=== PATIENT | female | born 1950 | race Caucasian/White ===

== ENCOUNTER 2019-07-03 08:23 | Outpatient (CLI) | payer MEDICARE, OTHER, SELFPAY ==
[2019-07-03 09:22] LABS: Add Urine Microscopic? YES; Appearance Urine Clear (Clear); Bacteria Urine Trace /hpf; Bilirubin Urine Negative (Negative); Blood Urine Negative (Negative); Color Urine Straw (Yellow); Glucose Urine UA Negative (Negative); Ketones Urine Negative (Negative); Leukocyte Esterase Ur 3+ LEU/UL (Negative); Mucus Urine Rare /lpf; Nitrate Urine Negative (Negative); Protein Urine Negative (Negative); RBC Urine 0-2 /hpf (0-2); Specific Grav Ur 1.011 (1.001-1.035); Squamous Epithelial Cell Urine Few /hpf (Few); Urobilinogen Urine Negative mg/dL (<2.0); WBC Urine 0-3 /hpf
== END 2019-07-03 08:24 | disposition home or self-care (01) ==
PROVIDERS: PCP Internal Medicine; Visit Provider Internal Medicine
DX: R30.0 Dysuria (principal)
CPT/HCPCS: 81001

== ENCOUNTER 2019-08-07 00:28 | Day surgery (SDC) | payer MEDICARE, OTHER, SELFPAY ==
[2019-08-02 09:43] VITALS: BMI 29.2
[2019-08-07 08:37] VITALS: BP 96/54; PULSE 64; RESP 16; TEMP 36.5; O2SAT 98
[2019-08-07] MEDS: LACTATED RINGERS 1,000 ML 150 ML IV CONT ×2 (08:46→10:06)
--- NOTE | 2019-08-07 09:21 | WPDGICN ---
Assessment and Plan Additional Plan This is a 68-year-old white female patient seen in evaluation at the request of Dr. Ghotra. Patient complains difficulty swallowing. She has a history Of dyspepsia and acid reflux. She has been on Prilosec for several years. Current we complains of food catching in the mid upper chest. In the throat area. She has a sensation of passing slowly through this area. Patient denies any bleeding. She denies any weight loss. Past medical history is significant for arthritis for which she takes ibuprofen, she has a history of GE reflux disease for which she takes Prilosec. Current medications include ibuprofen, Prilosec, hydrocortisone, paroxetine, fluticasone, fexofenadine, cyclobenzaprine, she reports allergies to sulfa medications. Family history noncontributory. Physical exam reveals her to be alert. Vital signs stable. HEENT exam unremarkable. Lungs are clear to auscultation and percussion. Heart is without murmur or extra sounds. Abdominal exam bowel sounds are present soft nontender with no organomegaly. Digital external rectal exam deferred day of exam. Impression 1. Dysphagia. 2. Epigastric pain. 3. Dyspepsia. Plan is for EGD to assess dysphagia and epigastric pain. Patient reports a history of GE reflux disease. Plan is to continue Prilosec for now further recommendations may be given after endoscopy. GI Consult Note Consult date/time: 08/07/19 09:21 HPI: Mago Vogel is a 68 year old female [facility] Social History Social History Smoking packs per day: 1 Smoking cigarettes per day: 20.0 Smoking status: Current every day smoker Tobacco type: cigarettes Second hand tobacco smoke exposure: Yes Alcohol intake: never Meds Home Medications and Allergies Home Medications Medication Instructions Recorded Confirmed Type cyclobenzaprine 10 mg tablet 10 mg PO .hs PRN tablet 06/24/19 08/02/19 History fexofenadine 180 mg tablet 180 mg PO DAILY 06/24/19 08/07/19 History fluticasone propionate 50 2 spray NASAL DAILY 06/24/19 08/07/19 History mcg/actuation nasal spray,suspension hydrocodone 5 mg-acetaminophen 325 1 tablet PO Q12H PRN tablet 06/24/19 08/02/19 History mg tablet paroxetine HCl 10 mg tablet 10 mg PO DAILY 06/24/19 08/07/19 History cholecalciferol (vitamin D3) 50 2,000 unit PO DAILY 06/25/19 08/07/19 History mcg (2,000 unit) capsule famciclovir 500 mg tablet 500 mg PO Q8H #30 tablet 06/25/19 08/07/19 Rx ibuprofen 600 mg PO BID 08/07/19 08/07/19 History Allergies Allergy/AdvReac Type Severity Reaction Status Date / Time Sulfa (Sulfonamide Allergy Mild made UTI Verified 08/07/19 08:34 Antibiotics) worse sulfanilamide Allergy Mild made uti Verified 08/07/19 08:34 worse Vital Signs Vital Signs - 24 hr 08/07/19 08:37 Temperature 36.5 C Pulse Rate 64 Respiratory Rate 16 Blood Pressure 96/54 L Pulse Oximetry 98
--- NOTE | 2019-08-07 09:52 | WPDANESEPPF ---
Anes - Initial Pre Proc Eval Procedure: Operation Date: 08/07/19 09:30 Proposed Procedures p Esophagogastroduodenoscopy - Td Castellano MD Date/Time: 08/07/19 09:52 Surgeon: Td Castellano MD Pre Op Diagnosis: Dysphagia Patient Data Age: 68 Gender: F Height: 5 ft 9 in Weight: 86.5 kg Last Vital Signs Temp 97.7 F 08/07/19 08:37 Pulse 64 08/07/19 08:37 Resp 16 08/07/19 08:37 BP 96/54 L 08/07/19 08:37 Pulse Ox 98 08/07/19 08:37 Allergies Allergy/AdvReac Type Severity Reaction Status Date / Time Sulfa (Sulfonamide Allergy Mild made UTI Verified 08/07/19 08:34 Antibiotics) worse sulfanilamide Allergy Mild made uti Verified 08/07/19 08:34 worse Home Medications Medication Instructions Recorded Confirmed Type cyclobenzaprine 10 mg tablet 10 mg PO .hs PRN tablet 06/24/19 08/02/19 History fexofenadine 180 mg tablet 180 mg PO DAILY 06/24/19 08/07/19 History fluticasone propionate 50 2 spray NASAL DAILY 06/24/19 08/07/19 History mcg/actuation nasal spray,suspension hydrocodone 5 mg-acetaminophen 325 1 tablet PO Q12H PRN tablet 06/24/19 08/02/19 History mg tablet paroxetine HCl 10 mg tablet 10 mg PO DAILY 06/24/19 08/07/19 History cholecalciferol (vitamin D3) 50 2,000 unit PO DAILY 06/25/19 08/07/19 History mcg (2,000 unit) capsule famciclovir 500 mg tablet 500 mg PO Q8H #30 tablet 06/25/19 08/07/19 Rx ibuprofen 600 mg PO BID 08/07/19 08/07/19 History Patient hx anesthesia problems: post op nausea/vomiting Family hx anesthesia problems: none PMFSH Past Medical History Medical History (Updated 08/07/19 @ 09:52 by Tolu Stark MD) Arthritis TIA (transient ischemic attack) none since 1985; unknown etiology after workup Social History Social History Smoking packs per day: 1 Smoking cigarettes per day: 20.0 Smoking status: Current every day smoker Tobacco type: cigarettes Second hand tobacco smoke exposure: Yes Alcohol intake: never Anes - Eval Final PreProcedure Day of Procedure 08/07/19 09:52 Patient weight: normal Heart: regular rate and rhythm Lungs: clear to auscultation Airway: Mallampati scale class II Neurological: alert and oriented Last oral intake: >/= 8 hours ASA classification: II Emergent: no Anesthetic plan: proceed Anesthesia type and monitoring: general GIVS and standard monitoring Informed Consent: The patient's anesthetic plan and its attendant risks and benefits were discussed with the patient/family/POA. Questions were solicited and answers provided to the satisfaction of the patient/family/POA.
[2019-08-07 10:30] VITALS: BP 85/55; PULSE 61; RESP 19; O2SAT 100
[2019-08-07 10:40] VITALS: BP 105/59; PULSE 64; RESP 16; O2SAT 100
[2019-08-07 10:50] VITALS: BP 107/55; PULSE 59; RESP 17; O2SAT 98
== END 2019-08-07 11:10 | disposition home or self-care (01) ==
PROVIDERS: PCP Internal Medicine; Visit Provider Internal Medicine Gastroenterology
PROC: 0DJ08ZZ Inspection of Upper Intestinal Tract, Via Natural or Artificial Opening Endoscopic (ICD-10-PCS; CPT 43235; principal; 2019-08-07 09:30)
DX: Q39.4 Esophageal web (principal); K21.9 Gastro-esophageal reflux disease without esophagitis; M19.90 Unspecified osteoarthritis, unspecified site; F17.210 Nicotine dependence, cigarettes, uncomplicated; Z86.73 Personal history of transient ischemic attack (TIA), and cerebral infarction without residual deficits
CPT/HCPCS: 43235; 43450; J2704; J7120

== ENCOUNTER 2020-01-21 08:50 | Emergency (ER) | payer MEDICARE, OTHER, SELFPAY ==
[2020-01-21] VITALS (24 sets, daily range): BP systolic 96–117; BP diastolic 49–62; PULSE 60–84; RESP 12–30; TEMP 36.6; O2SAT 92–100
--- NOTE | ~2020-01-21 | CT_ITS ---
EXAMINATION: CTA chest PE protocol EXAM DATE: 01/21/2020 11:20 INDICATION: Syncope. History of surgery 2 weeks ago. TECHNIQUE: Spiral CTA of the chest (pulmonary arteries) was performed with 100 cc Omnipaque 350 intr avenous contrast injection. Images were acquired during the pulmonary arterial phase. Coronal maxi mum intensity projection 3D-reconstructions were created by the technologist on dedicated workstation . Axial, coronal and sagittal reformatted images were reviewed. The dose-length product (DLP) for t his examination was 260.03 mGy-cm. The exposure was tailored according to patient size (auto mA exp osure control), and iterative reconstruction (ASIR) was used as additional dose reduction technique. There is no prior study for comparison. FINDINGS: Pulmonary arteries are well opacified and without intraluminal filling defects. No thora cic aortic dissection. The lungs are clear. There are no pleural or pericardial effusions. Trach eobronchial tree is patent. There is borderline enlarged aortopulmonary lymph node, probably reacti ve. There is no pneumothorax. Heart normal in size. There is minimal coronary arterial calcifica tion, arterial sclerosis. Several liver hypodensities consistent with cysts. There is thoracic spon dylosis without osteoblastic or osteolytic lesions identified. IMPRESSION: 1. No pulmonary emboli or acute findings. 2. Borderline size aortopulmonary lymph node probably reactive. Reviewed, dictated and finalized at location B.
--- NOTE | ~2020-01-21 | XR_ITS ---
EXAMINATION: XR ribs LT 2V w CXR 2V DATE: 01/21/2020 10:58 INDICATION: Left posterior rib pain. Fall. TECHNIQUE: Frontal and lateral views of the chest and 3 views of the left ribs were obtained. COMPARISON: Chest 2 views 04/22/2015 FINDINGS: CHEST TWO VIEWS: Calcified pulmonary nodules and calcified mediastinal lymph nodes are consistent wit h old granulomatous disease. No pleural effusion or pneumothorax. The heart size is normal. There are changes of anterior fusion procedure in cervical spine. Surgical clips in the right upper quadrant a re likely from cholecystectomy. LEFT RIBS: There is no rib fracture. IMPRESSION: 1. No rib fracture. Reviewed, dictated and finalized at location A. IMPRESSION: 1. No rib fracture.
--- NOTE | ~2020-01-21 | US_ITS ---
EXAMINATION: US venous doppler [facility] EXAM DATE: 01/21/2020 11:12 INDICATION: Left leg pain. TECHNIQUE: Multiple grayscale, color flow and Doppler images of the left lower extremity deep venous system were obtained and reviewed. There is no prior study for comparison. FINDINGS: The left common femoral, femoral and profunda veins demonstrate normal color flow, respirat ory variation, augmentation and compressibility. Compressibility, color flow confirmed within the le ft popliteal, posterior tibial, peroneal, and greater saphenous veins. IMPRESSION: 1. No left lower extremity deep venous thrombosis. Reviewed, dictated and finalized at location B.
--- NOTE | ~2020-01-21 | XR_ITS ---
EXAMINATION: XR knee LT 3V DATE: 01/21/2020 10:58 INDICATION: Left knee injury. TECHNIQUE: 3 views of left knee were obtained. COMPARISON: None. FINDINGS: There is a total left knee arthroplasty with patellar resurfacing in near-anatomic alignmen t. No fracture. No periprosthetic lucency to suggest loosening or infection. No knee joint effusion. IMPRESSION: 1. Total left knee arthroplasty in near-anatomic alignment. Reviewed, dictated and finalized at location A.
--- NOTE | 2020-01-21 08:54 | ECG_ITS ---
Measurements Intervals [place] Rate: 64 P: 30 PA: 148 QRS: -4 QRSD: 84 T: 32 QT: 406 QTc: 421 Interpretive Statements SINUS RHYTHM NONSPECIFIC T-WAVE ABNORMALITY- INFERIOR LEADS BASELINE ARTIFACT- III, AVR, AVL, AVF, V1-V3 BORDERLINE ECG Electronically Signed On 01-21-2020 12:00:42 CDT by Alexi Swanson D.O.
[2020-01-21 09:06] LABS: Basophils Absolute Auto 0.1 K/mm3 (0.0-0.1); Basophils Percent Auto 1.1 % (0.2-1.2); Eosinophils Absolute Auto 0.4 K/mm3 (0-0.3); Eosinophils Percent Auto 4.8 % (0-4.4); Hematocrit 36.2 % (37.0-47.0); Hemoglobin 12.1 g/dL (12.0-15.0); Immature Granulocyte Absolute 0.05 K/mm3 (0.00-0.031); Immature Granulocyte Percent A 0.6 % (0-0.5); Lymphocytes Absolute Auto 1.04 K/mm3 (0.9-3.2); Lymphocytes Percent Auto 12.7 % (18.3-44.2); Mean Corpuscular HGB Conc 33.4 g/dl (32-36); Mean Corpuscular Hemoglobin 31.7 pg (26-34); Mean Corpuscular Volume 94.8 fl (80-100); Mean Platelet Volume 9.3 fl (7.4-10.4); Monocytes Absolute Auto 0.4 K/mm3 (0.1-0.6); Monocytes Percent Auto 5.3 % (2.6-8.5); Neutrophils Absolute Auto 6.2 K/mm3 (1.3-6.7); Neutrophils Percent Auto 75.5 % (45.5-73.1); Platelet Count Result 293 k/mm3 (150-375); Red Blood Count 3.82 M/mm3 (4.2-5.4); Red Cell Distribution Width 13.6 % (11.5-14.5); White Blood Count 8.2 K/mm3 (4.5-10.0)
[2020-01-21 09:30] LABS: Anion Gap 5 mmol/L (8-16); Blood Urea Nitrogen 16 mg/dL (7-17); Calcium 8.9 mg/dL (8.4-10.2); Carbon Dioxide 26 mmol/L (22-30); Chloride 104 mmol/L (98-107); Estimated CRCL calculation 62 ml/min; Estimated Glomerular Filt Rate > 60; Glucose 106 mg/dL (65-105); Potassium 4.1 mmol/L (3.4-5.0); Sodium 135 mmol/L (137-145)
[2020-01-21 10:52] LABS: D Dimer 3.65 ug/mL (<0.48)
[2020-01-21 11:12] LABS: Troponin I < 0.012 ng/mL (0.000-0.034)
[2020-01-21] MEDS: SODIUM CHLORIDE 0.9% IV 1,000 ML 999 ML IV CONT (11:31)
--- NOTE | 2020-01-21 11:31 | ED.GENADULT ---
HPI - General Adult General Chief complaint: Syncope <REMINGTON Daugherty Last Filed: 01/21/20 13:08> Stated complaint: syncope <REMINGTON Daugherty Last Filed: 01/21/20 13:08> Time Seen by Provider: 01/21/20 10:08 <REMINGTON Daugherty Last Filed: 01/21/20 13:08> Source: patient and family <REMINGTON Daugherty Last Filed: 01/21/20 13:08> Mode of arrival: EMS <REMINGTON Daugherty Last Filed: 01/21/20 13:08> Limitations: no limitations <REMINGTON Daugherty Last Filed: 01/21/20 13:08> History of Present Illness HPI narrative: Patient is a 69-year-old female who presents with syncopal episodes x2 patient had one yesterday while sitting in a chair rolled over into the grass family was with the patient was unconscious for short period of time patient then had another syncopal episode today while sitting in her chair did not fall or sustain any injuries from the syncopal episode on arrival to emergency department patient notes mild discomfort of the left knee where she had a knee replacement 3 weeks ago patient also has some discomfort across the lower back and has a history of low back pain patient denies any head injury neck pain rectal bleeding or melena or any difficulty breathing or chest pain or URI symptoms. Patient notes mild pain to the right ribs. Patient on arrival in the room in no distress <REMINGTON Daugherty Last Filed: 01/21/20 13:08> Related Data Home medications: Home Medications Medication Instructions Recorded Confirmed fexofenadine 180 mg tablet 180 mg PO DAILY 06/24/19 08/07/19 fluticasone propionate 50 2 spray NASAL DAILY 06/24/19 08/07/19 mcg/actuation nasal spray,suspension hydrocodone 5 mg-acetaminophen 325 1 tablet PO Q12H PRN tablet 06/24/19 08/02/19 mg tablet paroxetine HCl 10 mg tablet 10 mg PO DAILY 06/24/19 08/07/19 cholecalciferol (vitamin D3) 50 2,000 unit PO DAILY 06/25/19 08/07/19 mcg (2,000 unit) capsule celecoxib [Celebrex] 100 mg PO BID 01/21/20 <Dominick Palacios PA-C - Last Filed: 01/21/20 13:08> Allergies/adverse reactions: Allergies Allergy/AdvReac Type Severity Reaction Status Date / Time Sulfa (Sulfonamide Allergy Mild made UTI Verified 01/21/20 08:56 Antibiotics) worse sulfanilamide Allergy Mild made uti Verified 01/21/20 08:56 worse <Dominick Palacios PA-C - Last Filed: 01/21/20 13:08> Review of Systems Review of Systems: All systems reviewed & are unremarkable except as noted in HPI and below <Dominick Palacios PA-C - Last Filed: 01/21/20 13:08> PMFSH Past Medical History Medical History: Medical History (Updated 01/21/20 @ 12:46 by Cassandra Lea MD) Arthritis TIA (transient ischemic attack) none since 1985; unknown etiology after workup <Dominick Palacios PA-C - Last Filed: 01/21/20 13:08> Surgical History Surgical History: Surgical History (Updated 01/21/20 @ 11:33 by Dominick Palacios PA-C) History of orthopedic surgery <Dominick Palacios PA-C - Last Filed: 01/21/20 13:08> Family History Family History: Family History Mother Family history of malignant neoplasm Patient's mother is Father Patient's father is Family history of emphysema <Dominick Palacios PA-C - Last Filed: 01/21/20 13:08> Social History Social History: Social History Smoking packs per day: 1 Smoking cigarettes per day: 20.0 Smoking status: Current every day smoker Tobacco type: cigarettes Second hand tobacco smoke exposure: Yes Alcohol intake: never Substance use: never <Dominick Palacios PA-C - Last Filed: 01/21/20 13:08> Exam Narrative: Exam Narrative: GENERAL: Well-appearing, well-nourished, and in no acute distress. HEAD: Normocephalic, atraumatic. EYES: PERRLA and EOMI. ENT: Nares
[2020-01-21] MEDS: ONDANSETRON INJ 4 MG/2 ML VIAL IV PUSH (11:32)
[2020-01-21] MEDS: FAMOTIDINE 20 MG/2 ML VIAL IV PUSH (11:32)
[2020-01-21 11:33] LABS: Partial Thromboplastin Time 28.6 SECONDS (22.3-36.8); Prothrombin Time 12.7 Seconds (11.1-14.7)
[2020-01-21 12:57] LABS: Add Urine Microscopic? NO; Appearance Urine Clear (Clear); Bilirubin Urine Negative (Negative); Blood Urine Negative (Negative); Color Urine Colorless (Yellow); Glucose Urine UA Negative (Negative); Ketones Urine Negative (Negative); Leukocyte Esterase Ur Negative LEU/UL (Negative); Nitrate Urine Negative (Negative); Protein Urine Negative (Negative); RBC Urine 0-2 /hpf (0-2); Squamous Epithelial Cell Urine Rare /hpf (Few); Urobilinogen Urine Negative mg/dL (<2.0); WBC Urine 0-3 /hpf
[2020-01-21 12:59] LABS: Specific Grav Ur 1.039 (1.001-1.035)
== END 2020-01-21 13:20 | disposition home or self-care (01) ==
PROVIDERS: Emergency Medicine Emergency Medical Services; Emergency Provider Emergency Medicine; PCP Internal Medicine
DX: G89.18 Other acute postprocedural pain (principal); Z96.652 Presence of left artificial knee joint; R55 Syncope and collapse; M19.90 Unspecified osteoarthritis, unspecified site; F17.210 Nicotine dependence, cigarettes, uncomplicated; Z86.73 Personal history of transient ischemic attack (TIA), and cerebral infarction without residual deficits; M79.605 Pain in left leg
CPT/HCPCS: 36415; 71046; 71100; 71275; 73562; 80048; 81003; 84484; 85025; 85380; 85610; 85730; 93005; 93971; 96365; 96375; 99284; J0131; J2405; J7030; Q9967

== ENCOUNTER 2020-02-03 16:14 | Outpatient (CLI) | payer MEDICARE, OTHER, SELFPAY ==
--- NOTE | ~2020-02-03 | MR_ITS ---
EXAMINATION: MR lumbar spine wo con DATE: 02/03/2020 17:15 INDICATION: Lumbar spinal stenosis. Fall 2 weeks prior. TECHNIQUE: Magnetic resonance imaging (MRI) of the lumbar spine was performed without intravenous con trast. Sequences included sagittal T2-weighted FSE, sagittal T2-weighted FS FSE, sagittal T1-weighted FSE, and axial T2-weighted FSE. COMPARISON: 09/22/2017 FINDINGS: 15 degree lumbar dextroscoliosis. 3 mm retrolisthesis L1 on L2, 3 mm retrolisthesis L2 on L3, 3 mm re trolisthesis and 4 mm right lateral listhesis of L3 on L4. Vertebral body heights are normal. Severe disc height loss at L1-L2. Mild to moderate left-sided predominant disc height loss at L2-L3 and L3-L 4. Disc desiccation without disc height loss at L4-L5. Fibrovascular degenerative endplate changes an teriorly at both sides of the L1-L2 disc space. Marrow signal is otherwise normal. The conus medullar is terminates at L1. There is normal signal in the caudal spinal cord. Paravertebral soft tissues are unremarkable. The following disc levels are specifically discussed: T12-L1: The disc does not extend beyond the endplate margin. There is moderate left and severe right facet joint osteoarthritis. There is minimal right neural foraminal stenosis. There is no central can al stenosis. L1-L2: Disc is bulging with annular fissure. There is severe bilateral facet joint osteoarthritis. Th ere is moderate left and mild right neural foraminal stenosis. There is mild central canal stenosis. L2-L3: Disc is bulging. There is severe bilateral facet joint osteoarthritis. There is mild right and moderate left neural foraminal stenosis. There is mild central canal stenosis. L3-L4: Disc is bulging. There is hypertrophy of the ligamentum flavum. There is severe bilateral fac et joint osteoarthritis. There is moderate bilateral, right greater than left neural foraminal stenos is. There is mild to moderate central canal stenosis. L4-L5: Disc is bulging with annular fissure. There is hypertrophy of the ligamentum flavum. There is severe bilateral facet joint osteoarthritis. There is mild left and moderate right neural foraminal stenosis. There is mild central canal stenosis. L5-S1: The disc does not extend beyond the endplate margin. There is severe bilateral facet joint ost eoarthritis. There is mild bilateral neural foraminal stenosis. There is no central canal stenosis. IMPRESSION: 1. Minimal progression of severe lumbar spondylosis. Reviewed, dictated and finalized at location B.
== END 2020-02-03 16:15 | disposition home or self-care (01) ==
PROVIDERS: PCP Physician Assistant; Visit Provider Physician Assistant
DX: M47.896 Other spondylosis, lumbar region (principal)
CPT/HCPCS: 72148

== ENCOUNTER 2020-07-24 17:12 | Emergency (ER) | payer MEDICARE, OTHER, SELFPAY ==
--- NOTE | ~2020-07-24 | CT_ITS ---
EXAMINATION: CT brain wo [facility] EXAM DATE: 07/24/2020 17:46 INDICATION: Stroke. TECHNIQUE: Spiral CT of the head was performed without contrast. Axial, coronal and sagittal images were reviewed. The dose-length product (DLP) for this examination was 605.33 mGy-cm. The exposure w as tailored according to patient size, and iterative reconstruction (ASIR) was used as additional dos e reduction technique. Comparison is made to prior examination from 04/22/2015. FINDINGS: There is no acute intraparenchymal hemorrhage. No evidence of intraparenchymal brain mass lesion. No evidence of acute infarction. There is no mass effect or midline shift. The ventricles are normal in size. There are no extra-axial collections. There are no acute calvarial fractures. P eunice has had bilateral ocular lens surgery. Soft tissue is unremarkable. The visualized sinuses a nd mastoid air cells are well aerated. IMPRESSION: 1. No acute intracranial findings. As per stroke protocol, I called these results to emergency room, discussed with charge nurse in the emergency room at 07/24/2020 17:49 STAFF DEVELOPMENT COORDINATOR RN . Reviewed, dictated and finalized at location A. F DEVELOPMENT COORDINATOR RN IMPRESSION: 1. No acute intracranial findings. As per stroke protocol, I called these results to emergency room, discussed wit h charge nurse in the emergency room at 07/24/2020 17:49 STAFF DEVELOPMENT COORDINATOR RN .
[2020-07-24 17:24] VITALS: BP 117/50; PULSE 63; RESP 18; TEMP 36.6; O2SAT 97
[2020-07-24 17:33] LABS: Glucose Point of Care 93 (65-105)
--- NOTE | 2020-07-24 17:43 | PC.NURSE ---
Pt to CT via w/c.
[2020-07-24 17:45] LABS: Basophils Absolute Auto 0.1 K/mm3 (0.0-0.1); Basophils Percent Auto 0.9 % (0.2-1.2); Eosinophils Absolute Auto 0.3 K/mm3 (0-0.3); Eosinophils Percent Auto 4.8 % (0-4.4); Hematocrit 40.2 % (37.0-47.0); Hemoglobin 13.5 g/dL (12.0-15.0); Immature Granulocyte Absolute 0.01 K/mm3 (0.00-0.031); Immature Granulocyte Percent A 0.2 % (0-0.5); Lymphocytes Absolute Auto 1.58 K/mm3 (0.9-3.2); Lymphocytes Percent Auto 24.6 % (18.3-44.2); Mean Corpuscular HGB Conc 33.6 g/dl (32-36); Mean Corpuscular Hemoglobin 32.3 pg (26-34); Mean Corpuscular Volume 96.2 fl (80-100); Mean Platelet Volume 10.1 fl (7.4-10.4); Monocytes Absolute Auto 0.5 K/mm3 (0.1-0.6); Monocytes Percent Auto 7.3 % (2.6-8.5); Neutrophils Percent Auto 62.2 % (45.5-73.1); Platelet Count Result 198 k/mm3 (150-375); Red Blood Count 4.18 M/mm3 (4.2-5.4); Red Cell Distribution Width 12.9 % (11.5-14.5); White Blood Count 6.4 K/mm3 (4.5-10.0)
[2020-07-24 17:54] LABS: INR 0.9; Prothrombin Time 12.7 Seconds (11.1-14.7)
[2020-07-24 17:55] LABS: Partial Thromboplastin Time 31.7 SECONDS (22.3-36.8)
[2020-07-24 17:57] LABS: Alanine Aminotransferase 21 U/L (4-35); Albumin Level 4.4 g/dL (3.5-5.1); Alkaline Phosphatase 74 U/L (38-126); Anion Gap 5 mmol/L (8-16); Aspartate Amino Transferase 27 U/L (14-36); Bilirubin,Total 0.3 mg/dL (0.2-1.3); Blood Urea Nitrogen 21 mg/dL (7-17); Calcium 9.1 mg/dL (8.4-10.2); Carbon Dioxide 26 mmol/L (22-30); Chloride 106 mmol/L (98-107); Estimated CRCL calculation 57 ml/min; Estimated Glomerular Filt Rate 55; Glucose 88 mg/dL (65-105); Potassium 4.4 mmol/L (3.4-5.0); Sodium 137 mmol/L (137-145)
[2020-07-24 18:09] LABS: Troponin I < 0.012 ng/mL (0.000-0.034)
--- NOTE | 2020-07-24 19:40 | PC.NURSE ---
patient present to triage with difficulty finding words and concentrating. states now has no symptoms. does not want to change into gown or have labs drawn and states would just like to talk to md and leave
--- NOTE | 2020-07-24 19:58 | ED.NEUROSD ---
HPI - Neuro Symptoms/Deficit General Chief Complaint: Suspected CVA Stated Complaint: difficulty speaking, poor concentration Time Seen by Provider: 07/24/20 19:45 History of Present Illness HPI Narrative: Patient is 69-year-old female who presents the emergency department with chief complaint of difficulty with speech. The patient reports she has history of a TIA in the and intermittently takes aspirin. Patient states that today she was at home and noticed that she started garbling her speech the patient states this was similar to whenever she had a TIA in the 1980s states that she had no weakness in her arms or legs denied facial droop Related Data Home Medications Medication Instructions Recorded Confirmed fexofenadine 180 mg tablet 180 mg PO DAILY 06/24/19 07/07/20 fluticasone propionate 50 2 spray NASAL DAILY 06/24/19 07/07/20 mcg/actuation nasal spray,suspension hydrocodone 5 mg-acetaminophen 325 1 tablet PO Q12H PRN tablet 06/24/19 02/03/20 mg tablet cholecalciferol (vitamin D3) 50 2,000 unit PO DAILY 06/25/19 07/07/20 mcg (2,000 unit) capsule celecoxib [Celebrex] 100 mg PO BID 01/21/20 07/07/20 diclofenac sodium 75 mg 75 mg PO BID 07/07/20 07/07/20 tablet,delayed release Allergies Allergy/AdvReac Type Severity Reaction Status Date / Time Sulfa (Sulfonamide Allergy Mild made UTI Verified 07/07/20 13:19 Antibiotics) worse sulfanilamide Allergy Mild made uti Verified 07/07/20 13:19 worse Review of Systems Review of Systems: Narrative: A 10 system review of systems was completed on the patient and is negative except for what is stated in the HPI. Nursing and ancillary documentation was reviewed. [facility] Past Medical History Medical History Arthritis TIA (transient ischemic attack) none since 1985; unknown etiology after workup Surgical History Surgical History History of orthopedic surgery Family History Family History Mother Family history of malignant neoplasm Patient's mother is Father Patient's father is Family history of emphysema Social History Social History Smoking packs per day: 1 Smoking cigarettes per day: 20.0 Smoking status: Current every day smoker Tobacco type: cigarettes Second hand tobacco smoke exposure: Yes Alcohol intake: never Substance use: never Gender identity (if verbalized by the patient): Female Exam Narrative: Exam Narrative: GENERAL: Well-appearing, well-nourished, and in no acute distress. HEAD: Normocephalic, atraumatic. EYES: PERRLA and EOMI. ENT: Nares clear, no rhinorrhea or epistaxis. Mucous membranes moist. NECK: Supple. CHEST: Clear to auscultation. No respiratory distress. HEART: Regular rate and rhythm. No murmur heard. Normal peripheral pulses. ABDOMEN: Soft, nontender, nondistended, normal active bowel sounds. EXTREMITIES: Normal range of motion. No edema. SKIN: Warm, dry, no rash. NEURO: No focal deficits. Alert and oriented x3. PSYCH: Normal mood and affect. Course Course Emergency Course: Patient is currently back to baseline mental status. Patient has no focal neurological deficits it was discussed with the patient admission for TIA work-up the patient at this time opted to follow-up her primary care physician as an outpatient. Vital Signs Vital signs: Vital Signs Temperature 36.6 C 07/24/20 17:24 Pulse Rate 63 07/24/20 17:24 Respiratory Rate 18 07/24/20 17:24 Blood Pressure 117/50 L 07/24/20 17:24 Pulse Oximetry 97 07/24/20 17:24 Temperature 36.6 C 07/24/20 17:24 Pulse Rate 63 07/24/20 17:24 Respiratory Rate 18 07/24/20 17:24 Blood Pressure 117/50 L 07/24/20 17:24 Pulse Oximetry 97
== END 2020-07-24 20:19 | disposition home or self-care (01) ==
PROVIDERS: Emergency Medicine; Emergency Provider Emergency Medicine; PCP Internal Medicine
DX: G45.9 Transient cerebral ischemic attack, unspecified (principal); M19.90 Unspecified osteoarthritis, unspecified site; F17.210 Nicotine dependence, cigarettes, uncomplicated; Z86.73 Personal history of transient ischemic attack (TIA), and cerebral infarction without residual deficits
CPT/HCPCS: 36415; 70450; 80053; 82948; 84484; 85025; 85610; 85730; 99284

== ENCOUNTER 2020-07-30 10:47 | Outpatient (CLI) | payer MEDICARE, OTHER, SELFPAY ==
--- NOTE | 2020-07-30 10:58 | ECHO_ITS ---
Patient Info Name: Mago Vogel Age: 69 years : 1950 Gender: Female Ht: 69 in Wt: 190 lbs BSA: 2.07 m2 HR: 63 bpm BP: 95 / 47 mmHg Technical Quality: Good Exam Date: 07/30/2020 11:14 AM Exam Location: [facility] Patient Status: Outpatient Admit Date: 07/30/2020 Staff Ordering Physician: Jose Antonio Ghotra DO Glass Lined Tank Repairer: Julianna Tena RDCS Attending Provider: Jose Antonio Ghotra DO Referring Physician: Paradise WOODRUFF; Exam Type: CA echo doppler color flow Study Info Indications - TIA Complete two-dimensional, color flow and Doppler transthoracic echocardiogram is performed. Summary 1. Complete two-dimensional, color flow and Doppler transthoracic echocardiogram is performed. 2. Left ventricular chamber dimension is normal. 3. Left ventricular systolic function is normal, estimated at 60-65%. 4. The left ventricular diastolic function is grade II diastolic dysfunction. 5. E/e' 9 is minimally elevated. 6. There is mild mitral valve regurgitation. 7. There is mild tricuspid valve regurgitation. 8. No pulmonary hypertension, estimated pulmonary arterial systolic pressure is 22 mmHg. Left Ventricle E/e' 9 is minimally elevated. Left ventricular chamber dimension is normal. Left ventricular systolic function is normal, estimated at 60-65%. The left ventricular diastolic function is grade II diastolic dysfunction. Right Ventricle Right ventricular chamber dimension is normal. Right ventricular systolic function is normal. Left Atria Left atrial chamber dimension is normal. Right Atria Right atrial chamber dimension is normal. Aortic Valve The aortic valve is trileaflet. There is no aortic valve stenosis. There is no aortic valve regurgitation. Pulmonic Valve There is no pulmonic regurgitation. Mitral Valve There is no mitral valve stenosis. There is mild mitral valve regurgitation. Tricuspid Valve There is mild tricuspid valve regurgitation. No pulmonary hypertension, estimated pulmonary arterial systolic pressure is 22 mmHg. Pericardium/Pleural There is no pericardial effusion. Inferior Vena Cava Normal inferior vena cava with >50% collapse upon inspiration consistent with normal right atrial pressure, 5 mmHg. Aorta The aortic root size at the sinus of Valsalva is normal. Left Ventricular Outflow Tract Name Value Normal LVOT 2D LVOT Diameter 2.0 cm LVOT Doppler LVOT Peak Gradient 5 mmHg LVOT Mean Gradient 3 mmHg LVOT VTI 22 cm LVOT VTI/AV VTI Ratio 0.9 LVOT Stroke Volume 67 ml LVOT CO 13.7 l/min LVOT CI 6.6 l/min/m2 Pulmonic Valve Name Value Normal PV Doppler PV Peak
== END 2020-07-30 10:48 | disposition home or self-care (01) ==
PROVIDERS: PCP Internal Medicine; Visit Provider Internal Medicine
DX: G45.9 Transient cerebral ischemic attack, unspecified (principal)
CPT/HCPCS: 93306

== ENCOUNTER 2020-08-03 10:59 | Outpatient (CLI) | payer MEDICARE, OTHER, SELFPAY ==
--- NOTE | ~2020-08-03 | MR_ITS ---
EXAMINATION: MR brain/brain stem wo con DATE: 08/03/2020 11:36 INDICATION: Transient cerebral ischemic attack, unspecified. Speech deficit. TECHNIQUE: Magnetic resonance imaging (MRI) of the brain and brainstem was performed without intraven ous contrast. Sequences included sagittal and axial T1-weighted FSE, axial diffusion-weighted FS EPI, axial T2*-weighted GRE, axial T2-weighted FLAIR Propeller, and axial T2-weighted Propeller. Apparent diffusion coefficient (ADC) maps were created. COMPARISON: Head CT 07/24/2020 FINDINGS: There are scattered areas of nonspecific increased T2-weighted signal intensity in the cere bral white matter, which is within normal limits for the patient's age. There is no intracranial hemo rrhage, acute infarction, or abnormal intracranial mass lesion. The ventricles are normal in size. Th ere is mild mucosal thickening in the paranasal sinuses. There are likely changes of ocular lens repl acement surgeries. The mastoid air cells are normal. IMPRESSION: 1. Normal aging brain. Reviewed, dictated and finalized at location A. IN MACHINE OPERATOR IMPRESSION: 1. Normal aging brain.
== END 2020-08-03 11:00 | disposition home or self-care (01) ==
PROVIDERS: PCP Internal Medicine; Visit Provider Internal Medicine
DX: G45.9 Transient cerebral ischemic attack, unspecified (principal)
CPT/HCPCS: 70551

== ENCOUNTER 2020-08-10 15:44 | Outpatient (CLI) | payer MEDICARE, OTHER, SELFPAY ==
--- NOTE | ~2020-08-10 | US_ITS ---
EXAMINATION: US carotid duplex BI DATE: 08/10/2020 16:36 INDICATION: TIA TECHNIQUE: Grayscale, color Doppler, and pulsed Doppler images of the cervical carotid arteries were obtained. The degree of vessel stenosis is placed in one of the following categories: normal, <50%, 5 0-69%, >=70% but less than near-occlusion, near-occlusion, or total occlusion. Note that percent sten osis relative to normal distal artery lumen diameter is indirectly measured from velocity measurement s as described by Haim, et al. Radiology 2003; 229:340-346. Notes: Normal: Peak systolic velocity <125 centimeters/sec and no plaque <50%. Peak systolic velocity <125 ( EDV <40; ICA/CCA PSV ratio <2.0; used these factors only a tandem lesions or low cardiac output or co ntralateral disease) 50-69 %: PSV 125-230 (EDV 40-100; ratio 2-4) >= 70% but less than near occlusion: PSV greater than 230 (EDV > 100; ratio> 4.0) Near Occlusion: PSV that is variable; markedly narrowed lumen Occlusion: Absent flow on color/spectral Doppler and no lumen on nance scale. COMPARISON: Ultrasound dated 01/22/2008. FINDINGS: RIGHT: The right common carotid artery (CCA) peak systolic velocity (PSV) is 106 cm/s. The right internal ca rotid artery (ICA) PSV is 86 cm/s. The right ICA end-diastolic velocity (EDV) is 27 cm/s. The right I CA/CCA PSV ratio is 0.8. The external carotid artery (ECA) PSV is 71 cm/s. There is antegrade flow in the right vertebral artery. LEFT: The left CCA PSV is 93 cm/s. The left ICA PSV is 109 cm/s. The left ICA EDV is 29 cm/s. The left ICA/ CCA PSV ratio is 1.2. The ECA PSV is 94 cm/s. There is antegrade flow in the left vertebral artery. IMPRESSION: 1. Less than 50% stenosis in the right internal carotid artery by sonographic criteria. 2. Less than 50% stenosis in the left internal carotid artery by sonographic criteria. Reviewed, dictated and finalized at location A. TICS FABRICATOR IMPRESSION: 1. Less than 50% stenosis in the right internal carotid artery by sonographic c bret. 2. Less than 50% stenosis in the left internal carotid artery by sonographic yomaira blum.
== END 2020-08-10 15:45 | disposition home or self-care (01) ==
PROVIDERS: PCP Internal Medicine; Visit Provider Internal Medicine
DX: G45.9 Transient cerebral ischemic attack, unspecified (principal); I65.23 Occlusion and stenosis of bilateral carotid arteries
CPT/HCPCS: 93880

== ENCOUNTER 2020-09-08 09:54 | Outpatient (CLI) | payer MEDICARE, OTHER, SELFPAY ==
--- NOTE | ~2020-09-08 | DEXA_ITS ---
Bone Density Report Name: Mago Vogel Age: 69 Sex: Female Ethnicity: White Date of : 1950 Indication: postmenopausal; parental hip fracture; height loss; hysterectomy; Referring Provider: Jose Antonio Ghotra Study: Bone densitometry was performed. Exam Date: September 08, 2020 Accession number: [id number] Bone Density: Region BMD T-score Z-score Classification AP Spine (L1, L3) 1.223 1.9 3.9 Normal World Health Organization criteria for BMD impression classify patients as: Normal (T-score at or above -1.0), Osteopenia (T-score between -1.0 and -2.5), or Osteoporosis (T-score at or below -2.5). Clinical Information Provided by Patient: Parent has had a hip fracture Smokes Has used the following medications: Vitamin D Has the following medical conditions: Hysterectomy Patient maximum height was 69 Menopause Age: 41 No regular weight bearing exercise Drinks caffeinated beverages Onset of menses at age 14 Number of children 2 Impression: The patient has normal bone mass. The patient has risk factors, including: parental hip fracture, smoking. Discussion: LOW RISK OF FRACTURE; BONE DENSITY IS WELL ABOVE THE MINIMUM DESIRABLE LEVEL AND ABOVE AVERAGE FOR AGE AND SEX AT ALL SKELETAL SITES TESTED. This person's bone density is above expected limits for age and sex. This is rarely clinically significant, but should be pursued if there are significant musculoskeletal complaints. The patient should follow a healthful lifestyle (good nutrition with adequate calcium and vitamin D, and appropriate weight-bearing exercise). Follow-Up: Consider repeating this study in 5 years or sooner if there is some new clinical indication. Reported by: CORKY on 09/08/2020 10:20:00 AM. Reviewed, dictated and finalized at location ASon STORY
== END 2020-09-08 09:55 | disposition home or self-care (01) ==
PROVIDERS: PCP Internal Medicine; Visit Provider Internal Medicine
DX: M81.0 Age-related osteoporosis without current pathological fracture (principal)
CPT/HCPCS: 77080

== ENCOUNTER 2020-09-22 09:13 | Outpatient (CLI) | payer MEDICARE, OTHER, SELFPAY ==
--- NOTE | ~2020-09-22 | MM_ITS ---
EXAMINATION: MM screening eyad BI w kevan HISTORY: Screening mammogram TECHNIQUE: Craniocaudal and mediolateral oblique 3-D tomosynthesis images were obtained and synthetic 2-D images were generated. CAD analysis was submitted and interpreted. COMPARISON: 05/10/2019, 10/19/2018, 09/27/2018, 07/12/2017 BREAST PARENCHYMAL COMPOSITION: The breasts are heterogeneously dense, which may obscure small masses . FINDINGS: Scattered benign-appearing calcifications are present. There is no evidence of suspicious m ass, calcification, or architectural distortion to suggest malignancy in either breast. There has bee n no suspicious interval change. IMPRESSION: 1. No mammographic evidence of malignancy. 2. Recommend routine screening mammography in one year. BI-RADS Category 2: Benign finding(s). Reviewed, dictated and finalized at location A.
== END 2020-09-22 09:14 | disposition home or self-care (01) ==
PROVIDERS: PCP Internal Medicine; Visit Provider Obstetrics & Gynecology
DX: Z12.31 Encounter for screening mammogram for malignant neoplasm of breast (principal)
CPT/HCPCS: 77063; 77067

== ENCOUNTER 2021-05-21 13:20 | Outpatient (CLI) | payer MEDICARE, OTHER, SELFPAY ==
--- NOTE | ~2021-05-21 | XR_ITS ---
EXAMINATION: XR chest 2V EXAM DATE: 05/21/2021 13:51 INDICATION: R05.9 - Cough, chest tightness, symptoms 2 weeks. TECHNIQUE: Frontal and lateral projections of the chest obtained and reviewed. Comparison is made to prior examination from 01/21/2020. FINDINGS: The lungs are clear. There are no pleural effusions. The cardiomediastinal silhouette is within normal limits. There is no pneumothorax suspected. Cervical fusion hardware. There are mild bony degenerative changes. IMPRESSION: No acute cardiopulmonary findings. Reviewed, dictated and finalized at location B. 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
== END 2021-05-21 13:21 | disposition home or self-care (01) ==
LOC: ANHIMG 13:24
PROVIDERS: PCP Internal Medicine; Visit Provider Internal Medicine
DX: R05.9 Cough, unspecified (principal)
CPT/HCPCS: 71046

== ENCOUNTER → 2021-05-22 00:48 | Outpatient (CLI) | payer MEDICARE, OTHER, SELFPAY ==
[2021-05-24 20:08] LABS: SARS-CoV-2 RNA PCR Negative
== END ==
PROVIDERS: PCP Internal Medicine; Visit Provider Internal Medicine
DX: R05.9 Cough, unspecified (principal); Z20.822 Contact with and (suspected) exposure to COVID-19
CPT/HCPCS: C9803; U0003; U0005

== ENCOUNTER 2021-08-30 11:00 | Outpatient (CLI) | payer MEDICARE, OTHER, SELFPAY ==
--- NOTE | ~2021-08-30 | XR_ITS ---
XR_CERV2-3V_CR DATE: 08/30/2021 11:26 INDICATION: Headache and bilateral neck pain for one month. Fusion 20 years ago. TECHNIQUE: AP, open-mouth, lateral views COMPARISON: None FINDINGS: C1 and C2 are normally aligned and the odontoid process appears intact. No fracture or disl ocation, locked facet or prevertebral soft tissue swelling. There is minimal retrolisthesis at C2-3. There is minimal anterolisthesis at C3-4 and C4-5. There is greater, approximately 2.5 mm, anterolist hesis at C6-7. Status post anterior cervical spine fusion at C5-6. Mild degenerative disc disease at C4-5 and C6-7. There is degenerative change at the apophyseal joints throughout the cervical spine. Uncovertebral joint spurring is noted in the mid and lower cervical spine. IMPRESSION: Status post anterior cervical spine fusion at C5-C6 Mild degenerative disc disease at C4-5 and C6-7 Minimal retrolisthesis at C2-3 Minimal anterolisthesis at C3-4 2.5 mm anterolisthesis at C6-7 Reviewed, dictated and finalized at Location A. Reviewed, dictated and finalized at location A.
== END 2021-08-30 11:01 | disposition home or self-care (01) ==
LOC: ANHIMG 11:06
PROVIDERS: PCP Internal Medicine; Visit Provider Internal Medicine
DX: R51.9 Headache, unspecified (principal); Z98.1 Arthrodesis status; M50.322 Other cervical disc degeneration at C5-C6 level; M53.82 Other specified dorsopathies, cervical region; M43.12 Spondylolisthesis, cervical region
CPT/HCPCS: 72040

== ENCOUNTER 2021-09-24 10:13 | Outpatient (CLI) | payer MEDICARE, OTHER, SELFPAY ==
--- NOTE | ~2021-09-24 | MM_ITS ---
EXAMINATION: MM screening eyad BI w kevan HISTORY: Screening mammogram TECHNIQUE: Craniocaudal and mediolateral oblique 3-D tomosynthesis images were obtained and synthetic 2-D images were generated. CAD analysis was submitted and interpreted. COMPARISON: September 22, 2020 bilateral screening mammogram May 10, 2019 and October 19, 2018 diagnostic right mammogram and limited right breast ultrasound September 27, 2018, July 12, 2017 bilateral screening mammogram examinations BREAST PARENCHYMAL COMPOSITION: There are scattered areas of fibroglandular density. FINDINGS: Stable mild fibroglandular asymmetry. Occasional benign calcifications. There is no evidenc e of suspicious mass, calcification, or architectural distortion to suggest malignancy in either [address]. There has been no suspicious interval change. IMPRESSION: 1. No mammographic evidence of malignancy. 2. Recommend routine screening mammography in one year. BI-RADS Category 2: Benign finding(s). Reviewed, dictated and finalized at location A.
== END 2021-09-24 10:14 | disposition home or self-care (01) ==
PROVIDERS: PCP Internal Medicine; Visit Provider Obstetrics & Gynecology
DX: Z12.31 Encounter for screening mammogram for malignant neoplasm of breast (principal)
CPT/HCPCS: 77063; 77067

== ENCOUNTER 2022-04-12 12:18 | Outpatient (CLI) | payer MEDICARE, OTHER, SELFPAY ==
--- NOTE | ~2022-04-12 | MR_ITS ---
EXAMINATION: MR lumbar spine wo con DATE: 04/12/2022 13:55 INDICATION: Low back pain. TECHNIQUE: Magnetic resonance imaging (MRI) of the lumbar spine was performed without intravenous con trast. Sequences included sagittal T2-weighted FSE, sagittal T2-weighted FS FSE, sagittal T1-weighted FSE, and axial T2-weighted FSE. COMPARISON: Lumbar spine MRI 02/03/2020 FINDINGS: There is 14 degrees dextroscoliosis of thoracolumbar spine. There is 3 mm retrolisthesis of L1 on L2, L2 on L3, and L3 on L4. Vertebral body heights are normal. There is severely decreased dis c height at L1-L2 and mildly decreased disc height from L2-L3 through L4-L5. The distal spinal cord s ignal intensity is normal. The conus medullaris is at L1. The following disc levels are specifically discussed: L1-L2: The disc is bulging and has an annular fissure. There is severe bilateral facet joint osteoart hritis. There is mild right and moderate left neural foraminal stenosis. There is mild central canal stenosis. L2-L3: The disc is bulging. There is moderate bilateral facet joint osteoarthritis. There is mild rig ht and moderate left neural foraminal stenosis. There is no central canal stenosis. L3-L4: The disc is bulging. There is severe bilateral facet joint osteoarthritis. There is moderate b ilateral neural foraminal stenosis. There is mild central canal stenosis. L4-L5: The disc is bulging and has an annular fissure. There is severe bilateral facet joint osteoart hritis. There is moderate right and mild left neural foraminal stenosis. There is mild central canal stenosis. L5-S1: The disc does not extend beyond the endplate margin. There is severe bilateral facet joint ost eoarthritis. There is mild left neural foraminal stenosis. There is no central canal stenosis. IMPRESSION: 1. Severe lumbar spondylosis, stable from 02/03/2020. 2. Thoracolumbar dextroscoliosis. Reviewed, dictated and finalized at location A. CAL CLERICAL ASSISTANT
== END 2022-04-12 12:19 | disposition home or self-care (01) ==
PROVIDERS: PCP Internal Medicine; Visit Provider Internal Medicine
DX: M54.9 Dorsalgia, unspecified (principal); M47.816 Spondylosis without myelopathy or radiculopathy, lumbar region; M41.86 Other forms of scoliosis, lumbar region
CPT/HCPCS: 72148

== ENCOUNTER 2022-09-07 13:29 | Outpatient (CLI) | payer MEDICARE, OTHER, SELFPAY ==
--- NOTE | ~2022-09-07 | CT_ITS ---
EXAMINATION:CT lung screening DATE: 09/07/2022 13:55 INDICATION: Nicotine dependence, cigarettes, uncomplicated. 40 pack year history. TECHNIQUE: Computed tomography (CT) of the chest was performed without intravenous contrast. Automate d exposure control and iterative reconstruction technique were employed. The dose-length product (DLP ) was 105.18 mGy-cm. COMPARISON: Chest CT 01/21/2020 FINDINGS: There is mild atelectasis bilaterally. There is mild bronchiectasis bilaterally. There is a 3 mm nodule in right upper lobe. There is a 3 mm nodule left upper lobe. There is a 2 mm nodule in l eft lower lobe. No pleural effusion. Calcified right hilar and mediastinal lymph nodes are consistent with old granulomatous disease. The heart size is normal. No pericardial effusion. There are coronar y artery calcifications. There are changes of cholecystectomy. There are changes of anterior fusion p rocedure in cervical spine. There is mild thoracic spondylosis. There is severe lumbar spondylosis. IMPRESSION: 1. Lung-RADS category 2: Benign appearance or behavior. Continue annual screening with noncontrast lo w-dose chest CT in 12 months. Reviewed, dictated and finalized at location A. IMPRESSION: 1. Lung-RADS category 2: Benign appearance or behavior. Continue annual screeni ng with noncontrast low-dose chest CT in 12 months.
== END 2022-09-07 13:30 | disposition home or self-care (01) ==
PROVIDERS: PCP Internal Medicine; Visit Provider Internal Medicine
DX: Z12.2 Encounter for screening for malignant neoplasm of respiratory organs (principal); F17.210 Nicotine dependence, cigarettes, uncomplicated
CPT/HCPCS: 71271

== ENCOUNTER 2022-09-23 11:16 | Outpatient (CLI) | payer MEDICARE, OTHER, SELFPAY ==
--- NOTE | 2022-09-23 11:27 | ECG_ITS ---
Measurements Intervals [place] Rate: 63 P: 25 MI: 140 QRS: -27 QRSD: 81 T: 62 QT: 379 QTc: 390 Interpretive Statements SINUS RHYTHM BORDERLINE LEFT AXIS DEVIATION [QRS AXIS < -20] BORDERLINE ECG COMPARED TO ECG 01/21/2020 08:49:53 NO SIGNIFICANT CHANGES Electronically Signed On 09-23-2022 15:36:59 CDT by Jarrod Contreras M.D.
[2022-09-23 11:45] LABS: Hematocrit 40.3 % (37.0-47.0); Hemoglobin 13.7 g/dL (12.0-15.0); Mean Corpuscular Hemoglobin 32.3 pg (26-34); Mean Platelet Volume 9.9 fl (7.4-10.4); Platelet Count Result 214 k/mm3 (150-375); Red Blood Count 4.24 M/mm3 (4.2-5.4); Red Cell Distribution Width 13.1 % (11.5-14.5)
[2022-09-23 11:52] LABS: Appearance Urine Clear (Clear); Bacteria Urine None Seen /hpf; Bilirubin Urine Negative (Negative); Blood Urine Negative (Negative); Color Urine Yellow (Yellow); Glucose Urine UA Negative (Negative); Ketones Urine Negative (Negative); Leukocyte Esterase Ur 1+ LEU/UL (NEGATIVE); Nitrate Urine Negative (Negative); Non Pathogenic Casts 0-2; Protein Urine Negative (Negative); RBC Urine 0-2 /hpf (0-2); Squamous Epithelial Cell Urine Occasional /hpf (Few); Urobilinogen Urine 0.2 mg/dL (<2.0); pH Urine 5.5 (5.0-9.0)
[2022-09-23 11:54] LABS: Anion Gap 5 mmol/L (8-16); Blood Urea Nitrogen 15 mg/dL (7-17); Calcium 8.9 mg/dL (8.4-10.2); Carbon Dioxide 28 mmol/L (22-30); Chloride 104 mmol/L (98-107); Estimated Glomerular Filt Rate 55; Glucose 89 mg/dL (65-110); Potassium 4.5 mmol/L (3.4-5.0); Sodium 137 mmol/L (137-145)
[2022-09-23 11:56] LABS: Prothrombin Time 12.9 Seconds (11.1-14.7)
[2022-09-23 11:57] LABS: Partial Thromboplastin Time 32.7 SECONDS (22.3-36.8)
[2022-09-23 11:58] LABS: Add Urine Microscopic? YES
== END 2022-09-23 11:17 | disposition home or self-care (01) ==
LOC: ANHSURGERY 11:22
PROVIDERS: PCP Internal Medicine; Visit Provider Neurological Surgery
DX: Z01.818 Encounter for other preprocedural examination (principal); R55 Syncope and collapse; R94.31 Abnormal electrocardiogram [ECG] [EKG]
CPT/HCPCS: 36415; 80048; 81001; 85027; 85610; 85730; 86850; 86900; 86901; 93005

== ENCOUNTER 2022-09-29 00:32 | Day surgery (SDC) | payer MEDICARE, OTHER, SELFPAY ==
[2022-09-22 09:37] VITALS: BMI 28.6
--- NOTE | 2022-09-22 10:04 | PC.NURSE ---
Report to the Outpatient Waiting Room, entrance under the green pavilion located off [facility], at time ___8:30AM____ on date ___09/29/22____. Planned Procedure Time: __10:30AM . Time changes happen often and if your time is changed the preop area will call you the afternoon before. - You and your visitor will be asked to self-screen and do not enter if you have any COVID symptoms. - A mask is optional within the hospital at this time. Patients may have clear liquids (water, carbonated beverages, clear teas, apple juice) until 3 hours prior to surgery with a maximum of 20 ounces. - No food from midnight until time of surgery Take the following medications with a SIP of water the morning of surgery: ____PAROXETINE, FLONASE, AZELASTINE AND HYDROCODONE NEEDED DO NOT STOP ANY OF YOUR OTHER PRESCRIPTION MEDICATIONS PRIOR TO SURGERY ?EXCEPT THE FOLLOWING Medications to discontinue per physician __HOLD ASPIRIN 7 DAYS PRE-OP PER DR KYLE(PER PATIENT)-LAST DOSE 09/22/22. HOLD ALL VITAMINS/SUPPLEMENTS 3 DAYS PRE-OP PER ANESTHESIA- LAST DOSE 09/25/22___ Please no make-up, nail wolof, hairspray, perfume, deodorant, or body powder the day of surgery. No jewelry (including any body piercings) or valuables the day of surgery, leave them at home. Please take a shower or bath the night before, or the morning of, surgery with an antibacterial soap. Wear comfortable, loose fitting clothing. Children are encouraged to wear pajamas. - Jewelry must be removed prior to entering the operating room. Rings and piercings that are not removed may be cut off. - The hospital will not accept responsibility for valuables. - Please leave all valuables, including medications, at home the day of surgery. If you are going home after surgery, a licensed truck driver heavy must drive you home. - NO public transportation without another adult if you receive anesthesia. - We recommend that an adult stay with you for 24 hours following discharge. - We also recommend that you do not drive, make important decision, drink alcoholic beverages, or take any drugs that were not prescribed by your health care provider for at least 24 hours after your discharge time. Follow any additional instructions given to you from your surgeon. If you or anyone in your household have experienced Covid symptoms in the past week, please notify your surgeon or the nurse liaison at the phone number below for possible testing. Telephone instructions given to ___PATIENT and asked if any additional questions and then verbalized understanding. Patient advised to call surgeon office or pre surgery nurse liaison [phone] if any additional questions.
[2022-09-29] VITALS (8 sets, daily range): BP systolic 98–136; BP diastolic 52–69; PULSE 65–100; RESP 16–22; TEMP 36.2–36.5; O2SAT 95–100
--- NOTE | ~2022-09-29 | XR_ITS ---
EXAMINATION: XR fluoroscopy no charge DATE: 09/29/2022 13:16 INDICATION: Left L3-L4 hemilaminectomy and left L4-L5 foraminotomy TECHNIQUE: Single lateral fluoroscopic spot image of the lower lumbar spine was obtained during proce dure performed by Dr Son Cartwright. Radiologist was not present for the imaging or procedure. The amount o f fluoroscopy time used during this procedure was 0.1 minutes. COMPARISON: None. FINDINGS: Tissue retractors and lap sponge projects over the soft tissues posterior to the spinous processes of the lower lumbar spine. The tip of a metallic probe projects over the posterior elements at the leve l of L3-L4. IMPRESSION: 1. Fluoroscopy utilized during neurosurgical procedure and the lower lumbar spine. See procedure note for further detail. Reviewed, dictated and finalized at location A. IMPRESSION: 1. Fluoroscopy utilized during neurosurgical procedure and the lower lumbar spi ne. See procedure note for further detail.
[2022-09-29] MEDS: LACTATED RINGERS 1,000 ML 30 ML IV CONT ×2 (09:15→13:06)
--- NOTE | 2022-09-29 10:06 | WPDANESEPPF ---
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 Patient Data Age: 71 Gender: F Height: 1.75 m Weight: 86 kg Last Vital Signs Temp 36.5 C 09/29/22 08:51 Pulse 65 09/29/22 08:51 Resp 16 09/29/22 08:51 BP 98/52 L 09/29/22 08:51 Pulse Ox 95 09/29/22 08:51 O2 Del Method Room Air 09/29/22 08:51 Allergies Allergy/AdvReac Type Severity Reaction Status Date / Time Sulfa (Sulfonamide AdvReac Mild made UTI Verified 09/29/22 08:31 Antibiotics) worse Home Medications Medication Instructions Recorded Confirmed Type fexofenadine 180 mg tablet 180 mg PO DAILY 06/24/19 09/29/22 History (Nancy Allergy) fluticasone propionate 50 2 spray intranasal DAILY 06/24/19 09/29/22 History mcg/actuation nasal spray,suspension (Flonase Allergy Relief) cholecalciferol (vitamin D3) 50 2,000 unit PO DAILY 06/25/19 09/29/22 History mcg (2,000 unit) capsule magnesium oxide 400 mg PO BID 06/09/21 09/29/22 History diclofenac sodium 75 mg 75 mg PO BID #180 tabs 09/02/22 09/29/22 Rx tablet,delayed release esomeprazole magnesium 40 mg 40 mg PO DAILY #90 caps 09/02/22 09/29/22 Rx capsule,delayed release azelastine 137 mcg (0.1 %) nasal 2 spray intranasal Q12H PRN Sinus 09/22/22 09/29/22 History spray aerosol Symptoms cyclobenzaprine 10 mg tablet 10 mg PO BID PRN PAIN 09/22/22 09/29/22 History famciclovir 500 mg tablet 500 mg PO Q8H PRN Cold Sores 09/22/22 09/22/22 History oxybutynin chloride 5 mg 5 mg PO DAILY #90 tabs 09/22/22 09/29/22 Rx tablet,extended release 24 hr paroxetine HCl 10 mg tablet 10 mg PO QAM 09/22/22 09/29/22 History hydrocodone 5 mg-acetaminophen 325 1 tablet PO Q12H PRN Pain #14 tabs 09/23/22 09/29/22 Rx mg tablet Patient hx anesthesia problems: none Family hx anesthesia problems: none Results Review: All pre-operative results and documents have been reviewed as part of the pre-operative evaluation. [facility] Past Medical History Medical History Anxiety Arthritis History of breast implant removal (~1993) Screening mammogram, encounter for TIA (transient ischemic attack) none since 1985; unknown etiology after workup Surgical History Surgical History History of back surgery (~2000) L2-3 History of breast augmentation (~1979) History of breast biopsy (06/11/15) (R) breast--benign-done @ [facility] History of cholecystectomy (~03/2017) History of fusion of cervical spine (~2005) C5-6 History of hip replacement 2010 (R) hip 2014 (L) hip History of knee replacement procedure of left knee (~01/30/00) History of lumpectomy of right breast (~1982) History of total abdominal hysterectomy and bilateral salpingo-oophorectomy (~1998) menorrhagia/bladder repair Family History Family History Mother Family history of malignant neoplasm Patient's mother is Father Patient's father is Family history of emphysema Social History Social History Smoking packs per day: 1 Smoking cigarettes per day: 20.0 Years smoked: 50 Smoking pack-years: 50.00 Smoking status: Current every day smoker Tobacco type: cigarettes Second hand tobacco smoke exposure: Yes Additional smoking assessment comments: CURRENTLY SMOKING 1/2 PACK/DAY Alcohol intake: never Substance use: never Substance use type: does not use Lack of Transportation: No Lack of Food: Never True Current Housing: I Have Housing Concerned About Future Housing: No Difficulty Paying G
--- NOTE | 2022-09-29 10:40 | PM.IMHP ---
H&P: HPI History of Present Illness Date/Time: 09/29/22 10:40 Chief Complaint: Back and left leg pain Narrative: Mago is a 71-year-old female with back and left lower extremity pain related to an L4 radiculopathy because of neurocompressive pathology in the central canal at L3 free for and in the foramen at L4-5. She presents for simple decompression by way of left L3-4 hemilaminectomy and L4-5 foraminotomy. She has not changed appreciably since we last saw her. She does not have specific muscle group weakness or dermatomal numbness. She is not having bowel or bladder difficulty. Review of Systems Review of Systems: Patient denies shortness of breath, cough, fever, chills, nausea, vomiting, weight loss, weight gain, chest pain, dysuria. She has back and leg pain as above. Review of systems is otherwise negative on 12 systems except as noted PMFSH Past Medical History Medical History Anxiety Arthritis History of breast implant removal (~1993) Screening mammogram, encounter for TIA (transient ischemic attack) none since 1985; unknown etiology after workup Surgical History Surgical History History of back surgery (~2000) L2-3 History of breast augmentation (~1979) History of breast biopsy (06/11/15) (R) breast--benign-done @ [facility] History of cholecystectomy (~03/2017) History of fusion of cervical spine (~2005) C5-6 History of hip replacement 2010 (R) hip 2014 (L) hip History of knee replacement procedure of left knee (~01/30/00) History of lumpectomy of right breast (~1982) History of total abdominal hysterectomy and bilateral salpingo-oophorectomy (~1998) menorrhagia/bladder repair Family History Family History Mother Family history of malignant neoplasm Patient's mother is Father Patient's father is Family history of emphysema Social History Social History Smoking packs per day: 1 Smoking cigarettes per day: 20.0 Years smoked: 50 Smoking pack-years: 50.00 Smoking status: Current every day smoker Tobacco type: cigarettes Second hand tobacco smoke exposure: Yes Additional smoking assessment comments: CURRENTLY SMOKING 1/2 PACK/DAY Alcohol intake: never Substance use: never Substance use type: does not use Lack of Transportation: No Lack of Food: Never True Current Housing: I Have Housing Concerned About Future Housing: No Difficulty Paying Gas/Electric Bills: No Difficulty Paying for Meds: No Currently Unemployed: No Difficulty w/ Childcare or Family Care: No Living arrangements: other Additional living arrangements comments: Occupation/Education: retired Gender identity (if verbalized by the patient): Female Sexual Orientation (if Verbalized by the Patient): Straight or Heterosexual Spiritual care concerns: No Meds Home Medications and Allergies Home Medications Medication Instructions Recorded Confirmed Type fexofenadine 180 mg tablet 180 mg PO DAILY 06/24/19 09/29/22 History (Nancy Allergy) fluticasone propionate 50 2 spray intranasal DAILY 06/24/19 09/29/22 History mcg/actuation nasal spray,suspension (Flonase Allergy Relief) cholecalciferol (vitamin D3) 50 2,000 unit PO DAILY 06/25/19 09/29/22 History mcg (2,000 unit) capsule magnesium oxide 400 mg PO BID 06/09/21 09/29/22 History diclofenac sodium 75 mg 75 mg PO BID #180 tabs 09/02/22 09/29/22 Rx tablet,delayed release esomeprazole magnesium 40 mg 40 mg PO DAILY #90 caps 09/02/22 09/29/22 Rx capsule,delayed release azelastine 137 mcg (0.1 %) nasal 2 spray intranasal Q12H PRN Sinus 09/22/22 09/29/22 History spray aerosol Symptoms cyclobenzaprine 10 mg tablet 10 mg PO BID PRN PAIN 04
--- NOTE | 2022-09-29 10:42 | WPDHPUPDATE1 ---
History and Physical Update Update Date/Time: 09/29/22 10:42 History and Physical has been reviewed, including an updated exam of the patient. There are NO changes in the patient's condition. Risks, benefits, and alternatives have been discussed and questions answered. Patient agrees to proceed with procedure.
[2022-09-29] MEDS: ceFAZolin 2 GM/D5W 50 ML 2 GM/50 ML BAG IVPB (11:16)
[2022-09-29] MEDS: HEMOSTATIC MATRIX (SURGIFLO with THROMBIN) KIT 1 KIT XX (11:56)
[2022-09-29] MEDS: LIDO 1%/EPINEPHRINE 1:100,000 20 ML VIAL INFILTRATE (11:56)
[2022-09-29] MEDS: oxyCODONE HCL (*CRX) 5 MG TAB IR PO (13:57)
--- NOTE | 2022-10-03 08:59 | P.OP_ITS ---
Procedure Note - Detailed Date of Procedure 10/03/22 Pre-op Diagnosis Left L3-4 lateral stenosis, L4-5 tyson stenosis Post-op Diagnosis Same Procedure Performed Left L3-4 hemilaminectomy L4-5 foraminotomy Surgeon Giorgi Garza MD Anesthesia General Description of Procedure the patient was brought to the operating room in supine position, was sedated, intubated and placed under general anesthesia in routine fashion. She was then turned into the prone position on a Jose A frame. The area of operation on her back was examined, marked for incision, prepped and draped in routine sterile fashion. Incision was marked out L3 through 5 spinous processes in the midline. This area was injected with 0.5% lidocaine with [id number] epinephrine. Intravenous antibiotics given prior to incision. Incision was made with a 10 blade scalpel down to the lumbodorsal fascia. A subperiosteal dissection of the muscle soft tissue away from the spinous process lamina at L3 through 5 on the left was performed with a subperiosteal elevator and Bovie cautery. A verifying x-rays obtained to verify the level of oper ation. Midas-Frantz drill was used to perform a hemilaminectomy and medial facetectomy at L3-4 and a limited bony foraminotomy at L4-5. Under microscopy the yellow ligament was lifted and removed piecemeal using Kerrison punches. In the lateral recess curved curette was used to define a plane with dura and additional bone and ligament was removed using Kerrison punches. This was followed towards the L4-5 foramen. The L4 nerve root was identified and followed towards the foramen. Kerrison punches and curved curettes were used to define a plane with the dura and removed bone and ligament until a dental instrument could be placed above and below the nerve both in the lateral recess and the foramen to confirm lack of compression. The wound was then copiously irrigated with bacitracin irrigation all bleeding stopped with bipolar Bovie cautery and Gelfoam thrombin powder. The wound was then closed in layered fashion with 2-0 Vicryl interrupted sutures in the lumbodorsal fascia and Jaz's layer. 3-0 Vicryl buried interrupted sutures were placed in the dermis and skin was closed with a running 4-0 Monocryl subcuticular stitch and dressed with Dermabond. The patient was then allowed to wake up in the operating room was taken to the recovery room in stable condition. There were no immediate complications of this operation. All counts were reported correct in the case. Blood loss was 25 cc. The patient was neurologically at her baseline postoperatively. CPT codes: 20572, 39962 Estimated Blood Loss -25.0 IV Fluids 1,000 Complications None Condition Stable Disposition PACU [facility] Billing Surgery - Charge Forward: Surgery Billing
== END 2022-09-29 14:48 | disposition home or self-care (01) ==
PROVIDERS: PCP Internal Medicine; Visit Provider Neurological Surgery
PROC: (CPT 63005; principal; 2022-09-29 10:30)
DX: M48.061 Spinal stenosis, lumbar region without neurogenic claudication (principal); F41.9 Anxiety disorder, unspecified; Z86.73 Personal history of transient ischemic attack (TIA), and cerebral infarction without residual deficits; Z98.1 Arthrodesis status; F17.210 Nicotine dependence, cigarettes, uncomplicated
CPT/HCPCS: 63047; 63030; 99199; A9270; J0330; J0690; J1100; J2250; J2370; J2405; J2704; J3010; J7120

== ENCOUNTER 2022-11-14 12:47 | Outpatient (CLI) | payer MEDICARE, OTHER, SELFPAY ==
--- NOTE | ~2022-11-14 | XR_ITS ---
XR lumbar spine 2-3V 11/14/2022 13:10 Indication: Back pain Procedure: 3 views lumbar spine Comparison: No prior studies for comparison. Findings: There is disc narrowing at all lumbar levels. There is advanced facet hypertrophy at L3-4 t hrough L5-S1. There is dextroscoliosis. No acute fracture or traumatic malalignment. There are cholec ystectomy clips. There are bilateral hip arthroplasties partially visualized. Impression: 1: Severe lumbar spondylosis with dextroscoliosis. Reviewed, dictated and finalized at location L. Impression: 1: Severe lumbar spondylosis with dextroscoliosis.
== END 2022-11-14 12:48 | disposition home or self-care (01) ==
LOC: ANHIMG 12:51
PROVIDERS: PCP Internal Medicine; Visit Provider Neurological Surgery
DX: M47.816 Spondylosis without myelopathy or radiculopathy, lumbar region (principal); Z98.890 Other specified postprocedural states
CPT/HCPCS: 72100

== ENCOUNTER 2022-11-17 10:05 | Outpatient (CLI) | payer MEDICARE, OTHER, SELFPAY ==
--- NOTE | ~2022-11-17 | MM_ITS ---
EXAMINATION: MM screening [facility] BI w kevan HISTORY: Screening mammogram TECHNIQUE: Craniocaudal and mediolateral oblique 3-D tomosynthesis images were obtained and synthetic 2-D images were generated. CAD analysis was submitted and interpreted. COMPARISON: September 24, 2021, September 22, 2020 bilateral screening mammogram examinations BREAST PARENCHYMAL COMPOSITION: There are scattered areas of fibroglandular density. FINDINGS: Biopsy marker in the right; history of prior benign right breast biopsy. Stable mild fibroglandular asymmetry. Grouped indeterminate pleomorphic calcifications are noted deep in the upper outer right breast; diag nostic right mammogram and right breast ultrasound examination are recommended. Occasional benign calcifications are again noted. With the exception of the indeterminate grouped victorino rocalcifications, there is no evidence of suspicious mass, calcification, or architectural distortion to suggest malignancy in either breast. There has been no other suspicious interval change. IMPRESSION: 1. Grouped indeterminate pleomorphic microcalcifications in the posterior upper outer right breast 2. Diagnostic right mammogram and right breast ultrasound examination are recommended BI-RADS Category 0: Incomplete: Needs additional imaging evaluation. Reviewed, dictated and finalized at location A. IMPRESSION: 1. Grouped indeterminate pleomorphic microcalcifications in the posterior upper outer right breast 2. Diagnostic right mammogram and right breast ultrasound examination are recom mended BI-RADS Category 0: Incomplete: Needs additional imaging evaluation.
== END 2022-11-17 10:06 | disposition home or self-care (01) ==
LOC: ANHIMG 10:08
PROVIDERS: PCP Internal Medicine; Visit Provider Obstetrics & Gynecology
DX: Z12.31 Encounter for screening mammogram for malignant neoplasm of breast (principal); R92.0 Mammographic microcalcification found on diagnostic imaging of breast
CPT/HCPCS: 77063; 77067

== ENCOUNTER 2022-12-20 12:08 | Outpatient (CLI) | payer MEDICARE, OTHER, SELFPAY ==
--- NOTE | ~2022-12-20 | MMUS_ITS ---
EXAMINATION: MM diagnostic mammo unilat RT, US breast RT limited HISTORY: Follow-up right breast calcifications TECHNIQUE: Additional 3-D tomosynthesis images of the right breast were performed and synthetic 2-D i mages were generated. CAD analysis was submitted and interpreted. High resolution Limited right breas t ultrasound was performed. COMPARISON: 11/17/2022 BREAST PARENCHYMAL COMPOSITION: Breast composed of scattered areas of fibroglandular density FINDINGS: MAMMOGRAPHIC FINDINGS: There are clustered indeterminate calcifications in the upper outer quadrant of the right breast post eriorly just anterior to the pectoralis muscle. There does suspicious masses or architectural distort ion. ULTRASOUND: Complete US of all 4 quadrants of the right breast and retroareolar region was reviewed. Normal heter ogeneous echotexture without focal solid or cystic mass. IMPRESSION: 1. Clustered indeterminate right breast calcifications upper outer quadrant posteriorly. 2. Stereotactic right breast biopsy recommended. BI-RADS category 4, suspicious findings. Reviewed, dictated and finalized at location A. IMPRESSION: 1. Clustered indeterminate right breast calcifications upper outer quadrant pos teriorly. 2. Stereotactic right breast biopsy recommended. BI-RADS category 4, suspicious findings.
== END 2022-12-20 12:09 | disposition home or self-care (01) ==
PROVIDERS: PCP Internal Medicine; Visit Provider Obstetrics & Gynecology
DX: R92.0 Mammographic microcalcification found on diagnostic imaging of breast (principal); R92.1 Mammographic calcification found on diagnostic imaging of breast
CPT/HCPCS: 76642; 77065

== ENCOUNTER 2023-01-24 15:32 | Outpatient (CLI) | payer MEDICARE, OTHER, SELFPAY ==
[2023-01-24 16:48] LABS: Erythrocyte Sedimentation Rate 16 mm/hr (0-20)
[2023-01-24 16:53] LABS: CRP < 0.5 mg/dL (<1.0)
== END 2023-01-24 15:33 | disposition home or self-care (01) ==
PROVIDERS: PCP Internal Medicine
DX: H53.40 Unspecified visual field defects (principal); Z96.1 Presence of intraocular lens; D31.32 Benign neoplasm of left choroid
CPT/HCPCS: 36415; 85652; 86140

== ENCOUNTER 2023-08-17 13:30 | Outpatient (CLI) | payer MEDICARE, OTHER, SELFPAY ==
[2023-08-17 14:23] LABS: Appearance Urine Clear (Clear); Bacteria Urine None Seen /hpf; Bilirubin Urine Negative (Negative); Blood Urine Non-Hemolyzed Trace (Negative); Color Urine Yellow (Yellow); Glucose Urine UA Negative (Negative); Ketones Urine Negative (Negative); Leukocyte Esterase Ur 2+ LEU/UL (Negative); Nitrate Urine Negative (Negative); Non Pathogenic Casts 0-2; Protein Urine Negative (Negative); RBC Urine 0-2 /hpf (0-2); Specific Grav Ur 1.008 (1.001-1.035); Squamous Epithelial Cell Urine None Seen /hpf (Few); Urobilinogen Urine 0.2 mg/dL (<2.0); WBC Urine 21-50 /hpf (0-3)
[2023-08-17 14:24] LABS: Add Urine Microscopic? YES
== END 2023-08-17 13:31 | disposition home or self-care (01) ==
PROVIDERS: PCP Internal Medicine; Visit Provider Physician Assistant
DX: R30.0 Dysuria (principal)
CPT/HCPCS: 87086; 87088

== ENCOUNTER 2024-01-17 13:15 | Outpatient (CLI) | payer MEDICARE, OTHER, SELFPAY ==
--- NOTE | ~2024-01-17 | CT_ITS ---
EXAMINATION: CT lung screening DATE: 01/17/2024 13:29 INDICATION: F17.210 - Nicotine dependence, cigarettes, uncomplicated TECHNIQUE: Computed tomography (CT) of the chest was performed without intravenous contrast. Addition al 3D reconstructions utilizing coronal maximum intensity projection (MIP) were performed. Automated exposure control and iterative reconstruction technique were employed. The dose-length prod uct was 83.58 mGy-cm. COMPARISON: None FINDINGS: Unchanged small regions of peripheral atelectasis/scarring at the medial aspect of the right middle l obe and lingula. There are a few new small nodules clustered in the anterior segment of the right upp er lobe with the largest nodule measuring up to 4-5 mm. There are a few additional 3 mm smaller pulmo nary nodules in both lungs few of which could represent peripheral mucous plugging. Calcified right l ower lobe nodule along with calcified right hilar and mediastinal lymph nodes consistent with old gra nulomatous disease. No pleural effusion. Heart size is normal. Minimal atherosclerotic coronary arter y calcific lesion. No pericardial effusion. Thoracic aorta is normal in caliber. Cholecystectomy clip s the gallbladder fossa. Mild thoracic and severe upper lumbar spondylosis. IMPRESSION: Lung-RADS category 3: Probably benign. Further evaluation is recommended with noncontrast low-dose ch est CT in 6 months. Reviewed, dictated and finalized at location A. IMPRESSION: Lung-RADS category 3: Probably benign. Further evaluation is recommended with n oncontrast low-dose chest CT in 6 months.
== END 2024-01-17 13:16 | disposition home or self-care (01) ==
LOC: ANHIMG 13:17
PROVIDERS: PCP Internal Medicine; Visit Provider Internal Medicine
DX: Z12.2 Encounter for screening for malignant neoplasm of respiratory organs (principal); F17.210 Nicotine dependence, cigarettes, uncomplicated
CPT/HCPCS: 71271

== ENCOUNTER 2024-03-27 14:35 | Outpatient (CLI) | payer MEDICARE, OTHER, SELFPAY ==
--- NOTE | ~2024-03-27 | MR_ITS ---
EXAMINATION: MR lumbar spine wo con DATE: 03/27/2024 15:04 INDICATION: Spinal stenosis, lumbar region. Low back pain. TECHNIQUE: Magnetic resonance imaging (MRI) of the lumbar spine was performed without intravenous con trast. Sequences included sagittal T2-weighted FSE, sagittal T2-weighted FS FSE, sagittal T1-weighted FSE, and axial T2-weighted FSE. COMPARISON: Lumbar spine MRI 04/12/2022 FINDINGS: There is 12 degrees dextroscoliosis of thoracolumbar spine. There is 3 mm retrolisthesis of L1 on L2 and L2 on L3 and 4 mm retrolisthesis of L3 on L4. Vertebral body heights are normal. There is severely decreased disc height at L1-L2 and moderately decreased disc height at L2-L3, L3-L4, and L4-L5. The distal spinal cord signal intensity is normal. The conus medullaris is at T12-L1. There is a 12 mm cyst in left kidney. The following disc levels are specifically discussed: L1-L2: The disc is bulging and has an annular fissure. There is severe bilateral facet joint osteoart hritis. There is mild right and moderate left neural foraminal stenosis. There is mild central canal stenosis. L2-L3: The disc is bulging and has an annular fissure. There is severe bilateral facet joint osteoart hritis. There is mild right and moderate left neural foraminal stenosis. There is mild central canal stenosis. L3-L4: The disc is bulging and has an annular fissure. There is severe bilateral facet joint osteoart hritis. There is moderate bilateral neural foraminal stenosis. There is mild central canal stenosis. L4-L5: The disc is bulging. There is severe bilateral facet joint osteoarthritis. There is mild bilat eral neural foraminal stenosis. There is no central canal stenosis. L5-S1: The disc does not extend beyond the endplate margin. There is severe bilateral facet joint ost eoarthritis. There is mild left neural foraminal stenosis. There is no central canal stenosis. IMPRESSION: 1. Severe lumbar spondylosis, stable from 04/12/2022. 2. Thoracolumbar dextroscoliosis. Reviewed, dictated and finalized at location A.
== END 2024-03-27 14:36 | disposition home or self-care (01) ==
PROVIDERS: PCP Internal Medicine; Visit Provider Internal Medicine
DX: M47.816 Spondylosis without myelopathy or radiculopathy, lumbar region (principal); M41.85 Other forms of scoliosis, thoracolumbar region; M48.061 Spinal stenosis, lumbar region without neurogenic claudication
CPT/HCPCS: 72148

== ENCOUNTER 2024-04-30 07:37 | Day surgery (SDC) | payer MEDICARE, OTHER, SELFPAY ==
[2024-04-16 13:44] VITALS: BMI 28.0
--- NOTE | ~2024-04-30 | XR_ITS ---
XR fluoroscopy no charge Indication: Bilateral intra-articular sacroiliac joint steroid injection TECHNIQUE: Fluoroscopy used during Bilateral intra-articular sacroiliac joint steroid injection perf ormed by Dr. Any Bailey MD on 04/30/2024. 2 seconds of fluoroscopy with 56 images captured. FINDINGS: Correlate with procedure note. IMPRESSION: Fluoroscopy used during Bilateral intra-articular sacroiliac joint steroid injection. Reviewed, dictated and finalized at location B. F COOK
--- NOTE | 2024-04-30 05:33 | WPDHPUPDATE1 ---
History and Physical Update Update Date/Time: 04/30/24 05:33 History and Physical has been reviewed, including an updated exam of the patient. There are NO changes in the patient's condition. Risks, benefits, and alternatives have been discussed and questions answered. Patient agrees to proceed with procedure.
--- NOTE | 2024-04-30 05:34 | P.OP_ITS ---
Procedure Note - Detailed Date of Procedure 04/30/24 Pre-op Diagnosis Post Laminectomy Syndrome, Sacroiliitis Post-op Diagnosis Same Procedure Performed bilateral Sacroiliac Joint Steroid Injection under Fluoroscopic Guidance and with Contrast Control. Surgeon Jules Bailey MD [employer] None Anesthesia Local Description of Procedure INFORMED CONSENT: Risks, benefits and alternatives to the procedure were discussed in detail with the patient who expressed explicit understanding and consent to proceed. Patient was informed verbally and in written form regarding the risks associated with the procedure including the low risk of serious infection, bleeding/bruising, allergic reaction, nerve or organ injury, paralysis, procedural site pain or discomfort, worsening pain and/or mobility, failure to treat and/or disfigurement. The patient expressed explicit understand ing and consent to proceed. All materials required for the procedure were available prior to procedure start. Site and side were marked prior to procedure and confirmed in the presence of the patient. PROCEDURE IN DETAIL: The patient was brought to the procedural suite and placed in the prone position. Patient was made comfortable with use of pillows under the head/chest, hips and ankles. Skin overlying the injection site on the affected side(s) was prepared broadly with ChloraPrep applicator and draped in a sterile manner. Aseptic technique was used throughout. The right SI joint was identified in the AP view and contralateral oblique angulation with caudal tilt was utilized to optimize visualization of the inferior and medial joint line representing the posterior portion of the joint. Local anesthesia was established by infiltration with approximately 5 mL of 2% lidocaine via a 1-1/2 inch 27-gauge needle. A 22-gauge 3.5 inch Quincke spinal needle was advanced until the needle entered the inferior third of the joint space approximately 1cm cephalad from its most inferior point. In the AP view, 0.5 mL of Omnipaque 300 contrast medium was injected after negative aspiration for CSF, blood or other bodily fluid, showing appropriate intra-articular spread of contrast without evidence of intravascular, perineural or intrathecal placement. A 1.5 mL solution containing 3 mg of betamethasone in 0.5% PF bupivacaine was injected after repeat negative aspiration. Appropriate spread of the injectate was confirmed with washout of previous injected contrast. No parasthesias were elicited. Needle was removed completely intact without difficulty. The same exact procedure was repeated for all remaining levels on the contralateral side, left SI joint, modified as necessary to accommodate for the new target location with identical findings/results and no evidence of complication. Images were saved and documented in the patient chart. Patient's skin was nomi ansed and sterile bandage applied. The patient tolerated the procedure well. The patient was transported to the recovery area in stable condition where they were observed for an appropriate amount of time prior to discharge, without evidence of complication. The patient was instructed to avoid excessive activity for the next 48 hours, including climbing and frequent use of stairs. Showers only for 48 hours. They were instructed not to drive or operate heavy machinery for 24 hours. They are to monitor for severe headaches, fevers, chills, night sweats, erythema/swelling at the site or any other signs of infection, bleeding/bruising, bowel or bladder changes as well as new pain, weakness or numbness in the upper or lower extremity. Should they notice these changes, they are instructed to call our office immediately or report directly to the nearest Emergency Department if no answer or if after posted office hours. COMPLICATIONS: None COMMENTS: None CONTRAST WASTED: 29mL Omnipaque 300. Complications No immediate complications Condition Stable Disposition Same day [facility] Billing Surgery - Charge Forward: Surgery Billing
[2024-04-30 08:10] VITALS: BP 98/58; PULSE 72; RESP 18; TEMP 36.6; O2SAT 97
[2024-04-30 08:42] VITALS: BP 106/57; PULSE 66; RESP 23; O2SAT 95
[2024-04-30] MEDS: LIDOCAINE HCL 1% PF INJ 5 ML VIAL XX (08:43)
[2024-04-30] MEDS: BUPivacaine HCL 0.5% 10 ML AMP INFILTRATE (08:47)
[2024-04-30] MEDS: BETAMETHASONE SODIUM PHOSPHATE PF INJ 6 MG/ML VIAL INFILTRATE (08:47)
[2024-04-30 08:48] VITALS: BP 107/59; PULSE 65; RESP 13; O2SAT 97
[2024-04-30 08:51] VITALS: BP 93/56; PULSE 58; RESP 16; O2SAT 98
== END 2024-04-30 09:05 | disposition home or self-care (01) ==
PROVIDERS: PCP Internal Medicine; Visit Provider Anesthesiology Pain Medicine
PROC: (CPT G0260; principal; 2024-04-30 09:00)
DX: M96.1 Postlaminectomy syndrome, not elsewhere classified (principal); M46.1 Sacroiliitis, not elsewhere classified
CPT/HCPCS: G0260 ×2; 27096; 99199

== ENCOUNTER 2024-07-13 17:02 | Emergency (ER) | payer MEDICARE, OTHER, SELFPAY ==
--- NOTE | 2024-07-13 17:11 | ED_ITS ---
HPI - URI/Sore Throat General Chief Complaint: Upper Respiratory Infection Stated Complaint: SINUS/CHEST CONGESITON & UTI SYMPTOMS Time Seen by Provider: 07/13/24 17:50 Source: patient Mode of arrival: ambulatory Limitations: no limitations History of Present Illness HPI Narrative: Ute is a 73-year-old female patient presenting to the clinic today with complaints of sinus/chest congestion x2 days and UTI symptoms x1 day. She reports she is having burning, frequency, and urgency with some incontinence. Reports this has been going on since yesterday. Has had sinus and congestion for 2 days. No known fever, chills, body aches, back pain, or abdominal pain. MD elicited complaint: cough and nasal congestion Related Data Home Medications ?Medication ?Instructions ?Recorded ?Confirmed ?Last Taken ?Type fexofenadine 180 mg tablet 180 mg PO DAILY 06/24/19 04/10/24 09/28/22 History (Nancy Allergy) cholecalciferol (vitamin D3) 50 2,000 unit PO DAILY 06/25/19 04/10/24 09/21/22 History mcg (2,000 unit) capsule cyclobenzaprine 10 mg tablet 10 mg PO BID PRN PAIN 09/22/22 04/10/24 09/28/22 History fluticasone propionate 50 2 spray intranasal DAILY PRN 04/04/24 04/10/24 Unknown History mcg/actuation nasal spray,suspension (Flonase Allergy Relief) Allergies Allergy/AdvReac Type Severity Reaction Status Date / Time cefdinir Allergy Severe Blister Verified 05/21/24 10:17 Sulfa (Sulfonamide AdvReac Mild made UTI Verified 05/21/24 10:17 Antibiotics) worse Review of Systems Review of Systems: Pertinent positives per HPI. Patient denies any fever, chills, rash, headache, visual changes, dizziness, cough, shortness of breath, chest pain, palpitations, nausea, vomiting, diarrhea, constipation, abdominal pain, or any urinary issues. [facility] Past Medical History Medical History Screening mammogram, encounter for History of breast implant removal (~1993) Anxiety Arthritis TIA (transient ischemic attack) none since 1985; unknown etiology after workup Surgical History Surgical History Status post lumbar spine surgery for decompression of spinal cord History of cholecystectomy (~03/2017) History of knee replacement procedure of left knee (~01/30/00) History of breast biopsy (06/11/15) (R) breast--benign-done @ [facility] History of hip replacement 2010 (R) hip 2014 (L) hip History of fusion of cervical spine (~2005) C5-6 History of back surgery (~2000) L2-3 History of total abdominal hysterectomy and bilateral salpingo-oophorectomy (~1998) menorrhagia/bladder repair History of breast implant removal (~1993) History of lumpectomy of right breast (~1982) History of breast augmentation (~1979) Family History Family History Mother Family history of malignant neoplasm Patient's mother is Father Patient's father is Family history of emphysema Sibling , Explosion-Antolin No problems noted. Sibling No problems noted. Social History Social History Smoking packs per day: 1 Smoking cigarettes per day: 20.0 Years smoked: 50 Smoking pack-years: 50.00 Smoking status: Current every day smoker Tobacco type: cigarettes Second hand tobacco smoke exposure: No Additional smoking assessment comments: CURRENTLY SMOKING 1/2 PACK/DAY Alcohol intake: unknown Substance use: never Substance use type: does not use Do You Feel Safe in your Home?: Yes Lack of Transportation: No Lack of Food: Never True Current Housing: I Have Housing Concerned About Future Housing: No Difficulty Paying Gas/Electric Bills: No Difficulty Paying for Meds: No Currently Unemployed: No Education: High School Diploma/GED Difficulty w/ Childcare or Family Care: No Living arrangements: alone Occupation/Education: retired 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 There is no relevant family history pertinent to the patient complaint. Exam Narrative: General: Well-developed, well nourished, in no apparent distress Head: Normocephalic, atraumatic Eyes: Pupils equally round and reactive to light bilaterally, EOM intact, sclera and conjunctive clear, no discharge, lids normal Ears: TMs intact and congested, ear canals clear, no drainage, grossly hearing normal. Nose: Nares patent, clear nasal discharge, no inflammation, no sinus tenderness. Mouth: Oral pharynx without lesions or masses, good dentition, MMM. Postnasal drip Neck: Supple, trachea midline, no enlargement of anterior or posterior cervical nodes, no thyroid masses or goiter palpable. Cardio: Regular rate and rhythm, s1 and s2 normal, no murmur appreciated. Resp: Clear to auscultation bilaterally, no rhonchi, rales, wheezing or rubs Abdomen: Soft, pliable, bowel sounds present in all quadrants, non-tender to palpation, no organomegly, no CVAT tenderness. Course Course Emergency Course: Portions of this record may have been created with voice recognition software. Level of Care: Express Care Visit Vital Signs Vital signs: Vital Signs Temperature 36.3 C L 07/13/24 17:43 Pulse Rate 84 07/13/24 17:43 Respiratory Rate 16 07/13/24 17:43 Blood Pressure 110/63 07/13/24 17:43 Pulse Oximetry 98 07/13/24 17:43 Temperature 36.3 C L 07/13/24 17:43 Pulse Rate 84 07/13/24 17:43 Respiratory Rate 16 07/13/24 17:43 Blood Pressure 110/63 07/13/24 17:43 Pulse Oximetry 98 07/13/24 17:43 Vital signs reviewed MDM - URI/Sore Throat MDM Narrative Medical decision making narrative: At the time of visit patient is resting comfortably on the exam table. Patient appears to be nontoxic. Labs: COVID and influenza testing was negative in the clinic today. Urinalysis shows positive leukocytes, blood, trace of ketones, and protein. Plan: I suspect patient has URI with cough and congestion as well as urinary tract infection. Prescription for cephalexin was sent to the pharmacy and albuterol inhaler. Supportive measures were discussed with the patient and they voiced understanding discharge instructions and agrees to treatment plan. Return precautions reviewed Differential Diagnosis Differential diagnosis: Likely upper respiratory infection, otitis media, sinusitis, viral infection, bronchitis, influenza, pharyngitis and other (COVID) Lab Data Labs: Lab Results 07/13/24 Range/Units 17:52 POC Urine Color Yellow POC Urine Clarity Cloudy POC Urine pH 6.0 POC Ur Specif [place] 1.020 POC Urine Protein 3+ (Negative) POC Ur Glucose (UA) Negative (Negative) POC Urine Ketones Trace (Negative) POC Urine Blood 3+ (Negative) POC Urine Nitrite Negative (Negative) POC Urine Bilirubin Negative (Negative) POC Urine Urobilinogen 0.2 POC U Leukocyte Esteras 2+ (Negative) Discharge Plan Discharge Clinical Impression: Upper respiratory infection with cough and congestion Urinary tract infection Qualifiers: Urinary tract infection type: acute cystitis Hematuria presence: with hematuria Qualified Code(s): N30.01 - Acute cystitis with hematuria Patient Disposition: Home, Self-Care Condition: Stable Instructions: Antibiotic Form, Viral Syndrome (ED), Cold Symptoms (ED), Urinary Tract Infection in Older Adults (ED) Additional Instructions: Upper respiratory infection discharge instructions Take prescription medications only as prescribed-cephalexin and albuterol inhaler Increase fluids and stay well hydrated Tylenol/motrin for pain/fever Flonase and OTC antihistamines as directed Vicks vapor rub to open sinuses Sinus rinses for congestion Cepacol spray, cough drops, throat lozenges, warm tea with honey/lemon, gargle salt water to soothe throat BRAT diet for diarrhea Clear liquids x 24 hours then advance as tolerated for nausea/vomiting Go to the ED if you develop a worsening in your condition- high fever not controlled by Tylenol or Motrin, dehydration, weakness, lethargy, shortness of breath, or chest pain. Follow up with your PCP in 3-5 days if symptoms persist. Urinary tract infection discharge instructions Increase fluids and stay well hydrated Wipe front to back. May use wet wipes. Avoid tub baths If sexually active- pee before and after intercourse. Wear cotton panties Avoid tight clothing up against the genitals Follow up with your PCP in 1 week if symptoms persist. Patient Language: Setswana Prescriptions: New albuterol sulfate 90 mcg/actuation HFA aerosol inhaler 2 puff inhalation Q4-6H PRN (Reason: shortness of breath or wheezing) 30 Days Qty: 8.5 0RF cephalexin 500 mg tablet 500 mg PO Q12H 7 Days Qty: 14 0RF No Action fexofenadine [Nancy Allergy] 180 mg tablet 180 mg PO DAILY cholecalciferol (vitamin D3) 50 mcg (2,000 unit) capsule 2,000 unit PO DAILY fluticasone propionate [Flonase Allergy Relief] 50 mcg/actuation spray,suspension 2 spray NASAL DAILY PRN Rx Instructions: administer into each nostril cyclobenzaprine 10 mg tablet 10 mg PO BID PRN (Reason: PAIN) esomeprazole magnesium 40 mg capsule,delayed release(DR/EC) 40 mg PO DAILY Qty: 90 3RF azelastine 137 mcg (0.1 %) spray,non-aerosol 2 spray intranasal Q12H PRN (Reason: Sinus Symptoms) Qty: 30 5RF Rx Instructions: administer into each nostril famciclovir 500 mg tablet 500 mg PO Q8H PRN (Reason: Cold Sores) Qty: 30 1RF hydrocodone-acetaminophen 5-325 mg tablet 1 - 2 tablet PO Q4H PRN (Reason: pain) Qty: 40 0RF oxybutynin chloride 5 mg tablet extended release 24hr 5 mg PO DAILY Qty: 90 2RF diclofenac sodium 75 mg tablet,delayed release (DR/EC) 75 mg PO BID Qty: 180 1RF Rx Instructions: take with food paroxetine HCl 10 mg tablet 10 mg PO DAILY Qty: 90 2RF Follow-up/Referrals: Eber Guthrie DO [Primary Care Provider] - Time of Disposition: 18:00 Quality NIHSS Nursing Documentation ED NIHSS nursing documentation: reviewed/agree
[2024-07-13 17:43] VITALS: BP 110/63; PULSE 84; RESP 16; TEMP 36.3; O2SAT 98
[2024-07-13 17:54] LABS: EDUAAPPEAR Cloudy; EDUABILI Negative (Negative); EDUABLOOD 3+ (Negative); EDUACOLOR1 Yellow; EDUAGLUCOSE Negative (Negative); EDUAKETONE Trace (Negative); EDUALEUKO 2+ (Negative); EDUANITRATE Negative (Negative); EDUAPROTEIN 3+ (Negative); EDUAUROBILI 0.2
[2024-07-13 18:10] LABS: EDCOVIDSCREEN Negative (Negative); EDINFLUASCREEN Negative (Negative); EDINFLUBSCREEN Negative (Negative)
== END 2024-07-13 18:15 | disposition home or self-care (01) ==
PROVIDERS: Emergency Provider Nurse Practitioner Family; PCP Internal Medicine
DX: J06.9 Acute upper respiratory infection, unspecified (principal); R05.9 Cough, unspecified; N30.01 Acute cystitis with hematuria; B96.20 Unspecified Escherichia coli [E. coli] as the cause of diseases classified elsewhere; Z20.822 Contact with and (suspected) exposure to COVID-19; F17.210 Nicotine dependence, cigarettes, uncomplicated; M19.90 Unspecified osteoarthritis, unspecified site; F41.9 Anxiety disorder, unspecified; Z86.73 Personal history of transient ischemic attack (TIA), and cerebral infarction without residual deficits; Z96.652 Presence of left artificial knee joint; Z96.643 Presence of artificial hip joint, bilateral
CPT/HCPCS: 81003; 87086; 87186; 87426; 87804; 99213; G0463

== ENCOUNTER 2024-09-20 15:05 | Outpatient (CLI) | payer MEDICARE, OTHER, SELFPAY ==
--- NOTE | ~2024-09-20 | CT_ITS ---
CLINICAL INDICATION: Right lower quadrant pain COMPARISON: None. TECHNIQUE: Multiple contiguous axial images of the abdomen and pelvis were performed following the ad ministration of with 100 mL Omnipaque-350 intravenous contrast The dose-length product (DLP) was 653.48 mGy-cm. Automated exposure control and iterative reconstruction technique were employed. FINDINGS/OBSERVATIONS: Visualized lower thorax: The bilateral lung bases are clear. The heart is of normal size, without pericardial effusion. Liver: Subcentimeter foci of fluid attenuation within the liver, too small to characterize but likely representing cysts. The remainder of the liver demonstrates otherwise homogeneous enhancement and is not enlarged. Gallbladder and biliary system: The gallbladder is surgically absent. Pancreas: The pancreas enhances homogeneously without ductal dilatation. Spleen: The spleen enhances homogeneously and is not enlarged. Kidneys: Subcentimeter well-circumscribed foci of fluid attenuation within the bilateral kidneys, rep resenting cysts, but too small to characterize. The remainder of the bilateral kidneys otherwise enhance symmetrically without hydronephrosis or viktoria l calculi. Adrenal glands: Unremarkable. Gastrointestinal tract: Colonic diverticulosis without surrounding inflammatory change. Fecal stasis within the colon. Appendix: The air-filled appendix is of normal caliber (axial series, images 77 through 85). Vasculature: Calcified atherosclerotic disease. Lymph nodes: No pathologically enlarged or morphologically suspicious lymph nodes within the retroperitoneum or at the root of the mesentery. Pelvic structures: Evaluation of the pelvis is limited secondary to streak metallic artifact from patient's bilateral hi p prostheses. Body wall and musculoskeletal: Age appropriate degenerative disease within the lumbosacral spine. IMPRESSION: Subcentimeter well-circumscribed foci within both the liver and kidneys, likely representing cysts bu t too small to characterize. No acute pathology within the abdomen, as detailed above. Reviewed, dictated and finalized at location A. IMPRESSION: Subcentimeter well-circumscribed foci within both the liver and kidneys, likely representing cysts but too small to characterize. No acute pathology within the abdomen, as detailed above.
--- OUTSIDE RECORDS SUMMARY | 2024-09-20 15:07 | XMS_ITS | Encounter Summary ---
Author Organization [facility] Healthcare Address [address] [place] [address] Care Team Providers Care Acrobatic Dancer Name Role Phone Jose Antonio Ghotra MD Primary Care Provider [phone] Reason for Visit * Diagnostic Imaging (Routine) - Closed Specialty Diagnoses / Procedures Referred By Contac t Referred To Contact Procedures Breast Imaging Screening Outside Reference Delma Champagne NP Phone: tel: fax: Referral ID Status Reason Start Date Expiration Date Visits Re quested Visits Authorized [id number] Closed 01/04/2023 02/03/2024 1 1 Encounter Details Date Type Department Care Team (Late st Contact Info) Description 09/22/[address] 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
--- OUTSIDE RECORDS SUMMARY | 2024-09-20 15:07 | XMS_ITS | Encounter Summary ---
Author Organization [facility] Address [address] [facility] [place] [address] Care Team Providers Care Risk Compliance Analyst Name Role Phone Jose Antonio Ghotra Primary Care Provider [phone]- [phone] Ed POE MD, Jason Unavailable [phone] Encounter Details Date Type Department Care Team (Late st Contact Info) Description 12/31/2019 [facility] Outpatient Visit [facility] Orthopedics [address] [address] [place] [address] [address] Social History Tobacco Use Types Packs/Day Years Used Date Smoking Tobacco: Every Day Cigarettes 0.5 25 Smokeless Tobacco: Never Alcohol Use Standard Drinks/Week Comments No 0 (1 standard drink = 0.6 oz pur e alcohol) Comments No Sex and Gender Information Value Date Recorded Sex Assigned at Not on file 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 No / Unsure 01/03/2020 4:00 PM CDT documented as of this encounter Functional Status * Is person deaf or have serious hearing difficulty? Answer Date of Assessment Author No 10/28/2014 3:26 PM CDT René Lawrence RN * Is person blind or have serious difficulty seeing? Answer Date of Assessment Author No 10/28/2014 3:26 PM CDT René Lawrence RN * Does person have serious difficulty walking/climbing stairs? Answer Date of Assessment Author No 10/28/2014 3:26 PM CDT René Lawrence RN * Does person have difficulty dressing/bathing? Answer Date of Assessment Author No 10/28/2014 3:26 PM DYANT René Lawrence RN * Does person have difficulty doing errands alone? Answer Date of Assessment Author No 10/28/2014 3:26 PM CDT René Lawrence RN documented as of this encounter Mental Status * Does person have difficulty concentrating/remembering/making decisions? Answer Entry Date Author No 10/28/2014 3:26 PM DYANT René Lawrence RN documented in this encounter Plan of Treatment Not on file documented as of this encounter Visit Diagnoses Not on filedocumented in this encounter Care Teams Risk Compliance Analyst Relationship Specialty Start Date End Date Jose Antonio Ghotra DO [address] [place] [address] PCP - General 11/22/10 Jason Ward IV, MD [address] [place] [id number] Orthopedic Surgery 03/29/11 documented as of this encounter
--- OUTSIDE RECORDS SUMMARY | 2024-09-20 15:07 | XMS_ITS | Encounter Summary ---
Author Organization [facility] Healthcare Address [address] [place] [address] Care Team Providers Care Facility Security Officer Name Role Phone Jose Antonio Ghotra MD Primary Care Provider [phone] Reason for Visit * Diagnostic Imaging (Routine) - Closed Specialty Diagnoses / Procedures Referred By Contac t Referred To Contact Procedures Breast Imaging Screening Outside Reference Delma Champagne NP Phone: tel: fax: Referral ID Status Reason Start Date Expiration Date Visits Re quested Visits Authorized [id number] Closed 01/04/2023 02/03/2024 1 1 Encounter Details Date Type Department Care Team (Late st Contact Info) Description 07/12/2017 Hospital Encounter [facility] [address] [place] [id number] Social History Tobacco Use Types Packs/Day Years Used Date Smoking Tobacco: Every Day Cigarettes Passive Smoke Exposure: Past Smokeless Tobacco: Never Personal Safety Answer Date Recorded Getting School Help Needed Not on file 08/04 Comments Unknown Sex and Gender Information Value Date Recorded Sex Assigned at Not on file 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 REPAIRER GENERAL Gender Identity Not on file Sexual Orientation Not on file documented as of this encounter Plan of Treatment Not on file documented as of this encounter Procedures Procedure Name Priority Date/Time Associated Diagnosis Comments BREAST IMAGING MG SCREENING OUTSIDE REFERENCE Routine 07/12/2017 12:00 AM REPAIRER GENERAL documented in this encounter Results * Breast Imaging Screening Outside Reference (07/12/2017 12:00 AM REPAIRER GENERAL) Impressions [facility] - 01/04/2023 10:18 AM CDT These images are for Reference purposes only and have not been reviewed by [facility]. There will be no report generated by a [facility] Radiologist. Narrative [facility] - 01/04/2023 10:18 AM CDT EXAMINATION: Images For Reference Purposes Only us Delma Champagne NP IMG MAMMO PROCEDURES Final Result [facility] documented in this encounter Visit Diagnoses Not on filedocumented in this encounter Care Teams Facility Security Officer Relationship Specialty Start Date End Date Jose Antonio Ghotra MD [address] [facility] [address] [place] [address] PCP - General 04/30/12 documented as of this encounter
--- OUTSIDE RECORDS SUMMARY | 2024-09-20 15:07 | XMS_ITS | Continuity of Care Document ---
Author Organization [facility] Address [address] [place] [address] Phone Care Team Providers Care Clinical Nurse Name Role Phone Flores Medel Unavailable Unavailable Advance Directives Directive Yes / No Effective Date File Name No Information Encounters Encounter Description Practice Location Reason(s) For Visit Diagnoses Date Provider Providers Copied on Encounter [facility], [address], [place], [place], [id number], [place] tel:[phone] [address] [facility] No Information [address] [facility] , [address], [place], [address], [place]. tel:[phone] Referring Provider: Jose Antonio Ghotra MD, [address] [facility] [address] [facility] [address], [place], [address]. tel:[phone] Family History Family Member Type Diagnosis Age At Onset No Information Payers Payer name Insurance type Covered libertarian ID Authoriza tion(s) [place] [id number] [facility] Commercial [place] [id number] Social History Type Description Quantity Date Captured [...]
--- OUTSIDE RECORDS SUMMARY | 2024-09-20 15:07 | XMS_ITS | Encounter Summary ---
Author Organization [facility] Healthcare Address [facility] [place] [address] Care Team Providers Care Custom Tailor Name Role Phone Jose Antonio Ghotra MD Primary Care Provider [phone] Reason for Visit * Diagnostic Imaging (Routine) - Closed Specialty Diagnoses / Procedures Referred By Contac t Referred To Contact Procedures Breast Imaging Diagnostic Outside Reference Delma Champagne NP Phone: tel: fax: Referral ID Status Reason Start Date Expiration Date Visits Re quested Visits Authorized [id number] Closed 01/04/2023 02/03/2024 1 1 Encounter Details Date Type Department Care Team (Late st Contact Info) Description 10/19/2018 12:05 AM CDT Hospital Encounter [facility] ([facility]) [address] [place] [address] [phone] Social History Tobacco Use Types Packs/Day Years Used Date Smoking Tobacco: Every Day Cigarettes Passive Smoke Exposure: Past Smokeless Tobacco: Never Personal Safety Answer Date Recorded Getting School Help Needed Not on file 08/04 Comments Unknown Sex and Gender Information Value Date Recorded Sex Assigned at Not on file 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 BIOMETRICS ANALYST Gender Identity Not on file Sexual Orientation [...] only and have not been reviewed by [facility]. There will be no report generated by a [facility] Radiologist. Narrative [facility] - 01/04/2023 10:17 AM CDT EXAMINATION: Images For Reference Purposes Only us Delma Champagne NP IMG MAMMO PROCEDURES Final Result [facility] documented in this encounter Visit Diagnoses Not on filedocumented in this encounter Care Teams Custom Tailor Relationship Specialty Start Date End Date Jose Antonio Ghotra MD [address] [place] [address] PCP - General 04/30/12 documented as of this encounter
--- OUTSIDE RECORDS SUMMARY | 2024-09-20 15:07 | XMS_ITS | Clinical Summary ---
Author Organization [facility] Address [address] [place] [address] Care Team Providers Care String Top Sealer Name Role Phone Jose Antonio Ghotra Primary Care Provider [phone] Ed POE MD, Jason Unavailable [phone] Source Comments [facility],non-owned Affiliates and Associated Physician Practices is amultiple site organization consisting of ambulatory clinics and hospital sitesin [place], [place], [place] and [place]. This disclosure is being madepursuant to the Care Everywhere program and may not contain all information available regarding this patient. Last updated 18.[facility] Allergies Active Allergy Reactions Criticality Noted Date Comments Sulfa Drugs 12/13/2010 Made infection worse Medications * Be aware that medications may not be up to date on this document. Alwaysverify current medications with the patient. fexofenadine (TRAM) 180 MG tablet Take 180 mg by mouth once daily. Active PARoxetine (PAXIL) 10 MG tablet Take 10 mg by mouth once daily. Active MAGNESIUM CITRATE PO Take 100 mg by mouth 2 times daily. Active cyclobenzaprine (FLEXERIL) 10 MG tablet Take 10 mg by mouth nightly as needed for Muscle Spasms. Active fluticasone propionate (FLONASE) 50 MCG/ACT nasal spray [place] 2 Sprays into each nostril once daily. Active esomeprazole (NEXIUM) 40 MG capsule Take 40 mg by mouth once daily 3 12/09/2016 Active Magnesium Citrate 200 MG TABS Take 800 mg by mouth once daily after dinner Active HYDROcodone-mimi taminophen (NORCO) 10-325 MG tablet Take 0.5-1 tablets by mouth every 6 hours as needed 28 tablet 01/21/2020 Active diclofenac sodium EC (VOLTAREN) 75 MG tablet TAKE 1 TABLET BY MOUTH TWICE A DAY 60 tablet 5 04/19/2021 Active Active Problems Problem Noted Date Diagnosed Date Arterial hypotension 02/14/2020 Smoking 02/14/2020 Overview (09/04/2024): IMO 09/04/2024 Vasovagal syncope 02/14/2020 Primary osteoarthritis of left knee 08/28/2019 Left knee pain 03/03/2014 Osteoarthritis of hip 03/29/2011 Social History Tobacco Use Types Packs/Day Years Used Date Smoking Tobacco: Every Day Cigarettes 0.5 25 Smokeless Tobacco: Never Tobacco Cessation:Ready to Q uit: No; Counseling Given: Yes Alcohol Use Standard Drinks/Week Comments No 0 (1 standard drink = 0.6 oz pur e alcohol) Comments No Sex and Gender Information Value Date Recorded Sex Assigned at Not on file Legal Sex Female 11:52 AM INSPECTOR AIR CARRIER Gender Identity Not on file Sexual Orientation Not on file Last Filed Vital Signs Vital Sign Reading Time Taken Comments Blood Pressure 105/54 01/02/2020 8:07 AM CDT Pulse 71 01/02/2020 8:07 AM CDT Temperature 36.6 C (97.9 F) 01/02/2020 8:07 AM CDT Respiratory Rate 16 01/02/2020 8:07 AM CDT Oxygen Saturation 99% 01/02/2020 8:07 AM CDT Inhaled Oxygen Concentration - - Weight 85.7 kg (189 lb) 01/01/2020 6:26 AM CDT Height 172.7 cm (5' 8 ) 01/01/2020 6:26 AM CDT Body Mass Index 28.74 01/01/2020 6:26 AM CDT Plan of Treatment Health Maintenance Due Date Last Done Comments BONE DENSITY TESTING 1950 COLOGUARD (AGES 45-75) - COLON CA SCREENING 1950 COLON MONITORING 1950 COLONOSCOPY - COLON CA SCREENING 1950 CT COLONOGRAPHY - COLON CA SCREENING 1950 Colorectal Cancer Screening 1950 FIT - COLON CA SCREENING 1950 FLEX SIG - COLON CA SCREENING 1950 LIPID TESTING 1950 MAMMOGRAM 1950 MEDICARE AWV 12 MONTHS 1950 HEPATITIS C SCREENING 12/02/1969 DTAP/TDAP/TD VACCINES (1 - Tdap) 12/06/1970 PNEUMOCOCCAL VACCINE 50+ (1 of 2 - PCV) 12/06/1970 ZOSTER VACCINE (1 of 2) 12/06/2001 SCREENING FOR DIABETES 01/01/2023 0, 12/11/2019, 09/29/2014, Additional history exists COVID-19 VACCINE ( - 2023- season) 2024 DEPRESSION SCREENING 06/05/2024 INFLUENZA VACCINE (Season Ended) 2025 Respiratory Syncytial Virus (RSV) Vaccine Pt: or over 60 yrs (1 - 1-dose 75+ series) 12/06/2026 HEPATITIS B VACCINE Aged Out No longe r eligible based on patient's age to complete this topic HIB VACCINE Aged Out No longer eligi ble based on patient's age to complete this topic HPV VACCINE Aged Out No longer eligi ble based on patient's age to complete this topic MENINGOCOCCAL (Group B) VACCINE SHARED DECISION-MAKING Aged Out No longer eligible based on patient's age to complete this topic MENINGOCOCCAL GROUPS A/C/Y/W VACCINE Aged Out No longer eligible based on patient's age to complete this topic Medical Devices Implanted Type Area Water Quality Technician Device Identifier Shelf Expiration Date Model / Serial / Lot Biomet Acetabular Cup, 62mm Implanted:Qty: 1 on 10/28/2014 by Jason Ward IV, MD at [facility] Left: Hip 05/04/2024 [id number] / / [id number] Biomet Bone Screw, 6.5mm X 40mm Implanted:Qty: 1 on 10/28/2014 by Jason Ward IV, MD at [facility] Left: Hip 09/01/2024 [id number] / / [id number] Bi[employer] Acetabular Liner, 36mm Size 25 Implanted:Qty: 1 on 10/28/2014 by Jason Ward IV, MD at [facility] Left: Hip 12/02/2018 [id number] / / [id number] 36mm Ceramic Head Implanted:Qty: 1 on 10/28/2014 by Jason Ward IV, MD at [facility] Left: Hip [employer] 09/02/2024 [id number] / / [id number] Micro Taper-Loc Stem Implanted:Qty: 1 on 10/28/2014 by Jason Ward IV, MD at [facility] Left: Hip [employer] 04/04/2024 [id number] / / [id number] Standard Neck Implanted:Qty: 1 on 10/28/2014 by Jason Ward IV, MD at [facility] Left: Hip [employer] 09/02/2024 [id number] / / [id number] Cmpnt Ptlr 31mm 1 Pg Wire Ascnt Arcm Kn Implanted:Qty: 1 on 01/01/2020 by Jules Joaquin MD at [facility] Left: Knee [employer] 07/31/2024 [id number] / / [id number] Tray Tib 79mm Kn Cocr I Beam Implanted:Qty: 1 on 01/01/2020 by Jules Joaquin MD at [facility] Left: Knee [employer] 08/18/2029 [id number] / / [id number] Brng 18xxm14al Vngrd Arcm Kn Ant Stab Implanted:Qty: 1 on 01/01/2020 by Jules Joaquin MD at [facility] Left: Knee [employer] 02/16/2024 [id number] / / [id number] Cmnt Bone Djo Srg Cblt 40gm Hvisc Strl Implanted:Qty: 1 on 01/01/2020 by Jules Joaquin MD at [facility] Left: Knee [employer] 06/27/2020 600-15-000 / / [id number] Cmnt Bone Djo Srg Cblt 40gm Hvisc Strl Implanted:Qty: 1 on 01/01/2020 by Jules Joaquin MD at [facility] Left: Knee [employer] 09/18/2020 600-15-000 / / [id number] Cmpnt Fem Kn Lt Cr Cmnt Prm Vngrd Intlk Implanted:Qty: 1 on 01/01/2020 by Jules Joaquin MD at [facility] Left: Knee [employer] 11/11/2029 [id number] / / [id number] Procedures Procedure Name Priority Date/Time Associated Diagnosis Comments BASIC METABOLIC PANEL (CALCIUM TOTAL) AM Draw 01/02/2020 5:36 AM CDT Left knee pain, unspecified chronicity from Last 3 Months or Most Recently Relevant to Health Maintenance Results * (ABNORMAL) BASIC METABOLIC PANEL (CALCIUM TOTAL) (01/02/2020 5:36 AM CDT) Glucose 107(H) 70 - 105 mg/dL 01/02/2020 6:15 AM CDT [facility] Sodium 132(L) 136 - 145 mmol/L 01/02/2020 6:15 AM CDT [facility] Potassium 4.3 3.5 - 5.1 mmol/L 01/02/2020 6:15 AM CDT [facility] Chloride 101 98 - 107 mmol/L 01/02/2020 6:15 AM CDT [facility] CO2 27 23 - 31 mmol/L 01/02/2020 6:15 AM CDT [facility] Calcium 8.3(L) 8.4 - 10.4 mg/dL 01/02/2020 6:15 AM CDT [facility] Anion Gap 4(L) 8 - 16 mmol/L 01/02/2020 6:15 AM CDT [facility] BUN 12 9.8 - 20.1 mg/dL 01/02/2020 6:15 AM CDT [facility] Creatinine 0.78 0.57 - 1.11 mg/dL 01/02/2020 6:15 AM CDT [facility] eGFR by MDRD >60 >60 mL/min/1.7 3m2 01/02/2020 6:15 AM CDT [facility] eGFR by MDRD >60 >60 mL/min/1.7 3m2 01/02/2020 6:15 AM CDT [facility] Blood BLOOD SPECIMEN / Unknown Venipuncture / Unknown 01/02/2020 5:36 AM CDT 01/02/2020 5:41 AM CDT us Jules Joaquin MD LAB - CHEMISTRY ORDERABLES Fi nal Result [facility] [address] [place] [address] from Last 3 Months or Most Recently Relevant to Health Maintenance Insurance MEDICARE [facility] Advance Directives Documents on File Type Date Recorded Patient Loose Hand Packer Expl anation Adv Directive/Living Will/POA 01/09/2011 1:43 PM * Full Code (Latest Code Status on File) Date Activated Date Inactivated Comments 01/01/2020 10:23 AM 01/02/2020 2:07 PM * Full Code Date Activated Date Inactivated Comments 10/28/2014 1:06 PM 10/30/2014 1:27 PM * FULL RESUSCITATION Date Activated Date Inactivated Comments 01/04/2011 10:26 AM 01/07/2011 11:02 PM Care Teams String Top Sealer Relationship Specialty Start Date End Date Jose Antonio Ghotra DO [address] [id number] PCP - General 11/22/10 Jason Ward IV, MD [address] [address] Orthopedic Surgery 03/29/11
--- OUTSIDE RECORDS SUMMARY | 2024-09-20 15:07 | XMS_ITS | Encounter Summary ---
Author Organization [facility] Healthcare Address [address] [place] [address] Care Team Providers Care Brush Worker Name Role Phone Jose Antonio Ghotra MD Primary Care Provider [phone] Reason for Visit * Diagnostic Imaging (Routine) - Closed Specialty Diagnoses / Procedures Referred By Contac t Referred To Contact Procedures Breast Imaging US Outside Reference Delma Champagne NP Phone: tel: fax: Referral ID Status Reason Start Date Expiration Date Visits Re quested Visits Authorized [id number] Closed 01/04/2023 02/03/2024 1 1 Encounter Details Date Type Department Care Team (Late st Contact Info) Description 05/10/2019 Hospital Encounter [facility] [address] [place] [id number] Social History Tobacco Use Types Packs/Day Years Used Date Smoking Tobacco: Every Day Cigarettes Passive Smoke Exposure: Past Smokeless Tobacco: Never Personal Safety Answer Date Recorded Getting School Help Needed Not on file 08/04 Comments Unknown Sex and Gender Information Value Date Recorded Sex Assigned at Not on file 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 AUTOMOTIVE PARTS COORDINATOR Gender Identity Not on file Sexual Orientation Not on file documented as of this encounter Plan of Treatment Not on file documented as of this encounter Procedures Procedure Name Priority Date/Time Associated Diagnosis Comments BREAST IMAGING US OUTSIDE REFERENCE Routine 05/10/2019 12:00 AM AUTOMOTIVE PARTS COORDINATOR documented in this encounter Results * Breast Imaging US Outside Reference (05/10/2019 12:00 AM AUTOMOTIVE PARTS COORDINATOR) Impressions [facility] - 01/04/2023 10:14 AM CDT These images are for Reference purposes only and have not been reviewed by [facility]. There will be no report generated by a [facility] Radiologist. Narrative [facility] - 01/04/2023 10:14 AM CDT EXAMINATION: Images For Reference Purposes Only us Delma Champagne NP IMG MAMMO PROCEDURES Final Result [facility] documented in this encounter Visit Diagnoses Not on filedocumented in this encounter Care Teams Brush Worker Relationship Specialty Start Date End Date Jose Antonio Ghotra MD [address] [facility] [address] [place] [address] PCP - General 04/30/12 documented as of this encounter
--- OUTSIDE RECORDS SUMMARY | 2024-09-20 15:07 | XMS_ITS | Encounter Summary ---
Author Organization [facility] Healthcare Address [facility] [place] [address] Care Team Providers Care Insurance Claims Specialist Name Role Phone Jose Antonio Ghotra MD Primary Care Provider [phone]- [phone] Reason for Visit * Diagnostic Imaging (Routine) - Closed Specialty Diagnoses / Procedures Referred By Contac t Referred To Contact Procedures Breast Imaging Diagnostic Outside Reference Delma Champagne NP Phone: tel: fax: Referral ID Status Reason Start Date Expiration Date Visits Re quested Visits Authorized [id number] Closed 01/04/2023 02/03/2024 1 1 Encounter Details Date Type Department Care Team (Late st Contact Info) Description 05/10/2019 12:05 AM DURABLE MEDICAL EQUIPMENT REPAIRER Hospital Encounter [facility] [address] [place] [id number] Social History Tobacco Use Types Packs/Day Years Used Date Smoking Tobacco: Every Day Cigarettes Passive Smoke Exposure: Past Smokeless Tobacco: Never Personal Safety Answer Date Recorded Getting School Help Needed Not on file 08/04 Comments Unknown Sex and Gender Information Value Date Recorded Sex Assigned at Not on file 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 DURABLE MEDICAL EQUIPMENT REPAIRER Gender Identity Not on file Sexual Orientation Not on file documented as of this encounter Plan of Treatment Not on file documented as of this encounter Procedures Procedure Name Priority Date/Time Associated Diagnosis Comments BREAST IMAGING MG DIAGNOSTIC OUTSIDE REFERENCE Routine 05/10/2019 12:05 AM DURABLE MEDICAL EQUIPMENT REPAIRER documented in this encounter Results * Breast Imaging Diagnostic Outside Reference (05/10/2019 12:05 AM DURABLE MEDICAL EQUIPMENT REPAIRER) Impressions [facility] - 01/04/2023 10:17 AM CDT These images are for Reference purposes only and have not been reviewed by [facility]. There will be no report generated by a [facility] Radiologist. Narrative [facility] - 01/04/2023 10:17 AM CDT EXAMINATION: Images For Reference Purposes Only us Delma Champagne NP IMG MAMMO PROCEDURES Final Result [facility] documented in this encounter Visit Diagnoses Not on filedocumented in this encounter Care Teams Insurance Claims Specialist Relationship Specialty Start Date End Date Jose Antonio Ghotar MD [address] [facility] [address] [place] [address] PCP - General 04/30/12 documented as of this encounter
--- OUTSIDE RECORDS SUMMARY | 2024-09-20 15:08 | XMS_ITS | Clinical Summary ---
Author Organization [facility] Address [address] [place] [address] Phone Care Team Providers Care Nozzle And Sleeve Worker Name Role Phone Jose Antonio Ghotra DO Primary Care Provider [phone] Allergies Active Allergy Reactions Criticality Noted Date Comments Sulfa (Sulfonamide Antibiotics) Unknown 10/2012 Medications PARoxetine HCl (PAXIL) 10 mg tablet Take 10 mg by mouth daily. Active fexofenadine (TRAM) 180 mg tablet Take 180 mg by mouth daily. Active cyclobenzaprine (FLEXERIL) 10 mg tablet Take 10 mg by mouth 3 times daily as needed. Active aspirin (LUISANA CHEWABLE) 81 mg Tablet, Chewable Take 81 mg by mouth daily. Active HYDROcodone-mimi taminophen (VICODIN) 5-300 mg Tablet Take 1 Tab by mouth every 4 hours as needed. Active diclofenac sodium (VOLTAREN) 75 mg Tablet, Delayed Release (E.C.) TAKE 1 TABLET BY MOUTH TWICE A DAY 0 Active Magnesium Citrate Powder Take 100 mg by mouth. Active esomeprazole (NexIUM) 40 mg Capsule, Delayed Release(E.C.) Take 40 mg by mouth. 7 Active fluticasone propionate (FLONASE) 50 mcg/spray [place], Suspension nasal inhaler Administer 2 Sprays in each nostril. Active Active Problems Patient Care Coordination No te Formatting of this note migh t be different from the original. Zac Dinero MD-[facility] @ Primary Care: Jose Antonio Ghotra DO Referring Provider: Jose Antonio Ghotra DO [address] [place] [address] Other: Dr Licha Tsai Problem Noted Date Diagnosed Date Vasovagal syncope 02/14/2020 Orthostatic lightheadedness 02/14/2020 Arterial hypotension 02/14/2020 Smoking 02/14/2020 Visit for screening mammogram 07/01/2015 Breast calcification, right 06/01/2015 ALH 04/29/2013 Overview (08/07/2013): 05/15/13 LEFT bx - Path shows ALH. Assessment & Plan (08/08/2013 10:01 AM HYGIENE ASSISTANT): IOV THR, neck fused, etc GERD (gastroesophageal reflux disease) Injury of back Overview (08/08/2013): lower back pain, neck fusion Anxiety Immunizations Immunization Administration Dates Next Due Influenza A (H1N1) Vaccine IM 03/09/2015 Family History Medical History Relation Name Comments Healthy Brother x4 Emphysema Father aeg 70 Unknown Mother infection when pt 16 Healthy Sister x2 Breast Cancer Neg Hx Cancer Neg Hx Ovarian Cancer Neg Hx Uterine Cancer Neg Hx Relation Name Status Comments Brother x4 Father Mother Sister x2 Social History Tobacco Use Types Packs/Day Years Used Date Smoking Tobacco: Every Day Cigarettes 0.3 20 Smokeless Tobacco: Never Tobacco Cessation:Ready to Q uit: No; Counseling Given: Yes Comments:quit January 2013 Alcohol Use Standard Drinks/Week Comments No 0 (1 standard drink = 0.6 oz pur e alcohol) Comments No Sex and Gender Information Value Date Recorded Sex Assigned at Not on file Legal Sex Female 9:36 AM HYGIENE ASSISTANT Gender Identity Not on file Sexual Orientation Not on file Occupation Industry Job Start Date Job End Date Not on file Not on file Not on file Not on file Last Filed Vital Signs Vital Sign Reading Time Taken Comments Blood Pressure 88/48 02/06/2020 3:22 PM CDT Pulse 94 02/06/2020 3:22 PM CDT Temperature 36.5 C (97.7 F) 02/06/2020 3:22 PM CDT Respiratory Rate 14 08/08/2013 9:43 AM HYGIENE ASSISTANT Oxygen Saturation 94% 02/06/2020 3:22 PM CDT Inhaled Oxygen Concentration - - Weight 84.4 kg (186 lb) 02/06/2020 3:22 PM CDT Height 175.3 cm (5' 9 ) 02/06/2020 3:22 PM CDT Body Mass Index 27.47 02/06/2020 3:22 PM CDT Plan of Treatment Health Maintenance Due Date Last Done Comments DTAP/TDAP/TD VACCINES (1 - Tdap) 12/06/1970 PNEUMOCOCCAL VACCINE 50+ YEA RS (1 of 2 - PCV) 12/06/1970 FIT-DNA Q 3 years 12/06/1996 FIT/FOBT Q 1 year 12/06/1996 Flex Sig/CT Colonography Q 5 years 12/06/1996 ZOSTER VACCINE (1 of 2) 12/06/2001 BREAST CANCER SCREENING 09/22/2021 09/23/19, 09/22/2020, 05/10/2019, Additional history exists INFLUENZA VACCINE (#1) 2024 COLORECTAL SCREENING 10/15/2025 10/16/2015 Colorectal Cancer Screening 10/15/2025 RSV VACCINE (60+ or ) (1 - 1-dose 75+ series) 12/06/2026 OSTEOPOROSIS SCREENING Completed 09/08/2020, 2017 Procedures Procedure Name Priority Date/Time Associated Diagnosis Comments MAMMO SCREEN BILAT W OR WO CAD Routine 07/12/2017 from Last 3 Months or Most Recently Relevant to Health Maintenance Results * (ABNORMAL) MAMMO SCREEN BILAT W OR WO CAD (07/12/2017) Anatomical Region Laterality Modality Breast Bilateral Mammography Jameson Fink MD MAMMO ORDERABLES Edited Result - Final from Last 3 Months or Most Recently Relevant to Health Maintenance Insurance MEDICARE PART A AND B [facility] [id number] Advance Directives For more information, please contact: [phone] * Full Code (Latest Code Status on File) Date Activated Date Inactivated Comments 07/26/2013 12:52 PM 07/26/2013 3:18 PM * Full Code Date Activated Date Inactivated Comments 07/26/2013 9:26 AM 07/26/2013 12:52 PM Care Teams Nozzle And Sleeve Worker Relationship Specialty Start Date End Date Jose Antonio Ghotra DO [address] [facility] [address] [place] [address] PCP - General Internal Medicine 05/09/13
--- OUTSIDE RECORDS SUMMARY | 2024-09-20 15:08 | XMS_ITS | Encounter Summary ---
Author Organization [facility] Healthcare Address [address] [place] [address] Care Team Providers Care Lot Attendant Name Role Phone Jose Antonio Ghotra MD Primary Care Provider [phone] Reason for Visit * Diagnostic Imaging (Routine) - Closed Specialty Diagnoses / Procedures Referred By Contac t Referred To Contact Procedures Breast Imaging Screening Outside Reference Delma Champagne NP Phone: tel: fax: Referral ID Status Reason Start Date Expiration Date Visits Re quested Visits Authorized [id number] Closed 01/04/2023 02/03/2024 1 1 Encounter Details Date Type Department Care Team (Late st Contact Info) Description 09/27/2018 Hospital Encounter [facility] [address] [place] [phone] Social History Tobacco Use Types Packs/Day Years Used Date Smoking Tobacco: Every Day Cigarettes Passive Smoke Exposure: Past Smokeless Tobacco: Never Personal Safety Answer Date Recorded Getting School Help Needed Not on file 08/04 Comments Unknown Sex and Gender Information Value Date Recorded Sex Assigned at Not on file 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 There will be no report generated by a [facility] Radiologist. Narrative [facility] - 01/04/2023 10:17 AM CDT EXAMINATION: Images For Reference Purposes Only us Delma Champagne NP IMG MAMMO PROCEDURES Final Result [facility] documented in this encounter Visit Diagnoses Not on filedocumented in this encounter Care Teams Lot Attendant Relationship Specialty Start Date End Date Jose Antonio Ghotra MD [address] [facility] [address] [place] [address] PCP - General 04/30/12 documented as of this encounter
--- OUTSIDE RECORDS SUMMARY | 2024-09-20 15:08 | XMS_ITS | Referral Summary ---
Author Organization [facility] [address] Address [address] [place] [address] Care Team Providers Care Vocational Instructor Name Role Phone Jose Antonio Ghotra MD Primary Care Provider [phone]- [phone] Jameson Fink MD Unavailable [phone] Allergies Active Allergy Reactions Criticality Noted Date Comments Sulfa (Sulfonamide Antibiotics) Unknown 10/2012 Medications PARoxetine (PAXIL) 10 mg tablet Take 1 tablet (10 mg total) by mouth daily Active oxyBUTYnin XL (DITROPAN-XL) 5 mg 24 hr tablet Take 1 tablet (5 mg total) by mouth daily 11/20/2022 Active magnesium citrate, bulk, powder Take 400 mg by mouth 2 (two) times a day Active HYDROcodone-mimi taminophen (VICODIN) 5-300 mg per tablet Take 1 tablet by mouth every 4 (four) hours as needed Active fexofenadine (TRAM) 180 mg tablet Take 1 tablet (180 mg total) by mouth daily Active esomeprazole DR (NexIUM) 40 mg capsule Take 1 capsule (40 mg total) by mouth 12/09/[address] (VOLTAREN) 75 mg EC tablet Take 1 tablet (75 mg total) by mouth 2 (two) times a day 12/17/2019 Active cyclobenzaprine (FLEXERIL) 10 mg tablet Take 1 tablet (10 mg total) by mouth 3 (three) times a day as needed Active Active Problems Problem Noted Date Diagnosed Date Abnormal mammogram of right breast 01/19/2023 History of benign breast biopsy 01/19/2023 Social History Tobacco Use Types Packs/Day Years Used Date Smoking Tobacco: Every Day Cigarettes Passive Smoke Exposure: Past Smokeless Tobacco: Never Tobacco Cessation:Ready to Q uit: Not Asked; Counseling Given: Not Answered Personal Safety Answer Date Recorded Getting School Help Needed Not on file 08/04 Comments Unknown Sex and Gender Information Value Date Recorded Sex Assigned at Not on file 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 Gender Identity Not on file Sexual Orientation Not on file Last Filed Vital Signs Vital Sign Reading Time Taken Comments Blood Pressure - - Pulse - - Temperature - - Respiratory Rate - - Oxygen Saturation - - Inhaled Oxygen Concentration - - Weight 90.7 kg (200 lb) 01/19/2023 1:50 PM CDT Height 175.3 cm (5' 9 ) 01/19/2023 1:50 PM CDT Body Mass Index 29.53 01/19/2023 1:50 PM CDT Plan of Treatment Not on file Insurance MEDICARE [facility] Address: [address] [address] [place] [address] [facility] CHOICE PLUS MEDICARE [facility] MEDICARE [facility] Care Teams Vocational Instructor Relationship Specialty Start Date End Date Jose Antonio Ghotra MD [address] [facility] [address] [place] [address] PCP - General 04/30/12 Jameson Fink MD [address] [facility] [address] [place] [address] Referring Physician Obstetrics and Gynecology 12/22/22
--- OUTSIDE RECORDS SUMMARY | 2024-09-20 15:08 | XMS_ITS | Encounter Summary ---
Author Organization [facility] Healthcare Address [address] [place] [address] Care Team Providers Care Dress Draper Name Role Phone Jose Antonio Ghotra MD Primary Care Provider [phone] Reason for Visit * Diagnostic Imaging (Routine) - Closed Specialty Diagnoses / Procedures Referred By Contac t Referred To Contact Procedures Breast Imaging US Outside Reference Delma Champagne NP Phone: tel: fax: Referral ID Status Reason Start Date Expiration Date Visits Re quested Visits Authorized [id number] Closed 01/04/2023 02/03/2024 1 1 Encounter Details Date Type Department Care Team (Late st Contact Info) Description 10/19/2018 Hospital Encounter [facility] [address] [place] [address] [id number] Social History Tobacco Use Types Packs/Day Years Used Date Smoking Tobacco: Every Day Cigarettes Passive Smoke Exposure: Past Smokeless Tobacco: Never Personal Safety Answer Date Recorded Getting School Help Needed Not on file 08/04 Comments Unknown Sex and Gender Information Value Date Recorded Sex Assigned at Not on file 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 There will be no report generated by a [facility] Radiologist. Narrative [facility] - 01/04/2023 10:14 AM CDT EXAMINATION: Images For Reference Purposes Only us Delma Champagne NP IMG MAMMO PROCEDURES Final Result [facility] documented in this encounter Visit Diagnoses Not on filedocumented in this encounter Care Teams Dress Draper Relationship Specialty Start Date End Date Jose Antonio Ghotra MD [address] [facility] [address] [place] [address] PCP - General 04/30/12 documented as of this encounter
--- OUTSIDE RECORDS SUMMARY | 2024-09-20 15:08 | XMS_ITS | Data Portability ---
Author Organization [facility] [facility], Main Office Address [address] [place] [address] Care Team Providers Care Sewage Plant Supervisor Name Role Phone MAHAD BENEDICT Primary Care Provider MAHAD BENEDICT Referring Provider [phone] LISA PEREZ Primary Care Provider [phone] LISA PEREZ Referring Provider [phone] Assessment Encounter Date Assessment Date Assessment LastModified by Organization Details LastModified Time 09/13/2024 09/13/2024 The patient has right shoulder pain due to moderate glenohumeral osteoarthritis today's x-rays show significant narrowing of the glenohumeral joint with marginal osteophytes off the inferior joint surface. We talked about treatment options for this in detail today we are going to start with a course of oral prednisone followed by cortisone today she wanted to proceed therefore under sterile conditions I injected the patient is right shoulder joint in the office with 4 cc 0.5% bupivacaine and 20 mg of Kenalog. Patient tolerated the procedure well. I will see her back as needed for her right shoulder last time she got excellent relief for several years. As far as the leg length discrepancy goes she was given an order to take with her for a shoe build up she will probably need about an inch buildup on her right shoe they will measure her and get this set up for her. She will continue to work with and follow up with her spine doctor for her back pain. The patient voiced understanding and agreed with the above plan she will call for any further problems difficulties or questions. [email or web address] Not available 09/13/2024 13:07:42 Plan of Treatment Reminders Order Date Submit Date Provider Last Modified By Organization Details Last Modified Time Details Appointments None recorded. Lab None recorded. Referral None recorded. Procedures injection/a spiration joint/bursa (PROC) 2024 025 In-Office Order, Internal Use Only DO Not Attach Compendium DO Not Attach Compendium, Do Not Delete/merge, [id number] 12:13:53 Surgeries None recorded. Imaging XR, shoulder, 2 or more view 2024 025 [facility] [place], [address], [place], [address], 13:36:15 Medication Orders bupivacaine HCl 0.5 % (5 mg/mL) injection solution 2024 [facility][id number], [address], [place], [id number], 13:22:59 Kenalog 10 mg/mL suspension for injection 2024 [facility] #[id number], [address], [place], [id number], 13:22:59 prednisone 10 mg tablets in a dose pack 2024 [facility] #35032, [address], [place], [id number], 13:22:59 Patient TargetsNo targets recorded. Patient InstructionsNo instructions recorded. Reason for Referral None Reported. Results Created Date Observation Date Name Description Value Unit Range Abnormal Flag Note LastModifiedBy Organization Detail LastModifiedTime 04/12/20 21 XR, shoul yin, 2 or more view No observ ation record ed. [id number] [facility] [place] [address], [place], [id number], 08/03/2022 06:00:48 09/14/19 25 XR, shoul yin, 2 or more view No observ ation record ed. [email or web address] [facility] [place] [address], [place], [id number], 09/13/2024 13:09:30 Result Notes None recorded. Problems Name Problem SNOMED Code Status Onset Date Resolution Date Notes Provider Name and Address Organization Details Recorded Time Pain of right shoulder joint 9752725818613 9100 Active 2021 Not Available [facility] 3 05:55:48 Tendinitis of right rotator cuff 7892836951021 9104 Active 2021 Not Available [facility] 3 05:55:48 Localized, primary osteoarthr itis of the shoulder region 813025949 Active 2021 Not Available [facility] 3 05:55:48 Osteoarthr itis 342589683 Active 2021 Not Available [facility] 3 05:55:48 Breast lump 91318188 Active Not Available [facility] 3 05:55:48 Leg length inequality 14119813 Active 2024 Aisha Hazel, ATC L null, [place] - S ID [employer] [facility] 5 12:42:55 Problem Notes None recorded. Procedures Surgical History Date Name Laterality Status Provider Name and Address Organization Details Recorded Time total replacement of right hip joint completed Not Available [facility] 08/04/19 05:52:24 Cholecystectomy completed [facility] Available [facility] 08/03/2022 05:52:24 total replacement of left hip joint completed Not Available [facility] 3 05:52:24 Imaging Results Imaging Date Name Status LastModified by Organiz ation Details LastModified Time 04/12/2021 XR, shoulder, 2 or more view completed [id number] [facility] [place] [address], [place], [id number], 08/03/2022 06:00:48 09/13/2024 XR, shoulder, 2 or more view completed [email or web address] [facility] [place] [address] [place], [id number], 09/13/2024 13:09:30 Procedure Notes None recorded. Medical Equipment None Reported. Allergies Allergen ID Allergen Name Allergen Category Reaction Reaction Severity Criticality Documentation Date Start Date Code Code System Note Provider Name and Address Organization Details Recorded Time 84705 Substance with sulfonami de structure and antibacte rial mechanism of action (substanc e) medicatio n other Not available Not available 08/03/2022 57510 8003 SNOMED Not Available [facility] 06:00:37 Medications Name Sig Start Date Stop Date Status Note LastModified by Organization Details LastModified Time celecoxib 200 mg capsule 02/23 completed Not Available Not Available Not Available cyclobenza estephanie 10 mg tablet Take 1 tablet twice a day by oral route. active Not Available Not Available No t Available prednisone 10 mg tablet TAKE 1 TAB 3 TIMES DAILY X3 DAYS THEN 1 TAB TWICE DAILY X2 DAYS THEN 1 TAB ONCE DAILY X1 DAY 09/13 completed Not Available Not Available Not Available paroxetine 10 mg tablet TAKE 1 TABLET BY MOUTH DAILY active Not Available Not Available No t Available oxybutynin chloride ER 10 mg tablet,ext ended release 24 hr 01/15 completed Not Available Not Available Not Available azithromyc in 250 mg tablet TAKE 2 TABLETS BY MOUTH FOR 1 DAY THEN TAKE 1 TABLET BY MOUTH DAILY FOR 4 DAYS 09/13 completed Not Available Not Available Not Available aspirin 325 mg tablet Take 1 tablet every day by oral route. 09/13 completed Not Available Not Available Not Available fluconazol e 150 mg tablet TK 1 T PO FOR 1 DAY. 02/23 completed Not Available Not Available Not Available hydrocodon e 5 mg-acetami nophen 325 mg tablet TAKE 1 TABLET BY MOUTH EVERY 4 TO 6 HOURS NEEDED FOR PAIN active Not Available Not Available No t Available meloxicam 15 mg tablet TAKE 1 TABLET BY MOUTH EVERY DAY 09/13 completed Not Available Not Available Not Available bupivacain e HCl 0.5 % (5 mg/mL) injection solution Take 20 mg by injectio n route. 2024 active Not Available Not Available Not Avai lable penicillin V potassium 500 mg tablet 04/12 completed Not Available Not Available Not Available metronidaz ole 500 mg tablet TAKE 1 TABLET BY MOUTH TWICE DAILY 09/13 completed Not Available Not Available Not Available ciprofloxa alycia 250 mg tablet 02/23 completed Not Available Not Available Not Available hydrocodon e 10 mg-acetami nophen 325 mg tablet 02/23 completed Not Available Not Available Not Available peg-electr olyte solution 420 gram oral solution active Not Available Not Available Not Available tramadol 50 mg tablet 01/15 completed Not Available Not Available Not Available amoxicilli n 500 mg tablet 07/14 completed Not Available Not Available Not Available prednisone 10 mg tablets in a dose pack Take 1 tab by mouth, 3 times a day for 3 daysTake 1 tab by mouth 2 times a day for 2 daysTake 1 tab by mouth once a day for 1 day 2024 active Not Available Not Available Not Avai lable famciclovi r 500 mg tablet TAKE 1 TABLET BY MOUTH EVERY 8 HOURS NEEDED FOR COLD SORES 09/13 completed Not Available Not Available Not Available Kenalog 10 mg/mL suspension for injection Take 20 mg by injectio n route. 2024 active [facility]: 0003-04 94-20 Not Available Not Available Not Available paroxetine 20 mg tablet TAKE 1 TABLET BY MOUTH DAILY 09/13 completed Not Available Not Available Not Available pantoprazo le 40 mg tablet,del ayed release Take 1 tablet every day by oral route. 07/14 completed Not Available Not Available Not Available erythromyc in 5 mg/gram (0.5 %) eye ointment active Not Available Not Available Not Available esomeprazo le magnesium 40 mg capsule,de layed release TAKE 1 CAPSULE BY MOUTH DAILY active Not Available Not Available No t Available oxybutynin chloride ER 5 mg tablet,ext ended release 24 hr TAKE 1 TABLET BY MOUTH DAILY 09/13 completed Not Available Not Available Not Available diclofenac sodium 75 mg tablet,del ayed release TAKE 1 TABLET BY MOUTH TWICE DAILY WITH FOOD active Not Available Not Available No t Available cephalexin 500 mg tablet TAKE 1 TABLET BY MOUTH EVERY 12 HOURS FOR 7 DAYS 09/13 completed Not Available Not Available Not Available montelukas t 10 mg tablet 02/23 completed Not Available Not Available Not Available azelastine 137 mcg (0.1 %) nasal spray USE 2 SPRAYS IN EACH NOSTRIL EVERY 12 HOURS NEEDED FOR SINUS SYMPTOMS active Not Available Not Available No t Available ibuprofen 600 mg tablet 02/23 completed Not Available Not Available Not Available albuterol sulfate HFA 90 mcg/actuat ion aerosol inhaler INHALE 2 PUFFS BY MOUTH EVERY 4 TO 6 HOURS NEEDED FOR SHORTNES S OF BREATH OR WHEEZING 09/13 completed Not Available Not Available Not Available fluticason e propionate 50 mcg/actuat ion nasal spray,susp ension active Not Available Not Available Not Available amoxicilli n 875 mg-potassi um clavulanat e 125 mg tablet 09/13 completed Not Available Not Available Not Available Vigamox 0.5 % eye drops active Not Available Not Available Not Available trospium 20 mg tablet TAKE 1 TABLET BY MOUTH TWICE DAILY active Not Available Not Available No t Available magnesium 100mg 2012 active Not Available Not Available Not Avai lable Vicodin 10-325 02/23 completed as needed Not Available Not Available Not Available ibuprofen 600mg bid 2012 active Not Available Not Available Not Avai lable lidocaine (PF) 10 mg/mL (1 %) injection solution In office injectio n administ ered by the provider 08/25 completed [facility]: [id number] 76-17 Not Available Not Available Not Available Zostavax (PF) 19,400 unit/0.65 mL subcutaneo us suspension TO BE ADMINIST ERED BY [facility] 04/12 completed Not Available Not Available Not Available Calcium 500 With D 2012 active Not Available Not Available Not Avai lable diclofenac 1 % topical gel 02/23 completed Not Available Not Available Not Available Durezol 0.05 % eye drops 04/12 completed Not Available Not Available Not Available [facility] 2012 active Not Available Not Available Not Avai lable ropivacain e (PF) 5 mg/mL (0.5 %) injection solution In office injectio n administ ered by the provider 09/13 completed c2018 05/05/20 Not Available Not Available Not Available Ilevro 0.3 % eye drops,susp ension active Not Available Not Available Not Available Fluzone High-Dose 1002-1902 (PF) 180 mcg/0.5 mL intramuscu lar syringe TO BE ADMINIST ERED BY PHARMACI ST FOR IMMUNIZA TION 04/12 completed Not Available Not Available Not Available Fluad 2019-20 65yr up(PF)45 mcg(15 mcgx3)/0.5 mL intramuscu lar syringe TO BE ADMINIST ERED BY [employer] FOR IMMUNIZA TION 04/12 completed Not Available Not Available Not Available Vitals Date Recorded Body mass index (BMI) Body height Body weight Provider Name and Address Organization Details Last Updated DateTime 04/12/2021 29.5 kg/m2 175.26 cm 92051.47 g Not Available [facility] 08/03/2022 05:53:14 Date Recorded Body mass index (BMI) Body height Body weight Provider Name and Address Organization Details Last Updated DateTime 05/10/2021 29.5 kg/m2 175.26 cm 20783.47 g Not Available [facility] 08/03/2022 05:53:14 Date Recorded Body mass index (BMI) Body height Body weight Provider Name and Address Organization Details Last Updated DateTime 08/25/2021 30.1 kg/m2 175.26 cm 99709.84 g Not Available [facility] 08/03/2022 05:53:14 Date Recorded Body mass index (BMI) Body height Body weight Provider Name and Address Organization Details Last Updated DateTime 11/30/2021 29.5 kg/m2 175.26 cm 35438.47 g Not Available [facility] 08/03/2022 05:53:14 Date Recorded Body height Body mass index (BMI) Body weight Provider Name and Address Organization Details Last Updated DateTime 09/13/2024 175.26 cm 27.6 kg/m2 31291.77 g Mylene Moon CNA [facility] 09/13/2024 12:08:37 Social History Question Answer Notes LastModified by Organizat ion Details LastModified Time Tobacco Smoking Status Current Every Day Smoker ANTOLIN Zhu [place] - [employer] [facility] 09/13/2024 12:11:31 What Is Your Level Of Alcohol Consumption? None Information not available 09/13/2024 How Much Tobacco Do You Smoke? 1 PPD A Little Less Than A Pack Information not available 09/13/2024 How Many Years Have You Smoked Tobacco? 40 Information not available 09/13/2024 Sex: Unknown Functional Status None recorded. Mental Status None recorded. Family History Nothing Reported. Medical History Condition Response STROKE/TIA Y URINARY/BLADDER/KIDNEY PROBLEMS Y ARTHRITIS Y Gynecological HistoryNo gynecological history recorded. Obstetrics History GPAL:G 0 P 0 0 0 0 Past Encounters Encounter ID Performer Location Encounter Start Date Encounter Closed Date Diagnosis/Indication Diagnosis SNOMED-CT Code Diagnosis ICD10 Code Diagnosis Note [id number] [facility] [place] [address] [address] [place] [address] 04/12/2021 00:00:00 04/12/2021 12:42:19 [id number] [facility] [place] [address] [facility] [address] [place] [address] 05/10/2021 00:00:00 05/10/2021 10:57:06 [id number] [facility] [place] [address] [place] [address] 08/25/2021 00:00:00 08/25/2021 11:12:19 [id number] [facility] [place] [address] [place] [address] 11/30/2021 00:00:00 11/30/2021 16:11:18 [id number] ABHISHEK Hoover [facility] [place] [address] [place] [address] 09/13/2024 11:51:17 09/13/2024 13:36:15 Pain of right shoulder joint 7525022841 3073438 M25.511 Tendinitis of right rotator cuff 9771746528 6141682 M67.813 Localized, primary osteoarthritis of the shoulder region 000819654 M19.011 Leg length inequality 45 226077 M21.70 Health Concerns Section Related Observation LastModified by Organization Detai ls LastModified Time None Recorded Concern Status LastModified by Organization Details LastModified Time None Recorded Advance Directives Directive None Recorded Payers Encounter Date Sequence Insurance Name Policy Number Policy Eric Covered Member ID Eirc Member ID Guarantor Name 09/13/2024 1 MEDICARE-ID (MEDICARE) Mago Vogel [id number] Mago Vogel 09/13/2024 2 [facility] [id number] Bg Vogel [id number] Mago Vogel Notes Date Note Type Note Provider Name and Address Organization Details Recorded Time 09/13/2024 text/html The patient retu rns complaining of right shoulder pain. I saw her for this nearly 3 years ago. She has noted at that time to have moderately severe glenohumeral osteoarthritis of the right shoulder. She is doing very well until a few weeks ago when her shoulder pain started to flare up again. She has been doing some home exercises and thinks this may have aggravated her symptoms. She denies any new loss of motion she has had some chronic stiffness no weakness mainly pain localized to the shoulder joint anteriorly and if she tries to do anything heavy or repetitive this aggravates her symptoms. She can not sleep on that side the patient reports that the pain is about a 5 on a scale of 1-10. Shot of cortisone worked very well for her 3 years ago she would like to repeat that again today. She does take diclofenac 75 mg twice a day she is also having some back issues and takes hydrocodone she is being treated elsewhere for her back. She states she does have scoliosis and leg length discrepancy with the right leg that is shorter than the left this throws her off somewhat she was asking about some sort of build up on her sole of her right shoe to help with this I have advised her I do not treat scoliosis and degenerative spine disease but I could order a shoe build up on her heel for her. She has had both hips replaced and has stated that her surgeon showed her that her hip x-rays show good alignment in terms of leg length proximally, she may have an issue lower as a congenital leg length discrepancy and some of it may be due to her pelvic tilt due to scoliosis. Her main concern is her right shoulder today she comes in today requesting a repeat cortisone injection here. New past medical history sheet was reviewed and signed on the intake sheet of today's date drug allergies current medications family social history previous surgical history 10 point review of systems was reviewed and discussed in detail today with the patient. ABHISHEK Hoover [address], [address], [place], [address], [place] - S ID Berggi 09/13/2024 13:10:33 OBGyn Episode No OBEpisode recorded.
--- OUTSIDE RECORDS SUMMARY | 2024-09-20 15:08 | XMS_ITS | Clinical Summary ---
Author Organization [facility] [address] Address [address] [place] [address] Care Team Providers Care Architectural Technologist Name Role Phone Jose Antonio Ghotra MD Primary Care Provider [phone] aJmeson Fink MD Unavailable [phone] Allergies Active Allergy Reactions Criticality Noted Date [...] 01/19/2023 History of benign breast biopsy 01/19/2023 Family History Medical History Relation Name Comments No Known Problems Mother Relation Name Status Comments Mother Social History Tobacco Use Types Packs/Day Years [...] on file 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 Gender Identity Not on file Sexual Orientation Not on file Obstetrics History Last Filed Vital Signs Vital Sign Reading Time Taken Comments Blood Pressure - - Pulse - - Temperature - - Respiratory Rate - - Oxygen Saturation - - Inhaled Oxygen Concentration - - Weight 90.7 kg (200 lb) 01/19/2023 1:50 PM CDT Height 175.3 cm (5' 9 ) 01/19/2023 1:50 PM CDT Body Mass Index 29.53 01/19/2023 1:50 PM CDT Plan of Treatment Health Maintenance Due Date Last Done Comments Breast Cancer Screening-Mammogram 1950 Colon Cancer Screening-Colonoscopy 1950 Depression Screening 1950 Fall Risk Assessment 1950 Hepatitis C Screening 1950 Osteoporosis Screening-Bone Density Scan 1950 Hepatitis B Screening 12/06/1969 Well Visit 65+ 12/06/2016 DTaP/Tdap/Td Vaccine (2 - Td or Tdap) 11/05/2018 11/05/2008 Zoster Vaccine (3 of 3) 05/11/2020 03/16/2020, 10/27 Pneumococcal vaccine 65+ (3 of 3 - PCV20 or PCV21) 04/06/2021 04/06/2016, 03/10/2015 Covid-19 Vaccine (4 - 2023-2 5 season) 2024 04/25/2021, 08/22/2020, 08/01/2020 Influenza Vaccine (#1) 2024 2, 02/11/2021, 03/19/2019, Additional history exists Insurance MEDICARE [facility] Address: [address] [address] [place] [address] MEDICARE [facility] INDEMNITY [place] MEDICARE [facility] Address: [address] [address] [facility] Care Teams Architectural Technologist Relationship Specialty Start Date End Date Jose Antonio Ghotra MD [address] [place] [address] PCP - General 04/30/12 Jameson Fink MD [address] [place] [address] Referring Physician Obstetrics and Gynecology 12/22/22
[2024-09-20 15:51] LABS: Estimated Glomerular Filt Rate 49
== END 2024-09-20 15:06 | disposition home or self-care (01) ==
LOC: ANHIMG 15:05
PROVIDERS: Visit Provider Neurological Surgery
DX: R93.2 Abnormal findings on diagnostic imaging of liver and biliary tract (principal); R93.429 Abnormal radiologic findings on diagnostic imaging of unspecified kidney; R10.31 Right lower quadrant pain; N39.41 Urge incontinence
CPT/HCPCS: 74177; Q9967

== ENCOUNTER 2024-10-29 16:04 | Outpatient (CLI) | payer MEDICARE, OTHER, SELFPAY ==
--- NOTE | ~2024-10-29 | CT_ITS ---
CT Scan of the Chest without Contrast: Clinical Indication: Abnormal findings on diagnostic imaging Technique: Contiguous sections were acquired throughout the chest without intravenous contrast. Dose reduction technique was used on this scan by utilizing automated exposure control and iterative recon struction technique. The dose-length product (DLP) was 162.25 mGy-cm. COMPARISON: 01/17/2024 Findings: There is no evidence of any significant mediastinal, hilar or axillary lymphadenopathy. The calcified mediastinal and right hilar lymph nodes are present.. There is no evidence of pleural or pericardial effusion. There are a few peripheral subcentimeter groundglass nodules in the anteroinferior right upper lobe, similar to prior exam. There is focal scarring at the lingula and right middle lobe. Images through the upper abdomen reveal probable small hepatic cysts. Impression: Stable subcentimeter groundglass nodules in the anteroinferior right upper lobe. Consider small airwa ys infectious process. Reviewed, dictated and finalized at [facility]. Impression: Stable subcentimeter groundglass nodules in the anteroinferior right upper lobe . Consider small airways infectious process.
--- OUTSIDE RECORDS SUMMARY | 2024-10-29 16:07 | XMS_ITS | Encounter Summary ---
Author Organization [facility] Healthcare Address [facility] [place] [address] Care Team Providers Care Ethernet Network Architect Name Role Phone Jose Antonio Ghotra MD Primary Care Provider [phone]- [phone] Reason for Visit * Diagnostic Imaging (Routine) - Closed Specialty Diagnoses / Procedures Referred By Contac t Referred To Contact Procedures Breast Imaging Diagnostic Outside Reference Delma Champagne NP Phone: tel: fax: Referral ID Status Reason Start Date Expiration Date Visits Re quested Visits Authorized [id number] Closed 01/04/2023 02/03/2024 1 1 Encounter Details Date Type Department Care Team (Late st Contact Info) Description 05/10/2019 12: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 Hospital Encounter [facility] [address] [place] [id number] Social History Tobacco Use Types Packs/Day Years Used Date Smoking Tobacco: Every Day Cigarettes Passive Smoke Exposure: Past Smokeless Tobacco: Never Personal Safety Answer Date Recorded Getting School Help Needed Not on file 08/04 Comments Unknown Sex and Gender Information Value Date Recorded Sex Assigned at Not on file 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 Gender Identity Not on file Sexual Orientation Not on file documented as of this encounter Plan of Treatment Not on file documented as of this encounter Procedures Procedure Name Priority Date/Time Associated Diagnosis Comments BREAST IMAGING MG DIAGNOSTIC OUTSIDE REFERENCE Routine 05/10/2019 12:05 AM PET 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 documented in this encounter Results * Breast Imaging Diagnostic Outside Reference (05/10/2019 12:05 AM PET 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) Impressions [facility] - 01/04/2023 10:17 AM CDT These images are for Reference purposes only and have not been reviewed by [facility] Radiology. There will be no report generated by a [facility] Radiologist. Narrative [facility] - 01/04/2023 10:17 AM CDT EXAMINATION: Images For Reference Purposes Only us Delma Champagne NP IMG MAMMO PROCEDURES Final Result [facility] documented in this encounter Visit Diagnoses Not on filedocumented in this encounter Care Teams Ethernet Network Architect Relationship Specialty Start Date End Date Jose Antonio Ghotra MD [address] [facility] [address] [place] [address] PCP - General 04/30/12 documented as of this encounter
--- OUTSIDE RECORDS SUMMARY | 2024-10-29 16:07 | XMS_ITS | Encounter Summary ---
Author Organization [facility] Healthcare Address [address] [place] [address] Care Team Providers Care Wafer Polishing Worker Name Role Phone Jose Antonio Ghotra MD Primary Care Provider [phone]- [phone] Reason for Visit * Diagnostic Imaging (Routine) - Closed Specialty Diagnoses / Procedures Referred By Contac t Referred To Contact Procedures Breast Imaging Screening Outside Reference Delma Champagne NP Phone: tel: fax: Referral ID Status Reason Start Date Expiration Date Visits Re quested Visits Authorized [id number] Closed 01/04/2023 02/03/2024 1 1 Encounter Details Date Type Department Care Team (Late st Contact Info) Description 07/12/2017 Hospital Encounter [facility]iology [facility]) [address] [place] [address] [id number] Social History Tobacco Use Types Packs/Day Years Used Date Smoking Tobacco: Every Day Cigarettes Passive Smoke Exposure: Past Smokeless Tobacco: Never Personal Safety Answer Date Recorded Getting School Help Needed Not on file 08/04 Comments Unknown Sex and Gender Information Value Date Recorded Sex Assigned at Not on file 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 There will be no report generated by a [facility] Radiologist. Narrative [facility] - 01/04/2023 10:18 AM CDT EXAMINATION: Images For Reference Purposes Only us Delma Champagne NP IMG MAMMO PROCEDURES Final Result [facility] documented in this encounter Visit Diagnoses Not on filedocumented in this encounter Care Teams Wafer Polishing Worker Relationship Specialty Start Date End Date Jose Antonio Ghotra MD [address] [facility] [address] [place] [address] PCP - General 04/30/12 documented as of this encounter
--- OUTSIDE RECORDS SUMMARY | 2024-10-29 16:07 | XMS_ITS | Encounter Summary ---
Author Organization [facility] Healthcare Address [address] [place] [address] Care Team Providers Care Flame Hardening Machine Operator Name Role Phone Jose Antonio Ghotra MD Primary Care Provider +1- [phone] Reason for Visit * Diagnostic Imaging (Routine) - Closed Specialty Diagnoses / Procedures Referred By Contac t Referred To Contact Procedures Breast Imaging Screening Outside Reference Delma Champagne NP Phone: tel: fax: Referral ID Status Reason Start Date Expiration Date Visits Re quested Visits Authorized [id number] Closed 01/04/2023 02/03/2024 1 1 Encounter Details Date Type Department Care Team (Late st Contact Info) Description 09/27/2018 Hospital Encounter 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 There will be no report generated by a [facility] Radiologist. Narrative [facility] - 01/04/2023 10:17 AM CDT EXAMINATION: Images For Reference Purposes Only us Delma Champagne NP IMG MAMMO PROCEDURES Final Result [facility] documented in this encounter Visit Diagnoses Not on filedocumented in this encounter Care Teams Flame Hardening Machine Operator Relationship Specialty Start Date End Date Jose Antonio Ghotra MD [address] [facility] [address] [place] [address] PCP - General 04/30/12 documented as of this encounter
--- OUTSIDE RECORDS SUMMARY | 2024-10-29 16:07 | XMS_ITS | Encounter Summary ---
Author Organization [facility] Address [address] [facility] [place] [address] Care Team Providers Care Aircraft Navigator Name Role Phone Jose Antonio Ghotra Primary Care Provider +1- [phone] Ed POE MD, Jason Unavailable [phone] Encounter Details Date Type Department Care Team (Late st Contact Info) Description 12/31/2019 [facility] Outpatient Visit [facility] Orthopedics [address] [address] [place] [address] [address] Social History Tobacco Use Types Packs/Day Years Used Date Smoking Tobacco: Every Day Cigarettes 0.5 25 Smokeless Tobacco: Never Alcohol Use Standard Drinks/Week Comments No 0 (1 standard drink = 0.6 oz pur e alcohol) Comments No Sex and Gender Information Value Date Recorded Sex Assigned at Not on file 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
--- OUTSIDE RECORDS SUMMARY | 2024-10-29 16:07 | XMS_ITS | Continuity of Care Document ---
Author Organization [facility] Address [address] [place] [address] Phone Care Team Providers Care Hat Checker Name Role Phone Flores Medel Unavailable Unavailable Advance Directives Directive Yes / No Effective Date File Name No Information Encounters Encounter Description Practice Location Reason(s) For Visit Diagnoses Date Provider Providers Copied on Encounter [facility], [address], [place], [place], [id number], [place] tel:[phone] [facility] No Information [address] T[address]. [address] [facility] , [address], [place], [address], [place]. tel:[phone] Referring Provider: Jose Antonio Ghotra MD, [address] [facility] [address] [facility] [address], [place], [address]. tel:[phone] Family History Family Member Type Diagnosis Age At Onset No Information Payers Payer name Insurance type Covered constitution party ID Authoriza tion(s) [place] [id number] [facility] Commercial CI [id number] Social History Type Description Quantity Date Captured [...]
--- OUTSIDE RECORDS SUMMARY | 2024-10-29 16:07 | XMS_ITS | Encounter Summary ---
Author Organization [facility] Healthcare Address [address] [place] [address] Care Team Providers Care Yard Motor Operator Name Role Phone Jose Antonio Ghotra MD Primary Care Provider [phone]- [phone] Reason for Visit * Diagnostic Imaging (Routine) - Closed Specialty Diagnoses / Procedures Referred By Contac t Referred To Contact Procedures Breast Imaging US Outside Reference Delma Champagne NP Phone: tel: fax: Referral ID Status Reason Start Date Expiration Date Visits Re quested Visits Authorized [id number] Closed 01/04/2023 02/03/2024 1 1 Encounter Details Date Type Department Care Team (Late st Contact Info) Description 05/10/2019 Hospital Encounter [facility] Radiology [facility] [address] [place] [id number] Social History Tobacco Use Types Packs/Day Years Used Date Smoking Tobacco: Every Day Cigarettes Passive Smoke Exposure: Past Smokeless Tobacco: Never Personal Safety Answer Date Recorded Getting School Help Needed Not on file 08/04 Comments Unknown Sex and Gender Information Value Date Recorded Sex Assigned at Not on file 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 Gender Identity Not on file Sexual Orientation Not on file documented as of this encounter Plan of Treatment Not on file documented as of this encounter Procedures Procedure Name Priority Date/Time Associated Diagnosis Comments BREAST IMAGING US OUTSIDE REFERENCE Routine 05/10/2019 12:00 AM DIAMOND ASSORTER documented in this encounter Results * Breast Imaging US Outside Reference (05/10/2019 12:00 AM DIAMOND ASSORTER) Impressions [facility] - 01/04/2023 10:14 AM CDT [...] on filedocumented in this encounter Care Teams Yard Motor Operator Relationship Specialty Start Date End Date Jose Antonio Ghotra MD [address] [facility] [address] [place] [address] PCP - General 04/30/12 documented as of this encounter
--- OUTSIDE RECORDS SUMMARY | 2024-10-29 16:07 | XMS_ITS | Clinical Summary ---
Author Organization [facility] Address [address] [facility] [place] [address] Care Team Providers Care Archery Equipment Repairer Name Role Phone Jose Antonio Ghotra Primary Care Provider [phone] Ed POE MD, Jason Unavailable [phone] Source Comments [facility],non-owned Affiliates and Associated Physician Practices is amultiple site organization consisting of ambulatory clinics and hospital sitesin [place], [place], [place] and [place]. This disclosure is being madepursuant to the Care Everywhere program and may not contain all information available regarding this patient. Last updated 18.[facility] Allergies Active Allergy Reactions Criticality Noted [...] fluticasone propionate (FLONASE) 50 MCG/ACT nasal spray [place] 2 Sprays into each nostril once daily. 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 Gender Identity Not on file Sexual [...] 6:26 AM CDT Height 172.7 cm (5' 8) 01/01/2020 6:26 AM CDT Body Mass Index [...] this topic Medical Devices Implanted Type Area Academic Records Specialist Device Identifier Shelf Expiration Date Model / Serial / Lot Biomet Acetabular Cup, 62mm Implanted:Qty: 1 on 10/28/2014 by Jason Ward IV, MD at [facility] Left: Hip 05/04/2024 [id number] / / [id number] Bi[employer] Bone Screw, 6.5mm X 40mm Implanted:Qty: 1 on 10/28/2014 by Jason Ward IV, MD at [facility] Left: Hip 09/01/2024 [id number] / / [id number] [employer] Acetabular Liner, 36mm Size 25 Implanted:Qty: 1 on 10/28/2014 by Jaosn Ward IV, MD at [facility] Left: Hip 12/02/2018 [id number] / / [id number] 36mm Ceramic Head Implanted:Qty: 1 on 10/28/2014 by Jason Ward IV, MD at [facility] Left: Hip [employer] 09/02/2024 [id number] / / [id number] Micro Taper-Loc Stem Implanted:Qty: 1 on 10/28/2014 by Jason Ward IV, MD at [facility] Left: Hip [employer] 04/04/2024 [id number] / / [id number] Standard Neck Implanted:Qty: 1 on 10/28/2014 by Jason Ward IV, MD at [facility] Left: Hip [employer] 09/02/2024 [id number] / / [id number] Cmpnt Ptlr 31mm 1 Pg Wire Ascnt Arcm Kn Implanted:Qty: 1 on 01/01/2020 by Jules Joaquin MD at [facility] Left: Knee [employer] 07/31/2024 [id number] / / [id number] Tray Tib 79mm Kn Cocr I Beam Implanted:Qty: 1 on 01/01/2020 by Jules Joaquin MD at [facility] Left: Knee [employer] 08/18/2029 [id number] / / [id number] Brng [id number] Vngrd Arcm Kn Ant Stab Implanted:Qty: 1 on 01/01/2020 by Jules Joaquin MD at [facility] Left: Knee [employer] 02/16/2024 [id number] / / [id number] Cmnt Bone Djo Srg Cblt 40gm Hvisc Strl Implanted:Qty: 1 on 01/01/2020 by Jules Joaquin MD at [facility] Left: Knee [facility] 06/27/2020 600-15-000 / / [id number] Cmnt Bone Djo Srg Cblt 40gm Hvisc Strl Implanted:Qty: 1 on 01/01/2020 by Jules Joaquin MD at [facility] Left: Knee [facility] 09/18/2020 600-15-000 / / [id number] Cmpnt Fem Kn Lt Cr Cmnt Prm Vngrd Intlk Implanted:Qty: 1 on 01/01/2020 by Jules Joaquin MD at [facility] Left: Knee [employer] 11/11/2029 [id number] / / [id number] Procedures Procedure Name Priority Date/Time Associated Diagnosis [...] LAB - CHEMISTRY ORDERABLES Fi nal Result [facility] [address] [place] [address] from Last 3 Months or Most Recently Relevant to Health Maintenance Insurance MEDICARE [facility] Advance Directives Documents on File Type Date Recorded Patient Er Nurse Expl anation Adv Directive/Living Will/POA 01/09/2011 1:43 PM * Full Code (Latest Code Status on File) Date Activated Date Inactivated Comments 01/01/2020 10:23 AM 01/02/2020 2:07 PM * Full Code Date Activated Date Inactivated Comments 10/28/2014 1:06 PM 10/30/2014 1:27 PM * FULL RESUSCITATION Date Activated Date Inactivated Comments 01/04/2011 10:26 AM 01/07/2011 11:02 PM Care Teams Archery Equipment Repairer Relationship Specialty Start Date End Date Jose Antonio Ghotra DO [address] [phone] PCP - General 11/22/10 Jason Ward IV, MD [address] [address] Orthopedic Surgery 03/29/11
--- OUTSIDE RECORDS SUMMARY | 2024-10-29 16:07 | XMS_ITS | Encounter Summary ---
Author Organization [facility] Healthcare Address [address] [place] [address] Care Team Providers Care Amplifier Mechanic Name Role Phone Jose Antonio Ghotra MD Primary Care Provider [phone]- [phone] Reason for Visit * Diagnostic Imaging (Routine) - Closed Specialty Diagnoses / Procedures Referred By Contac t Referred To Contact Procedures Breast Imaging Diagnostic Outside Reference Delma Champagne NP Phone: tel: fax: Referral ID Status Reason Start Date Expiration Date Visits Re quested Visits Authorized [id number] Closed 01/04/2023 02/03/2024 1 1 Encounter Details Date Type Department Care Team (Late st Contact Info) Description 10/19/2018 12:05 AM CDT Hospital Encounter [facility] ([facility]) [address] [place] [phone] Social History Tobacco Use Types Packs/Day Years Used Date Smoking Tobacco: Every Day Cigarettes Passive Smoke Exposure: Past Smokeless Tobacco: Never Personal Safety Answer Date Recorded Getting School Help Needed Not on file 08/04 Comments Unknown Sex and Gender Information Value Date Recorded Sex Assigned at Not on file 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 There will be no report generated by a [facility] Radiologist. Narrative [facility] - 01/04/2023 10:17 AM CDT EXAMINATION: Images For Reference Purposes Only us Delma Champagne NP IMG MAMMO PROCEDURES Final Result [facility] documented in this encounter Visit Diagnoses Not on filedocumented in this encounter Care Teams Amplifier Mechanic Relationship Specialty Start Date End Date Jose Antonio Ghotra MD [address] [facility] [address] [place] [address] PCP - General 04/30/12 documented as of this encounter
--- OUTSIDE RECORDS SUMMARY | 2024-10-29 16:07 | XMS_ITS | Encounter Summary ---
Author Organization [facility] Healthcare Address [address] [place] [address] Care Team Providers Care Social And Political Studies Professor Name Role Phone Jose Antonio Ghotra MD Primary Care Provider +1- [phone] Reason for Visit * Diagnostic Imaging (Routine) - Closed Specialty Diagnoses / Procedures Referred By Contac t Referred To Contact Procedures Breast Imaging Screening Outside Reference Delma Champagne NP Phone: tel: fax: Referral ID Status Reason Start Date Expiration Date Visits Re quested Visits Authorized [id number] Closed 01/04/2023 02/03/2024 1 1 Encounter Details Date Type Department Care Team (Late st Contact Info) Description 09/22/2020 Hospital Encounter [facility] [address] [place] [phone] Social History Tobacco Use Types Packs/Day Years Used Date Smoking Tobacco: Every Day Cigarettes Passive Smoke Exposure: Past Smokeless Tobacco: Never Personal Safety Answer Date Recorded Getting School Help Needed Not on file 08/04 Comments Unknown Sex and Gender Information Value Date Recorded Sex Assigned at Not on file 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 There will be no report generated by a [facility] Radiologist. Narrative [facility] - 01/04/2023 10:16 AM CDT EXAMINATION: Images For Reference Purposes Only us Delma Champagne NP IMG MAMMO PROCEDURES Final Result [facility] documented in this encounter Visit Diagnoses Not on filedocumented in this encounter Care Teams Social And Political Studies Professor Relationship Specialty Start Date End Date Jose Antonio Ghotra MD [address] [facility] [address] [place] [address] PCP - General 04/30/12 documented as of this encounter
--- OUTSIDE RECORDS SUMMARY | 2024-10-29 16:08 | XMS_ITS | Data Portability ---
Author Organization [facility], Main Office Address [address] [place] [address] Care Team Providers Care Chief Librarian Music Department Name Role Phone MAHAD BENEDICT Primary Care Provider MAHAD BENEDICT Referring Provider [phone] LISA PEREZ Primary Care Provider LISA PEREZ Referring Provider [phone] Assessment Encounter Date Assessment Date Assessment LastModified [...] DO Not Attach Compendium, Do Not Delete/merge, [address]22 12:13:53 Surgeries None recorded. Imaging XR, shoulder, 2 or more view 2024 025 [facility] [place], [address], [place], [address], 13:36:15 Medication Orders bupivacaine HCl 0.5 % (5 mg/mL) injection solution 2024 [id number], [address], [place], [id number], 13:22:59 Kenalog 10 mg/mL suspension for injection 2024 [facility] #05203, [address], [place], [id number], 13:22:59 prednisone 10 mg tablets in a dose pack 2024 [facility] #91062, [address], [place], [id number], 13:22:59 Patient TargetsNo targets recorded. Patient InstructionsNo instructions recorded. Reason for Referral None Reported. Results Created Date Observation Date Name Description Value Unit Range Abnormal Flag Note LastModifiedBy Organization Detail LastModifiedTime 04/12/20 21 XR, shoul yin, 2 or more view No observ ation record ed. [id number] [facility] [place] [address], [place], [address], 08/03/2022 06:00:48 09/14/19 25 XR, shoul yin, 2 or more view No observ ation record ed. [email or web address] [facility] [place] [address] [facility] [address], [place], [address], 09/13/2024 13:09:30 Result Notes None recorded. Problems Name Problem SNOMED Code Status Onset Date Resolution Date Notes Provider Name and Address Organization Details Recorded Time Pain of right shoulder joint 1962996485264 9100 Active 2021 Not Available [facility] 3 05:55:48 Tendinitis of right rotator cuff 7616343623801 9104 Active 2021 Not Available [facility] 3 05:55:48 Localized, primary osteoarthr itis of the shoulder region 699509698 Active 2021 Not Available [facility] 3 05:55:48 Osteoarthr itis 579737480 Active 2021 Not Available [facility] 3 05:55:48 Breast lump 89412868 Active Not Available [facility] 3 05:55:48 Leg length inequality 48154755 Active 2024 Aisha Hazel, FEROZ L null, [place] [facility] [place] [employer] [facility] 5 12:42:55 Problem Notes None recorded. 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 Procedure Notes None recorded. Medical Equipment None Reported. Allergies Allergen ID Allergen Name Allergen Category Reaction Reaction Severity Criticality Documentation Date Start Date Code Code System Note Provider Name and Address Organization Details Recorded Time 39300 Substance with sulfonami de structure and antibacte rial mechanism of action (substanc e) medicatio n other Not available Not available 08/03/2022 83664 8003 SNOMED Not Available [facility] 3 06:00:37 Medications Name Sig Start Date Stop [...] THEN 1 TAB ONCE DAILY X1 DAY active Not Available Not Available No t Available paroxetine 10 mg tablet TAKE 1 [...] by injectio n route. 2024 active [facility]: 0003-04 94-20 Not Available Not Available Not [...] ered by the provider 08/25 completed [facility]: 0409-42 76-17 Not Available Not Available Not Available Zostavax (PF) 19,400 unit/0.65 mL subcutaneo us suspension TO BE ADMINIST ERED BY IMMUNIZI PHARMACI ST 04/12 completed Not Available Not [...] Available Not Available Not Available Fluzone High-Dose 3755-5291 (PF) 180 mcg/0.5 mL intramuscu lar syringe TO BE ADMINIST ERED BY PHARMACI ST FOR IMMUNIZA TION 04/12 completed Not Available Not Available Not Available Fluad 2018- 65yr up(PF)45 mcg(15 mcgx3)/0.5 mL intramuscu lar syringe TO BE ADMINIST ERED BY PHARMACI ST FOR IMMUNIZA TION 04/12 completed Not Available Not Available Not Available Vitals Date Recorded Body mass index (BMI) Body height Body weight Provider Name and Address Organization Details Last Updated DateTime 08/25/2021 30.1 kg/m2 175.26 cm 66093.84 g Not Available [facility] 08/03/2022 05:53:14 Date Recorded Body height Body mass index (BMI) Body weight Provider Name and Address Organization Details Last Updated DateTime 09/13/2024 175.26 cm 27.6 kg/m2 29083.77 g Mylene MoonANTOLIN OR [facility] 09/13/2024 12:08:37 Date Recorded Body mass index (BMI) Body height Body weight Provider Name and Address Organization Details Last Updated DateTime 11/30/2021 29.5 kg/m2 175.26 cm 02611.47 g Not Available [facility] 08/03/2022 05:53:14 Date Recorded Body mass index (BMI) Body height Body weight Provider Name and Address Organization Details Last Updated DateTime 04/12/2021 29.5 kg/m2 175.26 cm 22626.47 g Not Available [facility] 08/03/2022 05:53:14 Date Recorded Body mass index (BMI) Body height Body weight Provider Name and Address Organization Details Last Updated DateTime 05/10/2021 29.5 kg/m2 175.26 cm 33170.47 g Not Available [facility] 08/03/2022 05:53:14 Social History Question Answer Notes LastModified by Organizat ion Details LastModified Time Tobacco Smoking Status Current Every Day Smoker Mylene MazaANTOLIN reilly [facility] 09/13/2024 12:11:31 How Much Tobacco Do You Smoke? 1 PPD A Little Less Than A Pack Information not available 09/13/2024 How Many Years Have You Smoked Tobacco? 40 Information not available 09/13/2024 Sex: Unknown Functional Status Question Answer Note LastModified by Organization D etails LastModified Time What is your level of alcohol consumption? None Information not available 09/13/2024 Mental Status None recorded. Family History Nothing Reported. Medical History Condition Response ARTHRITIS Y URINARY/BLADDER/KIDNEY PROBLEMS Y STROKE/TIA Y Gynecological HistoryNo gynecological history recorded. Obstetrics History GPAL:G 0 P 0 0 0 0 Past Encounters Encounter ID Performer Location Encounter Start Date Encounter Closed Date Diagnosis/Indication Diagnosis SNOMED-CT Code Diagnosis ICD10 Code Diagnosis Note [id number] [facility] [place] [address] [place] [address] 04/12/2021 00:00:00 04/12/2021 12:42:19 [id number] [address] MD [facility] [place] [address] [place] [address] 05/10/2021 00:00:00 05/10/2021 10:57:06 [id number] Vikash Dawson MD [facility] [place] [address] [place] [address] 08/25/2021 00:00:00 08/25/2021 11:12:19 [id number] Vikash Dawson MD [facility] [place] [address] [place] [address] 11/30/2021 00:00:00 11/30/2021 16:11:18 [id number] Byron Ramos MD [facility] [place] [address] [facility] [address] [place] [address] 09/13/2024 11:51:17 09/13/2024 13:36:15 Pain of right shoulder joint 8616053494 3667943 M25.511 Tendinitis of right rotator cuff 3399101655 5471779 M67.813 Localized, primary osteoarthritis of the shoulder region 662260333 M19.011 Leg length inequality 45 015390 M21.70 Health Concerns Section Related Observation LastModified by Organization Detai ls LastModified Time None Recorded Concern Status LastModified by Organization Details LastModified Time None Recorded Advance Directives Directive None Recorded Payers Encounter Date Sequence Insurance Name Policy Number Policy Eric Covered Member ID Eric Member ID Guarantor Name 09/13/2024 1 [place] Mago Vogel [id number] Mago Vogel 09/13/2024 2 [facility] [id number] Jaspreet [id number] Mago Vogel Notes Date Note Type Note [...] today with the patient. ABHISHEK Hoover [address] [facility], [facility] [address], [place], [address], [place] [facility] 09/13/2024 13:10:33 OBGyn Episode No OBEpisode recorded.
--- OUTSIDE RECORDS SUMMARY | 2024-10-29 16:08 | XMS_ITS | Referral Summary ---
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 Gender Identity Not on file Sexual Orientation Not on file Last Filed Vital Signs Vital Sign Reading Time Taken Comments Blood Pressure - - Pulse - - Temperature - - Respiratory Rate - - Oxygen Saturation - - Inhaled Oxygen Concentration - - Weight 90.7 kg (200 lb) 01/19/2023 1:50 PM CDT Height 175.3 cm (5' 9) 01/19/2023 1:50 PM CDT Body Mass Index 29.53 01/19/2023 1:50 PM CDT Plan of Treatment Not on file Insurance MEDICARE [facility] CHOICE PLUS MEDICARE [facility] MEDICARE [facility] Care Teams General Machine Operator Relationship Specialty Start Date End Date Jose Antonio Ghotra MD [address] [place] [address] PCP - General 04/30/12 Jameson Fink MD [address] [place] [address] Referring Physician Obstetrics and Gynecology 12/22/22
--- OUTSIDE RECORDS SUMMARY | 2024-10-29 16:08 | XMS_ITS | Clinical Summary ---
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 Gender Identity Not on file Sexual Orientation [...] season) 2024 04/25/2021, 08/22/2020, 08/01/2020 Influenza Vaccine (Season Ended) 2025 03/25/2022, 02/11/2021, 03/19/2019, Additional history exists Insurance MEDICARE [facility] CHOICE PLUS [facility] HMO/PPO Address: [address] [address] [place] [address] MEDICARE [facility] INDEMNITY [place] MEDICARE [facility] Address: [address] [address] [facility] Care Teams Licensed Direct Entry Midwife Relationship Specialty Start Date End Date Jose Antonio Ghotra MD [address] [place] [address] PCP - General 04/30/12 Jameson Fink MD [address] [place] [address] Referring Physician Obstetrics and Gynecology 12/22/22
--- OUTSIDE RECORDS SUMMARY | 2024-10-29 16:08 | XMS_ITS | Encounter Summary ---
Author Organization [facility] Address [address] [place] [address] Care Team Providers Care Sonographer Name Role Phone Jose Antonio Ghotra MD Primary Care Provider [phone] Reason for Visit * Diagnostic Imaging (Routine) - Closed Specialty Diagnoses / Procedures Referred By Contac t Referred To Contact Procedures Breast Imaging US Outside Reference Delma Champagne NP Phone: tel: fax: Referral ID Status Reason Start Date Expiration Date Visits Re quested Visits Authorized [id number] Closed 01/04/2023 02/03/2024 1 1 Encounter Details Date Type Department Care Team (Late st Contact Info) Description 10/19/2018 Hospital Encounter [facility] [address] [place] [id number] Social History Tobacco Use Types Packs/Day Years Used Date Smoking Tobacco: Every Day Cigarettes Passive Smoke Exposure: Past Smokeless Tobacco: Never Personal Safety Answer Date Recorded Getting School Help Needed Not on file 08/04 Comments Unknown Sex and Gender Information Value Date Recorded Sex Assigned at Not on file 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
--- OUTSIDE RECORDS SUMMARY | 2024-10-29 16:08 | XMS_ITS | Clinical Summary ---
Author Organization [facility] [place] Address [address] [place] [address] Phone Care Team Providers Care Frame Carver Spindle Name Role Phone Jose Antonio Ghotra DO Primary Care Provider [phone] Allergies Active Allergy Reactions Criticality Noted Date [...] 7 Active fluticasone propionate (FLONASE) 50 mcg/spray [place], Suspension nasal inhaler Administer 2 Sprays in each nostril. Active Active Problems Patient Care Coordination No te Formatting of this note migh t be different from the original. Zac Dinero MD-[facility] @ Primary Care: Jose Antonio Ghotra DO Referring Provider: Jose Antonio Ghotra DO [address] [place] [address] Other: Dr Licha Tsai Problem Noted Date Diagnosed Date Vasovagal syncope 02/14/2020 Orthostatic lightheadedness 02/14/2020 Arterial hypotension 02/14/2020 Smoking 02/14/2020 Visit for screening mammogram 07/01/2015 Breast calcification, right 06/01/2015 ALH 04/29/2013 Overview (08/07/2013): 05/15/13 LEFT bx - Path shows ALH. 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 EXECUTIVE): IOV THR, neck fused, etc GERD (gastroesophageal [...] on file Legal Sex Female 9:36 AM INTERNATIONAL MARKETING EXECUTIVE Gender Identity Not on file Sexual Orientation [...] CDT Respiratory Rate 14 08/08/2013 9:43 AM INTERNATIONAL MARKETING EXECUTIVE Oxygen Saturation 94% 02/06/2020 3:22 PM CDT Inhaled Oxygen Concentration - - Weight 84.4 kg (186 lb) 02/06/2020 3:22 PM CDT Height 175.3 cm (5' 9) 02/06/2020 3:22 PM CDT Body Mass Index [...] Additional history exists INFLUENZA VACCINE (#1) 2024 OSTEOPOROSIS SCREENING 09/08/2025 09/08/2020, 2017 COLORECTAL SCREENING 10/15/2025 10/16/2015 Colorectal Cancer Screening 10/15/2025 RSV VACCINE (60+ or ) (1 - 1-dose 75+ series) 12/06/2026 Procedures Procedure Name Priority Date/Time Associated Diagnosis [...] Maintenance Insurance MEDICARE PART A AND B [facility] [id number] Advance Directives For more information, please contact: [phone] * Full Code (Latest Code Status on File) Date Activated Date Inactivated Comments 07/26/2013 12:52 PM 07/26/2013 3:18 PM * Full Code Date Activated Date Inactivated Comments 07/26/2013 9:26 AM 07/26/2013 12:52 PM Care Teams Frame Carver Spindle Relationship Specialty Start Date End Date Jose Antonio Ghotra DO [address] [facility] [address] [place] [address] PCP - General Internal Medicine 05/09/13
== END 2024-10-29 16:05 | disposition home or self-care (01) ==
PROVIDERS: PCP Internal Medicine; Visit Provider Internal Medicine
DX: R93.89 Abnormal findings on diagnostic imaging of other specified body structures (principal)
CPT/HCPCS: 71250

== ENCOUNTER 2024-12-09 13:07 | Outpatient (CLI) | payer MEDICARE, OTHER, SELFPAY ==
--- OUTSIDE RECORDS SUMMARY | 2024-12-09 13:16 | XMS_ITS | Encounter Summary ---
Author Organization [facility] Healthcare Address [address] [place] [address] Care Team Providers Care General Office Worker Name Role Phone Jose Antonio Ghotra MD Primary Care Provider [phone] Reason for Visit * Diagnostic Imaging (Routine) - Closed Specialty Diagnoses / Procedures Referred By Contac t Referred To Contact Procedures Breast Imaging US Outside Reference Delma Champagne NP Phone: tel: fax: Referral ID Status Reason Start Date Expiration Date Visits Re quested Visits Authorized [id number] Closed 01/04/2023 02/03/2024 1 1 Encounter Details Date Type Department Care Team (Late st Contact Info) Description 10/19/2018 Hospital Encounter [facility] [address] [place] [phone] Social History Tobacco Use Types Packs/Day Years Used Date Smoking Tobacco: Every Day Cigarettes Passive Smoke Exposure: Past Smokeless Tobacco: Never Personal Safety Answer Date Recorded Getting School Help Needed Not on file 08/04 Comments Unknown Sex and Gender Information Value Date Recorded Sex Assigned at Not on file 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 Radiology. There will be no report generated by a [facility] Radiologist. Narrative [facility] - 01/04/2023 10:14 AM CDT EXAMINATION: Images For Reference Purposes Only us Delma Champagne NP IMG MAMMO PROCEDURES Final Result [facility] documented in this encounter Visit Diagnoses Not on filedocumented in this encounter Care Teams General Office Worker Relationship Specialty Start Date End Date Jose Antonio Ghotra MD [address] [facility] [address] [place] [address] PCP - General 04/30/12 documented as of this encounter
--- OUTSIDE RECORDS SUMMARY | 2024-12-09 13:16 | XMS_ITS | Clinical Summary ---
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 Gender Identity Not on file Sexual [...] 2024 04/25/2021, 08/22/2020, 08/01/2020 Influenza Vaccine (#1) 2025 2, 02/11/2021, 03/19/2019, Additional history exists Insurance MEDICARE [facility] CHOICE PLUS [facility] HMO/PPO Address: [address] [address] [place] [address] MEDICARE [facility] INDEMNITY [place] MEDICARE [facility] Address: [address] [address] [facility] Care Teams Tsa Screener Relationship Specialty Start Date End Date Jose Antonio Ghotra MD [address] [place] [address] PCP - General 04/30/12 Jameson Fink MD [address] [place] [address] Referring Physician Obstetrics and Gynecology 12/22/22
--- OUTSIDE RECORDS SUMMARY | 2024-12-09 13:16 | XMS_ITS | Referral Summary ---
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 Gender Identity Not on file Sexual Orientation [...] of Treatment Not on file Insurance MEDICARE [facility] Address: [address] [address] [place] [address] [facility] CHOICE PLUS [facility] H[facility]/PPO Address: [address] [address] [place] [address] MEDICARE [facility] MEDICARE [facility] Care Teams Dolphin Trainer Relationship Specialty Start Date End Date Jose Antonio Ghotra MD [address] [place] [address] PCP - General 04/30/12 Jameson Fink MD [address] [place] [address] Referring Physician Obstetrics and Gynecology 12/22/22
--- OUTSIDE RECORDS SUMMARY | 2024-12-09 13:16 | XMS_ITS | Data Portability ---
Author Organization [place] [facility] [employer], Main Office Address [address] [place] [address] Care Team Providers Care Chief Marketing Officer Name Role Phone MAHAD BENEDICT Primary Care Provider MAHAD BENEDICT Referring Provider [phone] LISA PEREZ Primary Care Provider LISA PEREZ Referring Provider Assessment Encounter Date Assessment Date Assessment LastModified [...] DO Not Attach Compendium, Do Not Delete/merge, 11401 12:13:53 Surgeries None recorded. Imaging XR, shoulder, 2 or more view 2024 025 [facility] [place], [address], [place], [address], 13:36:15 Medication Orders bupivacaine HCl 0.5 % (5 mg/mL) injection solution 2024 [id number], [address], [place], [id number], 13:22:59 Kenalog 10 mg/mL suspension for injection 2024 [facility][id number], [address], [place], [id number], 13:22:59 prednisone 10 mg tablets in a dose pack 2024 [id number], [address], [place], [id number], 13:22:59 Patient TargetsNo targets recorded. Patient InstructionsNo instructions recorded. Reason for Referral None Reported. Results Created Date Observation Date Name Description Value Unit Range Abnormal Flag Note LastModifiedBy Organization Detail LastModifiedTime 04/12/20 21 XR, shoul yin, 2 or more view No observ ation record ed. [id number] [facility] [place] [address], [place], [address], 08/03/2022 06:00:48 09/14/19 25 XR, shoul yin, 2 or more view No observ ation record ed. [email or web address] [facility] [place] [address], [place], [place], [address], 09/13/2024 13:09:30 Result Notes None recorded. Problems Name Problem SNOMED Code Status Onset Date Resolution Date Notes Provider Name and Address Organization Details Recorded Time Pain of right shoulder joint 7071156502521 9100 Active 2021 Not Available [facility] 3 05:55:48 Tendinitis of right rotator cuff 2606378783305 9104 Active 2021 Not Available [facility] 3 05:55:48 Localized, primary osteoarthr itis of the shoulder region 476715808 Active 2021 Not Available [facility] 3 05:55:48 Osteoarthr itis 790942518 Active 2021 Not Available [facility] 3 05:55:48 Breast lump 27148252 Active Not Available [facility] 3 05:55:48 Leg length inequality 07159174 Active 2024 Aisha Hazel, ATC L null, [place] [employer] [facility] 5 12:42:55 Problem Notes None recorded. 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 Procedure Notes None recorded. Medical Equipment None Reported. Allergies Allergen ID Allergen Name Allergen Category Reaction Reaction Severity Criticality Documentation Date Start Date Code Code System Note Provider Name and Address Organization Details Recorded Time 50078 Substance with sulfonami de structure and antibacte rial mechanism of action (substanc e) medicatio n other Not available Not available 08/03/2022 57325 8003 SNOMED Not Available [facility] 3 06:00:37 Medications Name Sig Start Date [...] mg by injectio n route. 2024 active [facility]: 0003-04 94-20 Not Available Not [...] administ ered by the provider 08/25 completed [facility]: 0409-42 76-17 Not Available Not [...] by the provider 09/13 completed c2018 05/05/20 23 Not Available Not Available Not Available Ilevro 0.3 % eye drops,susp ension active Not Available Not Available Not Available Fluzone High-Dose 1057-6165 (PF) 180 mcg/0.5 mL intramuscu lar syringe [...] Updated DateTime 08/25/2021 30.1 kg/m2 175.26 cm 09831.84 g Not Available [facility] 08/03/2022 05:53:14 Date Recorded Body height Body mass index (BMI) Body weight Provider Name and Address Organization Details Last Updated DateTime 09/13/2024 175.26 cm 27.6 kg/m2 57205.77 g Mylene Moon CNA [place] [employer] [facility] [employer] 09/13/2024 12:08:37 Date Recorded Body mass index (BMI) Body height Body weight Provider Name and Address Organization Details Last Updated DateTime 11/30/2021 29.5 kg/m2 175.26 cm 75787.47 g Not Available [facility] 08/03/2022 05:53:14 Date Recorded Body mass index (BMI) Body height Body weight Provider Name and Address Organization Details Last Updated DateTime 04/12/2021 29.5 kg/m2 175.26 cm 45977.47 g Not Available [facility] 08/03/2022 05:53:14 Date Recorded Body mass index (BMI) Body height Body weight Provider Name and Address Organization Details Last Updated DateTime 05/10/2021 29.5 kg/m2 175.26 cm 17996.47 g Not Available [facility] 08/03/2022 05:53:14 Social History Question Answer Notes LastModified by Organizat ion Details LastModified Time Tobacco Smoking Status Current Every Day Smoker Mylene Moon CNA [place] [facility] [employer] 09/13/2024 12:11:31 How Much Tobacco Do You [...] SNOMED-CT Code Diagnosis ICD10 Code Diagnosis Note [id number] Vikash Dawson MD [facility] [place] [address] [place] [address] 04/12/2021 00:00:00 04/12/2021 12:42:19 [id number] Vikash Dawson MD [facility] [place] [address] [place] [address] 05/10/2021 00:00:00 05/10/2021 10:57:06 [id number] Vikash Dawson MD [facility] [place] [address] [place] [address] 08/25/2021 00:00:00 08/25/2021 11:12:19 [id number] Vikash Dawson MD [facility] [place] [address] [place] [address] 11/30/2021 00:00:00 11/30/2021 16:11:18 [id number] Byron Ramos MD [facility] [place] [address] [place] [address] 09/13/2024 11:51:17 09/13/2024 13:36:15 Pain of right shoulder joint 0032933214 8941594 M25.511 Tendinitis of right rotator cuff 1548113609 2523378 M67.813 Localized, primary osteoarthritis of the shoulder region 082413759 M19.011 Leg length inequality 45 448946 M21.70 Health Concerns Section Related Observation LastModified by Organization Detai ls LastModified Time None Recorded Concern Status LastModified by Organization Details LastModified Time None Recorded Advance Directives Directive None Recorded Payers Insurance Date Sequence Insurance Name Policy Number Policy Eric Covered Member ID Eric Member ID Guarantor Name 09/13/2024 1 [place] Mago Vogel [id number] Mago Vogel 09/18/2024 2 [facility] [id number] Jaspreet [id number] Mago Vogel Notes Date Note Type Note [...] today with the patient. ABHISHEK Hoover [address] [facility] [address], [place], [address], [place] [employer] 09/13/2024 13:10:33 OBGyn Episode No OBEpisode recorded.
--- OUTSIDE RECORDS SUMMARY | 2024-12-09 13:16 | XMS_ITS | Encounter Summary ---
Author Organization [facility] Healthcare Address [facility] [place] [address] Care Team Providers Care Alteration Hand Name Role Phone Jose Antonio Ghotra MD Primary Care Provider [phone]- [phone] Reason for Visit * Diagnostic Imaging (Routine) - Closed Specialty Diagnoses / Procedures Referred By Contac t Referred To Contact Procedures Breast Imaging Diagnostic Outside Reference Delma Champagne NP Phone: tel: fax: Referral ID Status Reason Start Date Expiration Date Visits Re quested Visits Authorized [id number] Closed 01/04/2023 02/03/2024 1 1 Encounter Details Date Type Department Care Team (Late st Contact Info) Description 10/19/2018 12:05 AM CDT Hospital Encounter [facility] ([facility]) [address] [place] [phone] Social History Tobacco Use Types Packs/Day Years Used Date Smoking Tobacco: Every Day Cigarettes Passive Smoke Exposure: Past Smokeless Tobacco: Never Personal Safety Answer Date Recorded Getting School Help Needed Not on file 08/04 Comments Unknown Sex and Gender Information Value Date Recorded Sex Assigned at Not on file 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 There will be no report generated by a [facility]iologist. Narrative [facility] - 01/04/2023 10:17 AM CDT EXAMINATION: Images For Reference Purposes Only us Delma Champagne NP IMG MAMMO PROCEDURES Final Result [facility] documented in this encounter Visit Diagnoses Not on filedocumented in this encounter Care Teams Alteration Hand Relationship Specialty Start Date End Date Jose Antonio Ghotra MD [address] [facility] [address] [place] [address] PCP - General 04/30/12 documented as of this encounter
--- OUTSIDE RECORDS SUMMARY | 2024-12-09 13:16 | XMS_ITS | Encounter Summary ---
Author Organization [facility] Address [address] [place] [address] Care Team Providers Care Success Coach Name Role Phone Jose Antonio Ghotra Primary Care Provider [phone]- [phone] Ed POE MD, Jason Unavailable [phone] Encounter Details Date Type Department Care Team (Late st Contact Info) Description 12/31/2019 [facility] Outpatient Visit [facility] [address] [address] [place] [address] [address] Social History Tobacco Use Types Packs/Day Years Used Date Smoking Tobacco: Every Day Cigarettes 0.5 25 Smokeless Tobacco: Never Alcohol Use Standard Drinks/Week Comments No 0 (1 standard drink = 0.6 oz pur e alcohol) Comments No Sex and Gender Information Value Date Recorded Sex Assigned at Not on file Legal Sex Female 11:52 AM PRESCHOOL 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
--- OUTSIDE RECORDS SUMMARY | 2024-12-09 13:16 | XMS_ITS | Encounter Summary ---
Author Organization [facility] Healthcare Address [address] [place] [address] Care Team Providers Care Sweater Operator Name Role Phone Jose Antonio Ghotra MD Primary Care Provider [phone] Reason for Visit * Diagnostic Imaging (Routine) - Closed Specialty Diagnoses / Procedures Referred By Contac t Referred To Contact Procedures Breast Imaging Screening Outside Reference Delma Champagne NP Phone: tel: fax: Referral ID Status Reason Start Date Expiration Date Visits Re quested Visits Authorized [id number] Closed 01/04/2023 02/03/2024 1 1 Encounter Details Date Type Department Care Team (Late st Contact Info) Description 09/22/2020 Hospital Encounter [facility] ([facility]) [address] [place] [phone] Social History Tobacco Use Types Packs/Day Years Used Date Smoking Tobacco: Every Day Cigarettes Passive Smoke Exposure: Past Smokeless Tobacco: Never Personal Safety Answer Date Recorded Getting School Help Needed Not on file 08/04 Comments Unknown Sex and Gender Information Value Date Recorded Sex Assigned at Not on file 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 Narrative [facility] - 01/04/2023 10:16 AM CDT EXAMINATION: Images For Reference Purposes Only us Delma Champagne NP IMG MAMMO PROCEDURES Final Result [facility] documented in this encounter Visit Diagnoses Not on filedocumented in this encounter Care Teams Sweater Operator Relationship Specialty Start Date End Date Jose Antonio Ghotra MD [address] [facility] [address] [place] [address] PCP - General 04/30/12 documented as of this encounter
--- OUTSIDE RECORDS SUMMARY | 2024-12-09 13:16 | XMS_ITS | Encounter Summary ---
Author Organization [facility] Healthcare Address [address] [place] [address] Care Team Providers Care Field Crop Harvest Worker Name Role Phone Jose Antonio Ghotra MD Primary Care Provider [phone]- [phone] Reason for Visit * Diagnostic Imaging (Routine) - Closed Specialty Diagnoses / Procedures Referred By Contac t Referred To Contact Procedures Breast Imaging Screening Outside Reference Delma Champagne NP Phone: tel: fax: Referral ID Status Reason Start Date Expiration Date Visits Re quested Visits Authorized [id number] Closed 01/04/2023 02/03/2024 1 1 Encounter Details Date Type Department Care Team (Late st Contact Info) Description 09/27/2018 Hospital Encounter [facility] ([facility]) [address] [place] [phone] Social History Tobacco Use Types Packs/Day Years Used Date Smoking Tobacco: Every Day Cigarettes Passive Smoke Exposure: Past Smokeless Tobacco: Never Personal Safety Answer Date Recorded Getting School Help Needed Not on file 08/04 Comments Unknown Sex and Gender Information Value Date Recorded Sex Assigned at Not on file 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
--- OUTSIDE RECORDS SUMMARY | 2024-12-09 13:16 | XMS_ITS | Encounter Summary ---
Author Organization [facility] Healthcare Address [facility] [place] [address] Care Team Providers Care Spirits Model Name Role Phone Jose Antonio Ghotra MD Primary Care Provider [phone]- [phone] Reason for Visit * Diagnostic Imaging (Routine) - Closed Specialty Diagnoses / Procedures Referred By Contac t Referred To Contact Procedures Breast Imaging Diagnostic Outside Reference Delma Champagne NP Phone: tel: fax: Referral ID Status Reason Start Date Expiration Date Visits Re quested Visits Authorized [id number] Closed 01/04/2023 02/03/2024 1 1 Encounter Details Date Type Department Care Team (Late st Contact Info) Description 05/10/2019 12:05 AM LAND MEASURER Hospital Encounter [facility]) [address] [place] [phone] Social History Tobacco Use Types Packs/Day Years Used Date Smoking Tobacco: Every Day Cigarettes Passive Smoke Exposure: Past Smokeless Tobacco: Never Personal Safety Answer Date Recorded Getting School Help Needed Not on file 08/04 Comments Unknown Sex and Gender Information Value Date Recorded Sex Assigned at Not on file 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 LAND MEASURER Gender Identity Not on file Sexual Orientation Not on file documented as of this encounter Plan of Treatment Not on file documented as of this encounter Procedures Procedure Name Priority Date/Time Associated Diagnosis Comments BREAST IMAGING MG DIAGNOSTIC OUTSIDE REFERENCE Routine 05/10/2019 12:05 AM LAND MEASURER documented in this encounter Results * Breast Imaging Diagnostic Outside Reference (05/10/2019 12:05 AM LAND MEASURER) Impressions [facility] - 01/04/2023 10:17 AM CDT These images are for Reference purposes only and have not been reviewed by [facility]. There will be no report generated by a [facility] Radiologist. Narrative [facility] - 01/04/2023 10:17 AM CDT EXAMINATION: Images For Reference Purposes Only us Delma Champagne NP IMG MAMMO PROCEDURES Final Result [facility] documented in this encounter Visit Diagnoses Not on filedocumented in this encounter Care Teams Spirits Model Relationship Specialty Start Date End Date Jose Antonio Ghotra MD [address] [facility] [address] [place] [address] PCP - General 04/30/12 documented as of this encounter
--- OUTSIDE RECORDS SUMMARY | 2024-12-09 13:16 | XMS_ITS | Clinical Summary ---
Author Organization [facility] Address [employer] [place] [address] Care Team Providers Care Hand Stone Polisher Name Role Phone Jose Antonio Ghotra Primary Care Provider [phone] dE POE MD, Jason Unavailable [phone] Source Comments [facility],non-owned Affiliates and Associated Physician Practices is amultiple site organization consisting of ambulatory clinics and hospital sitesin [place], [place], [place] and [place]. This disclosure is being madepursuant to the Care Everywhere program and may not contain all information available regarding this patient. Last updated 18.[facility] Allergies Active Allergy Reactions Criticality Noted Date [...] fluticasone propionate (FLONASE) 50 MCG/ACT nasal spray [place] 2 Sprays into each nostril once daily. [...] on file Legal Sex Female 11:52 AM HEADLIGHT ADJUSTER Gender Identity Not on file Sexual Orientation [...] this topic Medical Devices Implanted Type Area Cashier Greeter Device Identifier Shelf Expiration Date Model / Serial / Lot Biomet Acetabular Cup, 62mm Implanted:Qty: 1 on 10/28/2014 by Jason Ward IV, MD at [facility] Left: Hip 05/04/2024 [id number] / / [id number] [employer] Bone Screw, 6.5mm X 40mm Implanted:Qty: 1 on 10/28/2014 by Jason Ward IV, MD at [facility] Left: Hip 09/01/2024 [id number] / / [id number] [employer] Acetabular Liner, 36mm Size 25 Implanted:Qty: 1 on 10/28/2014 by Jason Ward IV, MD at [facility] Left: Hip 12/02/2018 [id number] / / [id number] 36mm Ceramic Head Implanted:Qty: 1 on 10/28/2014 by Jason Ward IV, MD at [facility] Left: Hip [employer] 09/02/2024 650-1057 / / [id number] Micro Taper-Loc Stem Implanted:Qty: 1 on 10/28/2014 by Jason Ward IV, MD at [facility] Left: Hip [employer] 04/04/2024 [id number] / / [id number] Standard Neck Implanted:Qty: 1 on 10/28/2014 by Jason Ward IV, MD at [facility] Left: Hip [employer] 09/02/2024 650-1066 / / [id number] Cmpnt Ptlr 31mm 1 Pg Wire Ascnt Arcm Kn Implanted:Qty: 1 on 01/01/2020 by Jules Joaquin MD at [facility] Left: Knee [employer] 07/31/2024 [id number] / / [id number] Tray Tib 79mm Kn Cocr I Beam Implanted:Qty: 1 on 01/01/2020 by Jules Joaquin MD at [facility] Left: Knee [employer] 08/18/2029 [id number] / / [id number] Brng [id number] Vngrd Arcm Kn Ant Stab Implanted:Qty: 1 on 01/01/2020 by Jlues Joaquin MD at [facility] Left: Knee [employer] 02/16/2024 [id number] / / [id number] Cmnt Bone Djo Srg Cblt 40gm Hvisc Strl Implanted:Qty: 1 on 01/01/2020 by Jules Joaqiun MD at [facility] Left: Knee [facility] 06/27/2020 600-15-000 / / [id number] Cmnt Bone Djo Srg Cblt 40gm Hvisc Strl Implanted:Qty: 1 on 01/01/2020 by Jules Joaquin MD at [facility] Left: Knee [facility] 09/18/2020 600-15-000 / / [id number] Cmpnt Fem Kn Lt Cr Cmnt Prm Vngrd Intlk Implanted:Qty: 1 on 01/01/2020 by Jules Joaquin MD at [facility] Left: Knee [employer] 11/11/2029 [id number] / / [id number] Procedures Procedure Name Priority Date/Time Associated Diagnosis [...] LAB - CHEMISTRY ORDERABLES Fi nal Result [facility] [address] [place] [address] from Last 3 Months or Most Recently Relevant to Health Maintenance Insurance MEDICARE [facility] Address: [address] [phone] Advance Directives Documents on File Type Date Recorded Patient Backing In Machine Tender Expl anation Adv Directive/Living Will/POA 01/09/2011 1:43 PM * Full Code (Latest Code Status on File) Date Activated Date Inactivated Comments 01/01/2020 10:23 AM 01/02/2020 2:07 PM * Full Code Date Activated Date Inactivated Comments 10/28/2014 1:06 PM 10/30/2014 1:27 PM * FULL RESUSCITATION Date Activated Date Inactivated Comments 01/04/2011 10:26 AM 01/07/2011 11:02 PM Care Teams Hand Stone Polisher Relationship Specialty Start Date End Date Jose Antonio Ghotra DO [address] [id number] PCP - General 11/22/10 Jason Ward IV, MD [address] [address] Orthopedic Surgery 03/29/11
--- OUTSIDE RECORDS SUMMARY | 2024-12-09 13:16 | XMS_ITS | Clinical Summary ---
Author Organization [facility] [place] Address [address] [place] [address] Phone Care Team Providers Care Filter Tank Tender Helper Name Role Phone Jose Antonio Ghotra DO Primary Care Provider [phone] Allergies Active Allergy Reactions Criticality Noted Date [...] 7 Active fluticasone propionate (FLONASE) 50 mcg/spray [place], Suspension nasal inhaler Administer 2 Sprays in each nostril. Active Active Problems Patient Care Coordination No te Formatting of this note migh t be different from the original. Zac Dinero MD-[facility] @ Primary Care: Jose Antonio Ghotra DO Referring Provider: Jose Antonio Ghotra DO [address] [place] [address] Other: Dr Licha Tsai Problem Noted Date Diagnosed Date Vasovagal syncope 02/14/2020 Orthostatic lightheadedness 02/14/2020 Arterial hypotension 02/14/2020 Smoking 02/14/2020 Visit for screening mammogram 07/01/2015 Breast calcification, right 06/01/2015 ALH 04/29/2013 Overview (08/07/2013): 05/15/13 LEFT bx - Path shows ALH. Assessment & Plan (08/08/2013 10:01 AM PARTY PLAN SALES UNIT SALES LEADER): IOV THR, neck fused, etc GERD (gastroesophageal [...] on file Legal Sex Female 9:36 AM PARTY PLAN SALES UNIT SALES LEADER Gender Identity Not on file Sexual Orientation [...] CDT Respiratory Rate 14 08/08/2013 9:43 AM PARTY PLAN SALES UNIT SALES LEADER Oxygen Saturation 94% 02/06/2020 3:22 PM CDT [...] 05/10/2019, Additional history exists INFLUENZA VACCINE (#1) 2025 OSTEOPOROSIS SCREENING 09/08/2025 09/08/2020, 2017 COLORECTAL SCREENING [...] Maintenance Insurance MEDICARE PART A AND B [facility] [id number] Advance Directives For more information, please contact: [phone] * Full Code (Latest Code Status on File) Date Activated Date Inactivated Comments 07/26/2013 12:52 PM 07/26/2013 3:18 PM * Full Code Date Activated Date Inactivated Comments 07/26/2013 9:26 AM 07/26/2013 12:52 PM Care Teams Filter Tank Tender Helper Relationship Specialty Start Date End Date Jose Antonio Ghotra DO [address] [facility] [address] [place] [address] PCP - General Internal Medicine 05/09/13
--- OUTSIDE RECORDS SUMMARY | 2024-12-09 13:16 | XMS_ITS | Encounter Summary ---
Author Organization [facility] Healthcare Address [address] [place] [address] Care Team Providers Care Tieing Machine Operator Name Role Phone Jose Antonio Ghotra MD Primary Care Provider +1- [phone] Reason for Visit * Diagnostic Imaging (Routine) - Closed Specialty Diagnoses / Procedures Referred By Contac t Referred To Contact Procedures Breast Imaging US Outside Reference Delma Champagne NP Phone: tel: fax: Referral ID Status Reason Start Date Expiration Date Visits Re quested Visits Authorized [id number] Closed 01/04/2023 02/03/2024 1 1 Encounter Details Date Type Department Care Team (Late st Contact Info) Description 05/10/2019 Hospital Encounter [facility] [address] [place] [address] Social History Tobacco Use Types Packs/Day Years Used Date Smoking Tobacco: Every Day Cigarettes Passive Smoke Exposure: Past Smokeless Tobacco: Never Personal Safety Answer Date Recorded Getting School Help Needed Not on file 08/04 Comments Unknown Sex and Gender Information Value Date Recorded Sex Assigned at Not on file 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 MANAGER OF TRAINING Gender Identity Not on file Sexual Orientation Not on file documented as of this encounter Plan of Treatment Not on file documented as of this encounter Procedures Procedure Name Priority Date/Time Associated Diagnosis Comments BREAST IMAGING US OUTSIDE REFERENCE Routine 05/10/2019 12:00 AM MANAGER OF TRAINING documented in this encounter Results * Breast Imaging US Outside Reference (05/10/2019 12:00 AM MANAGER OF TRAINING) Impressions [facility] - 01/04/2023 10:14 AM CDT These images are for Reference purposes only and have not been reviewed by [facility] Radiology. There will be no report generated by a [facility] Radiologist. Narrative [facility] - 01/04/2023 10:14 AM CDT EXAMINATION: Images For Reference Purposes Only us Delma Champagne NP IMG MAMMO PROCEDURES Final Result [facility] documented in this encounter Visit Diagnoses Not on filedocumented in this encounter Care Teams Tieing Machine Operator Relationship Specialty Start Date End Date Jose Antonio Ghotra MD [address] [facility] [address] [place] [address] PCP - General 04/30/12 documented as of this encounter
--- NOTE | 2024-12-19 12:21 | WPDHOLTEREM ---
Holter/Event Monitor Holter/Event Monitor Date of procedure: 12/09/24 Holter/Event Procedure: 3-7 Day Holter Monitor Indications: Dizziness Conclusion: 1. 4 days holter monitor on 12/09/24. 2. Predominant rhythm is sinus rhythm. HR range 52-136 bpm; average 76 bpm. 3. There are rare premature supraventricular complexes. There is 1 episode of supraventricular tachycardia at 136 bpm lasting 7 beats. 4. There are rare premature ventricular complexes and rare ventricular triplets, and longest ventricular trigeminy is 17 seconds. No ventricular tachycardia. 5. No significant pauses greater than 3 seconds. 6. Patient reports 1 episode of symptom of shortness of breath which demonstrates sinus rhythm at 81 bpm.
== END 2024-12-09 13:08 | disposition home or self-care (01) ==
LOC: ANHCARD 13:11
PROVIDERS: PCP Internal Medicine; Visit Provider Internal Medicine
DX: I49.1 Atrial premature depolarization (principal); I47.10 Supraventricular tachycardia, unspecified; R06.02 Shortness of breath; R42 Dizziness and giddiness
CPT/HCPCS: 93242

== ENCOUNTER 2025-01-17 15:23 | Outpatient (CLI) | payer MEDICARE, OTHER, SELFPAY ==
--- NOTE | ~2025-01-17 | XR_ITS ---
EXAM: [id number] DATE: 01/17/2025 15:37 HISTORY: Chronic neck pain, prev surg 2004, pain radiates down Rt arm . COMPARISON: 08/30/2021. FINDINGS: ACDF hardware spanning C5-6, with interbody fusion and facet fusion. Craniocervical associ ation and atlantoaxial joint are aligned. No prevertebral soft tissue swelling. Stable grade 1 retrol isthesis at C2-3. Stable grade 1 anterolistheses at C3-4, C4-5, C6/7, and C7-T1. Vertebral body heigh ts are maintained. Mild disc space narrowing at C4-5 and C7-T1. Moderate disc space narrowing at C6-7 . Multilevel moderate facet hypertrophy and sclerosis Normal facets and posterior elements. IMPRESSION: Uncomplicated appearing C5-6 ACDF hardware. Stable multilevel degenerative listheses. [facility] degenerative disc disease and facet arthropathy. Reviewed, dictated and finalized at location [facility]. IMPRESSION: Uncomplicated appearing C5-6 ACDF hardware. Stable multilevel degen erative listheses. Multilevel degenerative disc disease and facet arthropathy.
== END 2025-01-17 15:24 | disposition home or self-care (01) ==
LOC: GOSHIMG 15:23
PROVIDERS: PCP Internal Medicine; Visit Provider Internal Medicine
DX: M43.12 Spondylolisthesis, cervical region (principal); M48.02 Spinal stenosis, cervical region; M47.812 Spondylosis without myelopathy or radiculopathy, cervical region; Z98.1 Arthrodesis status
CPT/HCPCS: 72040

== ENCOUNTER 2025-01-20 07:38 | Day surgery (SDC) | payer MEDICARE, OTHER, SELFPAY ==
[2025-01-01 10:19] VITALS: BMI 28.0
--- NOTE | ~2025-01-20 | XR_ITS ---
EXAM: XR fluoroscopy no charge - 01/20/2025 8:45 CDT History: 74 years old Female with DIAG/PROG DIANNE L3,L4,L5 MEDIAL BRANCH/DORSAL RAMUS NERVE BLK Fluoroscopy time: 18.8 seconds FINDINGS/ IMPRESSION: Multiple fluoroscopic images of nerve root injections. Reviewed, dictated and finalized at location A.
--- OUTSIDE RECORDS SUMMARY | 2025-01-20 08:15 | XMS_ITS | Encounter Summary ---
Author Organization [facility] Healthcare Address [facility] [place] [address] Care Team Providers Care Bag Adjuster Name Role Phone Jose Antonio Ghotra MD Primary Care Provider +1- [phone] Reason for Visit * Diagnostic Imaging (Routine) - Closed Specialty Diagnoses / Procedures Referred By Contac t Referred To Contact Procedures Breast Imaging Diagnostic Outside Reference Delma Champagne NP Phone: tel: fax: Referral ID Status Reason Start Date Expiration Date Visits Re quested Visits Authorized [id number] Closed 01/04/2023 02/03/2024 1 1 Encounter Details Date Type Department Care Team (Late st Contact Info) Description 10/19/2018 12:05 AM CDT Hospital Encounter [facility] ([facility]) [address] [place] [phone] Social History Tobacco Use Types Packs/Day Years Used Date Smoking Tobacco: Every Day Cigarettes Passive Smoke Exposure: Past Smokeless Tobacco: Never Personal Safety Answer Date Recorded Getting School Help Needed Not on file 08/04 Comments Unknown Sex and Gender Information Value Date Recorded Sex Assigned at Not on file 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 TRAY CHECKER Gender Identity Not on file Sexual Orientation [...] on filedocumented in this encounter Care Teams Bag Adjuster Relationship Specialty Start Date End Date Jose Antonio Ghotra MD [address] [facility] [address] [place] [address] PCP - General 04/30/12 documented as of this encounter
--- OUTSIDE RECORDS SUMMARY | 2025-01-20 08:15 | XMS_ITS | Encounter Summary ---
Author Organization [facility] Healthcare Address [address] [place] [address] Care Team Providers Care Field Administrator Name Role Phone Jose Antonio Ghotra MD Primary Care Provider +1- [phone] Reason for Visit * Diagnostic Imaging (Routine) - Closed Specialty Diagnoses / Procedures Referred By Contac t Referred To Contact Procedures Breast Imaging US Outside Reference Delma Champagne NP Phone: tel: fax: Referral ID Status Reason Start Date Expiration Date Visits Re quested Visits Authorized [id number] Closed 01/04/2023 02/03/2024 1 1 Encounter Details Date Type Department Care Team (Late st Contact Info) Description 05/10/2019 Hospital Encounter [facility]) [address] [place] [address] Social History Tobacco Use Types Packs/Day Years Used Date Smoking Tobacco: Every Day Cigarettes Passive Smoke Exposure: Past Smokeless Tobacco: Never Personal Safety Answer Date Recorded Getting School Help Needed Not on file 08/04 Comments Unknown Sex and Gender Information Value Date Recorded Sex Assigned at Not on file 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 OUTSIDE ENERGY SALES REPRESENTATIVES Gender Identity Not on file Sexual Orientation Not on file documented as of this encounter Plan of Treatment Not on file documented as of this encounter Procedures Procedure Name Priority Date/Time Associated Diagnosis Comments BREAST IMAGING US OUTSIDE REFERENCE Routine 05/10/2019 12:00 AM OUTSIDE ENERGY SALES REPRESENTATIVES documented in this encounter Results * Breast Imaging US Outside Reference (05/10/2019 12:00 AM OUTSIDE ENERGY SALES REPRESENTATIVES) Impressions [facility] - 01/04/2023 10:14 AM CDT These images are for Reference purposes only and have not been reviewed by [facility] Radiology. There will be no report generated by a [facility] Radiologist. Narrative [facility] - 01/04/2023 10:14 AM CDT EXAMINATION: Images For Reference Purposes Only us Delma Champagne NP IMG MAMMO PROCEDURES Final Result [facility] documented in this encounter Visit Diagnoses Not on filedocumented in this encounter Care Teams Field Administrator Relationship Specialty Start Date End Date Jose Antonio Ghotra MD [address] [facility] [address] [place] [address] PCP - General 04/30/12 documented as of this encounter
--- OUTSIDE RECORDS SUMMARY | 2025-01-20 08:15 | XMS_ITS | Encounter Summary ---
Author Organization [facility] Address [address] [place] [address] Care Team Providers Care Nail Cutter Name Role Phone Jose Antonio Ghotra Primary Care Provider [phone] [phone] Ed POE MD, Jason Unavailable [phone] Encounter Details Date Type Department Care Team (Late st Contact Info) Description 12/31/2019 [facility] Outpatient Visit [facility] [address] [address] [place] [address] [address] Social History Tobacco Use Types Packs/Day Years Used Date Smoking Tobacco: Every Day Cigarettes 0.5 25 Smokeless Tobacco: Never Alcohol Use Standard Drinks/Week Comments No 0 (1 standard drink = 0.6 oz pur e alcohol) Comments No Sex and Gender Information Value Date Recorded Sex Assigned at Not on file Legal Sex Female 11:52 AM INGREDIENT MIXER Gender Identity Not on file Sexual Orientation [...] Date Author No 10/28/2014 3:26 PM DYANT Rneé Lawrence RN documented in this encounter Plan of Treatment Not on file documented as of this encounter Visit Diagnoses Not on filedocumented in this encounter Care Teams Nail Cutter Relationship Specialty Start Date End Date Jose Antonio Ghotra DO [address] [place] [address] PCP - General 11/22/10 Jason Ward IV, MD [address] [place] [id number] Orthopedic Surgery 03/29/11 documented as of this encounter
--- OUTSIDE RECORDS SUMMARY | 2025-01-20 08:15 | XMS_ITS | Encounter Summary ---
Author Organization [facility] Healthcare Address [place] [place] [address] Care Team Providers Care Talent Development Coordinator Name Role Phone Jose Antonio Ghotra MD Primary Care Provider [phone]- [phone] Reason for Visit * Diagnostic Imaging (Routine) - Closed Specialty Diagnoses / Procedures Referred By Contac t Referred To Contact Procedures Breast Imaging Diagnostic Outside Reference Delma Champagne NP Phone: tel: fax: Referral ID Status Reason Start Date Expiration Date Visits Re quested Visits Authorized [id number] Closed 01/04/2023 02/03/2024 1 1 Encounter Details Date Type Department Care Team (Late st Contact Info) Description 05/10/2019 12:05 AM CYTOPATHOLOGIST Hospital Encounter [facility]) [address] [place] [phone] Social History Tobacco Use Types Packs/Day Years Used Date Smoking Tobacco: Every Day Cigarettes Passive Smoke Exposure: Past Smokeless Tobacco: Never Personal Safety Answer Date Recorded Getting School Help Needed Not on file 08/04 Comments Unknown Sex and Gender Information Value Date Recorded Sex Assigned at Not on file 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 CYTOPATHOLOGIST Gender Identity Not on file Sexual Orientation Not on file documented as of this encounter Plan of Treatment Not on file documented as of this encounter Procedures Procedure Name Priority Date/Time Associated Diagnosis Comments BREAST IMAGING MG DIAGNOSTIC OUTSIDE REFERENCE Routine 05/10/2019 12:05 AM CYTOPATHOLOGIST documented in this encounter Results * Breast Imaging Diagnostic Outside Reference (05/10/2019 12:05 AM CYTOPATHOLOGIST) Impressions [facility] - 01/04/2023 10:17 AM CDT These images are for Reference purposes only and have not been reviewed by [facility] Radiology. There will be no report generated by a [facility] Radiologist. Narrative [facility] - 01/04/2023 10:17 AM CDT EXAMINATION: Images For Reference Purposes Only us Delma Champagne NP IMG MAMMO PROCEDURES Final Result [facility] documented in this encounter Visit Diagnoses Not on filedocumented in this encounter Care Teams Talent Development Coordinator Relationship Specialty Start Date End Date Jose Antonio Ghotra MD [address] [facility] [address] [place] [address] PCP - General 04/30/12 documented as of this encounter
--- OUTSIDE RECORDS SUMMARY | 2025-01-20 08:15 | XMS_ITS | Encounter Summary ---
Author Organization [facility] Healthcare Address [address] [place] [address] Care Team Providers Care Air Tool Operator Name Role Phone Jose Antonio Ghotra MD Primary Care Provider [phone]- [phone] Reason for Visit * Diagnostic Imaging (Routine) - Closed Specialty Diagnoses / Procedures Referred By Contac t Referred To Contact Procedures Breast Imaging Screening Outside Reference Delma Champagne NP Phone: tel: fax: Referral ID Status Reason Start Date Expiration Date Visits Re quested Visits Authorized [id number] Closed 01/04/2023 02/03/2024 1 1 Encounter Details Date Type Department Care Team (Late st Contact Info) Description 09/22/2020 Hospital Encounter [facility] [address] [place] [phone] Social History Tobacco Use Types Packs/Day Years Used Date Smoking Tobacco: Every Day Cigarettes Passive Smoke Exposure: Past Smokeless Tobacco: Never Personal Safety Answer Date Recorded Getting School Help Needed Not on file 08/04 Comments Unknown Sex and Gender Information Value Date Recorded Sex Assigned at Not on file 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 RAPID OUTSOLE STITCHER Gender Identity Not on file Sexual Orientation [...] only and have not been reviewed by [facility] Radiology. There will be no report generated by a [facility] Radiologist. Narrative RAD[facility]MO[facility] - 01/04/2023 10:16 AM CDT EXAMINATION: Images For Reference Purposes Only us Delma Champagne NP IMG MAMMO PROCEDURES Final Result [facility] documented in this encounter Visit Diagnoses Not on filedocumented in this encounter Care Teams Air Tool Operator Relationship Specialty Start Date End Date Jose Antonio Ghotra MD [address] [email or web address] [address] [place] [address] PCP - General 04/30/12 documented as of this encounter
--- OUTSIDE RECORDS SUMMARY | 2025-01-20 08:15 | XMS_ITS | Clinical Summary ---
Author Organization [facility] Address [address] [facility] [place] [address] Care Team Providers Care Lemon Grower Name Role Phone Jose Antonio Ghotra Primary Care Provider [phone] Ed POE MD, Jason Unavailable [phone] Source Comments [facility],non-owned Affiliates and Associated Physician Practices is amultiple site organization consisting of ambulatory clinics and hospital sitesin [place], [place], [place] and [place]. This disclosure is being madepursuant to the Care Everywhere program and may not contain all information available regarding this patient. Last updated 18.[facility] Allergies Active Allergy Reactions Criticality Noted [...] fluticasone propionate (FLONASE) 50 MCG/ACT nasal spray [place] 2 Sprays into each nostril once daily. [...] on file Legal Sex Female 11:52 AM AUTOMATIC CLIPPER Gender Identity Not on file Sexual Orientation [...] season) 2024 DEPRESSION SCREENING 06/05/2024 INFLUENZA VACCINE (#1) 2025 Respiratory Syncytial Virus (RSV) Vaccine Pt: [...] this topic Medical Devices Implanted Type Area Communications Department Chair Device Identifier Shelf Expiration Date Model / Serial / Lot Biomet Acetabular Cup, 62mm Implanted:Qty: 1 on 10/28/2014 by Jason Ward IV, MD at [facility] Left: Hip 05/04/2024 [id number] / / [id number] Bi[employer] Bone Screw, 6.5mm X 40mm Implanted:Qty: 1 on 10/28/2014 by Jason Ward IV, MD at [facility] Left: Hip 09/01/2024 [id number] / / [id number] [employer] Acetabular Liner, 36mm Size 25 Implanted:Qty: 1 on 10/28/2014 by Jason Ward IV, MD at [facility] Left: Hip 12/02/2018 [id number] / / [id number] 36mm Ceramic Head Implanted:Qty: 1 on 10/28/2014 by Jason Ward IV, MD at [facility] Left: Hip [employer] 09/02/2024 [id number] / / [id number] Micro Taper-Loc Stem Implanted:Qty: 1 on 10/28/2014 by Jason Ward IV, MD at [facility] Left: Hip [employer] 04/04/2024 [id number] / / [id number] Standard Neck Implanted:Qty: 1 on 10/28/2014 by Jason Ward IV, MD at [facility] Left: Hip [employer] 09/02/2024 [id number] / / [id number] Cmpnt Ptlr 31mm 1 Pg Wire Ascnt Arcm Kn Implanted:Qty: 1 on 01/01/2020 by Jules Joaquin MD at [facility] Left: Knee [employer] 07/31/2024 [id number] / / [id number] Tray Tib 79mm Kn Cocr I Beam Implanted:Qty: 1 on 01/01/2020 by Jules Joaquin MD at [facility] Left: Knee [employer] 08/18/2029 [id number] / / [id number] Brng [id number] Vngrd Arcm Kn Ant Stab Implanted:Qty: 1 on 01/01/2020 by Jules Joaquin MD at [facility] Left: Knee [employer] 02/16/2024 [id number] / / [id number] Cmnt Bone Djo Srg Cblt 40gm Hvisc Strl Implanted:Qty: 1 on 01/01/2020 by Jules Joaquin MD at [facility] Left: Knee [employer] 06/27/2020 600-15-000 / / [id number] Cmnt Bone Djo Srg Cblt 40gm Hvisc Strl Implanted:Qty: 1 on 01/01/2020 by Jules Joaquin MD at [facility] Left: Knee [employer] 09/18/2020 600-15-000 / / [id number] Cmpnt Fem Kn Lt Cr Cmnt Prm Vngrd Intlk Implanted:Qty: 1 on 01/01/2020 by Jules Joaquin MD at [facility] Left: Knee [employer] 11/11/2029 [id number] / / [id number] Procedures Procedure Name Priority Date/Time Associated Diagnosis [...] LAB - CHEMISTRY ORDERABLES Fi nal Result [facility] [address] [place] [address] from Last 3 Months or Most Recently Relevant to Health Maintenance Insurance MEDICARE [facility] Address: [address] [address] [place] [address] Advance Directives Documents on File Type Date Recorded Patient Finisher Merchant Products Expl anation Adv Directive/Living Will/POA 01/09/2011 1:43 PM * Full Code (Latest Code Status on File) Date Activated Date Inactivated Comments 01/01/2020 10:23 AM 01/02/2020 2:07 PM * Full Code Date Activated Date Inactivated Comments 10/28/2014 1:06 PM 10/30/2014 1:27 PM * FULL RESUSCITATION Date Activated Date Inactivated Comments 01/04/2011 10:26 AM 01/07/2011 11:02 PM Care Teams Lemon Grower Relationship Specialty Start Date End Date Jose Antonio Ghotra DO [address] [phone] PCP - General 11/22/10 Jason Ward IV, MD [address] [address] Orthopedic Surgery 03/29/11
--- OUTSIDE RECORDS SUMMARY | 2025-01-20 08:15 | XMS_ITS | Encounter Summary ---
Author Organization [facility] Healthcare Address [address] [place] [address] Care Team Providers Care Product Marketing Executive Name Role Phone Jose Antonio Ghotra MD Primary Care Provider [phone]- [phone] Reason for Visit * Diagnostic Imaging (Routine) - Closed Specialty Diagnoses / Procedures Referred By Contac t Referred To Contact Procedures Breast Imaging Screening Outside Reference Delma Champagne NP Phone: tel: fax: Referral ID Status Reason Start Date Expiration Date Visits Re quested Visits Authorized [id number] Closed 01/04/2023 02/03/2024 1 1 Encounter Details Date Type Department Care Team (Late st Contact Info) Description 09/27/2018 Hospital Encounter [facility] [address] [place] [address] [phone] Social History Tobacco Use Types Packs/Day Years Used Date Smoking Tobacco: Every Day Cigarettes Passive Smoke Exposure: Past Smokeless Tobacco: Never Personal Safety Answer Date Recorded Getting School Help Needed Not on file 08/04 Comments Unknown Sex and Gender Information Value Date Recorded Sex Assigned at Not on file 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 NURSING SECRETARY Gender Identity Not on file Sexual Orientation [...] and have not been reviewed by [facility]. There will be no report generated by a [facility] Radiologist. Narrative [facility] - 01/04/2023 10:17 AM CDT EXAMINATION: Images For Reference Purposes Only us Delma Champagne NP IMG MAMMO PROCEDURES Final Result [facility] documented in this encounter Visit Diagnoses Not on filedocumented in this encounter Care Teams Product Marketing Executive Relationship Specialty Start Date End Date Jose Antonio Ghotra MD [address] [place] [address] PCP - General 04/30/12 documented as of this encounter
--- OUTSIDE RECORDS SUMMARY | 2025-01-20 08:15 | XMS_ITS | Encounter Summary ---
Author Organization [facility] Healthcare Address [address] [place] [address] Care Team Providers Care Guitar Teacher Name Role Phone Jose Antonio Ghotra MD Primary Care Provider +1- [phone] Reason for Visit * Diagnostic Imaging (Routine) - Closed Specialty Diagnoses / Procedures Referred By Contac t Referred To Contact Procedures Breast Imaging Screening Outside Reference Delma Champagne NP Phone: tel: fax: Referral ID Status Reason Start Date Expiration Date Visits Re quested Visits Authorized [id number] Closed 01/04/2023 02/03/2024 1 1 Encounter Details Date Type Department Care Team (Late st Contact Info) Description 07/12/2017 Hospital Encounter [facility] [address] [place] [address] [phone] Social History Tobacco Use Types Packs/Day Years Used Date Smoking Tobacco: Every Day Cigarettes Passive Smoke Exposure: Past Smokeless Tobacco: Never Personal Safety Answer Date Recorded Getting School Help Needed Not on file 08/04 Comments Unknown Sex and Gender Information Value Date Recorded Sex Assigned at Not on file 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 CHIEF EXECUTIVE Gender Identity Not on file Sexual Orientation Not on file documented as of this encounter Plan of Treatment Not on file documented as of this encounter Procedures Procedure Name Priority Date/Time Associated Diagnosis Comments BREAST IMAGING MG SCREENING OUTSIDE REFERENCE Routine 07/12/2017 12:00 AM CHIEF EXECUTIVE documented in this encounter Results * Breast Imaging Screening Outside Reference (07/12/2017 12:00 AM CHIEF EXECUTIVE) Impressions [facility] - 01/04/2023 10:18 AM CDT These images are for Reference purposes only and have not been reviewed by [facility] Radiology. There will be no report generated by a [facility] Radiologist. Narrative RAD[facility]MO[facility] - 01/04/2023 10:18 AM CDT EXAMINATION: Images For Reference Purposes Only us Delma Champagne NP IMG MAMMO PROCEDURES Final Result [facility] documented in this encounter Visit Diagnoses Not on filedocumented in this encounter Care Teams Guitar Teacher Relationship Specialty Start Date End Date Jose Antonio Ghotra MD [address] [facility] [address] [place] [address] PCP - General 04/30/12 documented as of this encounter
--- OUTSIDE RECORDS SUMMARY | 2025-01-20 08:15 | XMS_ITS | Encounter Summary ---
Author Organization [facility] Address [address] [place] [address] Care Team Providers Care Band Tumbler Name Role Phone Jose Antonio Ghotra MD Primary Care Provider [phone] Reason for Visit * Diagnostic Imaging (Routine) - Closed Specialty Diagnoses / Procedures Referred By Contac t Referred To Contact Procedures Breast Imaging US Outside Reference Delma Champagne NP Phone: tel: fax: Referral ID Status Reason Start Date Expiration Date Visits Re quested Visits Authorized [id number] Closed 01/04/2023 02/03/2024 1 1 Encounter Details Date Type Department Care Team (Late st Contact Info) Description 10/19/2018 Hospital Encounter [facility] [address] [place] [address] [id number] Social History Tobacco Use Types Packs/Day Years Used Date Smoking Tobacco: Every Day Cigarettes Passive Smoke Exposure: Past Smokeless Tobacco: Never Personal Safety Answer Date Recorded Getting School Help Needed Not on file 08/04 Comments Unknown Sex and Gender Information Value Date Recorded Sex Assigned at Not on file 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 SHRIMP HEADER Gender Identity Not on file Sexual Orientation [...] only and have not been reviewed by [facility] Radiology. There will be no report generated by a [facility] Radiologist. Narrative [facility]_MAMMO[facility] - 01/04/2023 10:14 AM CDT EXAMINATION: Images For Reference Purposes Only us Delma Champagne NP IMG MAMMO PROCEDURES Final Result [facility] documented in this encounter Visit Diagnoses Not on filedocumented in this encounter Care Teams Band Tumbler Relationship Specialty Start Date End Date Jose Antonio Ghotra MD [address] [facility] [address] [place] [address] PCP - General 04/30/12 documented as of this encounter
--- OUTSIDE RECORDS SUMMARY | 2025-01-20 08:16 | XMS_ITS | Clinical Summary ---
Author Organization [facility] [address] Address [address] [place] [address] Care Team Providers Care Consumer Recruiter Name Role Phone Jose Antonio Ghotra MD Primary Care Provider [phone] Jameson Fink MD Unavailable [phone] Allergies Active Allergy Reactions Criticality Noted Date [...] on file 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 ADVISOR [employer] F[employer]ER Gender Identity Not on file Sexual Orientation [...] 02/11/2021, 03/19/2019, Additional history exists Insurance MEDICARE [facility] CHOICE PLUS MEDICARE [facility] INDEMNITY [place] MEDICARE [facility] Address: [address] [address] [facility] Care Teams Consumer Recruiter Relationship Specialty Start Date End Date Jose Antonio Ghotra MD [address] [place] [address] PCP - General 04/30/12 Jameson Fink MD [address] [place] [address] Referring Physician Obstetrics and Gynecology 12/22/22
--- OUTSIDE RECORDS SUMMARY | 2025-01-20 08:16 | XMS_ITS | Clinical Summary ---
Author Organization [facility] [place] Address [address] [place] [address] Phone Care Team Providers Care Sewer Repairer Name Role Phone Jose Antonio Ghotra DO Primary Care Provider [phone] Allergies Active Allergy Reactions Criticality Noted Date [...] 7 Active fluticasone propionate (FLONASE) 50 mcg/spray [place], Suspension nasal inhaler Administer 2 Sprays in each nostril. Active Active Problems Patient Care Coordination No te Formatting of this note migh t be different from the original. Zac Dinero MD-[facility] Heart and Vascular @ Primary Care: Jose Antonio Ghotra DO Referring Provider: Jose Antonio Ghotra DO [address] [place] [address] Other: Dr Licha Tsai Problem Noted Date Diagnosed Date Vasovagal syncope 02/14/2020 Orthostatic lightheadedness 02/14/2020 Arterial hypotension 02/14/2020 Smoking 02/14/2020 Visit for screening mammogram 07/01/2015 Breast calcification, right 06/01/2015 ALH 04/29/2013 Overview (08/07/2013): 05/15/13 LEFT bx - Path shows ALH. Assessment & Plan (08/08/2013 10:01 AM TOE TRIMMER): IOV THR, neck fused, etc GERD (gastroesophageal [...] on file Legal Sex Female 9:36 AM TOE TRIMMER Gender Identity Not on file Sexual [...] CDT Respiratory Rate 14 08/08/2013 9:43 AM TOE TRIMMER Oxygen Saturation 94% 02/06/2020 3:22 PM CDT [...] Maintenance Insurance MEDICARE PART A AND B [facility] OPTIONS PPO [id number] Advance Directives For more information, please contact: [phone] * Full Code (Latest Code Status on File) Date Activated Date Inactivated Comments 07/26/2013 12:52 PM 07/26/2013 3:18 PM * Full Code Date Activated Date Inactivated Comments 07/26/2013 9:26 AM 07/26/2013 12:52 PM Care Teams Sewer Repairer Relationship Specialty Start Date End Date Jose Antonio Ghotra DO [address] [facility] [address] [place] [address] PCP - General Internal Medicine 05/09/13
--- NOTE | 2025-01-20 08:23 | WPDHPUPDATE1 ---
History and Physical Update Update Date/Time: 01/20/25 08:23 History and Physical has been reviewed, including an updated exam of the patient. There are NO changes in the patient's condition. Risks, benefits, and alternatives have been discussed and questions answered. Patient agrees to proceed with procedure.
--- NOTE | 2025-01-20 08:23 | W.PM.PROC2 ---
Procedure Note - Detailed Date of Procedure 01/20/25 Pre-op Diagnosis Lumbar Spondylosis, chronic low back pain Post-op Diagnosis Same Procedure Performed Diagnostic bilateral Lumbar Medial Branch/Dorsal Ramus Blocks at L3, L4, L5 Treating the bilateral L4-5, L5-S1 Facet Joints Under Fluoroscopic Guidance and with Contrast Control. (4 levels blocked). Surgeon Jules Bailey MD Coremaking Supervisor None. Anesthesia Local Description of Procedure INFORMED CONSENT: Risks, benefits and alternatives to the procedure were discussed in detail with the patient who expressed explicit understanding and consent to proceed. Patient was informed verbally and in written form regarding the risks associated with the procedure including the low risk of serious infection, bleeding/bruising, allergic reaction, nerve or organ injury, paralysis, procedural site pain or discomfort, worsening pain and/or mobility, failure to treat and/or disfigurement. The patient expressed explicit understanding and consent to proceed. All materials required for the procedure were available prior to procedure start. Site and side were marked prior to procedure and confirmed in the presence of the patient. PROCEDURE IN DETAIL: The patient was brought to the procedural suite and placed in the prone position. Patient was made comfortable with use of pillows under the head/chest, hips and ankles. Skin overlying the injection site on the affected side(s) was prepared broadly with ChloraPrep applicator and draped in a sterile manner. Aseptic technique was used throughout. The endplates of the vertebral bodies at the site(s) of interest were aligned in the AP view. Ipsilateral oblique angulation was utilized to optimize visualization of the intersection between the superior articulating process and transverse process at each target site. Local anesthesia was established by infiltration with approximately 5 mL of 1% lidocaine via a 1-1/2 inch 27-gauge needle. A 25-gauge 3.5 inch Quincke spinal needle was advanced until the needle tip contacted periosteum at the target site, right L3. Lateral view was utilized to confirm the appropriate placement of the needle tip just anterior to the facet line and superior to the pedicle. In the Lateral view, 0.25 mL of Omnipaque 300 contrast medium was injected after negative aspiration for CSF, blood or other bodily fluid, showing appropriate extra-articular spread of contrast without evidence of intravascular, foraminal or intrathecal placement. A 0.5 mL solution of 0.5% PF bupivacaine was injected after negative repeat aspiration. Appropriate spread of the injectate was confirmed with washout of previously injected contrast. No parasthesias were elicited. Needle was removed completely intact without difficulty. The same exact procedure was repeated for all remaining levels on the ipsilateral side, right L4, L5 medial branches/dorsal ramus, modified as necessary to accommodate for the new target location with identical findings and results and no evidence of complication. The same exact procedure was repeated for all remaining levels on the contralateral side, left L3, L4, L5 medial branches/dorsal ramus, modified as necessary to accommodate for the new target location with identical findings and results and no evidence of complication. Images were saved and documented in the patient chart. Patient's skin was cleaned and sterile bandage applied. The patient tolerated the procedure well. The patient was transported to the recovery area in stable condition where they were observed for an appropriate amount of time prior to discharge, without evidence of complication. Patient was instructed on the appropriate completion of a pain diary over the next 12-24 hours. The patient was instructed to avoid excessive activity for the next 48 hours, including climbing and frequent use of stairs. Showers only for 48 hours. They were instructed not to drive or operate heavy machinery for 24 hours. They are to monitor for severe headaches, fevers, chills, night sweats, erythema/swelling at the site or any other signs of infection, bleeding/bruising, bowel or bladder changes as well as new pain, weakness or numbness in the upper or lower extremity. Should they notice these changes, they are instructed to call our office immediately or report directly to the nearest Emergency Department if no answer or if after posted office hours. COMPLICATIONS: None COMMENTS: None CONTRAST WASTED: 28.5mL Omnipaque 300. Complications No immediate complications Condition Stable Disposition Same day [facility] Billing Surgery - Charge Forward: Surgery Billing
[2025-01-20 08:24] VITALS: BP 102/63; PULSE 76; RESP 16; TEMP 36.5; O2SAT 100
[2025-01-20 08:57] VITALS: BP 111/65; PULSE 79; RESP 17; O2SAT 97
[2025-01-20] MEDS: LIDOCAINE 1% PF INJ 5 ML VIAL 10 ML INFILTRATE (09:00)
[2025-01-20] MEDS: BUPivacaine HCL 0.5% 10 ML AMP INFILTRATE (09:01)
[2025-01-20 09:06] VITALS: BP 108/60; PULSE 78; RESP 16; O2SAT 98
[2025-01-20 09:13] VITALS: BP 94/63; PULSE 75; RESP 16; O2SAT 100
== END 2025-01-20 09:24 | disposition home or self-care (01) ==
PROVIDERS: PCP Internal Medicine; Visit Provider Anesthesiology Pain Medicine
PROC: (CPT 64493; principal; 2025-01-20 08:30)
DX: M47.817 Spondylosis without myelopathy or radiculopathy, lumbosacral region (principal); M48.061 Spinal stenosis, lumbar region without neurogenic claudication; M96.1 Postlaminectomy syndrome, not elsewhere classified; M46.1 Sacroiliitis, not elsewhere classified; G89.29 Other chronic pain
CPT/HCPCS: 64493; 64494 ×2; 64495 ×2; 99199

== ENCOUNTER 2025-01-24 12:59 | Outpatient (CLI) | payer MEDICARE, OTHER, SELFPAY ==
--- OUTSIDE RECORDS SUMMARY | 2017-07-12 01:00 | XMS_ITS | Encounter Summary ---
Author Organization [facility] Healthcare Address [address] [place] [address] Care Team Providers Care Resourcing Advisor Name Role Phone Jose Antonio Ghotra MD Primary Care Provider +1- [phone] Reason for Visit * Diagnostic Imaging (Routine) - Closed Specialty Diagnoses / Procedures Referred By Contac t Referred To Contact Procedures Breast Imaging Screening Outside Reference Delma Champagne NP Phone: tel: fax: Referral ID Status Reason Start Date Expiration Date Visits Re quested Visits Authorized [id number] Closed 01/04/2023 02/03/2024 1 1 Encounter Details Date Type Department Care Team (Late st Contact Info) Description 07/12/2017 Hospital Encounter [facility] Radiology [facility] [address] [place] [phone] Social History Tobacco Use Types Packs/Day Years Used Date Smoking Tobacco: Every Day Cigarettes Passive Smoke Exposure: Past Smokeless Tobacco: Never Personal Safety Answer Date Recorded Getting School Help Needed Not on file 08/04 Comments Unknown Sex and Gender Information Value Date Recorded Sex Assigned at Not on file 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 CEILING INSTALLER Gender Identity Not on file Sexual Orientation Not on file documented as of this encounter Plan of Treatment Not on file documented as of this encounter Procedures Procedure Name Priority Date/Time Associated Diagnosis Comments BREAST IMAGING MG SCREENING OUTSIDE REFERENCE Routine 07/12/2017 12:00 AM CEILING INSTALLER documented in this encounter Results * Breast Imaging Screening Outside Reference (07/12/2017 12:00 AM CEILING INSTALLER) Impressions RAD_M[facility]MO[facility] - 01/04/2023 10:18 AM CDT These images are for Reference purposes only and have not been reviewed by [facility] Radiology. There will be no report generated by a [facility] Radiologist. Narrative RAD_MAMMO_[facility] - 01/04/2023 10:18 AM CDT EXAMINATION: Images For Reference Purposes Only us Delma Champagne NP IMG MAMMO PROCEDURES Final Result [facility] documented in this encounter Visit Diagnoses Not on filedocumented in this encounter Care Teams Resourcing Advisor Relationship Specialty Start Date End Date Jose Antonio Ghotra MD [address] [facility] 120 [place] [address] PCP - General 04/30/12 documented as of this encounter
--- OUTSIDE RECORDS SUMMARY | 2018-09-27 | XMS_ITS | Encounter Summary ---
Author Organization [facility] Healthcare Address [address] [place] [address] Care Team Providers Care Broomcorn Thresher Name Role Phone Jose Antonio Ghotra MD Primary Care Provider +1- [phone] Reason for Visit * Diagnostic Imaging (Routine) - Closed Specialty Diagnoses / Procedures Referred By Contac t Referred To Contact Procedures Breast Imaging Screening Outside Reference Delma Champagne NP Phone: tel: fax: Referral ID Status Reason Start Date Expiration Date Visits Re quested Visits Authorized [id number] Closed 01/04/2023 02/03/2024 1 1 Encounter Details Date Type Department Care Team (Late st Contact Info) Description 09/27/2018 Hospital Encounter [facility] [address] [place] [address] [phone] Social History Tobacco Use Types Packs/Day Years Used Date Smoking Tobacco: Every Day Cigarettes Passive Smoke Exposure: Past Smokeless Tobacco: Never Personal Safety Answer Date Recorded Getting School Help Needed Not on file 08/04 Comments Unknown Sex and Gender Information Value Date Recorded Sex Assigned at Not on file 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 There will be no report generated by a [facility] Radiologist. Narrative [facility]MO[facility] - 01/04/2023 10:17 AM CDT EXAMINATION: Images For Reference Purposes Only us Delma Champagne NP IMG MAMMO PROCEDURES Final Result [facility] documented in this encounter Visit Diagnoses Not on filedocumented in this encounter Care Teams Broomcorn Thresher Relationship Specialty Start Date End Date Jose Antonio Ghotra MD [address] [place] [address] PCP - General 04/30/12 documented as of this encounter
--- OUTSIDE RECORDS SUMMARY | 2018-10-19 | XMS_ITS | Encounter Summary ---
Author Organization [facility] Healthcare Address [address] [place] [address] Care Team Providers Care Electrician Ship Name Role Phone Jose Antonio Ghotra MD Primary Care Provider +1- [phone] Reason for Visit * Diagnostic Imaging (Routine) - Closed Specialty Diagnoses / Procedures Referred By Contac t Referred To Contact Procedures Breast Imaging US Outside Reference Delma Champagne NP Phone: tel: fax: Referral ID Status Reason Start Date Expiration Date Visits Re quested Visits Authorized [id number] Closed 01/04/2023 02/03/2024 1 1 Encounter Details Date Type Department Care Team (Late st Contact Info) Description 10/19/2018 Hospital Encounter [facility]iology [facility] [address] [place] [address] [phone] Social History Tobacco Use Types Packs/Day Years Used Date Smoking Tobacco: Every Day Cigarettes Passive Smoke Exposure: Past Smokeless Tobacco: Never Personal Safety Answer Date Recorded Getting School Help Needed Not on file 08/04 Comments Unknown Sex and Gender Information Value Date Recorded Sex Assigned at Not on file 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 Radiology. There will be no report generated by a [facility] Radiologist. Narrative RAD_M[facility]MO[facility] - 01/04/2023 10:14 AM CDT EXAMINATION: Images For Reference Purposes Only us Delma Champagne NP IMG MAMMO PROCEDURES Final Result [facility] documented in this encounter Visit Diagnoses Not on filedocumented in this encounter Care Teams Electrician Ship Relationship Specialty Start Date End Date Jose Antonio Ghotra MD [address] [facility] 120 [place] [address] PCP - General 04/30/12 documented as of this encounter
--- OUTSIDE RECORDS SUMMARY | 2018-10-19 00:05 | XMS_ITS | Encounter Summary ---
Author Organization [facility] Healthcare Address [address] [place] [address] Care Team Providers Care Satellite Dish Repairer Name Role Phone Jose Antonio Ghotra MD Primary Care Provider +1- [phone] Reason for Visit * Diagnostic Imaging (Routine) - Closed Specialty Diagnoses / Procedures Referred By Contac t Referred To Contact Procedures Breast Imaging Diagnostic Outside Reference Delma Champagne NP Phone: tel: fax: Referral ID Status Reason Start Date Expiration Date Visits Re quested Visits Authorized [id number] Closed 01/04/2023 02/03/2024 1 1 Encounter Details Date Type Department Care Team (Late st Contact Info) Description 10/19/2018 12:05 AM CDT Hospital Encounter [facility] ([facility]) [address] [place] [address] [phone] Social History Tobacco Use Types Packs/Day Years Used Date Smoking Tobacco: Every Day Cigarettes Passive Smoke Exposure: Past Smokeless Tobacco: Never Personal Safety Answer Date Recorded Getting School Help Needed Not on file 08/04 Comments Unknown Sex and Gender Information Value Date Recorded Sex Assigned at Not on file 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 COAL TRIMMER Gender Identity Not on file Sexual [...] have not been reviewed by [facility] Radiology. There will be no report generated by a [facility] Radiologist. Narrative RAD[facility] - 01/04/2023 10:17 AM CDT EXAMINATION: Images For Reference Purposes Only us Delma Champagne NP IMG MAMMO PROCEDURES Final Result [facility] documented in this encounter Visit Diagnoses Not on filedocumented in this encounter Care Teams Satellite Dish Repairer Relationship Specialty Start Date End Date Jose Antonio Ghotra MD [address] [facility] 120 [place] [address] PCP - General 04/30/12 documented as of this encounter
--- OUTSIDE RECORDS SUMMARY | 2019-05-10 01:00 | XMS_ITS | Encounter Summary ---
Author Organization [facility] Healthcare Address [address] [place] [id number] Care Team Providers Care Picker Feeder Name Role Phone Jose Antonio Ghotra MD Primary Care Provider +1- [phone] Reason for Visit * Diagnostic Imaging (Routine) - Closed Specialty Diagnoses / Procedures Referred By Contac t Referred To Contact Procedures Breast Imaging US Outside Reference Delma Champagne NP Phone: tel: fax: Referral ID Status Reason Start Date Expiration Date Visits Re quested Visits Authorized [id number] Closed 01/04/2023 02/03/2024 1 1 Encounter Details Date Type Department Care Team (Late st Contact Info) Description 05/10/2019 Hospital Encounter [facility] [address] [place] [id number] Social History Tobacco Use Types Packs/Day Years Used Date Smoking Tobacco: Every Day Cigarettes Passive Smoke Exposure: Past Smokeless Tobacco: Never Personal Safety Answer Date Recorded Getting School Help Needed Not on file 08/04 Comments Unknown Sex and Gender Information Value Date Recorded Sex Assigned at Not on file 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 PATTERN VAULT CLERK Gender Identity Not on file Sexual Orientation Not on file documented as of this encounter Plan of Treatment Not on file documented as of this encounter Procedures Procedure Name Priority Date/Time Associated Diagnosis Comments BREAST IMAGING US OUTSIDE REFERENCE Routine 05/10/2019 12:00 AM PATTERN VAULT CLERK documented in this encounter Results * Breast Imaging US Outside Reference (05/10/2019 12:00 AM PATTERN VAULT CLERK) Impressions [facility]MO[facility] - 01/04/2023 10:14 AM CDT These images are for Reference purposes only and have not been reviewed by [facility] Radiology. There will be no report generated by a [facility] Radiologist. Narrative RAD_MAMMO[facility] - 01/04/2023 10:14 AM CDT EXAMINATION: Images For Reference Purposes Only us Delma Champagne NP IMG MAMMO PROCEDURES Final Result [facility] documented in this encounter Visit Diagnoses Not on filedocumented in this encounter Care Teams Picker Feeder Relationship Specialty Start Date End Date Jose Antonio Ghotra MD [address] [facility] [address] [place] [address] PCP - General 04/30/12 documented as of this encounter
--- OUTSIDE RECORDS SUMMARY | 2019-05-10 01:05 | XMS_ITS | Encounter Summary ---
Author Organization [facility] Healthcare Address [facility] [place] [address] Care Team Providers Care Dye House Worker Name Role Phone Jose Antonio Ghotra MD Primary Care Provider +1- [phone] Reason for Visit * Diagnostic Imaging (Routine) - Closed Specialty Diagnoses / Procedures Referred By Contac t Referred To Contact Procedures Breast Imaging Diagnostic Outside Reference Delma Champagne NP Phone: tel: fax: Referral ID Status Reason Start Date Expiration Date Visits Re quested Visits Authorized [id number] Closed 01/04/2023 02/03/2024 1 1 Encounter Details Date Type Department Care Team (Late st Contact Info) Description 05/10/2019 12:05 AM COSTUME CUTTER Hospital Encounter [facility] [address] [place] [phone] Social History Tobacco Use Types Packs/Day Years Used Date Smoking Tobacco: Every Day Cigarettes Passive Smoke Exposure: Past Smokeless Tobacco: Never Personal Safety Answer Date Recorded Getting School Help Needed Not on file 08/04 Comments Unknown Sex and Gender Information Value Date Recorded Sex Assigned at Not on file 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 COSTUME CUTTER Gender Identity Not on file Sexual Orientation Not on file documented as of this encounter Plan of Treatment Not on file documented as of this encounter Procedures Procedure Name Priority Date/Time Associated Diagnosis Comments BREAST IMAGING MG DIAGNOSTIC OUTSIDE REFERENCE Routine 05/10/2019 12:05 AM COSTUME CUTTER documented in this encounter Results * Breast Imaging Diagnostic Outside Reference (05/10/2019 12:05 AM COSTUME CUTTER) Impressions RAD_MAMMO[facility] - 01/04/2023 10:17 AM CDT These images are for Reference purposes only and have not been reviewed by [facility] Radiology. There will be no report generated by a [facility] Radiologist. Narrative RAD_MAMMO[facility] - 01/04/2023 10:17 AM CDT EXAMINATION: Images For Reference Purposes Only us Delma Champagne NP IMG MAMMO PROCEDURES Final Result [facility] documented in this encounter Visit Diagnoses Not on filedocumented in this encounter Care Teams Dye House Worker Relationship Specialty Start Date End Date Jose Antonio Ghotra MD [address] [facility] 120 [place] [address] PCP - General 04/30/12 documented as of this encounter
--- OUTSIDE RECORDS SUMMARY | 2020-09-22 | XMS_ITS | Encounter Summary ---
Author Organization [facility] Healthcare Address [address] [place] [address] Care Team Providers Care Laborer [employer] Name Role Phone Jose Antonio Ghotra MD Primary Care Provider +1- [phone] Reason for Visit * Diagnostic Imaging (Routine) - Closed Specialty Diagnoses / Procedures Referred By Contac t Referred To Contact Procedures Breast Imaging Screening Outside Reference Delma Champagne NP Phone: tel: fax: Referral ID Status Reason Start Date Expiration Date Visits Re quested Visits Authorized [id number] Closed 01/04/2023 02/03/2024 1 1 Encounter Details Date Type Department Care Team (Late st Contact Info) Description 09/22/2020 Hospital Encounter [facility] ([facility]) [address] [place] [id number] Social History Tobacco Use Types Packs/Day Years Used Date Smoking Tobacco: Every Day Cigarettes Passive Smoke Exposure: Past Smokeless Tobacco: Never Personal Safety Answer Date Recorded Getting School Help Needed Not on file 08/04 Comments Unknown Sex and Gender Information Value Date Recorded Sex Assigned at Not on file 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 There will be no report generated by a [facility] Radiologist. Narrative [facility] - 01/04/2023 10:16 AM CDT EXAMINATION: Images For Reference Purposes Only us Delma Champagne NP IMG MAMMO PROCEDURES Final Result [facility] documented in this encounter Visit Diagnoses Not on filedocumented in this encounter Care Teams Laborer [employer] Relationship Specialty Start Date End Date Jose Antonio Ghotra MD [address] [facility] [address] [place] [address] PCP - General 04/30/12 documented as of this encounter
--- NOTE | ~2025-01-24 | CT_ITS ---
EXAMINATION: CT cervical spine wo con DATE: 01/24/2025 13:23 INDICATION: Radiculopathy, cervical region TECHNIQUE: Computed tomography (CT) of the cervical spine was performed without intravenous contrast. The dose-length product was 264.52 mGy-cm. COMPARISON: Cervical spine x-rays 01/17/2025 FINDINGS: Straightening of the normal cervical lordosis. Grade 1 anterolisthesis of C3 on C4 and C4 on C5 and C6 on C7. Anterior spinal fusion of C5 and C6 without radiographic evidence for loosening of the orthopedic hardware. Mild joint space narrowing at the C4-C5 and C5 C6 C7 levels. Multilevel mild degenerative change scattered throughout the cervical facet joints and uncovertebral joints. Predental space is within normal limits. No prevertebral soft tissue swelling lateral dental intervals are within normal limits. Evaluation of the spinal canal contents and bilateral neuroforamen is limited due to CT technique. IMPRESSION: 1. Anterior spinal fusion of C5 and C6 without radiographic evidence for loosening of the orthopedic hardware. 2. Straightening of the normal cervical lordosis. 3. Grade 1 anterolisthesis of C3 on C4 and C4 on C5 and C6 on C7. If symptoms persist or worsen, consider an MRI of the cervical spine for further assessment Reviewed, dictated and finalized at location Q. IMPRESSION: 1. Anterior spinal fusion of C5 and C6 without radiographic evidence for loosen ing of the orthopedic hardware. 2. Straightening of the normal cervical lordosis. 3. Grade 1 anterolisthesis of C3 on C4 and C4 on C5 and C6 on C7. If symptoms persist or worsen, consider an MRI of the cervical spine for furthe r assessment
--- OUTSIDE RECORDS SUMMARY | 2025-01-24 13:02 | XMS_ITS | Clinical Summary ---
Author Organization [facility] Address [address] [facility] [place] [address] Care Team Providers Care Exterminator Name Role Phone Jose Antonio Ghotra Primary Care Provider [phone] Ed POE MD, Jason Unavailable [phone] Source Comments [facility],non-owned Affiliates and Associated Physician Practices is amultiple site organization consisting of ambulatory clinics and hospital sitesin [place], [place], [place]. This disclosure is being madepursuant to the Care Everywhere program and may not contain all information available regarding this patient. Last updated 18.[facility] Allergies Active Allergy Reactions Criticality Noted [...] fluticasone propionate (FLONASE) 50 MCG/ACT nasal spray [place] 2 Sprays into each nostril once daily. 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 Gender Identity Not on file Sexual [...] this topic Medical Devices Implanted Type Area Data Miner Device Identifier Shelf Expiration Date Model / Serial / Lot Biomet Acetabular Cup, 62mm Implanted:Qty: 1 on 10/28/2014 by Jason Ward IV, MD at [facility] Left: Hip 05/04/2024 [id number] / / [id number] Biomet Bone Screw, 6.5mm X 40mm Implanted:Qty: 1 on 10/28/2014 by Jason Ward IV, MD at [facility] Left: Hip 09/01/2024 [id number] / / [id number] Bi[employer] Acetabular Liner, 36mm Size 25 Implanted:Qty: 1 on 10/28/2014 by Jason Ward IV, MD at [facility] Left: Hip 12/02/2018 [id number] / / [id number] 36mm Ceramic Head Implanted:Qty: 1 on 10/28/2014 by Jason Ward IV, MD at [facility] Left: Hip [employer] 09/02/2024 [id number] / / [id number] Micro Taper-Loc Stem Implanted:Qty: 1 on 10/28/2014 by Jason Ward IV, MD at [facility] Left: Hip [employer] 04/04/2024 [id number] / / [id number] Standard Neck Implanted:Qty: 1 on 10/28/2014 by Jason Ward IV, MD at [facility] Left: Hip [employer] 09/02/2024 [id number] / / [id number] Cmpnt Ptlr 31mm 1 Pg Wire Ascnt Arcm Kn Implanted:Qty: 1 on 01/01/2020 by Jules Joaquin MD at [facility] Left: Knee [employer] 07/31/2024 [id number] / / [id number] Tray Tib 79mm Kn Cocr I Beam Implanted:Qty: 1 on 01/01/2020 by Jules Joaquin MD at [facility] Left: Knee [employer] 08/18/2029 [id number] / / [id number] Brng [id number] Vngrd Arcm Kn Ant Stab Implanted:Qty: 1 on 01/01/2020 by Jules Joaquin MD at [facility] Left: Knee [employer] 02/16/2024 [id number] / / [id number] Cmnt Bone Djo Srg Cblt 40gm Hvisc Strl Implanted:Qty: 1 on 01/01/2020 by Jules Joaquin MD at [facility] Left: Knee [employer] 06/27/2020 600-15-000 / / [id number] Cmnt Bone Djo Srg Cblt 40gm Hvisc Strl Implanted:Qty: 1 on 01/01/2020 by Jules Joaquin MD at [facility] Left: Knee [employer] 09/18/2020 600-15-000 / / [id number] Cmpnt Fem Kn Lt Cr Cmnt Prm Vngrd Intlk Implanted:Qty: 1 on 01/01/2020 by Jules Joaquin MD at [facility] Left: Knee [employer] 11/11/2029 [id number] / / [id number] Procedures Procedure Name Priority Date/Time Associated Diagnosis [...] - CHEMISTRY ORDERABLES Fi nal Result [facility] [address] [place] [address] from Last 3 Months or Most Recently Relevant to Health Maintenance Insurance MEDICARE [facility] Advance Directives Documents on File Type Date Recorded Patient Slipman Expl anation Adv Directive/Living Will/POA 01/09/2011 1:43 PM * Full Code (Latest Code Status on File) Date Activated Date Inactivated Comments 01/01/2020 10:23 AM 01/02/2020 2:07 PM * Full Code Date Activated Date Inactivated Comments 10/28/2014 1:06 PM 10/30/2014 1:27 PM * FULL RESUSCITATION Date Activated Date Inactivated Comments 01/04/2011 10:26 AM 01/07/2011 11:02 PM Care Teams Exterminator Relationship Specialty Start Date End Date Jose Antonio Ghotra DO [address] [id number] PCP - General 11/22/10 Jason Ward IV, MD [address] [address] Orthopedic Surgery 03/29/11
--- OUTSIDE RECORDS SUMMARY | 2025-01-24 13:02 | XMS_ITS | Encounter Summary ---
Author Organization [facility] Address [address] [place] [address] Care Team Providers Care Wholesale Buyer Name Role Phone Jose Antonio Ghotra Primary Care Provider [phone] Ed POE MD, Jason Unavailable [phone] Encounter Details Date Type Department Care Team (Late st Contact Info) Description 12/31/2019 [facility] Outpatient Visit [facility] [address] [address] [place] [address] [address] Social History Tobacco Use Types Packs/Day Years Used Date Smoking Tobacco: Every Day Cigarettes 0.5 25 Smokeless Tobacco: Never Alcohol Use Standard Drinks/Week Comments No 0 (1 standard drink = 0.6 oz pur e alcohol) Comments No Sex and Gender Information Value Date Recorded Sex Assigned at Not on file 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
--- OUTSIDE RECORDS SUMMARY | 2025-01-24 13:03 | XMS_ITS | Clinical Summary ---
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 CHOICE PLUS MEDICARE [facility] INDEMNITY [place] [facility] Care Teams Dentistry Teacher Relationship Specialty Start Date End Date Jose Antonio Ghotra MD [address] [place] [address] PCP - General 04/30/12 Jameson Fink MD [address] [place] [address] Referring Physician Obstetrics and Gynecology 12/22/22
--- OUTSIDE RECORDS SUMMARY | 2025-01-24 13:03 | XMS_ITS | Clinical Summary ---
Author Organization [facility] [place] Address [address] [place] [address] Phone Care Team Providers Care Heavy Equipment Supervisor Name Role Phone Jose Antonio Ghotra DO Primary Care Provider [phone] Allergies Active Allergy Reactions Criticality Noted Date [...] 7 Active fluticasone propionate (FLONASE) 50 mcg/spray [place], Suspension nasal inhaler Administer 2 Sprays in each nostril. Active Active Problems Patient Care Coordination No te Formatting of this note migh t be different from the original. Zac Dinero MD-[facility] Heart and Vascular @ Primary Care: Jose Antonio Ghotra DO Referring Provider: Jose Antonio Ghotra DO [address] [place] [address] Other: Dr Licha Tsai Problem Noted Date Diagnosed Date Vasovagal syncope 02/14/2020 Orthostatic lightheadedness 02/14/2020 Arterial hypotension 02/14/2020 Smoking 02/14/2020 Visit for screening mammogram 07/01/2015 Breast calcification, right 06/01/2015 ALH 04/29/2013 Overview (08/07/2013): 05/15/13 LEFT bx - Path shows ALH. 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): IOV THR, neck fused, etc GERD (gastroesophageal [...] on file Legal Sex Female 9:36 AM TURNSTILE COLLECTOR Gender Identity Not on file Sexual Orientation [...] CDT Respiratory Rate 14 08/08/2013 9:43 AM TURNSTILE COLLECTOR Oxygen Saturation 94% 02/06/2020 3:22 PM CDT [...] Maintenance Insurance MEDICARE PART A AND B [facility] OPTIONS PPO [id number] Advance Directives For more information, please contact: [phone] * Full Code (Latest Code Status on File) Date Activated Date Inactivated Comments 07/26/2013 12:52 PM 07/26/2013 3:18 PM * Full Code Date Activated Date Inactivated Comments 07/26/2013 9:26 AM 07/26/2013 12:52 PM Care Teams Heavy Equipment Supervisor Relationship Specialty Start Date End Date Jose Antonio Ghotra DO [address] [facility] [address] [place] [address] PCP - General Internal Medicine 05/09/13
== END 2025-01-24 13:00 | disposition home or self-care (01) ==
PROVIDERS: PCP Internal Medicine; Visit Provider Internal Medicine
DX: M54.12 Radiculopathy, cervical region (principal); Z98.1 Arthrodesis status
CPT/HCPCS: 72125

== ENCOUNTER 2025-01-27 18:13 | Emergency (ER) | payer MEDICARE, OTHER, SELFPAY ==
--- OUTSIDE RECORDS SUMMARY | 2006-04-07 04:00 | XMS_ITS | Continuity of Care Document ---
Author Organization [facility] Address [address] [place] [address] Phone Care Team Providers Care Drip Molder Name Role Phone Flores Medel Unavailable Unavailable Advance Directives Directive Yes / No Effective Date File Name No Information Encounters Encounter Description Practice Location Reason(s) For Visit Diagnoses Date Provider Providers Copied on Encounter [facility], [address], [place], [place], [address], [place] tel:[phone] SEC [facility] No Information [address] Liz[address] Tanner. [address] [facility] , [address], [place], [address], [place]. tel:[phone] Referring Provider: Jose Antonio Ghotra MD, [address] [facility] 162 [facility] 102, [place], [address]. tel:[phone] Family History Family Member Type Diagnosis Age At Onset No Information Payers Payer name Insurance type Covered constitution party ID Authoriza tion(s) [place] [id number] [facility] Commercial CI [id number] Social History Type Description Quantity Date Captured [...]
--- OUTSIDE RECORDS SUMMARY | 2006-04-07 04:00 | XMS_ITS | Continuity of Care Document ---
Author Organization [facility] Address [address] [place] [address] Phone Care Team Providers Care Airport Traffic Controller Name Role Phone Flores Medel Unavailable Unavailable Advance Directives Directive Yes / No Effective Date File Name No Information Encounters Encounter Description Practice Location Reason(s) For Visit Diagnoses Date Provider Providers Copied on Encounter [facility], [address], [place], [place], [address], [place] tel:[phone] SEC [facility] No Information [address] 6 Lizy Tanner. [address] [facility] , [address], [place], [address], [place]. tel:[phone] Referring Provider: Jose Antonio Ghotra MD, [address] [facility] 162 [facility] [[email or web address] 102, [place], [address]. tel:[phone] Family History Family Member Type Diagnosis Age At Onset No Information Payers Payer name Insurance type Covered democrat ID Authoriza tion(s) [place] [id number] [facility] Commercial CI [id number] Social History Type Description Quantity Date Captured [...]
--- OUTSIDE RECORDS SUMMARY | 2017-07-12 01:00 | XMS_ITS | Encounter Summary ---
Author Organization [facility] Healthcare Address [address] [place] [address] Care Team Providers Care Drying Unit Felting Machine Operator Name Role Phone Jose Antonio Ghotra MD Primary Care Provider +1- [phone] Reason for Visit * Diagnostic Imaging (Routine) - Closed Specialty Diagnoses / Procedures Referred By Contac t Referred To Contact Procedures Breast Imaging Screening Outside Reference Delma Champagne NP Phone: tel: fax: Referral ID Status Reason Start Date Expiration Date Visits Re quested Visits Authorized [id number] Closed 01/04/2023 02/03/2024 1 1 Encounter Details Date Type Department Care Team (Late st Contact Info) Description 07/12/2017 Hospital Encounter [facility] Radiology [facility] [address] [place] [address] [phone] Social History Tobacco Use Types Packs/Day Years Used Date Smoking Tobacco: Every Day Cigarettes Passive Smoke Exposure: Past Smokeless Tobacco: Never Personal Safety Answer Date Recorded Getting School Help Needed Not on file 08/04 Comments Unknown Sex and Gender Information Value Date Recorded Sex Assigned at Not on file 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 CONGRESSIONAL DISTRICT AIDE Gender Identity Not on file Sexual Orientation Not on file documented as of this encounter Plan of Treatment Not on file documented as of this encounter Procedures Procedure Name Priority Date/Time Associated Diagnosis Comments BREAST IMAGING MG SCREENING OUTSIDE REFERENCE Routine 07/12/2017 12:00 AM CONGRESSIONAL DISTRICT AIDE documented in this encounter Results * Breast Imaging Screening Outside Reference (07/12/2017 12:00 AM CONGRESSIONAL DISTRICT AIDE) Impressions [facility]MO[facility] - 01/04/2023 10:18 AM CDT These images are for Reference purposes only and have not been reviewed by [facility] Radiology. There will be no report generated by a [facility] Radiologist. Narrative RAD_MAMMO[facility] - 01/04/2023 10:18 AM CDT EXAMINATION: Images For Reference Purposes Only us Delma Champagne NP IMG MAMMO PROCEDURES Final Result [facility] documented in this encounter Visit Diagnoses Not on filedocumented in this encounter Care Teams Drying Unit Felting Machine Operator Relationship Specialty Start Date End Date Jose Antonio Ghotra MD [address] [facility] 120 [place] [address] PCP - General 04/30/12 documented as of this encounter
--- OUTSIDE RECORDS SUMMARY | 2017-07-12 01:00 | XMS_ITS | Encounter Summary ---
Author Organization [facility] Healthcare Address [address] [place] [address] Care Team Providers Care It Solutions Architect Name Role Phone Jose Antonio Ghotra MD Primary Care Provider +1- [phone] Reason for Visit * Diagnostic Imaging (Routine) - Closed Specialty Diagnoses / Procedures Referred By Contac t Referred To Contact Procedures Breast Imaging Screening Outside Reference Delma Champagne NP Phone: tel: fax: Referral ID Status Reason Start Date Expiration Date Visits Re quested Visits Authorized [id number] Closed 01/04/2023 02/03/2024 1 1 Encounter Details Date Type Department Care Team (Late st Contact Info) Description 07/12/2017 Hospital Encounter [facility] Radiology [facility] [address] [place] [address] [phone] Social History Tobacco Use Types Packs/Day Years Used Date Smoking Tobacco: Every Day Cigarettes Passive Smoke Exposure: Past Smokeless Tobacco: Never Personal Safety Answer Date Recorded Getting School Help Needed Not on file 08/04 Comments Unknown Sex and Gender Information Value Date Recorded Sex Assigned at Not on file 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 VAULT MECHANIC Gender Identity Not on file Sexual Orientation Not on file documented as of this encounter Plan of Treatment Not on file documented as of this encounter Procedures Procedure Name Priority Date/Time Associated Diagnosis Comments BREAST IMAGING MG SCREENING OUTSIDE REFERENCE Routine 07/12/2017 12:00 AM VAULT MECHANIC documented in this encounter Results * Breast Imaging Screening Outside Reference (07/12/2017 12:00 AM VAULT MECHANIC) Impressions RAD_M[facility]MO[facility] - 01/04/2023 10:18 AM CDT These images are for Reference purposes only and have not been reviewed by [facility] Radiology. There will be no report generated by a [facility] Radiologist. Narrative RAD_MAMMO[facility] - 01/04/2023 10:18 AM CDT EXAMINATION: Images For Reference Purposes Only us Delma Champagne NP IMG MAMMO PROCEDURES Final Result [facility] documented in this encounter Visit Diagnoses Not on filedocumented in this encounter Care Teams It Solutions Architect Relationship Specialty Start Date End Date Jose Antonio Ghotra MD [address] [facility] 120 [place] [address] PCP - General 04/30/12 documented as of this encounter
--- OUTSIDE RECORDS SUMMARY | 2018-09-27 | XMS_ITS | Encounter Summary ---
Author Hub Preferred Language Greek Marital Status Judaism Affiliation Unknown Race White Ethnic Group Not or Lati no Author Organization [facility] Healthcare Address [address] [place] [address] Care Team Providers Care Doormaker Name Role Phone Jose Antonio Ghotra MD Primary Care Provider +1- [phone] Reason for Visit * Diagnostic Imaging (Routine) - Closed Specialty Diagnoses / Procedures Referred By Contac t Referred To Contact Procedures Breast Imaging Screening Outside Reference Delma Champagne NP Phone: tel: fax: Referral ID Status Reason Start Date Expiration Date Visits Re quested Visits Authorized [id number] Closed 01/04/2023 02/03/2024 1 1 Encounter Details Date Type Department Care Team (Late st Contact Info) Description 09/27/2018 Hospital Encounter [facility] Radiology [facility] [address] [place] [address] [phone] Social History Tobacco Use Types Packs/Day Years Used Date Smoking Tobacco: Every Day Cigarettes Passive Smoke Exposure: Past Smokeless Tobacco: Never Personal Safety Answer Date Recorded Getting School Help Needed Not on file 08/04 Comments Unknown Sex and Gender Information Value Date Recorded Sex Assigned at Not on file 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 There will be no report generated by a [facility] Radiologist. Narrative [facility] - 01/04/2023 10:17 AM CDT EXAMINATION: Images For Reference Purposes Only us Delam Champagne NP IMG MAMMO PROCEDURES Final Result [facility] documented in this encounter Visit Diagnoses Not on filedocumented in this encounter Care Teams Doormaker Relationship Specialty Start Date End Date Jose Antonio Ghotra MD [address] [place] [address] PCP - General 04/30/12 documented as of this encounter
--- OUTSIDE RECORDS SUMMARY | 2018-09-27 | XMS_ITS | Encounter Summary ---
Author Organization [facility] Healthcare Address [address] [place] [address] Care Team Providers Care Fish Inspector Name Role Phone Jose Antonio Ghotra MD Primary Care Provider +1- [phone] Reason for Visit * Diagnostic Imaging (Routine) - Closed Specialty Diagnoses / Procedures Referred By Contac t Referred To Contact Procedures Breast Imaging Screening Outside Reference Delma Champagne NP Phone: tel: fax: Referral ID Status Reason Start Date Expiration Date Visits Re quested Visits Authorized [id number] Closed 01/04/2023 02/03/2024 1 1 Encounter Details Date Type Department Care Team (Late st Contact Info) Description 09/27/2018 Hospital Encounter [facility]iology [facility] [address] [place] [address] [phone] Social History Tobacco Use Types Packs/Day Years Used Date Smoking Tobacco: Every Day Cigarettes Passive Smoke Exposure: Past Smokeless Tobacco: Never Personal Safety Answer Date Recorded Getting School Help Needed Not on file 08/04 Comments Unknown Sex and Gender Information Value Date Recorded Sex Assigned at Not on file 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 There will be no report generated by a [facility] Radiologist. Narrative RAD[facility]MO[facility] - 01/04/2023 10:17 AM CDT EXAMINATION: Images For Reference Purposes Only us Delma Champagne NP IMG MAMMO PROCEDURES Final Result [facility] documented in this encounter Visit Diagnoses Not on filedocumented in this encounter Care Teams Fish Inspector Relationship Specialty Start Date End Date Jose Antonio Ghotra MD [address] [place] [address] PCP - General 04/30/12 documented as of this encounter
--- OUTSIDE RECORDS SUMMARY | 2018-10-19 | XMS_ITS | Encounter Summary ---
Author Organization [facility] Healthcare Address [address] [place] [address] Care Team Providers Care Rainbow Trout Farm Manager Name Role Phone Jose Antonio Ghotra MD Primary Care Provider +1- [phone] Reason for Visit * Diagnostic Imaging (Routine) - Closed Specialty Diagnoses / Procedures Referred By Contac t Referred To Contact Procedures Breast Imaging US Outside Reference Delma Champagne NP Phone: tel: fax: Referral ID Status Reason Start Date Expiration Date Visits Re quested Visits Authorized [id number] Closed 01/04/2023 02/03/2024 1 1 Encounter Details Date Type Department Care Team (Late st Contact Info) Description 10/19/2018 Hospital Encounter [facility]iology [facility] [address] [place] [address] [phone] Social History Tobacco Use Types Packs/Day Years Used Date Smoking Tobacco: Every Day Cigarettes Passive Smoke Exposure: Past Smokeless Tobacco: Never Personal Safety Answer Date Recorded Getting School Help Needed Not on file 08/04 Comments Unknown Sex and Gender Information Value Date Recorded Sex Assigned at Not on file 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 There will be no report generated by a [facility] Radiologist. Narrative RAD_MAMMO[facility] - 01/04/2023 10:14 AM CDT EXAMINATION: Images For Reference Purposes Only us Delma Champagne NP IMG MAMMO PROCEDURES Final Result [facility] documented in this encounter Visit Diagnoses Not on filedocumented in this encounter Care Teams Rainbow Trout Farm Manager Relationship Specialty Start Date End Date Jose Antonio Ghotra MD [address] [facility] 120 [place] [address] PCP - General 04/30/12 documented as of this encounter
--- OUTSIDE RECORDS SUMMARY | 2018-10-19 | XMS_ITS | Encounter Summary ---
Author Organization [facility] Healthcare Address [address] [place] [address] Care Team Providers Care Ocular Care Aide Name Role Phone Jose Antonio Ghotra MD Primary Care Provider +1- [phone] Reason for Visit * Diagnostic Imaging (Routine) - Closed Specialty Diagnoses / Procedures Referred By Contac t Referred To Contact Procedures Breast Imaging US Outside Reference Delma Champagne NP Phone: tel: fax: Referral ID Status Reason Start Date Expiration Date Visits Re quested Visits Authorized [id number] Closed 01/04/2023 02/03/2024 1 1 Encounter Details Date Type Department Care Team (Late st Contact Info) Description 10/19/2018 Hospital Encounter [facility]) [address] [place] [address] [phone] Social History Tobacco Use Types Packs/Day Years Used Date Smoking Tobacco: Every Day Cigarettes Passive Smoke Exposure: Past Smokeless Tobacco: Never Personal Safety Answer Date Recorded Getting School Help Needed Not on file 08/04 Comments Unknown Sex and Gender Information Value Date Recorded Sex Assigned at Not on file 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 DISK SHARPENER Gender Identity Not on file Sexual Orientation [...] only and have not been reviewed by [facility] Radiology. There will be no report generated by a [facility] Radiologist. Narrative [facility]_M[facility]MO[facility] - 01/04/2023 10:14 AM CDT EXAMINATION: Images For Reference Purposes Only us Delma Champagne NP IMG MAMMO PROCEDURES Final Result [facility] documented in this encounter Visit Diagnoses Not on filedocumented in this encounter Care Teams Ocular Care Aide Relationship Specialty Start Date End Date Jose Antonio Ghotra MD [address] [facility] 120 [place] [address] PCP - General 04/30/12 documented as of this encounter
--- OUTSIDE RECORDS SUMMARY | 2018-10-19 00:05 | XMS_ITS | Encounter Summary ---
Author Organization [facility] Healthcare Address [facility] [place] [address] Care Team Providers Care Odd Job Laborer Name Role Phone Jose Antonio Ghotra MD Primary Care Provider +1- [phone] Reason for Visit * Diagnostic Imaging (Routine) - Closed Specialty Diagnoses / Procedures Referred By Contac t Referred To Contact Procedures Breast Imaging Diagnostic Outside Reference Delma Champagne NP Phone: tel: fax: Referral ID Status Reason Start Date Expiration Date Visits Re quested Visits Authorized [id number] Closed 01/04/2023 02/03/2024 1 1 Encounter Details Date Type Department Care Team (Late st Contact Info) Description 10/19/2018 12:05 AM CDT Hospital Encounter [facility] ([facility]) [address] [place] [address] [phone] Social History Tobacco Use Types Packs/Day Years Used Date Smoking Tobacco: Every Day Cigarettes Passive Smoke Exposure: Past Smokeless Tobacco: Never Personal Safety Answer Date Recorded Getting School Help Needed Not on file 08/04 Comments Unknown Sex and Gender Information Value Date Recorded Sex Assigned at Not on file 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 SUSTAINABLE AGRICULTURE SPECIALIST Gender Identity Not on file Sexual [...] only and have not been reviewed by [facility] Radiology. There will be no report generated by a [facility] Radiologist. Narrative RAD_M[facility]MO[facility] - 01/04/2023 10:17 AM CDT EXAMINATION: Images For Reference Purposes Only us Delma Champagne NP IMG MAMMO PROCEDURES Final Result [facility] documented in this encounter Visit Diagnoses Not on filedocumented in this encounter Care Teams Odd Job Laborer Relationship Specialty Start Date End Date Jose Antonio Ghotra MD [address] [facility] 120 [place] [address] PCP - General 04/30/12 documented as of this encounter
--- OUTSIDE RECORDS SUMMARY | 2018-10-19 00:05 | XMS_ITS | Encounter Summary ---
Author Organization [facility] Healthcare Address [facility] [place] [address] Care Team Providers Care Senior Tax Manager Name Role Phone Jose Antonio Ghotra MD Primary Care Provider +1- [phone] Reason for Visit * Diagnostic Imaging (Routine) - Closed Specialty Diagnoses / Procedures Referred By Contac t Referred To Contact Procedures Breast Imaging Diagnostic Outside Reference Delma Champagne NP Phone: tel: fax: Referral ID Status Reason Start Date Expiration Date Visits Re quested Visits Authorized [id number] Closed 01/04/2023 02/03/2024 1 1 Encounter Details Date Type Department Care Team (Late st Contact Info) Description 10/19/2018 12:05 AM CDT Hospital Encounter [facility] ([facility]) [address] [place] [address] [phone] Social History Tobacco Use Types Packs/Day Years Used Date Smoking Tobacco: Every Day Cigarettes Passive Smoke Exposure: Past Smokeless Tobacco: Never Personal Safety Answer Date Recorded Getting School Help Needed Not on file 08/04 Comments Unknown Sex and Gender Information Value Date Recorded Sex Assigned at Not on file 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 YEAST FERMENTATION ATTENDANT Gender Identity Not on file Sexual Orientation [...] have not been reviewed by [facility] Radiology. There will be no report generated by a [facility] Radiologist. Narrative RAD_MAMMO[facility] - 01/04/2023 10:17 AM CDT EXAMINATION: Images For Reference Purposes Only us Delma Champgane NP IMG MAMMO PROCEDURES Final Result [facility] documented in this encounter Visit Diagnoses Not on filedocumented in this encounter Care Teams Senior Tax Manager Relationship Specialty Start Date End Date Jose Antonio Ghotra MD [address] [facility] 120 [place] [address] PCP - General 04/30/12 documented as of this encounter
--- OUTSIDE RECORDS SUMMARY | 2019-05-10 01:00 | XMS_ITS | Encounter Summary ---
Author Organization [facility] Healthcare Address [address] [place] [address] Care Team Providers Care Systems Engineer Name Role Phone Jose Antonio Ghotra MD Primary Care Provider +1- [phone] Reason for Visit * Diagnostic Imaging (Routine) - Closed Specialty Diagnoses / Procedures Referred By Contac t Referred To Contact Procedures Breast Imaging US Outside Reference Delma Champagne NP Phone: tel: fax: Referral ID Status Reason Start Date Expiration Date Visits Re quested Visits Authorized [id number] Closed 01/04/2023 02/03/2024 1 1 Encounter Details Date Type Department Care Team (Late st Contact Info) Description 05/10/2019 Hospital Encounter [facility]) [address] [place] [phone] Social History Tobacco Use Types Packs/Day Years Used Date Smoking Tobacco: Every Day Cigarettes Passive Smoke Exposure: Past Smokeless Tobacco: Never Personal Safety Answer Date Recorded Getting School Help Needed Not on file 08/04 Comments Unknown Sex and Gender Information Value Date Recorded Sex Assigned at Not on file 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 COMMUNICATION SKILLS INSTRUCTOR Gender Identity Not on file Sexual Orientation Not on file documented as of this encounter Plan of Treatment Not on file documented as of this encounter Procedures Procedure Name Priority Date/Time Associated Diagnosis Comments BREAST IMAGING US OUTSIDE REFERENCE Routine 05/10/2019 12:00 AM COMMUNICATION SKILLS INSTRUCTOR documented in this encounter Results * Breast Imaging US Outside Reference (05/10/2019 12:00 AM COMMUNICATION SKILLS INSTRUCTOR) Impressions RAD_M[facility]MO[facility] - 01/04/2023 10:14 AM CDT These images are for Reference purposes only and have not been reviewed by [facility] Radiology. There will be no report generated by a [facility] Radiologist. Narrative RAD_MAMMO_[facility] - 01/04/2023 10:14 AM CDT EXAMINATION: Images For Reference Purposes Only us Delma Champagne NP IMG MAMMO PROCEDURES Final Result [facility] documented in this encounter Visit Diagnoses Not on filedocumented in this encounter Care Teams Systems Engineer Relationship Specialty Start Date End Date Jose Antonio Ghotra MD [address] [facility] 120 [place] [address] PCP - General 04/30/12 documented as of this encounter
--- OUTSIDE RECORDS SUMMARY | 2019-05-10 01:00 | XMS_ITS | Encounter Summary ---
Author Organization [facility] Healthcare Address [address] [place] [address] Care Team Providers Care Embedded Software Architect Name Role Phone Jose Antonio Ghotra MD Primary Care Provider [phone]- [phone] Reason for Visit * Diagnostic Imaging (Routine) - Closed Specialty Diagnoses / Procedures Referred By Contac t Referred To Contact Procedures Breast Imaging US Outside Reference Delma Champagne NP Phone: tel: fax: Referral ID Status Reason Start Date Expiration Date Visits Re quested Visits Authorized [id number] Closed 01/04/2023 02/03/2024 1 1 Encounter Details Date Type Department Care Team (Late st Contact Info) Description 05/10/2019 Hospital Encounter [facility] [address] [place] [id number] Social History Tobacco Use Types Packs/Day Years Used Date Smoking Tobacco: Every Day Cigarettes Passive Smoke Exposure: Past Smokeless Tobacco: Never Personal Safety Answer Date Recorded Getting School Help Needed Not on file 08/04 Comments Unknown Sex and Gender Information Value Date Recorded Sex Assigned at Not on file 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 PATIENT ADMITTING CLERK Gender Identity Not on file Sexual Orientation Not on file documented as of this encounter Plan of Treatment Not on file documented as of this encounter Procedures Procedure Name Priority Date/Time Associated Diagnosis Comments BREAST IMAGING US OUTSIDE REFERENCE Routine 05/10/2019 12:00 AM PATIENT ADMITTING CLERK documented in this encounter Results * Breast Imaging US Outside Reference (05/10/2019 12:00 AM PATIENT ADMITTING CLERK) Impressions RAD_MAMMO[facility] - 01/04/2023 10:14 AM CDT These images are for Reference purposes only and have not been reviewed by [facility] Radiology. There will be no report generated by a [facility] Radiologist. Narrative [facility]_MAMMO[facility] - 01/04/2023 10:14 AM CDT EXAMINATION: Images For Reference Purposes Only us Delma Champagne NP IMG MAMMO PROCEDURES Final Result [facility] documented in this encounter Visit Diagnoses Not on filedocumented in this encounter Care Teams Embedded Software Architect Relationship Specialty Start Date End Date Jose Antonio Ghotra MD [address] [facility] [address] [place] [address] PCP - General 04/30/12 documented as of this encounter
--- OUTSIDE RECORDS SUMMARY | 2019-05-10 01:05 | XMS_ITS | Encounter Summary ---
Author Organization [facility] Healthcare Address [facility] [place] [address] Care Team Providers Care Executive Producer Name Role Phone Jose Antonio Ghotra MD Primary Care Provider +1- [phone] Reason for Visit * Diagnostic Imaging (Routine) - Closed Specialty Diagnoses / Procedures Referred By Contac t Referred To Contact Procedures Breast Imaging Diagnostic Outside Reference Delma Champagne NP Phone: tel: fax: Referral ID Status Reason Start Date Expiration Date Visits Re quested Visits Authorized [id number] Closed 01/04/2023 02/03/2024 1 1 Encounter Details Date Type Department Care Team (Late st Contact Info) Description 05/10/2019 12:05 AM HOUSE RN Hospital Encounter [facility] [address] [place] [phone] Social History Tobacco Use Types Packs/Day Years Used Date Smoking Tobacco: Every Day Cigarettes Passive Smoke Exposure: Past Smokeless Tobacco: Never Personal Safety Answer Date Recorded Getting School Help Needed Not on file 08/04 Comments Unknown Sex and Gender Information Value Date Recorded Sex Assigned at Not on file 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 HOUSE RN Gender Identity Not on file Sexual Orientation Not on file documented as of this encounter Plan of Treatment Not on file documented as of this encounter Procedures Procedure Name Priority Date/Time Associated Diagnosis Comments BREAST IMAGING MG DIAGNOSTIC OUTSIDE REFERENCE Routine 05/10/2019 12:05 AM HOUSE RN documented in this encounter Results * Breast Imaging Diagnostic Outside Reference (05/10/2019 12:05 AM HOUSE RN) Impressions RAD_MAMMO[facility] - 01/04/2023 10:17 AM CDT These images are for Reference purposes only and have not been reviewed by [facility] Radiology. There will be no report generated by a [facility] Radiologist. Narrative RAD_MAMMO[facility] - 01/04/2023 10:17 AM CDT EXAMINATION: Images For Reference Purposes Only us Delma Champagne NP IMG MAMMO PROCEDURES Final Result [facility] documented in this encounter Visit Diagnoses Not on filedocumented in this encounter Care Teams Executive Producer Relationship Specialty Start Date End Date Jose Antonio Ghotra MD [address] [facility] 120 [place] [address] PCP - General 04/30/12 documented as of this encounter
--- OUTSIDE RECORDS SUMMARY | 2019-05-10 01:05 | XMS_ITS | Encounter Summary ---
Author Organization [facility] Healthcare Address [facility] [place] [address] Care Team Providers Care Casino Gaming Worker Name Role Phone Jose Antonio Ghotra MD Primary Care Provider +1- [phone] Reason for Visit * Diagnostic Imaging (Routine) - Closed Specialty Diagnoses / Procedures Referred By Contac t Referred To Contact Procedures Breast Imaging Diagnostic Outside Reference Delma Champagne NP Phone: tel: fax: Referral ID Status Reason Start Date Expiration Date Visits Re quested Visits Authorized [id number] Closed 01/04/2023 02/03/2024 1 1 Encounter Details Date Type Department Care Team (Late st Contact Info) Description 05/10/2019 12:05 AM ENERGY AUDITOR Hospital Encounter [facility]iology [facility] [address] [place] [phone] Social History Tobacco Use Types Packs/Day Years Used Date Smoking Tobacco: Every Day Cigarettes Passive Smoke Exposure: Past Smokeless Tobacco: Never Personal Safety Answer Date Recorded Getting School Help Needed Not on file 08/04 Comments Unknown Sex and Gender Information Value Date Recorded Sex Assigned at Not on file 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 ENERGY AUDITOR Gender Identity Not on file Sexual Orientation Not on file documented as of this encounter Plan of Treatment Not on file documented as of this encounter Procedures Procedure Name Priority Date/Time Associated Diagnosis Comments BREAST IMAGING MG DIAGNOSTIC OUTSIDE REFERENCE Routine 05/10/2019 12:05 AM ENERGY AUDITOR documented in this encounter Results * Breast Imaging Diagnostic Outside Reference (05/10/2019 12:05 AM ENERGY AUDITOR) Impressions [facility]MO[facility] - 01/04/2023 10:17 AM CDT [...] on filedocumented in this encounter Care Teams Casino Gaming Worker Relationship Specialty Start Date End Date Jose Antonio Ghotra MD [address] [facility] 120 [place] [address] PCP - General 04/30/12 documented as of this encounter
--- OUTSIDE RECORDS SUMMARY | 2020-09-22 | XMS_ITS | Encounter Summary ---
Author Organization [facility] Healthcare Address [address] [place] [address] Care Team Providers Care Cleaning Specialist Name Role Phone Jose Antonio Ghotra MD Primary Care Provider [phone]- [phone] Reason for Visit * Diagnostic Imaging (Routine) - Closed Specialty Diagnoses / Procedures Referred By Contac t Referred To Contact Procedures Breast Imaging Screening Outside Reference Delma Champagne NP Phone: tel: fax: Referral ID Status Reason Start Date Expiration Date Visits Re quested Visits Authorized [id number] Closed 01/04/2023 02/03/2024 1 1 Encounter Details Date Type Department Care Team (Late st Contact Info) Description 09/22/2020 Hospital Encounter [facility] ([facility]) [address] [place] [id number] Social History Tobacco Use Types Packs/Day Years Used Date Smoking Tobacco: Every Day Cigarettes Passive Smoke Exposure: Past Smokeless Tobacco: Never Personal Safety Answer Date Recorded Getting School Help Needed Not on file 08/04 Comments Unknown Sex and Gender Information Value Date Recorded Sex Assigned at Not on file 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 There will be no report generated by a [facility] Radiologist. Narrative [facility] - 01/04/2023 10:16 AM CDT EXAMINATION: Images For Reference Purposes Only us Delma Champagne NP IMG MAMMO PROCEDURES Final Result [facility] documented in this encounter Visit Diagnoses Not on filedocumented in this encounter Care Teams Cleaning Specialist Relationship Specialty Start Date End Date Jose Antonio Ghotra MD [address] [facility] [address] [place] [address] PCP - General 04/30/12 documented as of this encounter
--- OUTSIDE RECORDS SUMMARY | 2020-09-22 | XMS_ITS | Encounter Summary ---
Author Organization [facility] Healthcare Address [address] [place] [address] Care Team Providers Care Sort Worker Name Role Phone Jose Antonio Ghotra MD Primary Care Provider +1- [phone] Reason for Visit * Diagnostic Imaging (Routine) - Closed Specialty Diagnoses / Procedures Referred By Contac t Referred To Contact Procedures Breast Imaging Screening Outside Reference Delma Champagne NP Phone: tel: fax: Referral ID Status Reason Start Date Expiration Date Visits Re quested Visits Authorized [id number] Closed 01/04/2023 02/03/2024 1 1 Encounter Details Date Type Department Care Team (Late st Contact Info) Description 09/22/2020 Hospital Encounter [facility]iology [facility]) [address] [place] [address] [phone] Social History Tobacco Use Types Packs/Day Years Used Date Smoking Tobacco: Every Day Cigarettes Passive Smoke Exposure: Past Smokeless Tobacco: Never Personal Safety Answer Date Recorded Getting School Help Needed Not on file 08/04 Comments Unknown Sex and Gender Information Value Date Recorded Sex Assigned at Not on file 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 Narrative [facility] - 01/04/2023 10:16 AM CDT EXAMINATION: Images For Reference Purposes Only us Delma Champagne NP IMG MAMMO PROCEDURES Final Result [facility] documented in this encounter Visit Diagnoses Not on filedocumented in this encounter Care Teams Sort Worker Relationship Specialty Start Date End Date Jose Antonio Ghotra MD [address] [facility] [address] [place] [address] PCP - General 04/30/12 documented as of this encounter
--- NOTE | ~2025-01-27 | CT_ITS ---
EXAMINATION: CTA BRAIN/CAROTID DATE: 01/27/2025 18:58 INDICATION: Stroke. Dysarthria. TECHNIQUE: Computed tomographic angiography (CTA) of the head and neck was performed with 100 mL Omnipaque-350 intravenous contrast. Multiplanar reconstructions and maximum intensity projection 3D-reconstructions of the carotid arteries and of the intracranial arteries were created by the technologist on a separate workstation. Precontrast CT of the head was also obtained. Automated exposure control and iterative reconstruction technique were employed.The dose-length product was 1595.24 mGy-cm. COMPARISON: Head CT dated 07/24/2020 FINDINGS: Head: No acute intracranial hemorrhage, acute infarction or abnormal extra axial fluid collection. There is mild scattered white matter hypoattenuation consistent with chronic small vessel ischemic disease. Ventricles are normal and symmetric. No mass/mass effect. No abnormally enhancing brain lesions on the post contrast imaging. Changes of bilateral intraocular lens replacement. The orbits and mastoid air cells are normal. Small mucous retention cyst in the posterior right ethmoid sinus. Intracranial arteries Vertebral arteries are codominant. Small amount of nonhemodynamically significant atherosclerotic calcification is at the right carotid siphon. There is no hemodynamically significant stenosis in the vertebral, basilar and internal carotid arteries. Both A1 and P1 segments are patent. The right P1 segm ent is smaller than the left with additional collateral flow to the right posterior cerebral artery supplied from the right internal carotid artery via a patent large caliber right posterior communicating artery. There is a 2 mm saccular aneurysm projecting cephalad from the junction of left A1 and A2 segments and a patent intercommunicating artery. Cerebral arterial arborization appears symmetric. Carotid arteries: The aortic arch and the great vessels arising from the arch are normal in caliber with no dissection or hemodynamically significant stenosis. There is minimal atherosclerotic plaque with 0% stenosis both the right and left carotid bulbs relative to normal distal artery lumen diameter (NASCET criteria). A couple likely benign hypoenhancing nodules in the left thyroid lobe measuring up to 1.3 cm. Mild to moderate cervical spondylosis with instrumented C5-C6 anterior spinal fusion. There is also fusion across the C5-C7 facet joints on the left and C6-C7 facet joint on the right. IMPRESSION: 1. Mild scattered white matter hypoattenuation consistent with chronic small vessel ischemic disease. No acute intracranial process. 2. Minimal atherosclerotic plaque with 0% stenosis of the right and left carotid bulbs relative to normal distal artery lumen diameter (NASCET criteria). 3. 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 Reviewed, dictated and finalized at location A. IMPRESSION: 1. Mild scattered white matter hypoattenuation consistent with chronic small ve ssel ischemic disease. No acute intracranial process. 2. Minimal atherosclerotic plaque with 0% stenosis of the right and left caroti d bulbs relative to normal distal artery lumen diameter (NASCET criteria). 3. 2 mm saccular aneurysm at the left anterior cerebral artery origin of the an terior communicating artery.
--- NOTE | ~2025-01-27 | XR_ITS ---
EXAMINATION: XR chest 1V portable DATE: 01/27/2025 19:16 INDICATION: Stroke TECHNIQUE: frontal view of the chest was obtained. COMPARISON: Chest CT dated 10/29/2024 FINDINGS: Mild elevation the left hemidiaphragm. No focal airspace opacities, pulmonary edema, pleural effusion or pneumothorax. Heart size is normal. Calcified right hilar and mediastinal lymph nodes consistent with old granulomatous disease.. Cholecystectomy clips in right upper quadrant. Partially visualized plate and screw fixation for lower cervical anterior spinal fusion. 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 IMPRESSION: 1. Mild elevation of the left hemidiaphragm. No acute cardiopulmonary disease. Reviewed, dictated and finalized at location A.
[2025-01-27 18:15] VITALS: BP 133/76; PULSE 72; RESP 16; TEMP 36.4; O2SAT 97
--- OUTSIDE RECORDS SUMMARY | 2025-01-27 18:18 | XMS_ITS | Clinical Summary ---
Author Organization [facility] [place] Address [address] [place] [address] Phone Care Team Providers Care Dry Roller Name Role Phone Jose Antonio Ghotra DO Primary Care Provider [phone] Allergies Active Allergy Reactions Criticality Noted Date [...] 7 Active fluticasone propionate (FLONASE) 50 mcg/spray [place], Suspension nasal inhaler Administer 2 Sprays in each nostril. Active Active Problems Patient Care Coordination No te Formatting of this note migh t be different from the original. Zac Dinero MD-[facility] Heart and Vascular @ Primary Care: Jose Antonio Ghotra DO Referring Provider: Jose Antonio Ghotra DO [address] [place] [address] Other: Dr Licha Tsai Problem Noted Date Diagnosed Date Vasovagal syncope 02/14/2020 Orthostatic lightheadedness 02/14/2020 Arterial hypotension 02/14/2020 Smoking 02/14/2020 Visit for screening mammogram 07/01/2015 Breast calcification, right 06/01/2015 ALH 04/29/2013 Overview (08/07/2013): 05/15/13 LEFT bx - Path shows ALH. 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): IOV THR, neck fused, etc GERD (gastroesophageal [...] on file Legal Sex Female 9:36 AM NON GARMENT SEWING MACHINE OPERATOR Gender Identity Not on file [...] CDT Respiratory Rate 14 08/08/2013 9:43 AM NON GARMENT SEWING MACHINE OPERATOR Oxygen Saturation 94% 02/06/2020 3:22 PM CDT [...] Maintenance Insurance MEDICARE PART A AND B [facility] OPTIONS PPO [id number] Advance Directives For more information, please contact: [phone] * Full Code (Latest Code Status on File) Date Activated Date Inactivated Comments 07/26/2013 12:52 PM 07/26/2013 3:18 PM * Full Code Date Activated Date Inactivated Comments 07/26/2013 9:26 AM 07/26/2013 12:52 PM Care Teams Dry Roller Relationship Specialty Start Date End Date Jose Antonio Ghotra DO [address] [facility] [address] [place] [address] PCP - General Internal Medicine 05/09/13
--- OUTSIDE RECORDS SUMMARY | 2025-01-27 18:18 | XMS_ITS | Clinical Summary ---
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
--- OUTSIDE RECORDS SUMMARY | 2025-01-27 18:18 | XMS_ITS | Clinical Summary ---
Author Organization [facility] Address [address] [address] Care Team Providers Care Chief Legal Officer Name Role Phone Jose Antonio Ghotra Primary Care Provider [phone] Ed POE MD, Jason Unavailable [phone] Source Comments [facility],non-owned Affiliates and Associated Physician Practices is amultiple site organization consisting of ambulatory clinics and hospital sitesin [place], [place], [place] and [place]. This disclosure is being madepursuant to the Care Everywhere program and may not contain all information available regarding this patient. Last updated 18.[facility] Allergies Active Allergy Reactions Criticality Noted Date [...] fluticasone propionate (FLONASE) 50 MCG/ACT nasal spray [place] 2 Sprays into each nostril once daily. 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 Gender Identity Not on file Sexual [...] this topic Medical Devices Implanted Type Area Dinkey Skinner Device Identifier Shelf Expiration Date Model / Serial / Lot Biomet Acetabular Cup, 62mm Implanted:Qty: 1 on 10/28/2014 by Jason Ward IV, MD at [facility] Left: Hip 05/04/2024 [id number] / / [id number] Biomet Bone Screw, 6.5mm X 40mm Implanted:Qty: 1 on 10/28/2014 by Jason Ward IV, MD at [facility] Left: Hip 09/01/2024 [id number] / / [id number] Biomet Acetabular Liner, 36mm Size 25 Implanted:Qty: 1 on 10/28/2014 by Jason Ward IV, MD at [facility] Left: Hip 12/02/2018 [id number] / / [id number] 36mm Ceramic Head Implanted:Qty: 1 on 10/28/2014 by Jason Ward IV, MD at [facility] Left: Hip [employer] 09/02/2024 [id number] / / [id number] Micro Taper-Loc Stem Implanted:Qty: 1 on 10/28/2014 by Jason Ward IV, MD at [facility] Left: Hip [employer] 04/04/2024 [id number] / / [id number] Standard Neck Implanted:Qty: 1 on 10/28/2014 by Jason Ward IV, MD at [facility] Left: Hip [employer] 09/02/2024 [id number] / / [id number] Cmpnt Ptlr 31mm 1 Pg Wire Ascnt Arcm Kn Implanted:Qty: 1 on 01/01/2020 by Jules Joaquin MD at [facility] Left: Knee Gianluca [employer] 07/31/2024 [id number] / / [id number] Tray Tib 79mm Kn Cocr I Beam Implanted:Qty: 1 on 01/01/2020 by Jules Joaquin MD at [facility] Left: Knee [employer] 08/18/2029 [id number] / / [id number] Brng 83srh00ct Vngrd Arcm Kn Ant Stab Implanted:Qty: 1 on 01/01/2020 by Jules Joaquin MD at [facility] Left: Knee [employer] 02/16/2024 [id number] / / [id number] Cmnt Bone Djo Srg Cblt 40gm Hvisc Strl Implanted:Qty: 1 on 01/01/2020 by Jules Joaquin MD at [facility] Left: Knee [employer] 06/27/2020 600-15-000 / / [id number] Cmnt Bone Djo Srg Cblt 40gm Hvisc Strl Implanted:Qty: 1 on 01/01/2020 by Jules Joaquin MD at [facility] Left: Knee [employer] 09/18/2020 600-15-000 / / [id number] Cmpnt Fem Kn Lt Cr Cmnt Prm Vngrd Intlk Implanted:Qty: 1 on 01/01/2020 by Jules Joaquin MD at [facility] Left: Knee [employer] 11/11/2029 [id number] / / [id number] Procedures Procedure Name Priority Date/Time Associated Diagnosis [...] LAB - CHEMISTRY ORDERABLES Fi nal Result [facility] [address] [place] [address] from Last 3 Months or Most Recently Relevant to Health Maintenance Insurance MEDICARE [facility] Advance Directives Documents on File Type Date Recorded Patient Analytical Data Scientist Expl anation Adv Directive/Living Will/POA 01/09/2011 1:43 PM * Full Code (Latest Code Status on File) Date Activated Date Inactivated Comments 01/01/2020 10:23 AM 01/02/2020 2:07 PM * Full Code Date Activated Date Inactivated Comments 10/28/2014 1:06 PM 10/30/2014 1:27 PM * FULL RESUSCITATION Date Activated Date Inactivated Comments 01/04/2011 10:26 AM 01/07/2011 11:02 PM Care Teams Chief Legal Officer Relationship Specialty Start Date End Date Jose Antonio Ghotra DO [address] [phone] PCP - General 11/22/10 Jason Ward IV, MD [address] [phone] Orthopedic Surgery 03/29/11
--- NOTE | 2025-01-27 18:21 | ECG_ITS ---
Test Date: 2025-01-27 19:10:19 Measurements Intervals [place] Rate: 65 P: 67 RI: 157 QRS: 8 QRSD: 89 T: 52 QT: 404 QTc: 423 Interpretive Statements SINUS RHYTHM LEFT ATRIAL ENLARGEMENT DELAYED PRECORDIAL R/S TRANSITION BASELINE ARTIFACT- I, III, AVL BORDERLINE ECG No previous ECG available for comparison Electronically Signed On 01-27-2025 19:46:53 CDT by Alexi Swanson D.O.
[2025-01-27 18:37] LABS: Hematocrit 44.0 % (37.0-47.0); Hemoglobin 14.9 g/dL (12.0-15.0); Immature Granulocyte Percent A 0.3 % (0-0.5); Lymphocytes Absolute Auto 1.74 K/mm3 (0.9-3.2); Mean Corpuscular HGB Conc 33.9 g/dl (32-36); Mean Corpuscular Hemoglobin 32.0 pg (26-34); Mean Corpuscular Volume 94.6 fl (80-100); Nucleated Red Blood Cells Absolute Auto 0.000 K/mm3 (0.0-0.012); Nucleated Red Blood Cells Perc 0.0 % (0.0-0.2); Platelet Count Result 311 k/mm3 (150-375); Red Blood Count 4.65 M/mm3 (4.2-5.4); White Blood Count 8.8 K/mm3 (4.5-10.0)
--- NOTE | 2025-01-27 18:44 | ED_ITS ---
HPI - Neuro Symptoms/Deficit General Chief Complaint: Suspected CVA Stated Complaint: cant talk normally thoughts scattered, TIA HX Time Seen by Provider: 01/27/25 18:20 History of Present Illness HPI Narrative: Patient is a 74-year-old female who presents ER with concerns for possible CVA. Sudden onset around 6:00 p.m.. She was bleeding a kids baseball game and was speaking to her son and started having trouble finding words. She would say a sentence and then not be able to find the word at the end of the sentence to complete her thought. This continued to happen where she was searching for words more repetitively. No slurred speech. No facial droop. No arm weakness. Able to ambulate. Brought here by son. Symptoms have now resolved. Patient is not on anti-platelet medication. She has been on prednisone over last 5 days and took her last dose this morning. She has been having poor sleep. Related Data Home Medications ?Medication ?Instructions ?Recorded ?Confirmed ?Last Taken ?Type fexofenadine 180 mg tablet 180 mg PO DAILY 06/24/1901/20/25 History (Nancy Allergy) cholecalciferol (vitamin D3) 50 2,000 unit PO DAILY 01/20/25 01/19/25 History mcg (2,000 unit) capsule cyclobenzaprine 10 mg tablet 10 mg PO BID PRN PAIN 01/20/25 01/19/25 History fluticasone propionate 50 2 spray intranasal DAILY PRN 04/04/24 01/20/25 01/20/25 History mcg/actuation nasal allergy symptoms spray,suspension (Flonase Allergy Relief) trospium 20 mg tablet 20 mg PO BID 10/23/2401/20/25 History diclofenac sodium 75 mg 75 mg PO DAILY 01/01/2501/0301/12/25 History tablet,delayed release Allergies Allergy/AdvReac Type Severity Reaction Status Date / Time cefdinir AdvReac Severe Blister Verified 01/20/25 08:24 Sulfa (Sulfonamide AdvReac Mild made UTI Verified 01/20/25 08:24 Antibiotics) worse Review of Systems 2 Review of Systems: All systems reviewed & are unremarkable except as noted in HPI and below Constitutional: Constitutional: Reports no additional constitutional complaints ENT: Reports system reviewed and no additional complaints, except as documented Cardiovascular: Cardiovascular: Reports no additional cardiovascular complaints Respiratory: Respiratory: Reports no additional respiratory complaints Neurologic: Reports system reviewed and no additional complaints, except as documented [facility] Past Medical History Medical History (Updated 01/27/25 @ 21:00 by Sedrick Workman MD) BMI 27.0-27.9,adult Syncope and collapse Dysuria Symptomatic cholelithiasis Pure hypercholesterolemia Post-menopause Hypercholesteremia Generalized abdominal pain Gastro-esophageal reflux disease without esophagitis Esophageal reflux Encounter for screening colonoscopy Dizziness Back pain, chronic Allergic rhinitis, unspecified Abnormal MRI of abdomen Abnormal cholangiogram Screening mammogram, encounter for Anxiety Arthritis TIA (transient ischemic attack) none since 1985; unknown etiology after workup Surgical History Surgical History Status post lumbar spine surgery for decompression of spinal cord History of cholecystectomy (~03/2017) History of knee replacement procedure of left knee (~01/30/00) History of breast biopsy (06/11/15) (R) breast--benign-done @ [facility] History of hip replacement 2010 (R) hip 2014 (L) hip History of fusion of cervical spine (~2005) C5-6 History of back surgery (~2000) L2-3 History of total abdominal hysterectomy and bilateral salpingo-oophorectomy (~1998) menorrhagia/bladder repair History of breast implant removal (~1993) History of lumpectomy of right breast (~1982) History of breast augmentation (~1979) Family History Family History (Updated 10/23/24 @ 14:36 by CONY Ceja) Mother Family history of malignant neoplasm Father Family history of emphysema Sibling , Explosion-Antolin No problems noted. Sibling No problems noted. Social History Social History (Updated 10/23/24 @ 14:36 by CONY Ceja) Smoking packs per day: 1 Smoking cigarettes per day: 20.0 Years smoked: 50 Smoking pack-years: 50.00 Smoking status: Current every day smoker Tobacco type: cigarettes Second hand tobacco smoke exposure: No Additional smoking assessment comments: CURRENTLY SMOKING 1/2 PACK/DAY Alcohol intake: current Substance use: never Substance use type: does not use Do You Feel Safe in your Home?: Yes Lack of Transportation: No Lack of Food: Never True Current Housing: I Have Housing Concerned About Future Housing: No Difficulty Paying Gas/Electric Bills: No Difficulty Paying for Meds: No Currently Unemployed: No Education: High School Diploma/GED Difficulty w/ Childcare or Family Care: No Living arrangements: alone Occupation/Education: retired 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 HEAD: Normocephalic, atraumatic. EYES: PERRL and EOMI. ENT: Mucous membranes moist. CHEST: Clear to auscultation. No respiratory distress. HEART: Regular rate and rhythm. Normal peripheral pulses. ABDOMEN: Soft, nontender, nondistended. EXTREMITIES: Normal range of motion. No edema. SKIN: Warm, dry, no rash. NEURO: No focal deficits. Alert and oriented x3. NIH Stroke Scale of 0. PSYCH: Mildly anxious which is appropriate given her current concern ingrowing health. Normal thought content. Course Course Emergency Course: Patient and son informed of lab and imaging results. Discussed consultation that occurred with Dr. Padron with Neurology. It is recommended that she receive dual anti-platelet therapy as well as Crestor a to help prevent stroke prevention and that she also be admitted to the hospital for an MRI and telemetry monitoring. Patient declines these interventions and will go home against medical advice. I have interviewed and examined the patient. I have determined that the patient has the capacity to understand the information relevant to their care. The patient also understands the consequences of the various options after we discussed relevant information. I feel that the patient is able to understand the relevant information and responds appropriately to questions. I have attempted to persuade the patient to stay to receive care. The patient understands by leaving there is a possibility of , disability, or serious injury. Despite the above information the patient has made the decision to leave against medical advice. I have attempted to persuade the patient to follow up with a physician JONO. I have also notified the patient they may return at any time to the ED for further care. Vital Signs Vital signs: Vital Signs Temperature 97.6 F 01/27/25 18:15 Pulse Rate 72 01/27/25 18:15 Respiratory Rate 16 01/27/25 18:15 Blood Pressure 133/76 01/27/25 18:15 Pulse Oximetry 97 01/27/25 18:15 Oxygen Delivery Room Air 01/27/25 18:15 Temperature 97.6 F 01/27/25 18:15 Pulse Rate 72 01/27/25 18:15 Respiratory Rate 16 01/27/25 18:15 Blood Pressure 133/76 01/27/25 18:15 Pulse Oximetry 97 01/27/25 18:15 Oxygen Delivery Room Air 01/27/25 18:15 MDM - Neuro Symptoms/Deficit Lab Data 01/27/25 18:29 01/27/25 18:45 Labs: Lab Results 01/27/25 01/27/25 01/27/25 Range/Units 18:18 18:29 18:45 WBC 8.8 (4.5-10.0) K/mm3 RBC 4.65 (4.2-5.4) M/mm3 Hgb 14.9 (12.0-15.0) g/dL Hct 44.0 (37.0-47.0) % MCV 94.6 (80-100) fl MCH 32.0 (26-34) pg MCHC 33.9 (32-36) g/dl RDW 13.0 (11.5-14.5) % Plt Count 311 (150-375) k/mm3 MPV 8.8 (7.4-10.4) fl Immature Gran % (Auto) 0.3 (0-0.5) % Neut % (Auto) 72.5 (45.5-73.1) % Lymph % (Auto) 19.8 (18.3-44.2) % [place] % (Auto) 5.9 (2.6-8.5) % Eos % (Auto) 0.8 (0-4.4) % Baso % (Auto) 0.7 (0.2-1.2) % Lymph # (Auto) 1.74 (0.9-3.2) K/mm3 [place] # (Auto) 0.5 (0.1-0.6) K/mm3 Eos # (Auto) 0.1 (0-0.3) K/mm3 Baso # (Auto) 0.1 (0.0-0.1) K/mm3 Abs Immat Gran (auto) 0.03 (0.00-0.031) K/mm3 Absolute Neuts (auto) 6.4 (1.3-6.7) K/mm3 Absolute Nucleated RBC 0.000 (0.0-0.012) K/mm3 Nucleated RBC % 0.0 (0.0-0.2) % PT 12.6 (11.1-14.7) Seconds INR 0.9 APTT 30.6 (22.3-36.8) Seconds Sodium 133 L (137-145) mmol/L Potassium 4.2 (3.4-5.0) mmol/L Chloride 96 L (98-107) mmol/L Carbon Dioxide 26 (22-30) mmol/L Anion Gap 11 (4-12) mmol/L BUN 19 H (7-17) mg/dL Creatinine 1.01 H 1.10 (0.7-1.0) mg/dL Estim Creat Clear Calc Not Reportable Not Reportable Estimated GFR 54 L 49 L (59 - ) Glucose 103 (65-110) mg/dL POC Capillary Glucose 78 (65-105) mg/dl Calcium 9.6 (8.4-10.2) mg/dL Total Bilirubin 0.4 (0.2-1.3) mg/dL AST 29 (14-36) U/L ALT 24 (6-35) U/L Alkaline Phosphatase 94 (38-126) U/L Troponin I < 0.012 (0.000-0.034) ng/mL Total Protein 8.8 H (6.3-8.2) g/dL Albumin 5.0 (3.5-5.1) g/dL Urine Color (Yellow) Urine Appearance (Clear) Urine pH (5.0-9.0) Ur Specific [place] (1.001-1.035) Urine Protein (Negative) mg/dL Urine Glucose (UA) (Negative) mg/dL Urine Ketones (Negative) mg/dL Ur Blood (Man) (Negative) Urine Nitrate (Negative) Urine Bilirubin (Negative) Urine Urobilinogen (<2.0) mg/dL Add Ur Microanalysis Leukocyte Esterase Rfl (Negative) DANAY/UL Urine RBC (0-2) /hpf Urine WBC (0-3) /hpf Ur Squamous Epith Cells (Few) /hpf Urine Bacteria /hpf Urine Casts 01/27/ Range/Units 20:03 WBC (4.5-10.0) K/mm3 RBC (4.2-5.4) M/mm3 Hgb (12.0-15.0) g/dL Hct (37.0-47.0) % MCV (80-100) fl MCH (26-34) pg MCHC (32-36) g/dl RDW (11.5-14.5) % Plt Count (150-375) k/mm3 MPV (7.4-10.4) fl Immature Gran % (Auto) (0-0.5) % Neut % (Auto) (45.5-73.1) % Lymph % (Auto) (18.3-44.2) % [place] % (Auto) (2.6-8.5) % Eos % (Auto) (0-4.4) % Baso % (Auto) (0.2-1.2) % Lymph # (Auto) (0.9-3.2) K/mm3 [place] # (Auto) (0.1-0.6) K/mm3 Eos # (Auto) (0-0.3) K/mm3 Baso # (Auto) (0.0-0.1) K/mm3 Abs Immat Gran (auto) (0.00-0.031) K/mm3 Absolute Neuts (auto) (1.3-6.7) K/mm3 Absolute Nucleated RBC (0.0-0.012) K/mm3 Nucleated RBC % (0.0-0.2) % PT (11.1-14.7) Seconds INR APTT (22.3-36.8) Seconds Sodium (137-145) mmol/L Potassium (3.4-5.0) mmol/L Chloride (98-107) mmol/L Carbon Dioxide (22-30) mmol/L Anion Gap (4-12) mmol/L BUN (7-17) mg/dL Creatinine (0.7-1.0) mg/dL Estim Creat Clear Calc Estimated GFR (59 - ) Glucose (65-110) mg/dL POC Capillary Glucose (65-105) mg/dl Calcium (8.4-10.2) mg/dL Total Bilirubin (0.2-1.3) mg/dL AST (14-36) U/L ALT (6-35) U/L Alkaline Phosphatase (38-126) U/L Troponin I (0.000-0.034) ng/mL Total Protein (6.3-8.2) g/dL Albumin (3.5-5.1) g/dL Urine Color Yellow (Yellow) Urine Appearance Clear (Clear) Urine pH 6.5 (5.0-9.0) Ur Specific [place] 1.022 (1.001-1.035) Urine Protein Negative (Negative) mg/dL Urine Glucose (UA) Negative (Negative) mg/dL Urine Ketones Negative (Negative) mg/dL Ur Blood (Man) Negative (Negative) Urine Nitrate Negative (Negative) Urine Bilirubin Negative (Negative) Urine Urobilinogen 0.2 (<2.0) mg/dL Add Ur Microanalysis Reviewed Leukocyte Esterase Rfl 1+ H (Negative) DANAY/UL Urine RBC 0-2 (0-2) /hpf Urine WBC 0-5 (0-3) /hpf Ur Squamous Epith Cells None seen (Few) /hpf Urine Bacteria None seen /hpf Urine Casts 0-2 Imaging Data Radiologist's impression: ITS Impressions Head/Neck CTA 01/27/25 19:02 IMPRESSION: 1. Mild scattered white matter hypoattenuation consistent with chronic small vessel ischemic disease. No acute intracranial process. 2. Minimal atherosclerotic plaque with 0% stenosis of the right and left carotid bulbs relative to normal distal artery lumen diameter (NASCET criteria). 3. 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 Chest X-Ray 01/27/25 19:39 IMPRESSION: 1. Mild elevation of the left hemidiaphragm. No acute cardiopulmonary disease. ECG Data EKG #1: ECG completion date: 01/27/25 ECG completion time: 19:10 EKG Interpretation: normal rate (65), sinus rhythm, no ST changes, normal QT and NL axis Discharge Plan Discharge Clinical Impression: Brain TIA Patient Disposition: Left Against Medical Advice Condition: Guarded Prognosis Instructions: Transient Ischemic Attack (ED) Patient Language: Korean Prescriptions: No Action fexofenadine [Nancy Allergy] 180 mg tablet 180 mg PO DAILY cholecalciferol (vitamin D3) 50 mcg (2,000 unit) capsule 2,000 unit PO DAILY fluticasone propionate [Flonase Allergy Relief] 50 mcg/actuation spray,suspension 2 spray NASAL DAILY PRN (Reason: allergy symptoms) Rx Instructions: administer into each nostril trospium 20 mg tablet 20 mg PO BID Rx Instructions: administer on an empty stomach cyclobenzaprine 10 mg tablet 10 mg PO BID PRN (Reason: PAIN) esomeprazole magnesium 40 mg capsule,delayed release(DR/EC) 40 mg PO DAILY Qty: 90 3RF azelastine 137 mcg (0.1 %) spray,non-aerosol 2 spray intranasal Q12H PRN (Reason: Sinus Symptoms) Qty: 30 5RF Rx Instructions: administer into each nostril famciclovir 500 mg tablet 500 mg PO Q8H PRN (Reason: Cold Sores) Qty: 30 1RF paroxetine HCl 10 mg tablet 10 mg PO DAILY Qty: 90 2RF hydrocodone-acetaminophen 5-325 mg tablet 1 - 2 tablet PO Q4H PRN (Reason: pain) Qty: 40 0RF prednisone 5 mg tablet 5 mg PO DIRECTED Qty: 21 0RF Rx Instructions: 6 po today, decreasing dose by one tablet daily until gone. diclofenac sodium 75 mg tablet,delayed release (DR/EC) 75 mg PO DAILY Rx Instructions: take with food Follow-up/Referrals: Eber Guthrie DO [Primary Care Provider, Internal Medicine] Quality Stroke Scale Stroke Scale 1: Stroke scale date:: 01/27/25 Stroke scale time:: 16:20 1a Level of consciousness: alert-0 1b Level of consciousness questions: answers both correctly-0 1c Level of consciousness commands: obeys both correctly-0 2 Best gaze: normal-0 3 Visual: no visual loss-0 4 Facial palsy: normal-0 5a Motor: left arm: no drift-0 5b Motor: right arm: no drift-0 6a Motor: left leg: no drift-0 6b Motor: right leg: no drift-0 7 Limb ataxia: absent-0 8 Sensory: normal-0 9 Best language: no aphasia-0 10 Dysarthria: normal-0 11 Extinction and inattention: no abnormality-0 Level:: 0
[2025-01-27 18:47] LABS: Estimated Glomerular Filt Rate 49
[2025-01-27 18:53] LABS: INR 0.9; Prothrombin Time 12.6 Seconds (11.1-14.7)
[2025-01-27 18:54] LABS: Partial Thromboplastin Time 30.6 Seconds (22.3-36.8)
[2025-01-27 18:55] LABS: Alanine Aminotransferase 24 U/L (6-35); Albumin Level 5.0 g/dL (3.5-5.1); Alkaline Phosphatase 94 U/L (38-126); Anion Gap 11 mmol/L (4-12); Aspartate Amino Transferase 29 U/L (14-36); Bilirubin,Total 0.4 mg/dL (0.2-1.3); Blood Urea Nitrogen 19 mg/dL (7-17); Calcium 9.6 mg/dL (8.4-10.2); Carbon Dioxide 26 mmol/L (22-30); Chloride 96 mmol/L (98-107); Estimated Glomerular Filt Rate 54; Glucose 103 mg/dL (65-110); Potassium 4.2 mmol/L (3.4-5.0); Sodium 133 mmol/L (137-145); Total Protein 8.8 g/dL (6.3-8.2)
[2025-01-27 19:07] LABS: Troponin I < 0.012 ng/mL (0.000-0.034)
--- OUTSIDE RECORDS SUMMARY | 2025-01-27 19:22 | XMS_ITS | Clinical Summary ---
Author Organization [facility] Address [address] [place] [address] Care Team Providers Care Project Controller Name Role Phone Jose Antonio Ghotra Primary Care Provider [phone] Ed POE MD, Jason Unavailable [phone] Source Comments [facility],non-owned Affiliates and Associated Physician Practices is amultiple site organization consisting of ambulatory clinics and hospital sitesin [place], [place] and [place]. This disclosure is being madepursuant to the Care Everywhere program and may not contain all information available regarding this patient. Last updated 18.[facility] Allergies Active Allergy Reactions Criticality Noted Date [...] fluticasone propionate (FLONASE) 50 MCG/ACT nasal spray [place] 2 Sprays into each nostril once daily. 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 Gender Identity Not on file [...] this topic Medical Devices Implanted Type Area Senior Director Marketing Device Identifier Shelf Expiration Date Model / Serial / Lot Biomet Acetabular Cup, 62mm Implanted:Qty: 1 on 10/28/2014 by Jason Ward IV, MD at [facility] Left: Hip 05/04/2024 [id number] / / [id number] Biomet Bone Screw, 6.5mm X 40mm Implanted:Qty: 1 on 10/28/2014 by Jason Ward IV, MD at [facility] Left: Hip 09/01/2024 [id number] / / [id number] Biomet Acetabular Liner, 36mm Size 25 Implanted:Qty: 1 on 10/28/2014 by Jason Ward IV, MD at [facility] Left: Hip 12/02/2018 [id number] / / [id number] 36mm Ceramic Head Implanted:Qty: 1 on 10/28/2014 by Jason Ward IV, MD at [facility] Left: Hip [employer] 09/02/2024 650-1057 / / [id number] Micro Taper-Loc Stem Implanted:Qty: 1 on 10/28/2014 by Jason Ward IV, MD at [facility] Left: Hip [employer] 04/04/2024 [id number] / / [id number] Standard Neck Implanted:Qty: 1 on 10/28/2014 by Jason Ward IV, MD at [facility] Left: Hip [employer] 09/02/2024 [id number] / / [id number] Cmpnt Ptlr 31mm 1 Pg Wire Ascnt Arcm Kn Implanted:Qty: 1 on 01/01/2020 by Jules Joaquin MD at [facility] Left: Knee [employer] 07/31/2024 [id number] / / [id number] Tray Tib 79mm Kn Cocr I Beam Implanted:Qty: 1 on 01/01/2020 by Jules Joaquin MD at [facility] Left: Knee [employer] 08/18/2029 [id number] / / [id number] [id number] Vngrd Arcm Kn Ant Stab Implanted:Qty: 1 on 01/01/2020 by Jules Joaquin MD at [facility] Left: Knee [employer] 02/16/2024 [id number] / / [id number] Cmnt Bone Djo Srg Cblt 40gm Hvisc Strl Implanted:Qty: 1 on 01/01/2020 by Jules Joaquin MD at [facility] Left: Knee [employer] 06/27/2020 600-15-000 / / [id number] Cmnt Bone Djo Srg Cblt 40gm Hvisc Strl Implanted:Qty: 1 on 01/01/2020 by Jules Joaquin MD at [facility] Left: Knee [employer] 09/18/2020 600-15-000 / / [id number] Cmpnt Fem Kn Lt Cr Cmnt Prm Vngrd Intlk Implanted:Qty: 1 on 01/01/2020 by Jules Joaquin MD at [facility] Left: Knee [employer] 11/11/2029 [id number] / / [id number] Procedures Procedure Name Priority Date/Time Associated Diagnosis [...] LAB - CHEMISTRY ORDERABLES Fi nal Result [facility] [address] [place] [address] from Last 3 Months or Most Recently Relevant to Health Maintenance Insurance MEDICARE [facility] Advance Directives Documents on File Type Date 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 Adv Directive/Living Will/POA 01/09/2011 1:43 PM * Full Code (Latest Code Status on File) Date Activated Date Inactivated Comments 01/01/2020 10:23 AM 01/02/2020 2:07 PM * Full Code Date Activated Date Inactivated Comments 10/28/2014 1:06 PM 10/30/2014 1:27 PM * FULL RESUSCITATION Date Activated Date Inactivated Comments 01/04/2011 10:26 AM 01/07/2011 11:02 PM Care Teams Project Controller Relationship Specialty Start Date End Date Jose Antonio Ghotra DO [address] [phone] PCP - General 11/22/10 Jason Ward IV, MD [address] [phone] Orthopedic Surgery 03/29/11
--- OUTSIDE RECORDS SUMMARY | 2025-01-27 19:22 | XMS_ITS | Clinical Summary ---
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 Gender Identity Not on file Sexual Orientation [...] 02/11/2021, 03/19/2019, Additional history exists Insurance MEDICARE [facility] CHOICE PLUS [facility] H[facility]/PPO Address: [address] [address] [place] [address] MEDICARE [facility] INDEMNITY [place] MEDICARE [facility] Address: [address] [address] [facility] Care Teams Undertaker Assistant Relationship Specialty Start Date End Date Jose Antonio Ghotra MD [address] [place] [address] PCP - General 04/30/12 Jameson Fink MD [address] [place] [address] Referring Physician Obstetrics and Gynecology 12/22/22
--- OUTSIDE RECORDS SUMMARY | 2025-01-27 19:22 | XMS_ITS | Encounter Summary ---
Author Organization [facility] Address [address] [place] [address] Care Team Providers Care Independent Living Instructor Name Role Phone Jose Antonio Ghotra Primary Care Provider [phone] Ed POE MD, Jason Unavailable [phone] Encounter Details Date Type Department Care Team (Late st Contact Info) Description 12/31/2019 [facility] Out[place] Visit 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
--- OUTSIDE RECORDS SUMMARY | 2025-01-27 19:22 | XMS_ITS | Clinical Summary ---
Author Organization [facility] Address [address] [place] [address] Phone Care Team Providers Care Help Desk Operator Name Role Phone Jose Antonio Ghotra DO Primary Care Provider [phone] Allergies Active Allergy Reactions Criticality Noted Date [...] 7 Active fluticasone propionate (FLONASE) 50 mcg/spray [place], Suspension nasal inhaler Administer 2 Sprays in each nostril. Active Active Problems Patient Care Coordination No te Formatting of this note migh t be different from the original. Zac Dinero MD-[facility] @ Primary Care: Jose Antonio Ghotra DO Referring Provider: Jose Antonio Ghotra DO [address] [place] [address] Other: Dr Licha Tsai Problem Noted Date Diagnosed Date Vasovagal syncope 02/14/2020 Orthostatic lightheadedness 02/14/2020 Arterial hypotension 02/14/2020 Smoking 02/14/2020 Visit for screening mammogram 07/01/2015 Breast calcification, right 06/01/2015 ALH 04/29/2013 Overview (08/07/2013): 05/15/13 LEFT bx - Path shows ALH. 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 [address] [place] [address] PCP - General Internal Medicine 05/09/13
[2025-01-27 20:26] LABS: Add Urine Microscopic? YES; Appearance Urine Clear (Clear); Glucose Urine UA Negative (Negative); Leukocyte Esterase Ur 1+ LEU/UL (Negative); Need Manual Microscopic Reviewed; Nitrate Urine Negative (Negative); Non Pathogenic Casts 0-2; Specific Grav Ur 1.022 (1.001-1.035)
[2025-01-27 21:00] VITALS: BP 121/73; PULSE 68; RESP 13; O2SAT 99
== END 2025-01-27 21:05 | disposition left against medical advice (07) ==
PROVIDERS: Emergency Provider Emergency Medicine; PCP Internal Medicine
DX: G45.9 Transient cerebral ischemic attack, unspecified (principal); E78.00 Pure hypercholesterolemia, unspecified; K21.9 Gastro-esophageal reflux disease without esophagitis; M19.90 Unspecified osteoarthritis, unspecified site; F41.9 Anxiety disorder, unspecified; Z96.652 Presence of left artificial knee joint; Z96.643 Presence of artificial hip joint, bilateral; Z98.1 Arthrodesis status; F17.210 Nicotine dependence, cigarettes, uncomplicated; Z90.710 Acquired absence of both cervix and uterus; Z90.49 Acquired absence of other specified parts of digestive tract; Z90.79 Acquired absence of other genital organ(s); Z90.722 Acquired absence of ovaries, bilateral; I67.1 Cerebral aneurysm, nonruptured; Z79.899 Other long term (current) drug therapy; R94.31 Abnormal electrocardiogram [ECG] [EKG]
CPT/HCPCS: 36415; 70496; 70498; 71045; 80053; 81001; 82948; 84484; 85025; 85610; 85730; 87086; 93005; 99284; Q9967

== ENCOUNTER 2025-03-14 12:53 | Outpatient (CLI) | payer MEDICARE, OTHER, SELFPAY ==
--- NOTE | ~2025-03-14 | MM_ITS ---
EXAMINATION: MM screening eyad BI w kevan HISTORY: Screening TECHNIQUE: Craniocaudal and mediolateral oblique 3-D tomosynthesis images were obtained and synthetic 2-D images were generated. CAD analysis was submitted and interpreted. COMPARISON: 09/24/2021 BREAST PARENCHYMAL COMPOSITION: The breasts are heterogeneously dense, which may obscure small masses. FINDINGS: There is no evidence of suspicious mass, calcification, or architectural distortion to suggest malignancy. There has been no suspicious interval change. IMPRESSION: 1. No mammographic evidence of malignancy. Recommend routine screening mammography in one year. BI-RADS Category 2: Benign finding(s) Reviewed, dictated and finalized at location Q. IMPRESSION: 1. No mammographic evidence of malignancy. Recommend routine screening mammogra phy in one year. BI-RADS Category 2: Benign finding(s)
== END 2025-03-14 12:54 | disposition home or self-care (01) ==
PROVIDERS: PCP Internal Medicine; Visit Provider Internal Medicine
DX: Z12.31 Encounter for screening mammogram for malignant neoplasm of breast (principal)
CPT/HCPCS: 77063; 77067

== ENCOUNTER 2025-04-01 08:57 | Day surgery (SDC) | payer MEDICARE, OTHER, SELFPAY ==
--- OUTSIDE RECORDS SUMMARY | 2017-07-12 01:00 | XMS_ITS | Encounter Summary ---
Author Organization [facility] Healthcare Address [address] [place] [address] Care Team Providers Care Folding Machine Feeder Name Role Phone Jose Antonio Ghotra MD Primary Care Provider +1- [phone] Reason for Visit * Diagnostic Imaging (Routine) - Closed Specialty Diagnoses / Procedures Referred By Contac t Referred To Contact Procedures Breast Imaging Screening Outside Reference Delma Champagne NP Phone: tel: fax: Referral ID Status Reason Start Date Expiration Date Visits Re quested Visits Authorized [id number] Closed 01/04/2023 02/03/2024 1 1 Encounter Details Date Type Department Care Team (Late st Contact Info) Description 07/12/2017 Hospital Encounter [facility] Radiology [facility] [address] [place] [address] [phone] Social History Tobacco Use Types Packs/Day Years Used Date Smoking Tobacco: Every Day Cigarettes Passive Smoke Exposure: Past Smokeless Tobacco: Never Comments Unknown Sex and Gender Information Value Date Recorded Sex Assigned at Not on file 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 DUCT LAYER Gender Identity Not on file Sexual Orientation Not on file documented as of this encounter Plan of Treatment Not on file documented as of this encounter Procedures Procedure Name Priority Date/Time Associated Diagnosis Comments BREAST IMAGING MG SCREENING OUTSIDE REFERENCE Routine 07/12/2017 12:00 AM DUCT LAYER documented in this encounter Results * Breast Imaging Screening Outside Reference (07/12/2017 12:00 AM DUCT LAYER) Impressions RAD_MAMMO[facility] - 01/04/2023 10:18 AM CDT These images are for Reference purposes only and have not been reviewed by [facility] Radiology. There will be no report generated by a [facility] Radiologist. Narrative RAD_MAMMO_[facility] - 01/04/2023 10:18 AM CDT EXAMINATION: Images For Reference Purposes Only us Delma Champagne NP IMG MAMMO PROCEDURES Final Result [facility] documented in this encounter Visit Diagnoses Not on filedocumented in this encounter Care Teams Folding Machine Feeder Relationship Specialty Start Date End Date Jose Antonio Ghotra MD [address] [facility] 120 [place] [address] PCP - General 04/30/12 documented as of this encounter
--- OUTSIDE RECORDS SUMMARY | 2018-09-27 | XMS_ITS | Encounter Summary ---
Author Organization [facility] Healthcare Address [address] [place] [address] Care Team Providers Care Imaging Scheduler Name Role Phone Jose Antonio Ghotra MD Primary Care Provider +1- [phone] Reason for Visit * Diagnostic Imaging (Routine) - Closed Specialty Diagnoses / Procedures Referred By Contac t Referred To Contact Procedures Breast Imaging Screening Outside Reference Delma Champagne NP Phone: tel: fax: Referral ID Status Reason Start Date Expiration Date Visits Re quested Visits Authorized [id number] Closed 01/04/2023 02/03/2024 1 1 Encounter Details Date Type Department Care Team (Late st Contact Info) Description 09/27/2018 Hospital Encounter [facility] [address] [place] [address] [phone] Social History Tobacco Use Types Packs/Day Years Used Date Smoking Tobacco: Every Day Cigarettes Passive Smoke Exposure: Past Smokeless Tobacco: Never Comments Unknown Sex and Gender Information Value Date Recorded Sex Assigned at Not on file 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 DIESEL ENGINEER Gender Identity Not on file Sexual Orientation [...] only and have not been reviewed by [facility] Radiology. There will be no report generated by a [facility] Radiologist. Narrative [facility]MO[facility] - 01/04/2023 10:17 AM CDT EXAMINATION: Images For Reference Purposes Only us Delma Champagne NP IMG MAMMO PROCEDURES Final Result [facility] documented in this encounter Visit Diagnoses Not on filedocumented in this encounter Care Teams Imaging Scheduler Relationship Specialty Start Date End Date Jose Antonio Ghotra MD [address] [facility] 120 [place] [address] PCP - General 04/30/12 documented as of this encounter
--- OUTSIDE RECORDS SUMMARY | 2018-10-19 | XMS_ITS | Encounter Summary ---
Author Organization [facility] Healthcare Address [address] [place] [address] Care Team Providers Care Manager Analysis Name Role Phone Jose Antonio Ghotra MD Primary Care Provider +1- [phone] Reason for Visit * Diagnostic Imaging (Routine) - Closed Specialty Diagnoses / Procedures Referred By Contac t Referred To Contact Procedures Breast Imaging US Outside Reference Delma Champagne NP Phone: tel: fax: Referral ID Status Reason Start Date Expiration Date Visits Re quested Visits Authorized [id number] Closed 01/04/2023 02/03/2024 1 1 Encounter Details Date Type Department Care Team (Late st Contact Info) Description 10/19/2018 Hospital Encounter [facility]iology [facility] [address] [place] [address] [phone] Social History Tobacco Use Types Packs/Day Years Used Date Smoking Tobacco: Every Day Cigarettes Passive Smoke Exposure: Past Smokeless Tobacco: Never Comments Unknown Sex and Gender Information Value Date Recorded Sex Assigned at Not on file 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 There will be no report generated by a [facility] Radiologist. Narrative RAD_MAMMO[facility] - 01/04/2023 10:14 AM CDT EXAMINATION: Images For Reference Purposes Only us Delma Champagne NP IMG MAMMO PROCEDURES Final Result [facility] documented in this encounter Visit Diagnoses Not on filedocumented in this encounter Care Teams Manager Analysis Relationship Specialty Start Date End Date Jose Antonio Ghotra MD [address] [facility] 120 [place] [address] PCP - General 04/30/12 documented as of this encounter
--- OUTSIDE RECORDS SUMMARY | 2018-10-19 00:05 | XMS_ITS | Encounter Summary ---
Author Organization [facility] Healthcare Address [facility] [place] [address] Care Team Providers Care Linter Saw Sharpener Name Role Phone Jose Antonio Ghotra MD Primary Care Provider +1- [phone] Reason for Visit * Diagnostic Imaging (Routine) - Closed Specialty Diagnoses / Procedures Referred By Contac t Referred To Contact Procedures Breast Imaging Diagnostic Outside Reference Delma Champagne NP Phone: tel: fax: Referral ID Status Reason Start Date Expiration Date Visits Re quested Visits Authorized [id number] Closed 01/04/2023 02/03/2024 1 1 Encounter Details Date Type Department Care Team (Late st Contact Info) Description 10/19/2018 12:05 AM CDT Hospital Encounter [facility] ([facility]) [address] [place] [address] [phone] Social History Tobacco Use Types Packs/Day Years Used Date Smoking Tobacco: Every Day Cigarettes Passive Smoke Exposure: Past Smokeless Tobacco: Never Comments Unknown Sex and Gender Information Value Date Recorded Sex Assigned at Not on file 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 There will be no report generated by a [facility] Radiologist. Narrative RAD_M[facility]MO[facility] - 01/04/2023 10:17 AM CDT EXAMINATION: Images For Reference Purposes Only us Delma Champagne NP IMG MAMMO PROCEDURES Final Result [facility] documented in this encounter Visit Diagnoses Not on filedocumented in this encounter Care Teams Linter Saw Sharpener Relationship Specialty Start Date End Date Jose Antonio Ghotra MD [address] [facility] 120 [place] [address] PCP - General 04/30/12 documented as of this encounter
--- OUTSIDE RECORDS SUMMARY | 2019-05-10 01:00 | XMS_ITS | Encounter Summary ---
Author Organization [facility] Healthcare Address [address] [place] [address] Care Team Providers Care Travel Physical Therapist Name Role Phone Jose Antonio Ghotra MD Primary Care Provider +1- [phone] Reason for Visit * Diagnostic Imaging (Routine) - Closed Specialty Diagnoses / Procedures Referred By Contac t Referred To Contact Procedures Breast Imaging US Outside Reference Delma Champagne NP Phone: tel: fax: Referral ID Status Reason Start Date Expiration Date Visits Re quested Visits Authorized [id number] Closed 01/04/2023 02/03/2024 1 1 Encounter Details Date Type Department Care Team (Late st Contact Info) Description 05/10/2019 Hospital Encounter [facility]) [address] [place] [address] [phone] Social History Tobacco Use Types Packs/Day Years Used Date Smoking Tobacco: Every Day Cigarettes Passive Smoke Exposure: Past Smokeless Tobacco: Never Comments Unknown Sex and Gender Information Value Date Recorded Sex Assigned at Not on file 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 SALES REPRESENTATIVE JEWELRY Gender Identity Not on file Sexual Orientation Not on file documented as of this encounter Plan of Treatment Not on file documented as of this encounter Procedures Procedure Name Priority Date/Time Associated Diagnosis Comments BREAST IMAGING US OUTSIDE REFERENCE Routine 05/10/2019 12:00 AM SALES REPRESENTATIVE JEWELRY documented in this encounter Results * Breast Imaging US Outside Reference (05/10/2019 12:00 AM SALES REPRESENTATIVE JEWELRY) Impressions RAD_M[facility]MO[facility] - 01/04/2023 10:14 AM CDT [...] on filedocumented in this encounter Care Teams Travel Physical Therapist Relationship Specialty Start Date End Date Jose Antonio Ghotra MD [address] [facility] 120 [place] [address] PCP - General 04/30/12 documented as of this encounter
--- OUTSIDE RECORDS SUMMARY | 2019-05-10 01:05 | XMS_ITS | Encounter Summary ---
Author Organization [facility] Healthcare Address [facility] [place] [address] Care Team Providers Care Tape Weaver Name Role Phone Jose Antonio Ghotra MD Primary Care Provider +1- [phone] Reason for Visit * Diagnostic Imaging (Routine) - Closed Specialty Diagnoses / Procedures Referred By Contac t Referred To Contact Procedures Breast Imaging Diagnostic Outside Reference Delma Champagne NP Phone: tel: fax: Referral ID Status Reason Start Date Expiration Date Visits Re quested Visits Authorized [id number] Closed 01/04/2023 02/03/2024 1 1 Encounter Details Date Type Department Care Team (Late st Contact Info) Description 05/10/2019 12:05 AM ASSEMBLY MECHANIC Hospital Encounter [facility] ([facility]) [address] [place] [phone] Social History Tobacco Use Types Packs/Day Years Used Date Smoking Tobacco: Every Day Cigarettes Passive Smoke Exposure: Past Smokeless Tobacco: Never Comments Unknown Sex and Gender Information Value Date Recorded Sex Assigned at Not on file 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 ASSEMBLY MECHANIC Gender Identity Not on file Sexual Orientation Not on file documented as of this encounter Plan of Treatment Not on file documented as of this encounter Procedures Procedure Name Priority Date/Time Associated Diagnosis Comments BREAST IMAGING MG DIAGNOSTIC OUTSIDE REFERENCE Routine 05/10/2019 12:05 AM ASSEMBLY MECHANIC documented in this encounter Results * Breast Imaging Diagnostic Outside Reference (05/10/2019 12:05 AM ASSEMBLY MECHANIC) Impressions RAD_M[facility]MO[facility] - 01/04/2023 10:17 AM CDT [...] on filedocumented in this encounter Care Teams Tape Weaver Relationship Specialty Start Date End Date Jose Antonio Ghotra MD [address] [facility] 120 [place] [address] PCP - General 04/30/12 documented as of this encounter
--- OUTSIDE RECORDS SUMMARY | 2020-09-22 | XMS_ITS | Encounter Summary ---
Author Organization [facility] Healthcare Address [address] [place] [address] Care Team Providers Care Felt Tipping Machine Tender Name Role Phone Jose Antonio Ghotra MD Primary Care Provider [phone]- [phone] Reason for Visit * Diagnostic Imaging (Routine) - Closed Specialty Diagnoses / Procedures Referred By Contac t Referred To Contact Procedures Breast Imaging Screening Outside Reference Delma Champagne NP Phone: tel: fax: Referral ID Status Reason Start Date Expiration Date Visits Re quested Visits Authorized [id number] Closed 01/04/2023 02/03/2024 1 1 Encounter Details Date Type Department Care Team (Late st Contact Info) Description 09/22/2020 Hospital Encounter [facility] ([facility]) [address] [place] [address] [id number] Social History Tobacco Use Types Packs/Day Years Used Date Smoking Tobacco: Every Day Cigarettes Passive Smoke Exposure: Past Smokeless Tobacco: Never Comments Unknown Sex and Gender Information Value Date Recorded Sex Assigned at Not on file 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 There will be no report generated by a [facility] Radiologist. Narrative [facility] - 01/04/2023 10:16 AM CDT EXAMINATION: Images For Reference Purposes Only us Delma Champagne NP IMG MAMMO PROCEDURES Final Result [facility] documented in this encounter Visit Diagnoses Not on filedocumented in this encounter Care Teams Felt Tipping Machine Tender Relationship Specialty Start Date End Date Jose Antonio Ghotra MD [address] [facility] [[email or web address] [address] [place] [address] PCP - General 04/30/12 documented as of this encounter
[2025-03-24 13:26] VITALS: BMI 27.8
--- NOTE | ~2025-04-01 | XR_ITS ---
EXAMINATION: XR fluoroscopy no charge DATE: 04/01/2025 10:26 INDICATION: Bilateral L3, L4 and L5 medial branch blocks TECHNIQUE: 14 fluoroscopic images of the lower lumbar spine were obtained during pain management procedure performed by Dr. Bailey. Radiologist was not present for the imaging or procedure. The amount of fluoroscopy time used during this procedure was 1.0 minutes. The cumulative radiation dose was 11.87 mGy. COMPARISON: None. FINDINGS: Images demonstrate needle tips advanced to the junction of the superior and transverse articular processes of L4, L5 and S1 on both the left and right. The injected contrast extends into the soft tissues and expected locations of the bilateral L3, L4 and L5 medial branches. IMPRESSION: 1. Fluoroscopy utilized during bilateral L3, L4 and L5 medial branch blocks. Reviewed, dictated and finalized at location A.
[2025-04-01 09:23] VITALS: BP 101/63; PULSE 79; RESP 16; TEMP 37.6; O2SAT 100
--- OUTSIDE RECORDS SUMMARY | 2025-04-01 09:43 | XMS_ITS | Encounter Summary ---
Author Organization [facility] Address [address] [place] [address] Care Team Providers Care Nurse Chemical Dependency Name Role Phone Jose Antonio Ghotra Primary Care Provider [phone] Ed POE MD, Jason Unavailable [phone] Encounter Details Date Type Department Care Team (Late st Contact Info) Description 12/31/2019 [facility] Outpatient Visit 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 Answer Date of Assessment Author No 01/01/2020 10:33 AM CDT Alexandra Knowles * In the past 30 days, have you actually had any thoughts about killing yourself? Answer Date of Assessment Author No 01/01/2020 10:33 AM CDT Alexandra Knowles documented as of this encounter Mental Status * Does person have difficulty concentrating/remembering/making decisions? Answer Entry Date Author No 10/28/2014 3:26 PM DYANT René Lawrence RN documented in this encounter Plan of Treatment Not on file documented as of this encounter Visit Diagnoses Not on filedocumented in this encounter Care Teams Nurse Chemical Dependency Relationship Specialty Start Date End Date Jose Antonio Ghotra DO [address] [address] PCP - General 11/22/10 Jason Ward IV, MD [address] [address] Orthopedic Surgery 03/29/11 documented as of this encounter
--- OUTSIDE RECORDS SUMMARY | 2025-04-01 09:43 | XMS_ITS | Clinical Summary ---
Author Organization [facility] [address] Address [address] [place] [address] Care Team Providers Care Carpentry Specialist Name Role Phone Jose Antonio Ghotra MD Primary Care Provider [phone] Jameson Fink MD Unavailable [phone] Allergies Active Allergy Reactions Criticality Noted Date [...] (three) times a day as needed Active famotidine (PEPCID) 40 mg tablet Take 1 tablet (40 mg total) by mouth daily 01/31/2025 Active predniSONE (DELTASONE) 10 mg tablet TAKE 1 TAB 3 TIMES DAILY X3 DAYS THEN 1 TAB TWICE DAILY X2 DAYS THEN 1 TAB ONCE DAILY X1 DAY Active Active Problems Problem Noted Date Diagnosed Date Abnormal mammogram of right breast 01/19/2023 History of benign breast biopsy 01/19/2023 Encounters Date Type Department Care Team Description 03/13/2025 9:32 AM CDT - 03/13/2025 11:59 PM CDT Hospital Encounter [facility] ([facility]) [address] [place] [address] Diagnosis unknown Discharge Disposition: Discharge to home or self care 03/12/2025 10:42 AM CDT - 03/12/2025 11:59 PM CDT Hospital Encounter [facility] ([facility]) [address] [place] [address] Discharge Disposition: Discharge to home or self care 02/19/2025 Orders Only [facility] Neuro[facility] [address] [place] [address] [address] 1, [address] [place] [address] Ana Maria Flores NP Cerebral aneurysm, nonruptured (Primary Dx) 02/18/2025 12:30 PM CDT Office Visit [facility] Medicine Neurosurgery [address] [place] [address] [address] 1, [address] [place] [id number] Ana Maria Flores NP Cerebral aneurysm, nonruptured (Primary Dx); Cerebrovascular accident (CVA), unspecified mechanism (HCC) 02/18/2025 Telephone [facility] Medicine Neurosurgery [address] [place] [address] [address] 1, [address] [place] [phone] Ana Maria Flores NP 02/13/2025 12:20 PM CDT - 02/13/2025 11:59 PM CDT Hospital Encounter [facility] ([facility]) [address] [place] [address] Discharge Disposition: Discharge to home or self care 02/06/20[facility] [address] [place] [address] Nusrat Randle from Last 3 Months Family History Medical History Relation Name Comments No Known Problems Mother Relation Name Status Comments Mother Social History Tobacco Use Types Packs/Day Years Used Date Smoking Tobacco: Every Day Cigarettes Passive Smoke Exposure: Past Smokeless Tobacco: Never Tobacco Cessation:Ready to Q uit: Not Asked; Counseling Given: Not Answered Comments Unknown Sex and Gender Information Value Date Recorded Sex Assigned at Not on file 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 Gender Identity Not on file Sexual Orientation Not on file Obstetrics History Last Filed Vital Signs Vital Sign Reading Time Taken Comments Blood Pressure 113/69 02/18/2025 12:40 PM CDT Pulse 88 02/18/2025 12:40 PM CDT Temperature 36.1 C (97 F) 02/18/2025 12:40 PM CDT Respiratory Rate 18 02/18/2025 12:4 0 PM CDT Oxygen Saturation 97% 02/18/2025 12: 40 PM CDT Inhaled Oxygen Concentration - - Weight 84.7 kg (186 lb 12.8 oz) 025 12:40 PM CDT Height 175.3 cm (5' 9) 02/18/2025 12:4 0 PM CDT Body Mass Index 27.59 02/18/2025 12:40 PM CDT Plan of Treatment Health Maintenance Due Date Last Done Comments Colon Cancer Screening-Colonoscopy 1950 Depression Screening 1950 Fall Risk Assessment 1950 Hepatitis C Screening 1950 Osteoporosis Screening-Bone Density Scan 1950 Hepatitis B Screening 12/06/1969 Well Visit 65+ 12/06/2016 Breast Cancer Screening-Mammogram 07/29/2017 07/29/2016, 05/20/2015, 05/14/2014 DTaP/Tdap/Td Vaccine (2 - Td or Tdap) 11/05/2018 11/05/2008 Zoster Vaccine (3 of 3) 05/11/2020 03/16/2020, 10/27 Pneumococcal vaccine 65+ (3 of 3 - PCV20 or PCV21) 04/06/2021 04/06/2016, 03/11/2015, 03/10/2015 Covid-19 Vaccine (4 - 2024-2 6 season) 2025 04/25/2021, 08/22/2020, 08/01/2020 Influenza Vaccine (#1) 2025 2, 02/11/2021, 03/16/2020, Additional history exists Procedures Procedure Name Priority Date/Time Associated Diagnosis Comments NEURO MR OUTSIDE CONSULT Routine 03/13/2025 9:32 AM CDT Diagnosis unknown NEURO MR OUTSIDE REFERENCE Routine 03/12/2025 10:[address] OUTSIDE REFERENCE Routine 02/13/2025 12:20 PM CDT from Last 3 Months Results * Neuro MR Outside Consult (03/13/2025 9:32 AM CDT) Anatomical Region Laterality Modality N/A Magnetic Resonan ce 03/13/2025 1:46 PM CDT Impressions 03/13/2025 1:46 PM CDT No acute intracranial abnormality. The findings and impression are based on the available images, which may not be novelties sales representative of the entire organ or disease entity. Also note that ultrasound image acquisition is rail detector car operator dependent, and that the study was performed outside our facility with no control over image acquisition. In addition, the provided images may or may not represent the [place] source data set and thus may contain changes that may lower the accuracy of this second-opinion interpretation. The findings, conclusions and recommendations within this report do not replace the initial findings, conclusions and recommendations made at the facility where the study was performed based upon the imaging and clinical condition at that time. Comparison with the prior report and clinical history is necessary. Electronically signed by: MD Johnny Ocampo 03/13/2025 1:46 PM CDT EXAMINATION: RADIOLOGY CONSULTATION ON OUTSIDE IMAGING STUDY STUDY INITIALLY PERFORMED: 03/06/2025 at [facility]. TYPE OF STUDY: Multiple MRI images without and with intravenous contrast of the brain are provided at the time of this interpretation. TYPE OF CONSULTATION: Consult on outside imaging study with images submitted through the outside imaging sharing service. The protocol was sufficient to address the clinical question. The outside report was available at the time of the consultation. 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 COMPARISON: 01/27/2025 FINDINGS: No acute intracranial infarction or hemorrhage. Cerebral volume loss without hydrocephalus. There are no areas of abnormal contrast enhancement. The known small anterior communicating artery aneurysm is better evaluated on prior CT angiography. Periventricular and deep white matter T2 FLAIR hyperintense signal is nonspecific but may reflect underlying chronic small vessel ischemic changes. The scalp and calvarium are normal. The superior sagittal sinus demonstrates normal venous flow. The corpus callosum is normal in shape and signal intensity. The posterior fossa is unremarkable. The pituitary and sella are normal. The brainstem and craniocervical junction are unremarkable. Bilateral cataract extractions. The visualized portions of the mastoids are normal. The visualized portions of the paranasal sinuses are normal. Normal flow voids are demonstrated in the carotid arteries and basilar artery. Procedure Note Kaushik Christopher MD - 03/13/2025 EXAMINATION: RADIOLOGY CONSULTATION ON OUTSIDE IMAGING STUDY STUDY INITIALLY PERFORMED: 03/06/2025 at [facility]. TYPE OF STUDY: Multiple MRI images without and with intravenous contrast of the brain are provided at the time of this interpretation. TYPE OF CONSULTATION: Consult on outside imaging study with images submitted through the outside imaging sharing service. The protocol was sufficient to address the clinical question. The outside report was available at the time of the consultation. 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 COMPARISON: 01/27/2025 FINDINGS: No acute intracranial infarction or hemorrhage. Cerebral volume loss without hydrocephalus. There are no areas of abnormal contrast enhancement. The known small anterior communicating artery aneurysm is better evaluated on prior CT angiography. Periventricular and deep white matter T2 FLAIR hyperintense signal is nonspecific but may reflect underlying chronic small vessel ischemic changes. The scalp and calvarium are normal. The superior sagittal sinus demonstrates normal venous flow. The corpus callosum is normal in shape and signal intensity. The posterior fossa is unremarkable. The pituitary and sella are normal. The brainstem and craniocervical junction are unremarkable. Bilateral cataract extractions. The visualized portions of the mastoids are normal. The visualized portions of the paranasal sinuses are normal. Normal flow voids are demonstrated in the carotid arteries and basilar artery. IMPRESSION: No acute intracranial abnormality. The findings and impression are based on the available images, which may not be novelties sales representative of the entire organ or disease entity. Also note that ultrasound image acquisition is rail detector car operator dependent, and that the study was performed outside our facility with no control over image acquisition. In addition, the provided images may or may not represent the [place] source data set and thus may contain changes that may lower the accuracy of this second-opinion interpretation. The findings, conclusions and recommendations within this report do not replace the initial findings, conclusions and recommendations made at the facility where the study was performed based upon the imaging and clinical condition at that time. Comparison with the prior report and clinical history is necessary. Electronically signed by: Kaushik Christopher MD us Ana Maria Lea Tuhro GEOCHEMICAL MANAGER IMG MRI PROCEDURES Final Resul t * Neuro MR Outside Reference (03/12/2025 10:42 AM CDT) Impressions [email or web address] - 03/12/2025 10:42 AM CDT These images are for Reference purposes only and have not been reviewed by [facility]. There will be no report generated by a [facility] Radiologist. Narrative [email or web address] - 03/12/2025 10:42 AM CDT EXAMINATION: Images For Reference Purposes Only us Ana Maria Lea Amolhro GEOCHEMICAL MANAGER IMG MRI PROCEDURES Final Resul t Performing Organization Address [facility] Co de Phone Number [email or web address] * Neuro CT Outside Reference (02/13/2025 12:20 PM CDT) Impressions [email or web address] - 02/13/2025 12:20 PM CDT These images are for Reference purposes only and have not been reviewed by [facility]. There will be no report generated by a [facility] Radiologist. Narrative [email or web address] - 02/13/2025 12:20 PM CDT EXAMINATION: Images For Reference Purposes Only us Ana Maria Lea Amolhro GEOCHEMICAL MANAGER IMG CT PROCEDURES Final Result Performing Organization Address City/[facility] Co de Phone Number [email or web address] from Last 3 Months Insurance MEDICARE [facility] CHOICE PLUS MEDICARE [facility] INDEMNITY [place] MEDICARE [facility] [place] Care Teams Carpentry Specialist Relationship Specialty Start Date End Date Jose Antonio Ghotra MD [address] [place] [address] PCP - General 04/30/12 Jameson Fink MD [address] [place] [address] Referring Physician Obstetrics and Gynecology 12/22/22
--- OUTSIDE RECORDS SUMMARY | 2025-04-01 09:43 | XMS_ITS | Clinical Summary ---
Author Organization [facility] [place] Address [address] [place] [address] Phone Care Team Providers Care Osteopathic Resident Name Role Phone Jose Antonio Ghotra DO Primary Care Provider Allergies Active Allergy Reactions Criticality Noted Date [...] 7 Active fluticasone propionate (FLONASE) 50 mcg/spray [place], Suspension nasal inhaler Administer 2 Sprays in each nostril. Active Active Problems Patient Care Coordination No te Formatting of this note migh t be different from the original. Zac Dinero MD-[facility] @ Primary Care: Jose Antonio Ghotra DO Referring Provider: Jose Antonio Ghotra DO [address] [place] [address] Other: Dr Licha Tsai Problem Noted Date Diagnosed Date Vasovagal syncope 02/14/2020 Orthostatic lightheadedness 02/14/2020 Arterial hypotension 02/14/2020 Smoking 02/14/2020 Visit for screening mammogram 07/01/2015 Breast calcification, right 06/01/2015 ALH 04/29/2013 Overview (08/07/2013): 05/15/13 LEFT bx - Path shows ALH. 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): IOV THR, neck fused, etc GERD [...] on file Legal Sex Female 9:36 AM RETAIL ADVERTISING EXECUTIVE Gender Identity Not on file Sexual [...] CDT Respiratory Rate 14 08/08/2013 9:43 AM RETAIL ADVERTISING EXECUTIVE Oxygen Saturation 94% 02/06/2020 3:22 PM [...] Maintenance Insurance MEDICARE PART A AND B [facility] [employer] PPO [id number] Advance Directives For more information, please contact: [phone] * Full Code (Latest Code Status on File) Date Activated Date Inactivated Comments 07/26/2013 12:52 PM 07/26/2013 3:18 PM * Full Code Date Activated Date Inactivated Comments 07/26/2013 9:26 AM 07/26/2013 12:52 PM Care Teams Osteopathic Resident Relationship Specialty Start Date End Date Jose Antonio Ghotra DO [address] [facility] [address] [place] [address] PCP - General Internal Medicine 05/09/13
--- OUTSIDE RECORDS SUMMARY | 2025-04-01 09:43 | XMS_ITS | Clinical Summary ---
Author Organization [facility] Address [address] [place] [address] Care Team Providers Care Library Serials Assistant Name Role Phone Jose Antonio Ghotra Primary Care Provider [phone] Ed POE MD, Jason Unavailable [phone] Source Comments [facility],non-owned Affiliates and Associated Physician Practices is amultiple site organization consisting of ambulatory clinics and hospital sitesin [place], [place], [place] and [place]. This disclosure is being madepursuant to the Care Everywhere program and may not contain all information available regarding this patient. Last updated 18.[facility] Allergies Active Allergy Reactions Criticality Noted Date [...] fluticasone propionate (FLONASE) 50 MCG/ACT nasal spray [place] 2 Sprays into each nostril once daily. 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 Gender Identity Not on file [...] 01/01/2023 0, 12/11/2019, 09/29/2014, Additional history exists DEPRESSION SCREENING 06/05/2024 COVID-19 VACCINE ( - season) 2025 INFLUENZA VACCINE (#1) 2025 Respiratory Syncytial Virus [...] this topic Medical Devices Implanted Type Area Pulmonary Specialist Device Identifier Shelf Expiration Date Model / Serial / Lot Biomet Acetabular Cup, 62mm Implanted:Qty: 1 on 10/28/2014 by Jason Ward IV, MD at [facility] Left: Hip 05/04/2024 [id number] / / [id number] Biomet Bone Screw, 6.5mm X 40mm Implanted:Qty: 1 on 10/28/2014 by Jason Ward IV, MD at [facility] Left: Hip 09/01/2024 [id number] / / [id number] Bi[employer] Acetabular Liner, 36mm Size 25 Implanted:Qty: 1 on 10/28/2014 by Jason Ward IV, MD at [facility] Left: Hip 12/02/2018 [id number] / / [id number] 36mm Ceramic Head Implanted:Qty: 1 on 10/28/2014 by Jason Ward IV, MD at [facility] Left: Hip [employer] 09/02/2024 [id number] / / [id number] Micro Taper-Loc Stem Implanted:Qty: 1 on 10/28/2014 by Jason Ward IV, MD at [facility] Left: Hip [employer] 04/04/2024 [id number] / / [id number] Standard Neck Implanted:Qty: 1 on 10/28/2014 by Jason Ward IV, MD at [facility] Left: Hip [employer] 09/02/2024 [id number] / / [id number] Cmpnt Ptlr 31mm 1 Pg Wire Ascnt Arcm Kn Implanted:Qty: 1 on 01/01/2020 by Jules Joaquin MD at [facility] Left: Knee [employer] 07/31/2024 [id number] / / [id number] Tray Tib 79mm Kn Cocr I Beam Implanted:Qty: 1 on 01/01/2020 by Jules Joaquin MD at [facility] Left: Knee [employer] 08/18/2029 [id number] / / [id number] Brng [id number] Vngrd Arcm Kn Ant Stab Implanted:Qty: 1 on 01/01/2020 by Jules Joaquin MD at [facility] Left: Knee [employer] 02/16/2024 [id number] / / [id number] Cmnt Bone Djo Srg Cblt 40gm Hvisc Strl Implanted:Qty: 1 on 01/01/2020 by Jules Joaquin MD at [facility] Left: Knee [employer] 06/27/2020 600-15-000 / / [id number] Cmnt Bone Djo Srg Cblt 40gm Hvisc Strl Implanted:Qty: 1 on 01/01/2020 by Jules Joaquin MD at [facility] Left: Knee [employer] 09/18/2020 600-15-000 / / [id number] Cmpnt Fem Kn Lt Cr Cmnt Prm Vngrd Intlk Implanted:Qty: 1 on 01/01/2020 by Jules Joaquin MD at [facility] Left: Knee [employer] 11/11/2029 [id number] / / [id number] Procedures Procedure Name Priority Date/Time Associated Diagnosis [...] LAB - CHEMISTRY ORDERABLES Fi nal Result [facility] [address] [place] [address] from Last 3 Months or Most Recently Relevant to Health Maintenance Insurance MEDICARE [facility] Address: [address] [address] [place] [address] Advance Directives Documents on File Type Date Recorded Patient Corporate Analyst Expl anation Adv Directive/Living Will/POA 01/09/2011 1:43 PM * Full Code (Latest Code Status on File) Date Activated Date Inactivated Comments 01/01/2020 10:23 AM 01/02/2020 2:07 PM * Full Code Date Activated Date Inactivated Comments 10/28/2014 1:06 PM 10/30/2014 1:27 PM * FULL RESUSCITATION Date Activated Date Inactivated Comments 01/04/2011 10:26 AM 01/07/2011 11:02 PM Care Teams Library Serials Assistant Relationship Specialty Start Date End Date Jose Antonio Ghotra DO [address] [id number] PCP - General 11/22/10 Jason Ward IV, MD [address] [address] Orthopedic Surgery 03/29/11
--- NOTE | 2025-04-01 10:01 | PM.HPGS ---
History of Present Illness History of Present Illness Consent: Risks, benefits, and alternatives have been discussed and questions answered. Patient agrees to proceed with procedure. Chief complaint: Lumbar Spondylosis w/o Myelopathy or Radiculop. Narrative: Mago Vogel is a 74 year old female with chronic, recalcitrant and disabling bilateral lumbosacral back pain secondary to degenerative spondylosis with failure to respond to aggressive conservative measures including PT, oral and topical analgesics, opioid and nonopioid analgesics, rest, time and activity/behavioral modification over the past 1-2 years who presents for diagnostic/prognostic medial branch blocks of the bilateral L3, L4, L5 medial branches/dorsal ramus(# 2) addressing the bilateral L4-5, L5-S1 facet joints under fluoroscopic guidance and with contrast control. Review of Systems Review of Systems: Patient denies any new infectious, allergic, cardiopulmonary, neurologic or constitutional symptoms or changes in activity tolerance or exercise capacity including new or progressive SOB/KARIMI, peripheral edema, productive cough, dysuria, nausea/vomiting, diarrhea, weight change, fevers/chills/night sweats, new or progressive neurologic deficit, cognitive or mood changes since last seen, except as documented in the HPI. All systems reviewed & are unremarkable except as noted in HPI and below PMFSH Past Medical History Medical History BMI 27.0-27.9,adult Syncope and collapse Dysuria Symptomatic cholelithiasis Pure hypercholesterolemia Post-menopause Hypercholesteremia Generalized abdominal pain Gastro-esophageal reflux disease without esophagitis Esophageal reflux Encounter for screening colonoscopy Dizziness Back pain, chronic Allergic rhinitis, unspecified Abnormal MRI of abdomen Abnormal cholangiogram Screening mammogram, encounter for Anxiety Arthritis TIA (transient ischemic attack) Recurrent Surgical History Surgical History Status post lumbar spine surgery for decompression of spinal cord History of cholecystectomy (~03/2017) History of knee replacement procedure of left knee (~01/30/00) History of breast biopsy (06/11/15) (R) breast--benign-done @ [facility] History of hip replacement 2010 (R) hip 2014 (L) hip History of fusion of cervical spine (~2005) C5-6 History of back surgery (~2000) L2-3 History of total abdominal hysterectomy and bilateral salpingo-oophorectomy (~1998) menorrhagia/bladder repair History of breast implant removal (~1993) History of lumpectomy of right breast (~1982) History of breast augmentation (~1979) Family History Family History Mother Family history of malignant neoplasm Father Family history of emphysema Sibling , Explosion[place] No problems noted. Sibling No problems noted. Social History Social History Smoking packs per day: 1 Smoking cigarettes per day: 20.0 Years smoked: 50 Smoking pack-years: 50.00 Smoking status: Current every day smoker Tobacco type: cigarettes Second hand tobacco smoke exposure: No Additional smoking assessment comments: CURRENTLY SMOKING 1/2 PACK/DAY Alcohol intake: current Substance use: never Substance use type: does not use Do You Feel Safe in your Home?: Yes Lack of Transportation: No Lack of Food: Never True Current Housing: I Have Housing Concerned About Future Housing: No Difficulty Paying Gas/Electric Bills: No Difficulty Paying for Meds: No Currently Unemployed: No Education: High School Diploma/GED Difficulty w/ Childcare or Family Care: No Living arrangements: alone Occupation/Education: retired 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 Gender identity (if verbalized by the patient): Female Sexual Orientation (if Verbalized by the Patient): Straight or Heterosexual Spiritual care concerns: No Meds Home Medications and Allergies Home Medications ?Medication ?Instructions ?Recorded ?Confirmed ?Type fexofenadine 180 mg tablet 180 mg PO DAILY 06/24/19 04/01/25 History (Nancy Allergy) cholecalciferol (vitamin D3) 50 2,000 unit PO DAILY 06/25/19 04/01/25 History mcg (2,000 unit) capsule fluticasone propionate 50 2 spray intranasal DAILY PRN 04/04/24 04/01/25 History mcg/actuation nasal allergy symptoms spray,suspension (Flonase Allergy Relief) famciclovir 500 mg tablet 500 mg PO Q8H PRN Cold Sores #30 04/17/24 04/01/25 Rx tabs paroxetine HCl 10 mg tablet 10 mg PO DAILY #90 tabs 07/08/24 04/01/25 Rx trospium 20 mg tablet 20 mg PO BID 10/23/24 04/01/25 History clopidogrel 75 mg tablet 75 mg PO DAILY #90 tabs 01/29/25 03/24/25 Rx cyclobenzaprine 10 mg tablet 10 mg PO BID PRN PAIN #30 tabs 01/30/25 04/01/25 Rx famotidine 40 mg tablet 40 mg PO DAILY #90 tabs 01/31/25 04/01/25 Rx rosuvastatin 5 mg tablet 5 mg PO DAILY #30 tabs 02/24/25 04/01/25 Rx albuterol sulfate 90 mcg/actuation 2 puff inhalation Q4-6H PRN 02/28/25 04/01/25 Rx aerosol inhaler shortness of breath or wheezing 30 days #8.5 grams omega-3 fatty acids 500 mg PO DAILY 03/24/25 04/01/25 History hydrocodone 5 mg-acetaminophen 325 2 tablet PO Q6H PRN pain #60 tabs 03/31/25 04/01/25 Rx mg tablet Allergies Allergy/AdvReac Type Severity Reaction Status Date / Time cefdinir AdvReac Severe Blister Verified 04/01/25 09:21 Sulfa (Sulfonamide AdvReac Mild made UTI Verified 04/01/25 09:21 Antibiotics) worse Vital Signs Vital Signs - 24 hr 04/01/25 09:23 Temperature 99.6 F Pulse Rate 79 Respiratory Rate 16 Blood Pressure 101/63 Pulse Oximetry 100 Oxygen Delivery Room Air Exam Narrative: The patient's physical exam is essentially unchanged from prior examination on 01/29/2025. Specifically, patient demonstrates normal lung capacity, tidal volume and respiratory rate without wheezes, crackles, rales or rubs. Heart rate and rhythm are regular without murmurs, gallops or rubs. No JVD. Pulses 2+ globally without increasing peripheral edema. AAOx3 with no evidence of confusion, intoxication or altered mental state, NC/AT without acute distress or altered consciousness. Speech, cognition, mood, insight and judgment at baseline and within normal limits. Assessment and Plan Assessment and plan (1) Chronic pain: Code(s): G89.29 - Other chronic pain Status: Acute (2) Dorsalgia of lumbar region: Code(s): M54.50 - Low back pain, unspecified Status: Acute (3) Lumbosacral spondylosis: Code(s): M47.817 - Spondylosis without myelopathy or radiculopathy, lumbosacral region Status: Acute Assessment and Plan: Proceed as planned with diagnostic/prognostic medial branch blocks of the bilateral L3, L4, L5 medial branches/dorsal ramus(# 2) addressing the bilateral L4-5, L5-S1 facet joints under fluoroscopic guidance and with contrast control.
--- NOTE | 2025-04-01 10:04 | WPDHPUPDATE1 ---
History and Physical Update Update Date/Time: 04/01/25 10:04 History and Physical has been reviewed, including an updated exam of the patient. There are NO changes in the patient's condition. Risks, benefits, and alternatives have been discussed and questions answered. Patient agrees to proceed with procedure.
--- NOTE | 2025-04-01 10:05 | W.PM.PROC2 ---
Procedure Note - Detailed Date of Procedure 04/01/25 Pre-op Diagnosis Lumbar Spondylosis w/o Myelopathy or Radiculop. Post-op Diagnosis Same Procedure Performed Diagnostic bilateral Lumbar Medial Branch/Dorsal Ramus Blocks at L3, L4, L5 Treating the bilateral L4-5, L5-S1 Facet Joints Under Fluoroscopic Guidance and with Contrast Control. (4 levels blocked). Surgeon Jules Bailey MD [employer] None. Anesthesia Local Description of Procedure INFORMED CONSENT: Risks, benefits and alternatives to the procedure were discussed in detail with the patient who expressed explicit understanding and consent to proceed. Patient was informed verbally and in written form regarding the risks associated with the procedure including the low risk of serious infection, bleeding/bruising, allergic reaction, nerve or organ injury, paralysis, procedural site pain or discomfort, worsening pain and/or mobility, failure to treat and/or disfigurement. The patient expressed explicit understanding and consent to proceed. All materials required for the procedure were available prior to procedure start. Site and side were marked prior to procedure and confirmed in the presence of the patient. PROCEDURE IN DETAIL: The patient was brought to the procedural suite and placed in the prone position. Patient was made comfortable with use of pillows under the head/chest, hips and ankles. Skin overlying the injection site on the affected side(s) was prepared broadly with ChloraPrep applicator and draped in a sterile manner. Aseptic technique was used throughout. The endplates of the vertebral bodies at the site(s) of interest were aligned in the AP view. Ipsilateral oblique angulation was utilized to optimize visualization of the intersection between the superior articulating process and transverse process at each target site. Local anesthesia was established by infiltration with approximately 5 mL of 1% lidocaine via a 1-1/2 inch 27-gauge needle. A 25-gauge 3.5 inch Quincke spinal needle was advanced until the needle tip contacted periosteum at the target site, right L3. Lateral view was utilized to confirm the appropriate placement of the needle tip just anterior to the facet line and superior to the pedicle. In the Lateral view, 0.25 mL of Omnipaque 300 contrast medium was injected after negative aspiration for CSF, blood or other bodily fluid, showing appropriate extra-articular spread of contrast without evidence of intravascular, foraminal or intrathecal placement. A 0.5 mL solution of 2.0% PF lidocaine was injected after negative repeat aspiration. Appropriate spread of the injectate was confirmed with washout of previously injected contrast. No parasthesias were elicited. Needle was removed completely intact without difficulty. The same exact procedure was repeated for all remaining levels on the ipsilateral side, right L4, L5 medial branches/dorsal ramus, modified as necessary to accommodate for the new target location with identical findings and results and no evidence of complication. The same exact procedure was repeated for all remaining levels on the contralateral side, left L3, L4, L5 medial branches/dorsal ramus, modified as necessary to accommodate for the new target location with identical findings and results and no evidence of complication. Images were saved and documented in the patient chart. Patient's skin was cleaned and sterile bandage applied. The patient tolerated the procedure well. The patient was transported to the recovery area in stable condition where they were observed for an appropriate amount of time prior to discharge, without evidence of complication. Patient was instructed on the appropriate completion of a pain diary over the next 12-24 hours. The patient was instructed to avoid excessive activity for the next 48 hours, including climbing and frequent use of stairs. Showers only for 48 hours. They were instructed not to drive or operate heavy machinery for 24 hours. They are to monitor for severe headaches, fevers, chills, night sweats, erythema/swelling at the site or any other signs of infection, bleeding/bruising, bowel or bladder changes as well as new pain, weakness or numbness in the upper or lower extremity. Should they notice these changes, they are instructed to call our office immediately or report directly to the nearest Emergency Department if no answer or if after posted office hours. COMPLICATIONS: None COMMENTS: None CONTRAST WASTED: 28.5mL Omnipaque 300. Complications No immediate complications Condition Stable Disposition Same day [facility] Billing Surgery - Charge Forward: Surgery Billing
[2025-04-01 10:14] VITALS: BP 105/58; PULSE 77; RESP 20; O2SAT 94
[2025-04-01] MEDS: LIDOCAINE 2% PF LOCAL INJ 5 ML VIAL (10:18)
[2025-04-01 10:24] VITALS: BP 107/57; PULSE 74; RESP 24; O2SAT 94
[2025-04-01 10:28] VITALS: BP 103/60; PULSE 71; RESP 16; O2SAT 99
== END 2025-04-01 10:39 | disposition home or self-care (01) ==
PROVIDERS: PCP Internal Medicine; Visit Provider Anesthesiology Pain Medicine
PROC: (CPT 64493; principal; 2025-04-01 10:10)
DX: M47.817 Spondylosis without myelopathy or radiculopathy, lumbosacral region (principal); M54.50 Low back pain, unspecified; G89.29 Other chronic pain
CPT/HCPCS: 64493 ×2; 64494 ×2; 64495 ×2; 99199

== ENCOUNTER 2025-04-10 12:21 | Outpatient (CLI) | payer MEDICARE, OTHER, SELFPAY ==
--- OUTSIDE RECORDS SUMMARY | 2006-04-07 03:00 | XMS_ITS | Continuity of Care Document ---
Author Organization [facility] Address [address] [place] [address] Phone Care Team Providers Care Classroom Teacher Name Role Phone Flores Medel Unavailable Unavailable Advance Directives Directive Yes / No Effective Date File Name No Information Encounters Encounter Description Practice Location Reason(s) For Visit Diagnoses Date Provider Providers Copied on Encounter [facility], [address], [place], [place], [id number], [place] tel:[phone] SEC [facility] No Information 3-[address] Lizy Tanner. [address] [facility] , [address], [place], [address], [place]. tel:[phone] Referring Provider: Jose Antonio Ghotra MD, [address] [facility] 162 [facility] 102, [place], [address]. tel:[phone] Family History Family Member Type Diagnosis Age At Onset No Information Payers Payer name Insurance type Covered democrat ID Authoriza tion(s) [place] [id number] [facility] Commercial CI [id number] Social History Type Description Quantity Date Captured Comments Sex Female Smoking Status No Information Chief Complaint And Reason For Visit No Information Reason For Referral Reason For Referral No Information History Of Present Illness Encounter Date Complaint History Of Prese nt Illness No Information Functional Status Date Functional Assessmen t No Information Instructions Date Instruction Additional Infor mation No Information Assessments Type Assessment Date No Information Patient Care Teams Name Effective Dates (start - stop) Status Members No Information
--- OUTSIDE RECORDS SUMMARY | 2017-07-12 | XMS_ITS | Encounter Summary ---
Author Organization [facility] Healthcare Address [facility] [place] [address] Care Team Providers Care Geriatric Personal Care Aide Name Role Phone Jose Antonio Ghotra MD Primary Care Provider +1- [phone] Reason for Visit * Diagnostic Imaging (Routine) - Closed Specialty Diagnoses / Procedures Referred By Contac t Referred To Contact Procedures Breast Imaging Screening Outside Reference Delma Champagne NP Phone: tel: fax: Referral ID Status Reason Start Date Expiration Date Visits Re quested Visits Authorized [id number] Closed 01/04/2023 02/03/2024 1 1 Encounter Details Date Type Department Care Team (Late st Contact Info) Description 07/12/2017 Hospital Encounter [facility] Radiology [facility] [address] [place] [address] [phone] Social History Tobacco Use Types Packs/Day Years Used Date Smoking Tobacco: Every Day Cigarettes Passive Smoke Exposure: Past Smokeless Tobacco: Never Comments Unknown Sex and Gender Information Value Date Recorded Sex Assigned at Not on file 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 CLINICAL SERVICES SPECIALIST Gender Identity Not on file Sexual Orientation Not on file documented as of this encounter Functional Status documented as of this encounter Plan of Treatment Not on file documented as of this encounter Procedures Procedure Name Priority Date/Time Associated Diagnosis Comments BREAST IMAGING MG SCREENING OUTSIDE REFERENCE Routine 07/12/2017 12:00 AM CLINICAL SERVICES SPECIALIST documented in this encounter Results * Breast Imaging Screening Outside Reference (07/12/2017 12:00 AM CLINICAL SERVICES SPECIALIST) Impressions [facility]MO[facility] - 01/04/2023 10:18 AM CDT These images are for Reference purposes only and have not been reviewed by [facility] Radiology. There will be no report generated by a [facility] Radiologist. Narrative RAD_MAMMO[facility] - 01/04/2023 10:18 AM CDT EXAMINATION: Images For Reference Purposes Only us Delma Champagne NP IMG MAMMO PROCEDURES Final Result [facility] documented in this encounter Visit Diagnoses Not on filedocumented in this encounter Care Teams Geriatric Personal Care Aide Relationship Specialty Start Date End Date Jose Antonio Ghotra MD [address] [facility] 120 [place] [address] PCP - General 04/30/12 documented as of this encounter
--- OUTSIDE RECORDS SUMMARY | 2018-09-26 23:00 | XMS_ITS | Encounter Summary ---
Author Organization [facility] Healthcare Address [facility] [place] [address] Care Team Providers Care Range Feeder Name Role Phone Jose Antonio Ghotra MD Primary Care Provider +1- [phone] Reason for Visit * Diagnostic Imaging (Routine) - Closed Specialty Diagnoses / Procedures Referred By Contac t Referred To Contact Procedures Breast Imaging Screening Outside Reference Delma Champagne NP Phone: tel: fax: Referral ID Status Reason Start Date Expiration Date Visits Re quested Visits Authorized [id number] Closed 01/04/2023 02/03/2024 1 1 Encounter Details Date Type Department Care Team (Late st Contact Info) Description 09/27/2018 Hospital Encounter [facility]iology [facility] [address] [place] [phone] Social History Tobacco Use Types Packs/Day Years Used Date Smoking Tobacco: Every Day Cigarettes Passive Smoke Exposure: Past Smokeless Tobacco: Never Comments Unknown Sex and Gender Information Value Date Recorded Sex Assigned at Not on file 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 RURAL CARRIER Gender Identity Not on file Sexual Orientation [facility]. Narrative RAD_M[facility]MO[facility] - 01/04/2023 10:17 AM CDT EXAMINATION: Images For Reference Purposes Only us Delma Champagne NP IMG MAMMO PROCEDURES Final Result [facility] documented in this encounter Visit Diagnoses Not on filedocumented in this encounter Care Teams Range Feeder Relationship Specialty Start Date End Date Jose Antonio Ghotra MD [address] [facility] 120 [place] [address] PCP - General 04/30/12 documented as of this encounter
--- OUTSIDE RECORDS SUMMARY | 2018-10-18 23:00 | XMS_ITS | Encounter Summary ---
Author Organization [facility] Healthcare Address [address] [place] [address] Care Team Providers Care Fancy Needleworker Name Role Phone Jose Antonio Ghotra MD Primary Care Provider +1- [phone] Reason for Visit * Diagnostic Imaging (Routine) - Closed Specialty Diagnoses / Procedures Referred By Contac t Referred To Contact Procedures Breast Imaging US Outside Reference Delma Champagne NP Phone: tel: fax: Referral ID Status Reason Start Date Expiration Date Visits Re quested Visits Authorized [id number] Closed 01/04/2023 02/03/2024 1 1 Encounter Details Date Type Department Care Team (Late st Contact Info) Description 10/19/2018 Hospital Encounter [facility] Radiology [facility] [address] [place] [address] [phone] Social History Tobacco Use Types Packs/Day Years Used Date Smoking Tobacco: Every Day Cigarettes Passive Smoke Exposure: Past Smokeless Tobacco: Never Comments Unknown Sex and Gender Information Value Date Recorded Sex Assigned at Not on file 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 There will be no report generated by a [facility] Radiologist. Narrative RAD_M[facility]MO[facility] - 01/04/2023 10:14 AM CDT EXAMINATION: Images For Reference Purposes Only us Delma Champagne NP IMG MAMMO PROCEDURES Final Result [facility] documented in this encounter Visit Diagnoses Not on filedocumented in this encounter Care Teams Fancy Needleworker Relationship Specialty Start Date End Date Jose Antonio Ghotra MD [address] [facility] 120 [place] [address] PCP - General 04/30/12 documented as of this encounter
--- OUTSIDE RECORDS SUMMARY | 2018-10-18 23:05 | XMS_ITS | Encounter Summary ---
Author Organization [facility] Healthcare Address [facility] [place] [address] Care Team Providers Care Pest Control Chemical Technician Name Role Phone Jose Antonio Ghotra MD Primary Care Provider +1- [phone] Reason for Visit * Diagnostic Imaging (Routine) - Closed Specialty Diagnoses / Procedures Referred By Contac t Referred To Contact Procedures Breast Imaging Diagnostic Outside Reference Delma Champagne NP Phone: tel: fax: Referral ID Status Reason Start Date Expiration Date Visits Re quested Visits Authorized [id number] Closed 01/04/2023 02/03/2024 1 1 Encounter Details Date Type Department Care Team (Late st Contact Info) Description 10/19/2018 12:05 AM CDT Hospital Encounter [facility] ([facility]) [address] [place] [phone] Social History Tobacco Use Types Packs/Day Years Used Date Smoking Tobacco: Every Day Cigarettes Passive Smoke Exposure: Past Smokeless Tobacco: Never Comments Unknown Sex and Gender Information Value Date Recorded Sex Assigned at Not on file 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 Gender Identity Not on file Sexual Orientation Not on file documented as of this encounter Functional Status documented as of this encounter Plan of Treatment Not on file documented as of this encounter Procedures Procedure Name Priority Date/Time Associated Diagnosis Comments BREAST IMAGING MG DIAGNOSTIC OUTSIDE REFERENCE Routine 10/19/2018 12:05 AM CDT documented in this encounter Results * Breast Imaging Diagnostic Outside Reference (10/19/2018 12:05 AM CDT) Impressions RAD_M[facility]MO[facility] - 01/04/2023 10:17 AM CDT These images are for Reference purposes only and have not been reviewed by [facility] Radiology. There will be no report generated by a [facility] Radiologist. Narrative RAD_MAMMO[facility] - 01/04/2023 10:17 AM CDT EXAMINATION: Images For Reference Purposes Only us Delma Champagne NP IMG MAMMO PROCEDURES Final Result [facility] documented in this encounter Visit Diagnoses Not on filedocumented in this encounter Care Teams Pest Control Chemical Technician Relationship Specialty Start Date End Date Jose Antonio Ghotra MD [address] [facility] [address] [place] [address] PCP - General 04/30/12 documented as of this encounter
--- OUTSIDE RECORDS SUMMARY | 2019-05-10 | XMS_ITS | Encounter Summary ---
Author Organization [facility] Healthcare Address [facility]3 [place] [address] Care Team Providers Care Medical Doctor Md/Medical Director Name Role Phone Jose Antonio Ghotra MD Primary Care Provider +1- [phone] Reason for Visit * Diagnostic Imaging (Routine) - Closed Specialty Diagnoses / Procedures Referred By Contac t Referred To Contact Procedures Breast Imaging US Outside Reference Delma Champagne NP Phone: tel: fax: Referral ID Status Reason Start Date Expiration Date Visits Re quested Visits Authorized [id number] Closed 01/04/2023 02/03/2024 1 1 Encounter Details Date Type Department Care Team (Late st Contact Info) Description 05/10/2019 Hospital Encounter [facility]) [address] [place] [address] [phone] Social History Tobacco Use Types Packs/Day Years Used Date Smoking Tobacco: Every Day Cigarettes Passive Smoke Exposure: Past Smokeless Tobacco: Never Comments Unknown Sex and Gender Information Value Date Recorded Sex Assigned at Not on file 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 PROJECT MANAGER SENIOR Gender Identity Not on file Sexual Orientation Not on file documented as of this encounter Functional Status documented as of this encounter Plan of Treatment Not on file documented as of this encounter Procedures Procedure Name Priority Date/Time Associated Diagnosis Comments BREAST IMAGING US OUTSIDE REFERENCE Routine 05/10/2019 12:00 AM PROJECT MANAGER SENIOR documented in this encounter Results * Breast Imaging US Outside Reference (05/10/2019 12:00 AM PROJECT MANAGER SENIOR) Impressions RAD_M[facility]MO[facility] - 01/04/2023 10:14 AM CDT These images are for Reference purposes only and have not been reviewed by [facility] Radiology. There will be no report generated by a [facility] Radiologist. Narrative RAD_MAMMO[facility] - 01/04/2023 10:14 AM CDT EXAMINATION: Images For Reference Purposes Only us Delma Champagne NP IMG MAMMO PROCEDURES Final Result [facility] documented in this encounter Visit Diagnoses Not on filedocumented in this encounter Care Teams Medical Doctor Md/Medical Director Relationship Specialty Start Date End Date Jose Antonio Ghotra MD [address] [facility] 120 [place] [address] PCP - General 04/30/12 documented as of this encounter
--- OUTSIDE RECORDS SUMMARY | 2019-05-10 00:05 | XMS_ITS | Encounter Summary ---
Author Organization [facility] Healthcare Address [facility] [place] [address] Care Team Providers Care [place] Blade Polisher Name Role Phone Jose Antonio Ghotra MD Primary Care Provider +1- [phone] Reason for Visit * Diagnostic Imaging (Routine) - Closed Specialty Diagnoses / Procedures Referred By Contac t Referred To Contact Procedures Breast Imaging Diagnostic Outside Reference Delma Champagne NP Phone: tel: fax: Referral ID Status Reason Start Date Expiration Date Visits Re quested Visits Authorized [id number] Closed 01/04/2023 02/03/2024 1 1 Encounter Details Date Type Department Care Team (Late st Contact Info) Description 05/10/2019 12:05 AM MUCKER OPERATOR Hospital Encounter [facility] ([facility]) [address] [place] [phone] Social History Tobacco Use Types Packs/Day Years Used Date Smoking Tobacco: Every Day Cigarettes Passive Smoke Exposure: Past Smokeless Tobacco: Never Comments Unknown Sex and Gender Information Value Date Recorded Sex Assigned at Not on file 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 MUCKER OPERATOR Gender Identity Not on file Sexual Orientation Not on file documented as of this encounter Functional Status documented as of this encounter Plan of Treatment Not on file documented as of this encounter Procedures Procedure Name Priority Date/Time Associated Diagnosis Comments BREAST IMAGING MG DIAGNOSTIC OUTSIDE REFERENCE Routine 05/10/2019 12:05 AM MUCKER OPERATOR documented in this encounter Results * Breast Imaging Diagnostic Outside Reference (05/10/2019 12:05 AM MUCKER OPERATOR) Impressions RAD_M[facility]MO[facility] - 01/04/2023 10:17 AM CDT These images are for Reference purposes only and have not been reviewed by [facility] Radiology. There will be no report generated by a [facility] Radiologist. Narrative RAD_MAMMO_[facility] - 01/04/2023 10:17 AM CDT EXAMINATION: Images For Reference Purposes Only us Delma Champagne NP IMG MAMMO PROCEDURES Final Result [facility] documented in this encounter Visit Diagnoses Not on filedocumented in this encounter Care Teams Jet Blade Polisher Relationship Specialty Start Date End Date Jose Antonio Ghotra MD [address] [facility] 120 [place] [address] PCP - General 04/30/12 documented as of this encounter
--- OUTSIDE RECORDS SUMMARY | 2020-09-21 23:00 | XMS_ITS | Encounter Summary ---
Author Organization [facility] Healthcare Address [facility] [place] [address] Care Team Providers Care Combat Systems Officer Name Role Phone Jose Antonio Ghotra MD Primary Care Provider [phone]- [phone] Reason for Visit * Diagnostic Imaging (Routine) - Closed Specialty Diagnoses / Procedures Referred By Contelio t Referred To Contact Procedures Breast Imaging Screening Outside Reference Delma Champagne NP Phone: tel: fax: Referral ID Status Reason Start Date Expiration Date Visits Re quested Visits Authorized [id number] Closed 01/04/2023 02/03/2024 1 1 Encounter Details Date Type Department Care Team (Late st Contact Info) Description 09/22/2020 Hospital Encounter [facility] ([facility]) [address] [place] [id number] Social History Tobacco Use Types Packs/Day Years Used Date Smoking Tobacco: Every Day Cigarettes Passive Smoke Exposure: Past Smokeless Tobacco: Never Comments Unknown Sex and Gender Information Value Date Recorded Sex Assigned at Not on file 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 Gender Identity Not on file Sexual Orientation Not on file documented as of this encounter Functional Status documented as of this encounter Plan of Treatment Not on file documented as of this encounter Procedures Procedure Name Priority Date/Time Associated Diagnosis Comments BREAST IMAGING MG SCREENING OUTSIDE REFERENCE Routine 09/22/2020 12:00 AM CDT documented in this encounter Results * Breast Imaging Screening Outside Reference (09/22/2020 12:00 AM CDT) Impressions [facility] - 01/04/2023 10:16 AM CDT These images are for Reference purposes only and have not been reviewed by [facility] Radiology. There will be no report generated by a [facility] Radiologist. Narrative [facility] - 01/04/2023 10:16 AM CDT EXAMINATION: Images For Reference Purposes Only us Delma Champagne NP IMG MAMMO PROCEDURES Final Result [facility] documented in this encounter Visit Diagnoses Not on filedocumented in this encounter Care Teams Combat Systems Officer Relationship Specialty Start Date End Date Jose Antonio Ghotra MD [address] [facility] [address] [place] [address] PCP - General 04/30/12 documented as of this encounter
--- NOTE | ~2025-04-10 | CT_ITS ---
CT HEAD NON-CONTRAST Clinical History: G43.909 - Migraine, unspecified, not intractable, without... Comparison: CTA brain 01/27/2025 Technique: Unenhanced axial images skull base to vertex Coronal, sagittal reformats CT images acquired with automatic exposure control for dose reduction DLP: 605 mGy-cm Findings: Sulci, ventricles: Unremarkable. No intracerebral hemorrhage. No evidence acute territorial infarct. No mass effect, midline shift. Bony calvarium intact. Visualized paranasal sinuses: Clear. Mastoid air cells: Clear. IMPRESSION: 1. No acute intracranial findings. Reviewed, dictated and finalized at location R. H OPERATOR
--- OUTSIDE RECORDS SUMMARY | 2025-04-10 19:31 | XMS_ITS | Data Portability ---
Author Organization [place] [facility], Main Office Address [address] [place] [address] Care Team Providers Care Sawyer Helper Name Role Phone MAHAD BENEDICT Primary Care Provider MAHAD BENEDICT Referring Provider [phone] LISA PEREZ Primary Care Provider LISA PEREZ Referring Provider [phone] Assessment Encounter Date Assessment Date Assessment LastModified [...] DO Not Attach Compendium, Do Not Delete/merge, [address] 12:13:53 Surgeries None recorded. Imaging XR, shoulder, 2 or more view 2024 025 [facility] [place], [address], [place], [address], 13:36:15 Medication Orders bupivacaine HCl 0.5 % (5 mg/mL) injection solution 2024 [id number], [address], [place], [id number], 13:22:59 Kenalog 10 mg/mL suspension for injection 2024 [facility]68485, [address], [place], [id number], 13:22:59 prednisone 10 mg tablets in a dose pack 2024 [facility], [address], [place], [id number], 13:22:59 Patient TargetsNo targets recorded. Patient InstructionsNo instructions recorded. Reason for Referral None Reported. Results Created Date Observation Date Name Description Value Unit Range Abnormal Flag Note LastModifiedBy Organization Detail LastModifiedTime 04/12/20 21 XR, shoul yin, 2 or more view No observ ation record ed. [id number] [facility] [place] [address], [place], [address], 08/03/2022 06:00:48 09/14/19 25 XR, shoul yin, 2 or more view No observ ation record ed. [email or web address] [facility] [place] [address], [place], [address], 09/13/2024 13:09:30 Result Notes None recorded. Problems Name Problem SNOMED Code Status Onset Date Resolution Date Notes Provider Name and Address Organization Details Recorded Time Breast lump 87588419 Active Not Available [facility] 3 05:55:48 Localized, primary osteoarthr itis of the shoulder region 904840986 Active 2021 Not Available [facility] 3 05:55:48 Pain of right shoulder joint 9295452046668 9100 Active 2021 Not Available [facility] 3 05:55:48 Tendinitis of right rotator cuff 7038593301226 9104 Active 2021 Not Available [facility] 3 05:55:48 Osteoarthr itis 470290692 Active 2021 Not Available [facility] 3 05:55:48 Leg length inequality 61570909 Active 2024 Aisha Hazel, ATC L null, [place] 8aweek [facility] 5 12:42:55 Problem Notes None recorded. Procedures Surgical History Date Name Laterality Status Provider Name and Address Organization Details Recorded Time total replacement of right hip joint completed Not Available [facility] 08/04/19 05:52:24 Cholecystectomy completed Not Available [facility] 08/03/2022 05:52:24 total replacement of left hip joint completed Not Available [facility] 3 05:52:24 Imaging Results None recorded. Procedure Notes None recorded. Medical Equipment None Reported. Allergies Allergen ID Allergen Name Allergen Category Reaction Reaction Severity Criticality Documentation Date Start Date Code Code System Note Provider Name and Address Organization Details Recorded Time 58067 Substance with sulfonami de structure and antibacte rial mechanism of action (substanc e) medicatio n other Not available Not available 08/03/2022 94169 8003 SNOMED Not Available [facility] 3 06:00:37 Medications Name Sig Start Date [...] mg by injectio n route. [address] [facility]: 0003-04 94-20 Not Available Not Available Not [...] administ ered by the provider 08/[address] [facility]: 0409-42 76-17 Not Available Not Available Not [...] Available Not Available Not Available Fluzone High-Dose 4991-1115 (PF) 180 mcg/0.5 mL intramuscu lar syringe [...] Updated DateTime 08/25/2021 30.1 kg/m2 175.26 cm 47101.84 g Not Available [facility] 08/03/2022 05:53:14 Date Recorded Body height Body mass index (BMI) Body weight Provider Name and Address Organization Details Last Updated DateTime 09/13/2024 175.26 cm 27.6 kg/m2 00924.77 g Mylene Moon CNA [place] [facility] [employer] [facility] 09/13/2024 12:08:37 Date Recorded Body mass index (BMI) Body height Body weight Provider Name and Address Organization Details Last Updated DateTime 11/30/2021 29.5 kg/m2 175.26 cm 95399.47 g Not Available [facility] 08/03/2022 05:53:14 Date Recorded Body mass index (BMI) Body height Body weight Provider Name and Address Organization Details Last Updated DateTime 04/12/2021 29.5 kg/m2 175.26 cm 42305.47 g Not Available [facility] 08/03/2022 05:53:14 Date Recorded Body mass index (BMI) Body height Body weight Provider Name and Address Organization Details Last Updated DateTime 05/10/2021 29.5 kg/m2 175.26 cm 91283.47 g Not Available [facility] 08/03/2022 05:53:14 Social History Question Answer Notes LastModified by Organizat ion Details LastModified Time Tobacco Smoking Status Current Every Day Smoker Mylene Moon CNA tomas STEVE Jones Teresa [facility] 09/13/2024 12:11:31 How Much Tobacco Do You [...] Diagnosis SNOMED-CT Code Diagnosis ICD10 Code Diagnosis IMO Codes Diagnosis Note [id number] Vikash Dawson MD [facility] [place] [address] [place] [address] 04/12/2021 00:00:00 04/12/2021 12:42:19 [id number] Vikash Dawson MD [facility] [place] [address] [place] [address] 05/10/2021 00:00:00 05/10/2021 10:57:06 [id number] Vikash Dawson MD [facility] [place] [address] [place] [address] 08/25/2021 00:00:00 08/25/2021 11:12:19 [id number] Vikash Dawson MD [facility] [place] [address] [place] [address] 11/30/2021 00:00:00 11/30/2021 16:11:18 [id number] Byron Ramos MD [facility] [place] [address] [place] [address] 09/13/2024 11:51:17 09/13/2024 13:36:15 Pain of right shoulder joint 8528603816 9216004 M25.511 Tendinitis of right rotator cuff 9998843554 9375170 M67.813 Localized, primary osteoarthritis of the shoulder region 678712225 M19.011 Leg length inequality 45 155141 M21.70 Health Concerns Section Related Observation LastModified by Organization Detai ls LastModified Time None Recorded Concern Status LastModified by Organization Details LastModified Time None Recorded Advance Directives Directive None Recorded Payers Insurance Date Sequence Insurance Name Policy Number Policy Eric Covered Member ID Eric Member ID Guarantor Name 09/13/2024 1 [place] Mago Vogel [id number] Mago Vogel 09/18/2024 2 [facility] [id number] Jaspreet [id number] Mago Vogel Notes Date Note Type Note Provider Name and Address Organization Details Recorded Time 09/13/2024 text/html The patient returns complaining of right shoulder pain. I saw [...] today with the patient. ABHISHEK Hoover [address], [place], [address], [place] [facility] 09/13/2024 13:10:33 OBGyn Episode No OBEpisode recorded.
--- OUTSIDE RECORDS SUMMARY | 2025-04-10 19:31 | XMS_ITS | Clinical Summary ---
Author Organization [facility] Address [address] [place] [address] Care Team Providers Care Smelter Charger Name Role Phone Jose Antonio Ghotra Primary Care Provider [phone] Ed POE MD, Jason Unavailable [phone] Source Comments [facility],non-owned Affiliates and Associated Physician Practices is amultiple site organization consisting of ambulatory clinics and hospital sitesin [place], [place], [place] and [place]. This disclosure is being madepursuant to the Care Everywhere program and may not contain all information available regarding this patient. Last updated 18.[facility] Allergies Active Allergy Reactions Criticality Noted [...] fluticasone propionate (FLONASE) 50 MCG/ACT nasal spray [place] 2 Sprays into each nostril once daily. 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 Left: Hip 05/04/2024 [id number] / / [id number] [employer] Bone Screw, 6.5mm X 40mm Implanted:Qty: 1 on 10/28/2014 by Jason Ward IV, MD at [facility] Left: Hip 09/01/2024 [id number] / / [id number] [employer] Acetabular Liner, 36mm Size 25 Implanted:Qty: 1 on 10/28/2014 by Jason Ward IV, MD at [facility] Left: Hip 12/02/2018 [id number] / / [id number] 36mm Ceramic Head Implanted:Qty: 1 on 10/28/2014 by Jason Ward IV, MD at [facility] Left: Hip [employer] 09/02/2024 650-1057 / / [id number] Micro Taper-Loc Stem Implanted:Qty: 1 on 10/28/2014 by Jason Ward IV, MD at [facility] Left: Hip [employer] 04/04/2024 [id number] / / [id number] Standard Neck Implanted:Qty: 1 on 10/28/2014 by Jason Ward IV, MD at [facility] Left: Hip [employer] Inc 09/02/2024 650-1066 / / [id number] Cmpnt Ptlr 31mm 1 Pg Wire Ascnt Arcm Kn Implanted:Qty: 1 on 01/01/2020 by Jules Joaquin MD at [facility] Left: Knee Gianluca [employer] 07/31/2024 [id number] / / [id number] Tray Tib 79mm Kn Cocr I Beam Implanted:Qty: 1 on 01/01/2020 by Jules Joaquin MD at [facility] Left: Knee [employer] 08/18/2029 [id number] / / [id number] Brng [id number] Vngrd Arcm Kn Ant Stab Implanted:Qty: 1 on 01/01/2020 by Jules Joaquin MD at [facility] Left: Knee [employer] 02/16/2024 [id number] / / [id number] Cmnt Bone Djo Srg Cblt 40gm Hvisc Strl Implanted:Qty: 1 on 01/01/2020 by Jules Joaquin MD at [facility] Left: Knee [employer] 06/27/2020 600-15-000 / / [id number] Cmnt Bone Djo Srg Cblt 40gm Hvisc Strl Implanted:Qty: 1 on 01/01/2020 by Jules Joaquin MD at [facility] Left: Knee [employer] 09/18/2020 600-15-000 / / [id number] Cmpnt Fem Kn Lt Cr Cmnt Prm Vngrd Intlk Implanted:Qty: 1 on 01/01/2020 by Jules Joaquin MD at [facility] Left: Knee [employer] 11/11/2029 [id number] / / [id number] Procedures Procedure Name Priority Date/Time Associated Diagnosis [...] LAB - CHEMISTRY ORDERABLES Fi nal Result [facility] [address] [place] [address] from Last 3 Months or Most Recently Relevant to Health Maintenance Insurance MEDICARE [facility] Advance Directives Documents on File Type Date Recorded Patient Technical Report Writer Expl anation Adv Directive/Living Will/POA 01/09/2011 1:43 PM * Full Code (Latest Code Status on File) Date Activated Date Inactivated Comments 01/01/2020 10:23 AM 01/02/2020 2:07 PM * Full Code Date Activated Date Inactivated Comments 10/28/2014 1:06 PM 10/30/2014 1:27 PM * FULL RESUSCITATION Date Activated Date Inactivated Comments 01/04/2011 10:26 AM 01/07/2011 11:02 PM Care Teams Smelter Charger Relationship Specialty Start Date End Date Jose Antonio Ghotra DO [address] [id number] PCP - General 11/22/10 Jason Ward IV, MD [address] [address] Orthopedic Surgery 03/29/11
--- OUTSIDE RECORDS SUMMARY | 2025-04-10 19:31 | XMS_ITS | Encounter Summary ---
Author Organization [facility] Address [address] [address] Care Team Providers Care Uptwist Spinner Name Role Phone Jose Antonio Ghotra Primary Care Provider [phone] Ed POE MD, Jason Unavailable [phone] Encounter Details Date Type Department Care Team (Late st Contact Info) Description 12/31/2019 [facility] Outpatient Visit [facility] [address] [address] [place] [address] [address] Social History Tobacco Use Types Packs/Day Years Used Date Smoking Tobacco: Every Day Cigarettes 0.5 25 Smokeless Tobacco: Never Alcohol Use Standard Drinks/Week Comments No 0 (1 standard drink = 0.6 oz pur e alcohol) Comments No Sex and Gender Information Value Date Recorded Sex Assigned at Not on file 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
--- OUTSIDE RECORDS SUMMARY | 2025-04-10 19:32 | XMS_ITS | Clinical Summary ---
Author Organization [facility] Address [address] [place] [address] Phone Care Team Providers Care Mini Bar Attendant Name Role Phone Jose Antonio Ghotra DO Primary Care Provider [phone] Allergies Active Allergy Reactions Criticality Noted Date [...] 7 Active fluticasone propionate (FLONASE) 50 mcg/spray [place], Suspension nasal inhaler Administer 2 Sprays in each nostril. Active Active Problems Patient Care Coordination No te Formatting of this note migh t be different from the original. Zac Dinero MD-[facility] @ Primary Care: Jose Antonio Ghotra DO Referring Provider: Jose Antonio Ghotra DO [address] [place] [address] Other: Dr Licha Tsai Problem Noted Date Diagnosed Date Vasovagal syncope 02/14/2020 Orthostatic lightheadedness 02/14/2020 Arterial hypotension 02/14/2020 Smoking 02/14/2020 Visit for screening mammogram 07/01/2015 Breast calcification, right 06/01/2015 ALH 04/29/2013 Overview (08/07/2013): 05/15/13 LEFT bx - Path shows ALH. Assessment & Plan (08/08/2013 10:01 AM WEB PAGE DEVELOPER): IOV THR, neck fused, etc GERD (gastroesophageal [...] on file Legal Sex Female 9:36 AM WEB PAGE DEVELOPER Gender Identity Not on file Sexual Orientation [...] CDT Respiratory Rate 14 08/08/2013 9:43 AM WEB PAGE DEVELOPER Oxygen Saturation 94% 02/06/2020 3:22 PM CDT [...] MEDICARE PART A AND B [facility] OPTIONS PPO [id number] Advance Directives For more information, please contact: [phone] * Full Code (Latest Code Status on File) Date Activated Date Inactivated Comments 07/26/2013 12:52 PM 07/26/2013 3:18 PM * Full Code Date Activated Date Inactivated Comments 07/26/2013 9:26 AM 07/26/2013 12:52 PM Care Teams Mini Bar Attendant Relationship Specialty Start Date End Date Jose Antonio Ghotra DO [address] [facility] [address] [place] [address] PCP - General Internal Medicine 05/09/13
--- OUTSIDE RECORDS SUMMARY | 2025-04-10 19:32 | XMS_ITS | Clinical Summary ---
Author Organization [facility] [address] Address [address] [place] [address] Care Team Providers Care Patternmaker Helper Name Role Phone Jose Antonio Ghotra MD Primary Care Provider [phone] Jameson Fink MD Unavailable Allergies Active Allergy Reactions Criticality Noted Date [...] - 03/13/2025 11:59 PM CDT Hospital Encounter [facility] ([facility]) [address] [place] [address] Diagnosis unknown Discharge Disposition: Discharge to home or self care 03/12/2025 10:42 AM CDT - 03/12/2025 11:59 PM CDT Hospital Encounter [facility] ([facility]) [address] [place] [address] Discharge Disposition: Discharge to home or self care 02/19/2025 Orders Only [facility] [address] [place] [address] [address] 1, [address] [place] [address] Ana Maria Flores NP Cerebral aneurysm, nonruptured (Primary Dx) 02/18/2025 12:30 PM CDT Office Visit [facility] [address] [place] [address] [address] 1, [address] [place] [address] Ana Maria Flores NP Cerebral aneurysm, nonruptured (Primary Dx); Cerebrovascular accident (CVA), unspecified mechanism (HCC) 02/18/2025 Telephone [facility] [address] [place] [address] [address] 1, [address] [place] [address] Ana Maria Flores NP 02/13/2025 12:20 PM CDT - 02/13/2025 11:59 PM CDT Hospital Encounter [facility] ([facility]) [address] [place] [address] Discharge Disposition: Discharge to home or self care 02/06/2025 [facility] [address] [place] [address] Nusrat Randle from Last 3 Months Family [...] on file 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 COIL BINDER Gender Identity Not on file Sexual Orientation [...] the available images, which may not be logistics service representative of the entire organ or disease entity. Also note that ultrasound image acquisition is brim pouncer machine operator dependent, and that the study was performed outside our facility with no control over image acquisition. In addition, the provided images may or may not represent the hopi source data set and thus may contain [...] IMAGING STUDY STUDY INITIALLY PERFORMED: 03/06/2025 at [facility]. TYPE OF STUDY: Multiple MRI images without [...] IMAGING STUDY STUDY INITIALLY PERFORMED: 03/06/2025 at [facility]. TYPE OF STUDY: Multiple MRI images without [...] the available images, which may not be logistics service representative of the entire organ or disease entity. Also note that ultrasound image acquisition is brim pouncer machine operator dependent, and that the study was performed outside our facility with no control over image acquisition. In addition, the provided images may or may not represent the hopi source data set and thus may contain [...] Christopher MD us Ana Maria Lea Tuhro HARNESS PLACER IMG MRI PROCEDURES Final Resul t * Neuro MR Outside Reference (03/12/2025 10:42 AM CDT) Impressions [facility] - 03/12/2025 10:42 AM CDT These images are for Reference purposes only and have not been reviewed by [facility] Radiology. There will be no report generated by a [facility] Radiologist. Narrative [facility] - 03/12/2025 10:42 AM CDT EXAMINATION: Images For Reference Purposes Only us Ana Maria Lea Tuhro HARNESS PLACER IMG MRI PROCEDURES Final Resul t Performing Organization Address [facility] Co de Phone Number [facility] * Neuro CT Outside Reference (02/13/2025 12:20 PM CDT) Impressions [facility] - 02/13/2025 12:20 PM CDT These images are for Reference purposes only and have not been reviewed by [facility] Radiology. There will be no report generated by a [facility] Radiologist. Narrative [facility] - 02/13/2025 12:20 PM CDT EXAMINATION: Images For Reference Purposes Only us Ana Maria Lea Tuhro HARNESS PLACER IMG CT PROCEDURES Final Result Performing Organization Address City/[facility] Co de Phone Number [facility] from Last 3 Months Insurance [facility] CHOICE PLUS [facility] IN[place]MNITY [place] MEDICARE [facility] Care Teams Patternmaker Helper Relationship Specialty Start Date End Date Jose Antonio Ghotra MD [address] [place] [address] PCP - General 04/30/12 Jameson Fink MD [address] [place] [address] Referring Physician Obstetrics and Gynecology 12/22/22
== END 2025-04-10 12:22 | disposition home or self-care (01) ==
PROVIDERS: PCP Internal Medicine; Visit Provider Nurse Practitioner
DX: G43.909 Migraine, unspecified, not intractable, without status migrainosus (principal); I67.1 Cerebral aneurysm, nonruptured
CPT/HCPCS: 70450

== ENCOUNTER 2025-04-14 06:05 | Day surgery (SDC) | payer MEDICARE, OTHER, SELFPAY ==
[2025-04-08 11:22] VITALS: BMI 27.6
--- NOTE | ~2025-04-14 | XR_ITS ---
EXAMINATION: XR fluoroscopy no charge INDICATION: THERMAL radiofrequency ABLATION BILATERAL L3,L4, and L5 MEDIAL BRANCH/DORSAL RAMI . COMPARISON: None TECHNIQUE: 114 fluoroscopic images of the lumbar spine were obtained during thermal radiograph frequency ablation at multiple levels. Fluoroscopy exposure time was 36.2 seconds. Air Kerma 14.43 mGy. FINDINGS/IMPRESSION: No radiologist was present or involved at the time of the procedure. Static images were submitted for interpretation. Images demonstrate placement of multiple bilateral needles in the lumbar spine. Fluoroscopic documentation of thermal radiofrequency ablation in the lumbar spine at multiple levels.. Please refer to the operative note for complete procedural details. Reviewed, dictated and finalized at location A. TY ASSISTANT
--- NOTE | 2025-04-14 06:20 | WPDHPUPDATE1 ---
History and Physical Update Update Date/Time: 04/14/25 06:20 History and Physical has been reviewed, including an updated exam of the patient. There are NO changes in the patient's condition. Risks, benefits, and alternatives have been discussed and questions answered. Patient agrees to proceed with procedure.
--- NOTE | 2025-04-14 06:20 | W.PM.PROC2 ---
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 Surgeon Jules Bailey MD Metals Analyst None. Anesthesia Local (w/ MAC) Description of Procedure INFORMED CONSENT: Risks, benefits and alternatives to the procedure were discussed in detail with the patient who expressed explicit understanding and consent to proceed. Patient was informed verbally and in written form regarding the risks associated with the procedure including the low risk of serious infection, bleeding/bruising, allergic reaction, nerve or organ injury, paralysis, procedural site pain or discomfort, worsening pain and/or mobility, failure to treat and/or disfigurement. The patient expressed explicit understanding and consent to proceed. All materials required for the procedure were available prior to procedure start. Site and side were marked prior to procedure and confirmed in the presence of the patient. PROCEDURE IN DETAIL: The patient was brought to the procedural suite and placed in the prone position. Patient was made comfortable with use of pillows under the head/chest, hips and ankles. ASA standard monitors were applied and used throughout the procedure. Skin overlying the injection site on the affected side(s) was prepared broadly with ChloraPrep applicator and draped in a sterile manner. Aseptic technique was used throughout. The endplates of the vertebral bodies at the site(s) of interest were aligned in the AP view. Ipsilateral oblique angulation was utilized to optimize visualization of the intersection between the superior articulating process and transverse process at each target site. Local anesthesia was established by infiltration with approximately 5 mL of 1% lidocaine via a 1-1/2 inch 27-gauge needle divided over each site treated. A 16-gauge 100mm [employer] RF needle with curved 10mm active tip was advanced in the AP view until the needle tip contacted the periosteum at the target site, the right L3 medial branch. Lateral view was utilized to adjust and confirm the appropriate placement of the needle tip just anterior to the facet line, superior to the pedicle and posterior to the foramen. Grounding electrode was in place and functioning. The appropriately-sized RF cannula was inserted into the RF needle and motor stimulation was performed with no subjective or objective evidence of recruited muscle activity with stimulation up to 2.0 volts at a frequency of 2Hz. 1.5 mL of 2.0% PF lidocaine was injected after negative aspiration. After a 90s pause, lesioning was performed to 90 degrees centigrade for 90s ensuring lack of symptoms in the extremity throughout. Needle was rotated 180 degrees and lesioning repeated in a similar manner. Patient tolerated this well. No paresthesias were elicited. Needle was removed completely intact without difficulty. The same procedure was repeated for all intended levels/ structures on the ipsilateral side, right L4, L5 medial branch/dorsal ramus with identical methodology, modified to compensate for new location, with similar results and no evidence of complication. The same exact procedure was repeated for all remaining levels on the contralateral side, left L3, L4, L5 medial branches/dorsal ramus, modified as necessary to accommodate for the new target location with identical findings/results and no evidence of complication. Images were saved and documented in the patient chart. Patient's skin was cleansed and sterile bandage applied. The patient tolerated the procedure well. The patient was transported to the recovery area in stable condition where they were observed for an appropriate amount of time prior to discharge, without evidence of complication. The patient was instructed to avoid excessive activity for the next 48 hours, including climbing and frequent use of stairs. Showers only for 48 hours. They were instructed not to drive or operate heavy machinery for 24 hours. They are to monitor for severe headaches, fevers, chills, night sweats, erythema/swelling at the site or any other signs of infection, bleeding/bruising, bowel or bladder changes as well as new pain, weakness or numbness in the upper or lower extremity. Should they notice these changes, they are instructed to call our office immediately or report directly to the nearest Emergency Department if no answer or if after posted office hours. COMPLICATIONS: None COMMENTS: None Complications No immediate complications Condition Stable Disposition PACU [facility] Billing Surgery - Charge Forward: Surgery Billing
[2025-04-14] MEDS: LACTATED RINGERS 1,000 ML 30 ML IV CONT (06:38)
[2025-04-14 07:13] VITALS: BP 109/62; PULSE 70; RESP 16; TEMP 36.4; O2SAT 97
--- NOTE | 2025-04-14 07:15 | WPDANESEPPF ---
Anes - Initial Pre Proc Eval Procedure: Operation Date: 04/14/25 07:30 Proposed Procedures p Thermal Radiofrequency Ablation Bilateral L3, L4, L5 Medial Branch/Hedrick Rami Supplying Bilateral L4-5, L5-S1 Facet Joints under Fluoroscopic Guidance with Contrast Control - Jules Bailey MD Date/Time: 04/14/25 07:15 Surgeon: Jules Bailey MD Pre Op Diagnosis: Lumbar Spondylosis w/o Myelopathy or Radiculopathy Patient Data Age: 74 Gender: F Height: 1.75 m Weight: 81.8 kg Last Vital Signs Temp 97.6 F 04/14/25 07:13 Pulse 70 04/14/25 07:13 Resp 16 04/14/25 07:13 BP 109/62 04/14/25 07:13 Pulse Ox 97 04/14/25 07:13 O2 Del Method Room Air 04/14/25 07:13 Allergies Allergy/AdvReac Type Severity Reaction Status Date / Time cefdinir AdvReac Severe Blister Verified 04/14/25 06:59 Sulfa (Sulfonamide AdvReac Mild made UTI Verified 04/14/25 06:59 Antibiotics) worse Home Medications ?Medication ?Instructions ?Recorded ?Confirmed ?Type fexofenadine 180 mg tablet 180 mg PO DAILY 06/24/19 04/14/25 History (Nancy Allergy) cholecalciferol (vitamin D3) 50 2,000 unit PO DAILY 06/25/19 04/14/25 History mcg (2,000 unit) capsule fluticasone propionate 50 2 spray intranasal DAILY PRN 04/04/24 04/14/25 History mcg/actuation nasal allergy symptoms spray,suspension (Flonase Allergy Relief) famciclovir 500 mg tablet 500 mg PO Q8H PRN Cold Sores #30 04/17/24 04/14/25 Rx tabs paroxetine HCl 10 mg tablet 10 mg PO DAILY #90 tabs 07/08/24 04/14/25 Rx trospium 20 mg tablet 20 mg PO BID 10/23/24 04/14/25 History clopidogrel 75 mg tablet 75 mg PO DAILY #90 tabs 01/29/25 04/14/25 Rx cyclobenzaprine 10 mg tablet 10 mg PO BID PRN PAIN #30 tabs 01/30/25 04/14/25 Rx famotidine 40 mg tablet 40 mg PO DAILY #90 tabs 01/31/25 04/14/25 Rx omega-3 fatty acids 500 mg PO DAILY 03/24/25 04/14/25 History escitalopram oxalate 10 mg tablet 10 mg PO DAILY #30 tabs 04/10/25 04/10/25 Rx hydrocodone 5 mg-acetaminophen 325 2 tablet PO Q6H PRN pain #60 tabs 04/13/25 04/14/25 Rx mg tablet Patient hx anesthesia problems: post op nausea/vomiting Family hx anesthesia problems: none Results Review: All pre-operative results and documents have been reviewed as part of the pre-operative evaluation. [facility] Past Medical History Medical History BMI 27.0-27.9,adult Syncope and collapse Dysuria Symptomatic cholelithiasis Pure hypercholesterolemia Post-menopause Hypercholesteremia Generalized abdominal pain Gastro-esophageal reflux disease without esophagitis Esophageal reflux Encounter for screening colonoscopy Dizziness Back pain, chronic Allergic rhinitis, unspecified Abnormal MRI of abdomen Abnormal cholangiogram Screening mammogram, encounter for Anxiety Arthritis TIA (transient ischemic attack) Recurrent Surgical History Surgical History Status post lumbar spine surgery for decompression of spinal cord History of cholecystectomy (~03/2017) History of knee replacement procedure of left knee (~01/30/00) History of breast biopsy (06/11/15) (R) breast--benign-done @ [facility] History of hip replacement 2010 (R) hip 2014 (L) hip History of fusion of cervical spine (~2005) C5-6 History of back surgery (~2000) L2-3 History of total abdominal hysterectomy and bilateral salpingo-oophorectomy (~1998) menorrhagia/bladder repair History of breast implant removal (~1993) History of lumpectomy of right breast (~1982) History of breast augmentation (~1979) Family History Family History Mother Family history of malignant neoplasm Father Family history of emphysema Sibling , Explosion-Antolin No problems noted. Sibling No problems noted. Social History Social History Smoking packs per day: 1 Smoking cigarettes per day: 20.0 Years smoked: 50 Smoking pack-years: 50.00 Smoking status: Current every day smoker Tobacco type: cigarettes Second hand tobacco smoke exposure: No Additional smoking assessment comments: CURRENTLY SMOKING 1/2 PACK/DAY Alcohol intake: current Substance use: never Substance use type: does not use Do You Feel Safe in your Home?: Yes Lack of Transportation: No Lack of Food: Never True Current Housing: I Have Housing Concerned About Future Housing: No Difficulty Paying Gas/Electric Bills: No Difficulty Paying for Meds: No Currently Unemployed: No Education: High School Diploma/GED Difficulty w/ Childcare or Family Care: No Living arrangements: alone Occupation/Education: retired 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 Gender identity (if verbalized by the patient): Female Sexual Orientation (if Verbalized by the Patient): Straight or Heterosexual Spiritual care concerns: No Anes - Eval Final PreProcedure Day of Procedure 04/14/25 07:15 Heart: regular rate and rhythm Lungs: clear to auscultation Airway: Mallampati scale class IV and special considerations retrognathia Neurological: alert and oriented Last oral intake: >/= 8 hours ASA classification: III Anesthetic plan: proceed Anesthesia type and monitoring: general Results Review: All pre-operative results and documents have been reviewed as part of the pre-operative evaluation. Informed Consent: The patient's anesthetic plan and its attendant risks and benefits were discussed with the patient/family/POA. Questions were solicited and answers provided to the satisfaction of the patient/family/POA.
[2025-04-14] MEDS: LIDOCAINE 2% PF LOCAL INJ 5 ML VIAL ×2 (07:44→07:48)
[2025-04-14] MEDS: BUPivacaine HCL 0.5% 10 ML AMP ×2 (07:47→07:48)
[2025-04-14 07:58] VITALS: BP 105/52; PULSE 65; RESP 16; O2SAT 98
[2025-04-14 08:08] VITALS: BP 108/52; PULSE 64; RESP 16; O2SAT 100
[2025-04-14 08:18] VITALS: BP 108/58; PULSE 65; RESP 16; O2SAT 100
--- NOTE | 2025-04-14 08:24 | WPDANESPN ---
Anes - Prog Note Post-Op Date/Time: 04/14/25 08:24 Vital Signs: Last Vital Signs Temp 97.6 F 04/14/25 07:13 Pulse 64 04/14/25 08:08 Resp 16 04/14/25 08:08 BP 108/52 L 04/14/25 08:08 Pulse Ox 100 04/14/25 08:08 O2 Del Method Room Air 04/14/25 08:08 Pain Score (VAS): NO Patient Feedback: Patient satisfied with anesthetic care.
== END 2025-04-14 08:32 | disposition home or self-care (01) ==
PROVIDERS: PCP Internal Medicine; Visit Provider Anesthesiology Pain Medicine
PROC: (CPT 64635; principal; 2025-04-14 07:30)
DX: M47.816 Spondylosis without myelopathy or radiculopathy, lumbar region (principal)
CPT/HCPCS: 64635 ×2; 64636 ×6; 99199

== ENCOUNTER 2025-05-14 09:58 | Emergency (ER) | payer MEDICARE, OTHER, SELFPAY ==
--- OUTSIDE RECORDS SUMMARY | 2017-07-12 | XMS_ITS | Encounter Summary ---
Author Organization [facility] Healthcare Address [address] [place] [address] Care Team Providers Care It Security Specialist Name Role Phone Jose Antonio Ghotra MD Primary Care Provider +1- [phone] Reason for Visit * Diagnostic Imaging (Routine) - Closed Specialty Diagnoses / Procedures Referred By Contac t Referred To Contact Procedures Breast Imaging Screening Outside Reference Delma Champagne NP Phone: tel: fax: Referral ID Status Reason Start Date Expiration Date Visits Re quested Visits Authorized [id number] Closed 01/04/2023 02/03/2024 1 1 Encounter Details Date Type Department Care Team (Late st Contact Info) Description 07/12/2017 Hospital Encounter [facility] [address] [place] [address] [phone] Social History Tobacco Use Types Packs/Day Years Used Date Smoking Tobacco: Every Day Cigarettes Passive Smoke Exposure: Past Smokeless Tobacco: Never Comments Unknown Sex and Gender Information Value Date Recorded Sex Assigned at Not on file 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 FACE PAINTER Gender Identity Not on file Sexual Orientation Not on file documented as of this encounter Plan of Treatment Not on file documented as of this encounter Procedures Procedure Name Priority Date/Time Associated Diagnosis Comments BREAST IMAGING MG SCREENING OUTSIDE REFERENCE Routine 07/12/2017 12:00 AM FACE PAINTER documented in this encounter Results * Breast Imaging Screening Outside Reference (07/12/2017 12:00 AM FACE PAINTER) Impressions [facility]_M[facility]MO[facility] - 01/04/2023 10:18 AM CDT These images are for Reference purposes only and have not been reviewed by [facility] Radiology. There will be no report generated by a [facility] Radiologist. Narrative [facility]_MAMMO[facility] - 01/04/2023 10:18 AM CDT EXAMINATION: Images For Reference Purposes Only us Delma Champagne NP IMG MAMMO PROCEDURES Final Result [facility] documented in this encounter Visit Diagnoses Not on filedocumented in this encounter Care Teams It Security Specialist Relationship Specialty Start Date End Date Jose Antonio Ghotra MD [address] [facility] 120 [place] [address] PCP - General 04/30/12 documented as of this encounter
--- OUTSIDE RECORDS SUMMARY | 2018-09-26 23:00 | XMS_ITS | Encounter Summary ---
Author Organization [facility] Healthcare Address [address] [place] [address] Care Team Providers Care Mail Processing Associate Name Role Phone Jose Antonio Ghotra MD Primary Care Provider +1- [phone] Reason for Visit * Diagnostic Imaging (Routine) - Closed Specialty Diagnoses / Procedures Referred By Contac t Referred To Contact Procedures Breast Imaging Screening Outside Reference Delma Champagne NP Phone: tel: fax: Referral ID Status Reason Start Date Expiration Date Visits Re quested Visits Authorized [id number] Closed 01/04/2023 02/03/2024 1 1 Encounter Details Date Type Department Care Team (Late st Contact Info) Description 09/27/2018 Hospital Encounter [facility] Radiology [facility] [address] [place] [address] [phone] Social History Tobacco Use Types Packs/Day Years Used Date Smoking Tobacco: Every Day Cigarettes Passive Smoke Exposure: Past Smokeless Tobacco: Never Comments Unknown Sex and Gender Information Value Date Recorded Sex Assigned at Not on file 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 PUBLIC DEFENDER Gender Identity Not on file Sexual Orientation Not on file documented as of this encounter Plan of Treatment Not on file documented as of this encounter Procedures Procedure Name Priority Date/Time Associated Diagnosis Comments BREAST IMAGING MG SCREENING OUTSIDE REFERENCE Routine 09/27/2018 12:00 AM CDT documented in this encounter Results * Breast Imaging Screening Outside Reference (09/27/2018 12:00 AM CDT) Impressions RAD_MAMMO[facility] - 01/04/2023 10:17 AM CDT These images are for Reference purposes only and have not been reviewed by [facility] Radiology. There will be no report generated by a [facility] Radiologist. Narrative RAD_MAMMO_[facility] - 01/04/2023 10:17 AM CDT EXAMINATION: Images For Reference Purposes Only us Delma Champagne NP IMG MAMMO PROCEDURES Final Result [facility] documented in this encounter Visit Diagnoses Not on filedocumented in this encounter Care Teams Mail Processing Associate Relationship Specialty Start Date End Date Jose Antonio Ghotra MD [address] [facility] 120 [place] [address] PCP - General 04/30/12 documented as of this encounter
--- OUTSIDE RECORDS SUMMARY | 2018-10-18 23:00 | XMS_ITS | Encounter Summary ---
Author Organization [facility] Healthcare Address [address] [place] [address] Care Team Providers Care Manager Merchandising Name Role Phone Jose Antonio Ghotra MD Primary Care Provider +1- [phone] Reason for Visit * Diagnostic Imaging (Routine) - Closed Specialty Diagnoses / Procedures Referred By Contac t Referred To Contact Procedures Breast Imaging US Outside Reference Delma Champagne NP Phone: tel: fax: Referral ID Status Reason Start Date Expiration Date Visits Re quested Visits Authorized [id number] Closed 01/04/2023 02/03/2024 1 1 Encounter Details Date Type Department Care Team (Late st Contact Info) Description 10/19/2018 Hospital Encounter [facility]iology [facility] [address] [place] [address] [phone] Social History Tobacco Use Types Packs/Day Years Used Date Smoking Tobacco: Every Day Cigarettes Passive Smoke Exposure: Past Smokeless Tobacco: Never Comments Unknown Sex and Gender Information Value Date Recorded Sex Assigned at Not on file 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 Radiology. There will be no report generated by a [facility] Radiologist. Narrative RAD_M[facility]MO[facility] - 01/04/2023 10:14 AM CDT EXAMINATION: Images For Reference Purposes Only us Delma Champagne NP IMG MAMMO PROCEDURES Final Result [facility] documented in this encounter Visit Diagnoses Not on filedocumented in this encounter Care Teams Manager Merchandising Relationship Specialty Start Date End Date Jose Antonio Ghotra MD [address] [facility] 120 [place] [address] PCP - General 04/30/12 documented as of this encounter
--- OUTSIDE RECORDS SUMMARY | 2018-10-18 23:05 | XMS_ITS | Encounter Summary ---
Author Organization [facility] Healthcare Address [facility] [place] [address] Care Team Providers Care Gristmill Operator Name Role Phone Jose Antonio Ghotra MD Primary Care Provider +1- [phone] Reason for Visit * Diagnostic Imaging (Routine) - Closed Specialty Diagnoses / Procedures Referred By Contac t Referred To Contact Procedures Breast Imaging Diagnostic Outside Reference Delma Champagne NP Phone: tel: fax: Referral ID Status Reason Start Date Expiration Date Visits Re quested Visits Authorized [id number] Closed 01/04/2023 02/03/2024 1 1 Encounter Details Date Type Department Care Team (Late st Contact Info) Description 10/19/2018 12:05 AM CDT Hospital Encounter [facility]iology [facility] ([facility]) [address] [place] [address] [phone] Social History Tobacco Use Types Packs/Day Years Used Date Smoking Tobacco: Every Day Cigarettes Passive Smoke Exposure: Past Smokeless Tobacco: Never Comments Unknown Sex and Gender Information Value Date Recorded Sex Assigned at Not on file 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 There will be no report generated by a [facility] Radiologist. Narrative RAD_MAMMO_[facility] - 01/04/2023 10:17 AM CDT EXAMINATION: Images For Reference Purposes Only us Delma Champagne NP IMG MAMMO PROCEDURES Final Result [facility] documented in this encounter Visit Diagnoses Not on filedocumented in this encounter Care Teams Gristmill Operator Relationship Specialty Start Date End Date Jose Antonio Ghotra MD [address] [facility] 120 [place] [address] PCP - General 04/30/12 documented as of this encounter
--- OUTSIDE RECORDS SUMMARY | 2019-05-10 | XMS_ITS | Encounter Summary ---
Author Organization [facility] Healthcare Address [address] [place] [address] Care Team Providers Care Ladle Handler Name Role Phone Jose Antonio Ghotra MD Primary Care Provider +1- [phone] Reason for Visit * Diagnostic Imaging (Routine) - Closed Specialty Diagnoses / Procedures Referred By Contac t Referred To Contact Procedures Breast Imaging US Outside Reference Delma Champagne NP Phone: tel: fax: Referral ID Status Reason Start Date Expiration Date Visits Re quested Visits Authorized [id number] Closed 01/04/2023 02/03/2024 1 1 Encounter Details Date Type Department Care Team (Late st Contact Info) Description 05/10/2019 Hospital Encounter [facility]) [address] [place] [address] [phone] Social History Tobacco Use Types Packs/Day Years Used Date Smoking Tobacco: Every Day Cigarettes Passive Smoke Exposure: Past Smokeless Tobacco: Never Comments Unknown Sex and Gender Information Value Date Recorded Sex Assigned at Not on file 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 ENVIRONMENTAL REMEDIATION CONSULTANT Gender Identity Not on file Sexual Orientation Not on file documented as of this encounter Plan of Treatment Not on file documented as of this encounter Procedures Procedure Name Priority Date/Time Associated Diagnosis Comments BREAST IMAGING US OUTSIDE REFERENCE Routine 05/10/2019 12:00 AM ENVIRONMENTAL REMEDIATION CONSULTANT documented in this encounter Results * Breast Imaging US Outside Reference (05/10/2019 12:00 AM ENVIRONMENTAL REMEDIATION CONSULTANT) Impressions RAD_M[facility]MO[facility] - 01/04/2023 10:14 AM CDT These images are for Reference purposes only and have not been reviewed by [facility] Radiology. There will be no report generated by a [facility] Radiologist. Narrative RAD_MAMMO[facility] - 01/04/2023 10:14 AM CDT EXAMINATION: Images For Reference Purposes Only us Delma Champagne NP IMG MAMMO PROCEDURES Final Result [facility] documented in this encounter Visit Diagnoses Not on filedocumented in this encounter Care Teams Ladle Handler Relationship Specialty Start Date End Date Jose Antonio Ghotra MD [address] [facility] 120 [place] [address] PCP - General 04/30/12 documented as of this encounter
--- OUTSIDE RECORDS SUMMARY | 2019-05-10 00:05 | XMS_ITS | Encounter Summary ---
Author Organization [facility] Healthcare Address [facility]2 [place] [address] Care Team Providers Care Industrial Mechanic Name Role Phone Jose Antonio Ghotra MD Primary Care Provider +1- [phone] Reason for Visit * Diagnostic Imaging (Routine) - Closed Specialty Diagnoses / Procedures Referred By Contac t Referred To Contact Procedures Breast Imaging Diagnostic Outside Reference Delma Champagne NP Phone: tel: fax: Referral ID Status Reason Start Date Expiration Date Visits Re quested Visits Authorized [id number] Closed 01/04/2023 02/03/2024 1 1 Encounter Details Date Type Department Care Team (Late st Contact Info) Description 05/10/2019 12:05 AM SALVAGER Hospital Encounter [facility] ([facility]) [address] [place] [address] [phone] Social History Tobacco Use Types Packs/Day Years Used Date Smoking Tobacco: Every Day Cigarettes Passive Smoke Exposure: Past Smokeless Tobacco: Never Comments Unknown Sex and Gender Information Value Date Recorded Sex Assigned at Not on file 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 SALVAGER Gender Identity Not on file Sexual Orientation Not on file documented as of this encounter Plan of Treatment Not on file documented as of this encounter Procedures Procedure Name Priority Date/Time Associated Diagnosis Comments BREAST IMAGING MG DIAGNOSTIC OUTSIDE REFERENCE Routine 05/10/2019 12:05 AM SALVAGER documented in this encounter Results * Breast Imaging Diagnostic Outside Reference (05/10/2019 12:05 AM SALVAGER) Impressions RAD_MAMMO_[facility] - 01/04/2023 10:17 AM CDT These images are for Reference purposes only and have not been reviewed by [facility] Radiology. There will be no report generated by a [facility] Radiologist. Narrative RAD_MAMMO_[facility] - 01/04/2023 10:17 AM CDT EXAMINATION: Images For Reference Purposes Only us Delma Champagne NP IMG MAMMO PROCEDURES Final Result [facility] documented in this encounter Visit Diagnoses Not on filedocumented in this encounter Care Teams Industrial Mechanic Relationship Specialty Start Date End Date Jose Antonio Ghotra MD [address] [facility] 120 [place] [address] PCP - General 04/30/12 documented as of this encounter
--- OUTSIDE RECORDS SUMMARY | 2020-09-21 23:00 | XMS_ITS | Encounter Summary ---
Author Organization [facility] Healthcare Address [address] [place] [id number] Care Team Providers Care Business Intelligence Developer Name Role Phone Jose Antonio Ghotra MD Primary Care Provider [phone]- [phone] Reason for Visit * Diagnostic Imaging (Routine) - Closed Specialty Diagnoses / Procedures Referred By Contac t Referred To Contact Procedures Breast Imaging Screening Outside Reference Delma Champagne NP Phone: tel: fax: Referral ID Status Reason Start Date Expiration Date Visits Re quested Visits Authorized [id number] Closed 01/04/2023 02/03/2024 1 1 Encounter Details Date Type Department Care Team (Late st Contact Info) Description 09/22/2020 Hospital Encounter [facility] ([facility]) [address] [place] [phone] Social History Tobacco Use Types Packs/Day Years Used Date Smoking Tobacco: Every Day Cigarettes Passive Smoke Exposure: Past Smokeless Tobacco: Never Comments Unknown Sex and Gender Information Value Date Recorded Sex Assigned at Not on file 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 There will be no report generated by a [facility] Radiologist. Narrative [facility] - 01/04/2023 10:16 AM CDT EXAMINATION: Images For Reference Purposes Only us Delma Champagne NP IMG MAMMO PROCEDURES Final Result [facility] documented in this encounter Visit Diagnoses Not on filedocumented in this encounter Care Teams Business Intelligence Developer Relationship Specialty Start Date End Date Jose Antonio Ghotra MD [address] [facility] [address] [place] [address] PCP - General 04/30/12 documented as of this encounter
[2025-05-14 10:07] VITALS: BP 105/71; PULSE 93; RESP 16; TEMP 36.8; O2SAT 100
--- NOTE | 2025-05-14 11:46 | PC.NURSE ---
Spoke with family and patient about the delay in seeing a provider. Requested water - gave mouth swab. Requested pillow - gave 2 blankets to use as a pillow.
--- NOTE | 2025-05-14 12:15 | PC.NURSE ---
PATIENT STATED THAT HER NEUROLOGICAL SITUATION IN JANUARY CAUSED HER TO FALL BACK ON HER PAIN MANAGEMENT SITUATION. PATIENT OPEN TO A TODAY SOLUTION AND WILL FOLLOW UP WITH HER PMD AND PAIN MANAGEMENT FOR ASSISTED SOLUTION.
[2025-05-14] MEDS: KETOROLAC 30 MG/ML VIAL (*BKC) 15 MG IM (12:26)
[2025-05-14] MEDS: dexAMETHasone SOD PHOS INJ 10 MG/ML 1 ML VIAL PO (12:29)
[2025-05-14] MEDS: METOCLOPRAMIDE HCL INJ 10 MG/2 ML VIAL IM (12:29)
[2025-05-14] MEDS: diazePAM (*CRX) 2.5 MG TABLET PO (12:34)
[2025-05-14 13:50] VITALS: BP 128/72; PULSE 74; RESP 16; O2SAT 95
--- OUTSIDE RECORDS SUMMARY | 2025-05-14 16:29 | XMS_ITS | Patient Health Record ---
Author Organization [facility] [place] Address [address] [place] [address] Care Team Providers Care Space Systems Operations Craftsman Name Role Phone Meagan Sims Primary Care Provider Unavaila Rosemary Noel Unavailable [phone] Allergies Allergen (clinical drug ingredient) Drug/Non Drug Allergy documented on EMR Reaction Allergy Type Onset Date Status cefdinir Cefdinir Unknown Drug Allergy Active Substance with sulfonamide structure and antibacterial mechanism of action (substance) Sulfa Antibiotics Unknown Drug Allergy Active Reason For Referral No Information Medications Medication SIG (Take, Route, Frequency, Duration) Notes Start Date End Date Status Famotidine 20 MG Tablet 1 tablet at bedt frederick as needed Orally Once a day Active Lexapro 10 MG Tablet 1 tablet Orally Onc e a day 04/30/2025 Active Desvenlafaxine Succinate ER 50 MG Tablet Extended Release 24 Hour 1 tablet Orally Once a day; Duration: 30 days 04/30/2025 Active HYDROcodone-Acetaminophen 5-325 MG Tablet 1-2 tablet as needed Orally every 4 hours Active Clopidogrel Bisulfate 75 MG Tablet 1 tablet Orally Once a day Active Nancy Allergy 180 MG Tablet 1 tablet Swallow whole with water; do not take with fruit juices. 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 [employer] Problem Type SNOMED Code ICD Code Onset Dates Problem Status W/U Status Risk Notes Problem Moderate recurrent major depression (08017555) Major depressive disorder, recurrent, moderate (F33.1) Active confirmed Problem Generalized anxiety disorder (90887392) Generalized anxiety disorder (F41.1) Active confirmed Vital Signs Heart Rate 76 /min 04/30/2025 Blood pressure diastolic 62 mm Hg 04/30/2025 Weight-kg 81.19 kg 04/30/2025 Blood pressure systolic 98 mm Hg 04/30/2025 Weight 179 lbs 04/30/2025 Encounters Encounter Location Date Provider Diagnosis [facility] [employer] [place] [address] [facility] [address] [address] 04/30/2025 Rosemary Ward Major depressive disorder, recurrent, moderate F33.1 ; Generalized anxiety disorder F41.1 and Low back pain M54.5 [place] [address] [facility] [address] [address] 05/06/2025 Rosemary Ward [place] [address] [facility] [address] [address] 05/12/2025 Rosemary Ward Assessments Encounter Date Diagnosis (ICD Code) Assessment Notes Treatment Notes Treatment Clinical Notes Section Notes 04/30/2025 Major depressive disorder, recurrent, moderate (ICD-10 - F33.1) Low energy, lack of desire to do much, difficulty maintaining previous activity level. Depression began after quitting work due to pain and 's detention. Long history of Paxil use for depression, recently switched to Lexapro. - Switch from Lexapro to Pristiq 50 mg daily. - Monitor for improvement in mood and motivation. - Provide medication education on Pristiq. 04/30/2025 Generalized anxiety disorder (ICD-10 - F41.1) Experiencing anxiety and panic attacks two to three days a week, often triggered by anticipation of tasks or pain. Symptoms include chest tightness, body freezing, and avoidance of activities. Recent switch from Paxil to Lexapro due to onset of anxiety attacks. - Discontinue Paxil. - Switch from Lexapro to Pristiq 50 mg daily. - Provide medication education on Pristiq. - Monitor for improvement in anxiety and panic symptoms. 04/30/2025 Low back pain (ICD-10 - M54.5) Persistent low back pain for a year and a half, with history of pain in other areas including neck and shoulders. Pain is severe enough to limit activity and motivation. Nerve ablation performed in April resulted in 50% improvement in pain. Currently in pain management and taking hydrocodone as needed. - Continue hydrocodone as needed for pain management. - Continue pain management strategies. - Monitor for changes in pain severity. 04/30/2025 Other Arthritis in multiple joints, including neck and shoulders. Unable to take arthritis medication due to blood thinner use. Joint pain worsened by inability to take arthritis medication. - Continue pain management strategies. - Monitor for changes in joint pain. History of 10-minute TIA. Currently on blood thinner. Uncertainty about duration of blood thinner therapy. - Continue blood thinner therapy. - Monitor for recurrence of symptoms. Learning About Depression Screening material was printed Plan Of Treatment Next Appt Details Provider Name:Rosemary amanda, 05/27/2025 02:15:00 PM, [address], [facility] [address], [place], [address], Insurance Providers Payer Name Payer Address Payer Phone Subscriber Number Group Number Insured Name Patient Relationship to Insured Coverage Start Date Coverage End Date [place] [address] [place] [address] [id number] Mago Vogel Self - patient is the insured [facility] [address] [place] [address] [id number] Mago Vogel Self - patient is the insured Medical (General) History Medical History History ICD Code Chronic low back pain Arthritis Major depressive disorder Generalized anxiety disorder Transient ischemic attack Surgical History Surgery Date(Month/Year) Hysterectomy 1998 Back surgery L 2 / L3 2000 cervical fusion c/10/08 2005 right hip replaced 2010 cataracts removed 2012 left hip replaced 2014 gall bladder removed 2017 Back surgery L4 and L5 2017 Left knee replaced 2019 cleaned around nerves around L3 and L4 2 023
--- OUTSIDE RECORDS SUMMARY | 2025-05-14 16:29 | XMS_ITS | Clinical Summary ---
Author Organization [facility] Address [address] [place] [address] Care Team Providers Care Research Investigator Name Role Phone Jose Antonio Ghotra Primary Care Provider [phone] Ed POE MD, Jason Unavailable [phone] Source Comments [facility],non-owned Affiliates and Associated Physician Practices is amultiple site organization consisting of ambulatory clinics and hospital sitesin [place], [place], [place] and [place]. This disclosure is being madepursuant to the Care Everywhere program and may not contain all information available regarding this patient. Last updated 18.[facility] Allergies Active Allergy Reactions Criticality Noted [...] fluticasone propionate (FLONASE) 50 MCG/ACT nasal spray Young 2 Sprays into each nostril once daily. 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 Gender Identity Not on file Sexual Orientation [...] history exists DEPRESSION SCREENING 06/05/2024 COVID-19 VACCINE (1 - 2024- season) 2025 INFLUENZA VACCINE (#1) 2025 Respiratory [...] this topic Medical Devices Implanted Type Area Glued Wood Tester Device Identifier Shelf Expiration Date Model / Serial / Lot Biomet Acetabular Cup, 62mm Implanted:Qty: 1 on 10/28/2014 by Jason Ward IV, MD at [facility] Left: Hip 05/04/2024 [id number] / / [id number] Biomet Bone Screw, 6.5mm X 40mm Implanted:Qty: 1 on 10/28/2014 by Jason Ward IV, MD at [facility] Left: Hip 09/01/2024 [id number] / / [id number] Bi[employer] Acetabular Liner, 36mm Size 25 Implanted:Qty: 1 on 10/28/2014 by Jason Ward IV, MD at [facility] Left: Hip 12/02/2018 [id number] / / [id number] 36mm Ceramic Head Implanted:Qty: 1 on 10/28/2014 by Jason Ward IV, MD at [facility] Left: Hip [employer] 09/02/2024 [id number] / / [id number] Micro Taper-Loc Stem Implanted:Qty: 1 on 10/28/2014 by Jason Ward IV, MD at [facility] Left: Hip [employer] 04/04/2024 [id number] / / [id number] Standard Neck Implanted:Qty: 1 on 10/28/2014 by Jason Ward IV, MD at [facility] Left: Hip [employer] 09/02/2024 [id number] / / [id number] Cmpnt Ptlr 31mm 1 Pg Wire Ascnt Arcm Kn Implanted:Qty: 1 on 01/01/2020 by Jules Joaquin MD at [facility] Left: Knee Gianluca [employer] 07/31/2024 [id number] / / [id number] Tray Tib 79mm Kn Cocr I Beam Implanted:Qty: 1 on 01/01/2020 by Jules Joaquin MD at [facility] Left: Knee [employer] 08/18/2029 [id number] / / [id number] Brng [id number] Vngrd Arcm Kn Ant Stab Implanted:Qty: 1 on 01/01/2020 by Jules Joaquin MD at [facility] Left: Knee [employer] 02/16/2024 [id number] / / [id number] Cmnt Bone Djo Srg Cblt 40gm Hvisc Strl Implanted:Qty: 1 on 01/01/2020 by Jules Joaquin MD at [facility] Left: Knee [employer] 06/27/2020 [id number] / / [id number] Cmnt Bone Djo Srg Cblt 40gm Hvisc Strl Implanted:Qty: 1 on 01/01/2020 by Jules Joaquin MD at [facility] Left: Knee [employer] 09/18/2020 600-15-000 / / [id number] Cmpnt Fem Kn Lt Cr Cmnt Prm Vngrd Intlk Implanted:Qty: 1 on 01/01/2020 by Jules Joaquin MD at [facility] Left: Knee [employer] 11/11/2029 [id number] / / [id number] Procedures Procedure Name Priority Date/Time Associated Diagnosis [...] LAB - CHEMISTRY ORDERABLES Fi nal Result [facility] [address] [place] [address] from Last 3 Months or Most Recently Relevant to Health Maintenance Insurance MEDICARE [facility] Advance Directives Documents on File Type Date Recorded Patient Vice Admiral Expl anation Adv Directive/Living Will/POA 01/09/2011 1:43 PM * Full Code (Latest Code Status on File) Date Activated Date Inactivated Comments 01/01/2020 10:23 AM 01/02/2020 2:07 PM * Full Code Date Activated Date Inactivated Comments 10/28/2014 1:06 PM 10/30/2014 1:27 PM * FULL RESUSCITATION Date Activated Date Inactivated Comments 01/04/2011 10:26 AM 01/07/2011 11:02 PM Care Teams Research Investigator Relationship Specialty Start Date End Date Jose Antonio Ghotra DO [address] [id number] PCP - General 11/22/10 Jason Ward IV, MD [address] [address] Orthopedic Surgery 03/29/11
--- OUTSIDE RECORDS SUMMARY | 2025-05-14 16:29 | XMS_ITS | Encounter Summary ---
Author Organization [facility] Address [address] [place] [address] Care Team Providers Care Comsec Manager Name Role Phone Jose Antonio Ghotra Primary Care Provider [phone] Ed POE MD, Jason Unavailable [phone] Encounter Details Date Type Department Care Team (Late st Contact Info) Description 12/31/2019 [facility] Outpatient Visit 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
--- OUTSIDE RECORDS SUMMARY | 2025-05-14 16:31 | XMS_ITS | Clinical Summary ---
Author Organization [facility] [place] Address [address] [place] [address] Phone Care Team Providers Care Jalousies Installer Name Role Phone Paradise Jose Antonio VEE Primary Care Provider [phone] Allergies Active Allergy Reactions Criticality Noted Date [...] 7 Active fluticasone propionate (FLONASE) 50 mcg/spray [place], Suspension nasal inhaler Administer 2 Sprays in each nostril. Active Active Problems Patient Care Coordination No te Formatting of this note migh t be different from the original. Zac Dinero MD-[facility] @ Primary Care: Jose Antonio Ghotra DO Referring Provider: Jose Antonio Ghotra DO [address] [place] [address] Other: Dr Licha Tsai Problem Noted Date Diagnosed Date Vasovagal syncope 02/14/2020 Orthostatic lightheadedness 02/14/2020 Arterial hypotension 02/14/2020 Smoking 02/14/2020 Visit for screening mammogram 07/01/2015 Breast calcification, right 06/01/2015 ALH 04/29/2013 Overview (08/07/2013): 05/15/13 LEFT bx - Path shows ALH. Assessment & Plan (08/08/2013 10:01 AM CLEANING HANDYMAN): IOV THR, neck fused, etc GERD (gastroesophageal [...] on file Legal Sex Female 9:36 AM CLEANING HANDYMAN Gender Identity Not on file Sexual Orientation [...] CDT Respiratory Rate 14 08/08/2013 9:43 AM CLEANING HANDYMAN Oxygen Saturation 94% 02/06/2020 3:22 PM CDT [...] Maintenance Insurance MEDICARE PART A AND B [facility] OPTIONS PPO [id number] Advance Directives For more information, please contact: [phone] * Full Code (Latest Code Status on File) Date Activated Date Inactivated Comments 07/26/2013 12:52 PM 07/26/2013 3:18 PM * Full Code Date Activated Date Inactivated Comments 07/26/2013 9:26 AM 07/26/2013 12:52 PM Care Teams Jalousies Installer Relationship Specialty Start Date End Date Jose Antonio Ghotra DO [address] [address] PCP - General Internal Medicine 05/09/13
--- OUTSIDE RECORDS SUMMARY | 2025-05-14 16:31 | XMS_ITS | Clinical Summary ---
Author Organization [facility] [place] [address] Address [address] [place] [address] Care Team Providers Care Heat Curer Name Role Phone Jose Antonio Ghotra MD Primary Care Provider [phone] Jameson Fink MD Unavailable [phone] Allergies Active Allergy Reactions Criticality Noted Date [...] - 03/13/2025 11:59 PM CDT Hospital Encounter [facility] ([facility]) [address] [place] [address] Diagnosis unknown Discharge Disposition: Discharge to home or self care 03/12/2025 10:42 AM CDT - 03/12/2025 11:59 PM CDT Hospital Encounter [facility] ([facility]) [address] [place] [address] Discharge Disposition: Discharge to home or self care 02/19/2025 Orders Only [facility] Medicine Neurosurgery [address] [place] [address] Floor 1, [address] [place] [address] Ana Maria Flores NP Cerebral aneurysm, nonruptured (Primary Dx) 02/18/2025 12:30 PM CDT Office Visit [facility] Medicine Neurosurgery [address] [place] [address] Floor 1, [address] [place] [id number] Ana Maria Flores NP Cerebral aneurysm, nonruptured (Primary Dx); Cerebrovascular accident (CVA), unspecified mechanism (HCC) 02/18/2025 Telephone [facility] Medicine Neurosurgery [address] [place] [address] Floor 1, [address] [place] [address] Ana Maria Flores NP 02/13/2025 12:20 PM CDT - 02/13/2025 11:59 PM CDT Hospital Encounter [facility] ([facility]) [address] [place] [address] Discharge Disposition: Discharge to home or self care from Last 3 Months Family History Medical [...] on file 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 Also note that ultrasound image acquisition is steam crane operator dependent, and that the study was performed outside our facility with no control over image acquisition. In addition, the provided images may or may not represent the [place] source data set and thus may contain [...] STUDY INITIALLY PERFORMED: 03/06/2025 at [facility]. TYPE OF STUDY: Multiple MRI [...] STUDY INITIALLY PERFORMED: 03/06/2025 at [facility]. TYPE OF STUDY: Multiple MRI [...] the available images, which may not be telephone sales representative of the entire organ or disease entity. Also note that ultrasound image acquisition is steam crane operator dependent, and that the study was performed outside our facility with no control over image acquisition. In addition, the provided images may or may not represent the [place] source data set and thus may contain [...] Kaushik Christopher MD us Ana Maria Lea Alexo LICENSING SPECIALIST IMG MRI PROCEDURES Final Resul t * Neuro MR Outside Reference (03/12/2025 10:42 AM CDT) Impressions [email or web address] - 03/12/2025 10:42 AM CDT These images are for Reference purposes only and have not been reviewed by [facility] Radiology. There will be no report generated by a [facility] Radiologist. Narrative [email or web address] - 03/12/2025 10:42 AM CDT EXAMINATION: Images For Reference Purposes Only us Ana Maria Lea Carmichaelhro LICENSING SPECIALIST IMG MRI PROCEDURES Final Resul t Performing Organization Address [facility] Co de Phone Number [email or web address] * Neuro CT Outside Reference (02/13/2025 12:20 PM CDT) Impressions [email or web address] - 02/13/2025 12:20 PM CDT These images are for Reference purposes only and have not been reviewed by [facility] Radiology. There will be no report generated by a [facility] Radiologist. Narrative RAD_PACS[facility] - 02/13/2025 12:20 PM CDT EXAMINATION: Images For Reference Purposes Only us Ana Maria Lea Carmichaelhro LICENSING SPECIALIST IMG CT PROCEDURES Final Result Performing Organization Address [facility] Co de Phone Number [facility] from Last 3 Months Insurance MEDICARE [facility] CHOICE [facility]US [facility] HMO/PPO Address: [facility] [id number] [place] [id number] MEDICARE [facility] INDEMNITY [place] MEDICARE [facility] Care Teams Heat Curer Relationship Specialty Start Date End Date Jose Antonio Ghotra MD [address] [place] [address] PCP - General 04/30/12 Jameson Fink MD [address] [place] [address] Referring Physician Obstetrics and Gynecology 12/22/22
--- NOTE | 2025-05-14 17:10 | ED.NECK ---
HPI - Neck Pain/Injury General Chief Complaint: Neck Pain/Injury Stated Complaint: chronic neck pain Time Seen by Provider: 05/14/25 12:02 History of Present Illness HPI Narrative: Patient has history of chronic neck pain with radiculopathy ongoing for years, over last few months the pain in her neck as started causing her to have bad headaches also. She has follow-up with pain specialist, neurosurgeon. No new symptoms today but has been taking her hydrocodone without improvement Related Data Home Medications ?Medication ?Instructions ?Recorded ?Confirmed ?Last Taken ?Type fexofenadine 180 mg tablet 180 mg PO DAILY 06/24/19 04/28/25 04/13/25 History (Nancy Allergy) cholecalciferol (vitamin D3) 50 2,000 unit PO DAILY 06/25/19 04/28/25 04/11/25 History mcg (2,000 unit) capsule fluticasone propionate 50 2 spray intranasal DAILY PRN 04/04/24 04/28/25 04/13/25 History mcg/actuation nasal allergy symptoms spray,suspension (Flonase Allergy Relief) trospium 20 mg tablet 20 mg PO BID 10/23/24 04/28/25 04/13/25 History omega-3 fatty acids 500 mg PO DAILY 03/24/25 04/28/25 04/11/25 History desvenlafaxine succinate 50 mg 50 mg PO DAILY 05/12/25 Unknown History tablet,extended release 24 hr Allergies Allergy/AdvReac Type Severity Reaction Status Date / Time cefdinir AdvReac Severe Blister Verified 05/14/25 09:59 Sulfa (Sulfonamide AdvReac Mild made UTI Verified 05/14/25 09:59 Antibiotics) worse Review of Systems Review of Systems: All systems reviewed & are unremarkable except as noted in HPI and below PMFSH Past Medical History Medical History BMI 27.0-27.9,adult Syncope and collapse Dysuria Symptomatic cholelithiasis Pure hypercholesterolemia Post-menopause Hypercholesteremia Generalized abdominal pain Gastro-esophageal reflux disease without esophagitis Esophageal reflux Encounter for screening colonoscopy Dizziness Back pain, chronic Allergic rhinitis, unspecified Abnormal MRI of abdomen Abnormal cholangiogram Screening mammogram, encounter for Anxiety Arthritis TIA (transient ischemic attack) Recurrent Surgical History Surgical History Status post lumbar spine surgery for decompression of spinal cord History of cholecystectomy (~03/2017) History of knee replacement procedure of left knee (~01/30/00) History of breast biopsy (06/11/15) (R) breast--benign-done @ [facility] History of hip replacement 2010 (R) hip 2014 (L) hip History of fusion of cervical spine (~2005) C5-6 History of back surgery (~2000) L2-3 History of total abdominal hysterectomy and bilateral salpingo-oophorectomy (~1998) menorrhagia/bladder repair History of breast implant removal (~1993) History of lumpectomy of right breast (~1982) History of breast augmentation (~1979) Family History Family History Mother Family history of malignant neoplasm Father Family history of emphysema Sibling , Explosion-[place] No problems noted. Sibling No problems noted. Social History Social History Smoking packs per day: 1 Smoking cigarettes per day: 20.0 Years smoked: 50 Smoking pack-years: 50.00 Smoking status: Current every day smoker Tobacco type: cigarettes Second hand tobacco smoke exposure: No Additional smoking assessment comments: CURRENTLY SMOKING 1/2 PACK/DAY Alcohol intake: current Substance use: never Substance use type: does not use Lack of Transportation: No Lack of Food: Never True Current Housing: I Have Housing Concerned About Future Housing: No Difficulty Paying Gas/Electric Bills: No Difficulty Paying for Meds: No Currently Unemployed: No Education: High School Diploma/GED Difficulty w/ Childcare or Family Care: No Living arrangements: alone Occupation/Education: retired Additional occupation/education comments: [employer] Gender identity (if verbalized by the patient): Female Sexual Orientation (if Verbalized by the Patient): Straight or Heterosexual Spiritual care concerns: No Exam Narrative: EXAMINATION OF ORGAN SYSTEMS/BODY AREAS: Constitutional: Vital signs per nursing GENERAL: Appears slightly uncomfortable HEAD: Normal with no signs of head trauma. EYES: EOMI, conjunctiva normal NECK: Normal range of motion to neck, no meningismus LUNGS: Nonlabored breathing. HEART: Regular rate and rhythm ABD: Soft, nontender to palpation EXT: Normal range of motion SKIN: No rashes or lesions. NEURO: Alert. No gross focal sensory or strength deficits. Clear speech, normal gait PSYCH: Normal affect Course Vital Signs Vital signs: Vital Signs Temperature 98.2 F 05/14/25 10:07 Pulse Rate 93 05/14/25 10:07 Respiratory Rate 16 05/14/25 10:07 Blood Pressure 105/71 05/14/25 10:07 Pulse Oximetry 100 05/14/25 10:07 Oxygen Delivery Room Air 05/14/25 10:07 Temperature 98.2 F 05/14/25 10:07 Pulse Rate 74 05/14/25 13:50 Respiratory Rate 16 05/14/25 13:50 Blood Pressure 128/72 05/14/25 13:50 Pulse Oximetry 95 05/14/25 13:50 Oxygen Delivery Room Air 05/14/25 10:07 MDM MDM Narrative Medical decision making narrative: 74F presents to the emergency department for headache and neck pain, ongoing for months. Had a recent CTA head/neck an MRI within the last any symptoms. Patient is hemodynamically stable. No focal neurological or cranial nerve deficits on exam. No meningeal signs. The headache was gradual in onset, it is not exertional and does not appear consistent with subarachnoid hemorrhage or intracranial bleeding. No trauma. Patient is given headache cocktail including Reglan, Toradol. Dose of dexamethasone and diazepam provided. On reevaluation, the patient feels significantly better with the headache resolved. No neurological deficits. Patient is comfortable going home for outpatient follow-up with primary care physician and/or neurology and provided with strict return precautions, especially for worsening headaches, neck pain/stiffness, fever or weakness, numbness/tingling or persistent vomiting. Differential Diagnosis Differential Diagnosis: Cervical radiculopathy, migraine, etc. Discharge Plan Discharge Clinical Impression: Chronic neck pain, Chronic headache Patient Disposition: Home Condition: Stable Instructions: Cervical Radiculopathy (ED), Neck Pain (ED) Additional Instructions: Try the meds as prescribed, and follow up with your specialists. Try your muscle relaxant -- you can take 10mg up to three times a day. You can always return to the ER for any further issues. Patient Language: Bulgarian Prescriptions: New prednisone 20 mg tablet 40 mg PO DAILY 4 Days Qty: 8 0RF No Action fexofenadine [Nancy Allergy] 180 mg tablet 180 mg PO DAILY cholecalciferol (vitamin D3) 50 mcg (2,000 unit) capsule 2,000 unit PO DAILY fluticasone propionate [Flonase Allergy Relief] 50 mcg/actuation spray,suspension 2 spray [place]AL DAILY PRN (Reason: allergy symptoms) Rx Instructions: administer into each nostril trospium 20 mg tablet 20 mg PO BID Rx Instructions: administer on an empty stomach clopidogrel 75 mg tablet 75 mg PO DAILY Qty: 90 1RF Rx Instructions: Do not take with Diclofenac sodium famciclovir 500 mg tablet 500 mg PO Q8H PRN (Reason: Cold Sores) Qty: 30 1RF cyclobenzaprine 10 mg tablet 10 mg PO BID PRN (Reason: PAIN) Qty: 30 0RF famotidine 40 mg tablet 40 mg PO DAILY Qty: 90 2RF hydrocodone-acetaminophen 5-325 mg tablet 2 tablet PO Q6H PRN (Reason: pain) Qty: 60 0RF desvenlafaxine succinate 50 mg tablet extended release 24 hr 50 mg PO DAILY Patient Comments: Prescribed by psychiatry omega-3 fatty acids Capsule 500 mg PO DAILY Follow-up/Referrals: Eber Guthrie DO [Primary Care Provider, Internal Medicine]
== END 2025-05-14 13:50 | disposition home or self-care (01) ==
PROVIDERS: Emergency Provider Emergency Medicine; PCP Internal Medicine
DX: M54.2 Cervicalgia (principal); R51.9 Headache, unspecified; G89.29 Other chronic pain; Z86.73 Personal history of transient ischemic attack (TIA), and cerebral infarction without residual deficits; E78.00 Pure hypercholesterolemia, unspecified; K21.9 Gastro-esophageal reflux disease without esophagitis; F17.210 Nicotine dependence, cigarettes, uncomplicated
CPT/HCPCS: 96372; 99284; A9270; J1100; J1885; J2765